=== PATIENT | female | born 1960 | race Caucasian/White ===

== ENCOUNTER 2019-12-28 09:39 | Outpatient (REF) | payer MEDICARE, SELFPAY ==
[2019-12-28 11:37] LABS: Free T4 (Free Thyroxine) 0.95 ng/dL (0.71-1.85); Thyroid Stimulating Hormone 23.02 mIU/mL (0.32-4.0)
[2019-12-29 09:05] LABS: Triiodothyronine T3 Total 86 ng/dL (76-181)
== END 2019-12-28 09:40 | disposition home or self-care (01) ==
LOC: HO.WFDLDS 09:39
PROVIDERS: PCP Family Medicine; Visit Provider Family Medicine
DX: E03.9 Hypothyroidism, unspecified (principal)
CPT/HCPCS: 84439; 84443; 84480

== ENCOUNTER → 2020-01-01 11:16 | Outpatient (BNVA) | payer MEDICARE, SELFPAY | PROVIDERS: PCP Family Medicine; Visit Provider Family Medicine Adult Medicine | DX: M54.16 Radiculopathy, lumbar region (principal); Z98.1 Arthrodesis status; Z87.891 Personal history of nicotine dependence; Z79.899 Other long term (current) drug therapy | CPT/HCPCS: 99214 ==

== ENCOUNTER → 2020-01-31 09:03 | Outpatient (BNVA) | payer MEDICARE, SELFPAY | PROVIDERS: PCP Family Medicine; Referring Provider Family Medicine; Visit Provider Internal Medicine | DX: E03.9 Hypothyroidism, unspecified (principal); R51.9 Headache, unspecified; Z79.899 Other long term (current) drug therapy | CPT/HCPCS: 99202; Q3014 ==

== ENCOUNTER 2020-02-18 07:58 | Outpatient (REF) | payer MEDICARE, SELFPAY ==
[2020-02-18 09:40] LABS: Anion Gap 14 (12-20); Blood Urea Nitrogen 11 mg/dL (9-16); Calcium 9.2 mg/dL (8.4-10.2); Carbon Dioxide 30 mmol/L (22-29); Chloride 98 mmol/L (96-108); Estimated Glomerular Filt Rate > 60; Glucose Random 90 mg/dL (60-115); Sodium 138 mmol/L (135-145)
[2020-02-18 09:44] LABS: Anion Gap 14 (12-20); Blood Urea Nitrogen 11 mg/dL (9-16); Calcium 9.1 mg/dL (8.4-10.2); Carbon Dioxide 31 mmol/L (22-29); Chloride 98 mmol/L (96-108); Estimated Glomerular Filt Rate > 60; Glucose Random 91 mg/dL (60-115); Potassium 4.1 mmol/l (3.3-5.1); Sodium 139 mmol/L (135-145)
[2020-02-18 09:52] LABS: B Type Natriuretic Peptide 19 pg/mL (<100)
[2020-02-18 10:04] LABS: Free T4 (Free Thyroxine) 1.15 ng/dL (0.71-1.85); Thyroid Stimulating Hormone 13.33 uIU/mL (0.32-4.0)
[2020-02-19 08:12] LABS: Triiodothyronine T3 Total 84 ng/dL (76-181)
[2020-02-19 18:43] LABS: Thyroglobulin Antibodies <1 IU/mL (< or = 1); Thyroid Peroxidase Antibodies 243 IU/mL (<9)
[2020-02-20 14:08] LABS: Follicle Stimulating Hormone 93.7 mIU/mL; Lutenizing Hormone 24.7 mIU/mL; Prolactin Undiluted 12.1 ng/mL
[2020-02-20 22:43] LABS: Adrenocorticotropic Hormone 19 pg/mL (6-50)
[2020-02-21 15:17] LABS: Thyroid Stimulating Immunoglob <89 % baseline (<140)
[2020-02-21 20:52] LABS: IGF-1 (Somatomedin C) 189 ng/mL (50-317); IGF-1 Z Score (Female) 0.8 SD (-2.0 - +2.0)
[2020-02-22 00:02] LABS: Estradiol Ultra Sensitive <2 pg/mL
[2020-02-22 15:13] LABS: Thyrotropin Receptor Antibody <1.00 IU/L (<=2.00)
== END 2020-02-18 07:59 | disposition home or self-care (01) ==
LOC: HO.WFDLDS 07:58
PROVIDERS: Nurse Practitioner Acute Care; Visit Provider Internal Medicine
DX: E03.9 Hypothyroidism, unspecified (principal); R51.9 Headache, unspecified; R60.9 Edema, unspecified
CPT/HCPCS: 36415; 76536; 80048; 82024; 82533; 82670; 83001; 83002; 83520; 83735; 83880; 84146; 84305; 84439; 84443; 84445; 84480; 86376; 86800

== ENCOUNTER 2020-02-18 14:25 | Outpatient (REF) | payer MEDICARE, SELFPAY ==
--- NOTE | 2020-02-18 14:29 | US_ITS ---
EXAMINATION: US THYROID CLINICAL INFORMATION: Hypothyroidism, unspecified. COMPARISON: None TECHNIQUE: Linear transducer ross-scale and color Doppler examination with attention to the region of the thyroid. FINDINGS: SIZE: Measurements of the thyroid lobes and nodules are given in sagittal, anteroposterior and transverse dimensions respectively. Right Thyroid Lobe: 5.52 x 1.38 x 1.54 cm, volume 6.15 mL. Parenchyma: The gland echotexture is heterogeneous. Thyroid vascularity is normal. Left Thyroid Lobe: 3.90 x 1.43 x 1.30 cm, volume 3.80 mL. Parenchyma: The gland echotexture is homogeneous. Thyroid vascularity is normal. Isthmus: 0.15 cm in maximum AP dimension. RIGHT THYROID LOBE: No nodules. ISTHMUS: No nodules. LEFT THYROID LOBE: No nodules. NODES: No lymphadenopathy is seen in the tissue surrounding the thyroid gland. US/US thyroid IMPRESSION: Slightly enlarged and heterogenous right thyroid lobe compared to left lobe. No nodules seen.
== END 2020-02-18 14:26 | disposition home or self-care (01) ==
LOC: HO.HMGCX 14:25
PROVIDERS: Visit Provider Internal Medicine
DX: Z13.89 Encounter for screening for other disorder (principal)
CPT/HCPCS: 76536

== ENCOUNTER → 2020-02-25 13:34 | Outpatient (BNVA) | payer MEDICARE, SELFPAY | PROVIDERS: PCP Family Medicine; Visit Provider Internal Medicine Pulmonary Disease | DX: J44.9 Chronic obstructive pulmonary disease, unspecified (principal); R09.02 Hypoxemia; Z99.81 Dependence on supplemental oxygen | CPT/HCPCS: 99212 ==

== ENCOUNTER → 2020-02-26 11:18 | Outpatient (BNVA) | payer MEDICARE, SELFPAY | PROVIDERS: Visit Provider Family Medicine Adult Medicine | DX: M54.16 Radiculopathy, lumbar region (principal); Z98.1 Arthrodesis status | CPT/HCPCS: 99212 ==

== ENCOUNTER → 2020-02-27 08:27 | Outpatient (BNVA) | payer MEDICARE, SELFPAY | PROVIDERS: PCP Family Medicine; Referring Provider Family Medicine; Visit Provider Internal Medicine | DX: E03.9 Hypothyroidism, unspecified (principal); E06.3 Autoimmune thyroiditis; E27.40 Unspecified adrenocortical insufficiency | CPT/HCPCS: 96374; Q3014 ==

== ENCOUNTER 2020-03-11 08:02 | Outpatient (REF) | payer MEDICARE, SELFPAY ==
[2020-03-12 18:37] LABS: Cortisol 30 Minute 31.5 mcg/dL; Cortisol 60 Minute 33.3 mcg/dL; Cortisol Baseline 18.6 mcg/dL
[2020-03-13 21:53] LABS: Adrenocorticotropic Hormone 25 pg/mL (6-50)
== END 2020-03-11 08:03 | disposition home or self-care (01) ==
LOC: HO.MDS 08:02
PROVIDERS: Visit Provider Internal Medicine
DX: E27.40 Unspecified adrenocortical insufficiency (principal)
CPT/HCPCS: 82024; 82533; 96374; J0834

== ENCOUNTER → 2020-04-21 07:41 | Outpatient (BNVA) | payer MEDICARE, SELFPAY | PROVIDERS: PCP Family Medicine; Visit Provider Internal Medicine | DX: Z13.89 Encounter for screening for other disorder (principal) | CPT/HCPCS: Q3014 ==

== ENCOUNTER → 2020-04-29 11:20 | Outpatient (BNVA) | payer MEDICARE, SELFPAY | PROVIDERS: PCP Family Medicine; Visit Provider Internal Medicine Pulmonary Disease | DX: Z13.89 Encounter for screening for other disorder (principal) | CPT/HCPCS: Q3014 ==

== ENCOUNTER 2020-05-05 10:49 | Outpatient (REF) | payer MEDICARE, SELFPAY ==
[2020-05-05 14:32] LABS: Free T4 (Free Thyroxine) 1.36 ng/dL (0.71-1.85); Thyroid Stimulating Hormone 1.49 uIU/mL (0.32-4.0)
== END 2020-05-05 10:50 | disposition home or self-care (01) ==
LOC: HO.WFDLDS 10:49
PROVIDERS: PCP Internal Medicine; Visit Provider Internal Medicine
DX: E03.9 Hypothyroidism, unspecified (principal)
CPT/HCPCS: 36415; 84439; 84443

== ENCOUNTER → 2020-05-20 10:51 | Outpatient (BNVA) | payer OTHER, MEDICARE, SELFPAY | PROVIDERS: Visit Provider Family Medicine Adult Medicine | DX: M54.16 Radiculopathy, lumbar region (principal); M54.12 Radiculopathy, cervical region; Z98.1 Arthrodesis status; Z79.899 Other long term (current) drug therapy | CPT/HCPCS: 99212 ==

== ENCOUNTER 2020-05-29 11:04 | Outpatient (REF) | payer MEDICARE, SELFPAY ==
[2020-05-29 15:10] LABS: Free T4 (Free Thyroxine) 1.06 ng/dL (0.71-1.85); Thyroid Stimulating Hormone 2.08 uIU/mL (0.32-4.0)
== END 2020-05-29 11:05 | disposition home or self-care (01) ==
LOC: HO.WFDLDS 11:04
PROVIDERS: Visit Provider Internal Medicine
DX: E03.9 Hypothyroidism, unspecified (principal)
CPT/HCPCS: 36415; 84439; 84443

== ENCOUNTER → 2020-06-02 07:49 | Outpatient (BNVA) | payer MEDICARE, SELFPAY | PROVIDERS: PCP Family Medicine; Visit Provider Internal Medicine | DX: Z13.89 Encounter for screening for other disorder (principal) | CPT/HCPCS: Q3014 ==

== ENCOUNTER 2020-06-17 10:01 | Outpatient (REF) | payer MEDICARE, SELFPAY | END 2020-06-17 10:02 | disposition home or self-care (01) | LOC: HO.WFDLDS 10:01 | PROVIDERS: Visit Provider Family Medicine | DX: R19.7 Diarrhea, unspecified (principal) | CPT/HCPCS: 87045; 87046 ==

== ENCOUNTER → 2020-06-19 14:05 | Outpatient (BNVA) | payer OTHER, MEDICARE, SELFPAY | PROVIDERS: PCP Family Medicine; Visit Provider Family Medicine Adult Medicine | DX: M54.16 Radiculopathy, lumbar region (principal); Z98.1 Arthrodesis status; M54.12 Radiculopathy, cervical region | CPT/HCPCS: 99212 ==

== ENCOUNTER 2020-06-20 11:14 | Outpatient (REF) | payer MEDICARE, SELFPAY ==
--- NOTE | ~2020-06-20 | CT_ITS ---
EXAMINATION: CT CHEST SCREENING CLINICAL INFORMATION: Personal history of nicotine dependence. COMPARISON: None. TECHNIQUE: Multidetector volumetric CT imaging of the chest is performed without contrast using low dose technique. Additional 2D coronal and sagittal reformatted images and axial 3D maximum intensity projection (MIP) images are generated on the CT workstation. This CT examination was performed using dose optimization techniques as appropriate, variously including the following: *Automated exposure control *Adjustment of mA and/or kV according to patient size (this includes techniques or standardized protocols for targeted exams where dose is matched to indication/reason for exam; i.e. extremities or head) *Use of iterative reconstruction technique DLP: 45 mGy-cm FINDINGS: LUNGS: There is centrilobular emphysema. No acute pneumonic process seen. There are calcified 2 mm pulmonary nodules left upper lobe axial image 105/6, 1 mm nodule right middle lobe axial image 40/4, 2 mm nodule right lower lobe axial image 351/6, and 2 mm nodule left lower lobe image 409/8. A subpleural nodule is seen left lower lobe lateral basal segment image 123/9. 4 mm noncalcified nodule right medial lower lobe pericardiac border axial image 315/6. MEDIASTINUM: The thyroid lobes are symmetric and normal. The central trachea and the bronchi are widely patent. PLEURA: There is no pleural effusion. No pleural mass or thickening. AXILLA: No lymphadenopathy. UPPER ABDOMEN: Visualized liver, gallbladder, pancreas, and adrenal glands are unremarkable. There are tiny calcified granulomas in spleen. OSSEOUS STRUCTURES: No lytic or sclerotic process seen. CT/CT lung screening IMPRESSION: Stable multiple calcified and noncalcified pulmonary nodules. No new findings. ASSESSMENT: Lung-RADS category 2: Benign. RECOMMENDATION: Routine annual low-dose CT screening in 12 months.
== END 2020-06-20 11:15 | disposition home or self-care (01) ==
LOC: HO.CT 11:14
PROVIDERS: PCP Family Medicine; Visit Provider Surgery
DX: Z12.2 Encounter for screening for malignant neoplasm of respiratory organs (principal); Z87.891 Personal history of nicotine dependence
CPT/HCPCS: 71271

== ENCOUNTER 2020-06-27 11:00 | Outpatient (RCR) | payer MEDICARE, SELFPAY ==
--- NOTE | 2020-06-17 15:35 | MHC.PT.EP ---
[facility] [place] [facility] [place] Office [place] Office [address] Efrain Jolly [address] [phone] F: [phone] F: [phone] F: [phone] F: [phone] Physical Therapy Plan of Care Date of Evaluation: 06/17/20 Date of Surgery: NA Diagnosis: STRAIN OF L TRAPEZIUS MM, STRAIN OF CERVICAL PORTION OF L UPPER TRAPEZIUS MM Assessment: Pt IS 60 YO F REFERRED TO PT FROM DR JO WITH UT STRAIN ON L. Pt REPORTS INITIAL PAIN R SHLDER/UT OVER A YEAR AGO WHEN HAVING SOME MEDICAL ISSUES IN FLA (?SEIZURES/?LOW O2 LEVEL) BUT HAD 3 FALLS WHICH SHE ATTRIBUTES LED TO NECK SHLDER PAIN. REPORTS PAIN STARTED/MOVED TO L SIDE AFTER N COND ROBERT TEST. PRESENTS WITH POOR POSTURE. CO B UT AND UE PAIN (DOES NOTE REPORT PARESTHESIA) WITH LIMITED END RANGE SHLDER ABDUCTION AND LIMITED CERV ROM WITH SIGNIFICANTLY TIGHT UTS. Pt SHOULD BENEFIT FROM PT TO ADDRESS THESE ISSUES. Frequency and Duration: The patient will be seen 2X/WK X 6 WKS Short Term Goals: 1. INCREASED POSTURE AWARENESS AND AWARENESS NECK CARE 2. I HEP WITH EX PLAN 3. CENTRALIZE SXS Longterm Goals: 1. IMPROVED SPADI 2. IMPROVED NPDI 3. INCREASED SHLDER ABD 5-10 DEGREES B 4. DECREASED NECK/SHLDER PAIN AT LEAST 50% WITH ADLS Treatment Plan: Modalities to reduce pain, spasms and effusion. Manual therapy to restore motion and function. Therapeutic exercise to improve strength and flexibility. Neuromuscular re-education for posture and balance. Therapeutic activities to return to functional activities of daily living. Electronically signed by: YASMIN ESTRADA PT Please sign and return to therapist. Thank you for your referral.
== END 2020-07-14 12:09 | disposition other institution (70) ==
LOC: HO.PTWFD 11:00
PROVIDERS: Visit Provider Family Medicine
DX: S46.812A Strain of other muscles, fascia and tendons at shoulder and upper arm level, left arm, initial encounter (principal)
CPT/HCPCS: 97014; 97110; 97140; 97162; 97530

== ENCOUNTER → 2020-07-21 09:49 | Outpatient (BNVA) | payer MEDICARE, SELFPAY | PROVIDERS: PCP Family Medicine; Visit Provider Internal Medicine Pulmonary Disease | DX: J44.9 Chronic obstructive pulmonary disease, unspecified (principal); Z99.81 Dependence on supplemental oxygen | CPT/HCPCS: 99212 ==

== ENCOUNTER → 2020-07-24 14:51 | Outpatient (BNVA) | payer OTHER, MEDICARE, SELFPAY | PROVIDERS: PCP Family Medicine; Visit Provider Anesthesiology | DX: M50.30 Other cervical disc degeneration, unspecified cervical region (principal); M47.812 Spondylosis without myelopathy or radiculopathy, cervical region; G89.4 Chronic pain syndrome | CPT/HCPCS: 99212 ==

== ENCOUNTER 2020-07-30 10:57 | Outpatient (REF) | payer MEDICARE, OTHER, SELFPAY ==
--- NOTE | ~2020-07-30 | MR_ITS ---
EXAMINATION: MR CERVICAL SPINE WITHOUT CONTRAST CLINICAL INFORMATION: Chronic neck pain. COMPARISON: Cervical spine MRI from 11/26/2006. TECHNIQUE: MRI of the cervical spine was obtained using routine sequences without contrast. FINDINGS: Left convex curvature of the upper thoracic spine. Otherwise, normal anatomic alignment. Moderate degenerative disc disease at C4-C5 and C6-C7. Mild degenerative disc disease at all additional cervical levels. Associated mixed Modic type discogenic endplate changes including mild Modic type I discogenic edema at C4-C5. No additional suspicious marrow edema. The vertebral body heights are largely maintained. There appears to be faintly increased T2 signal within the spinal cord at the level of C4-C5. No additional no demonstrated spinal cord signal abnormalities. Limited evaluation of the soft tissues of the neck without demonstrated abnormalities. The flow voids of the major cervical vessels are maintained. Normal appearance of the cervicomedullary junction and visualized posterior fossa. SPINAL LEVELS: C2-C3: Mild disc-osteophyte complex. There is mild left and no right uncovertebral joint arthropathy. There is mild bilateral facet joint arthropathy. There is no neural foraminal stenosis. There is no spinal canal stenosis. C3-C4: Mild disc-osteophyte complex. There is mild bilateral uncovertebral joint arthropathy. There is moderate left and mild right facet joint arthropathy. There is mild left and no right neural foraminal stenosis. There is no spinal canal stenosis. C4-C5: Prominent disc-osteophyte complex eccentric to the right. There is severe right and moderate left uncovertebral joint arthropathy. There is moderate left and mild right facet joint arthropathy. There is moderate bilateral neural foraminal stenosis. There is mild to moderate spinal canal stenosis. C5-C6: Mild disc-osteophyte complex with superimposed right central disc protrusion. There is mild bilateral uncovertebral joint arthropathy. There is mild bilateral facet joint arthropathy. There is mild right and no left neural foraminal stenosis. There is mild spinal canal stenosis. C6-C7: Mild to moderate disc-osteophyte complex. There is mild bilateral uncovertebral joint arthropathy. There is mild bilateral facet joint arthropathy. There is mild left and no right neural foraminal stenosis. There is no spinal canal stenosis. C7-T1: Normal annular contour. There is no uncovertebral joint arthropathy. There is no facet joint arthropathy. There is no neural foraminal stenosis. There is no spinal canal stenosis. MR/MR cervical spine wo con IMPRESSION: Moderate multilevel degenerative spondyloarthropathy of the cervical spine as described in detail above. Most notably, there are mild to moderate spinal canal stenoses at C4-C5 and C5-C6. Right central disc protrusion at C5-C6. There appears to be mild myelomalacia of the cervical cord at C4-C5. Moderate neural foraminal stenoses at C4-C5.
== END 2020-07-30 10:58 | disposition home or self-care (01) ==
LOC: HO.MRI 10:57
PROVIDERS: Visit Provider Anesthesiology
DX: M54.12 Radiculopathy, cervical region (principal); M50.30 Other cervical disc degeneration, unspecified cervical region; M47.812 Spondylosis without myelopathy or radiculopathy, cervical region; G89.4 Chronic pain syndrome
CPT/HCPCS: 72141

== ENCOUNTER → 2020-07-31 10:57 | Outpatient (BNVA) | payer OTHER, MEDICARE, SELFPAY | PROVIDERS: PCP Family Medicine; Visit Provider Family Medicine Adult Medicine | DX: M54.16 Radiculopathy, lumbar region (principal); Z98.1 Arthrodesis status; M54.12 Radiculopathy, cervical region ==

== ENCOUNTER → 2020-08-13 08:13 | Outpatient (BNVA) | payer OTHER, MEDICARE, SELFPAY | PROVIDERS: PCP Family Medicine; Visit Provider Anesthesiology ==

== ENCOUNTER 2020-08-14 10:17 | Outpatient (REF) | payer MEDICARE, SELFPAY ==
[2020-08-14 12:09] LABS: Free T4 (Free Thyroxine) 1.17 ng/dL (0.71-1.85); Thyroid Stimulating Hormone 0.81 uIU/mL (0.32-4.0)
== END 2020-08-14 10:18 | disposition home or self-care (01) ==
LOC: HO.WFDLDS 10:17
PROVIDERS: Visit Provider Internal Medicine
DX: E03.9 Hypothyroidism, unspecified (principal)
CPT/HCPCS: 36415; 84439; 84443

== ENCOUNTER → 2020-08-29 10:49 | Outpatient (BNVA) | payer OTHER, MEDICARE, SELFPAY | PROVIDERS: PCP Family Medicine; Visit Provider Nurse Practitioner Family | DX: M50.30 Other cervical disc degeneration, unspecified cervical region (principal); M47.812 Spondylosis without myelopathy or radiculopathy, cervical region; G89.4 Chronic pain syndrome; Z79.899 Other long term (current) drug therapy | CPT/HCPCS: 99212 ==

== ENCOUNTER → 2020-09-08 13:43 | Outpatient (BNVA) | payer MEDICARE, SELFPAY | PROVIDERS: PCP Family Medicine; Visit Provider Obstetrics & Gynecology | DX: N95.1 Menopausal and female climacteric states (principal) | CPT/HCPCS: 99202 ==

== ENCOUNTER → 2020-09-23 10:27 | Outpatient (BNVA) | payer MEDICARE, SELFPAY | PROVIDERS: PCP Family Medicine; Visit Provider Obstetrics & Gynecology | CPT/HCPCS: Q3014 ==

== ENCOUNTER → 2020-09-25 10:44 | Outpatient (BNVA) | payer OTHER, MEDICARE, SELFPAY | PROVIDERS: PCP Family Medicine; Visit Provider Family Medicine Adult Medicine | DX: M54.16 Radiculopathy, lumbar region (principal); M54.12 Radiculopathy, cervical region; Z98.1 Arthrodesis status | CPT/HCPCS: 99212 ==

== ENCOUNTER 2020-09-30 05:46 | Outpatient (REF) | payer MEDICARE, SELFPAY ==
--- NOTE | ~2020-09-30 | FL_ITS ---
EXAMINATION: XR FLUOROSCOPY WITH IMAGES CLINICAL INFORMATION: Neck pain COMPARISON: None TECHNIQUE: Fluoroscopy performed by Kecia Ames Fluoroscopy time: 0.5 minutes DAP: 0.441 Gycm2 Images: 1) FINDINGS: None is a single lateral image of cervical spine. Needle position posterior to C6 vertebra with contrast opacifying the epidural space. Visualized vertebral heights and alignment is normal. FL/FL guidance in treatment room IMPRESSION: Posterior epidural contrast seen on the lateral view. Fluoroscopy was provided to Kecia Ames during the procedure.
== END 2020-09-30 05:47 | disposition home or self-care (01) ==
LOC: HO.RADIR 05:46
PROVIDERS: Visit Provider Anesthesiology
DX: M50.30 Other cervical disc degeneration, unspecified cervical region (principal); M47.812 Spondylosis without myelopathy or radiculopathy, cervical region; G89.4 Chronic pain syndrome
CPT/HCPCS: 62321; J1100; J3300; Q9967

== ENCOUNTER → 2020-10-23 10:16 | Outpatient (BNVA) | payer OTHER, MEDICARE, SELFPAY | PROVIDERS: PCP Family Medicine; Visit Provider Family Medicine Adult Medicine | DX: M54.12 Radiculopathy, cervical region (principal); M54.16 Radiculopathy, lumbar region; Z98.1 Arthrodesis status | CPT/HCPCS: 99212 ==

== ENCOUNTER → 2020-10-28 10:19 | Outpatient (BNVA) | payer MEDICARE, SELFPAY | PROVIDERS: PCP Family Medicine; Visit Provider Internal Medicine Pulmonary Disease | DX: J44.9 Chronic obstructive pulmonary disease, unspecified (principal); Z99.81 Dependence on supplemental oxygen | CPT/HCPCS: 99212 ==

== ENCOUNTER → 2020-11-05 10:42 | Outpatient (BNVA) | payer MEDICARE, SELFPAY | PROVIDERS: PCP Family Medicine; Visit Provider Anesthesiology | DX: M50.30 Other cervical disc degeneration, unspecified cervical region (principal); M47.812 Spondylosis without myelopathy or radiculopathy, cervical region; G89.4 Chronic pain syndrome | CPT/HCPCS: 99212 ==

== ENCOUNTER 2020-11-20 11:46 | Outpatient (REF) | payer MEDICARE, SELFPAY ==
--- NOTE | ~2020-11-20 | MM_ITS ---
EXAMINATION: MM SCREENING DIGITAL BREAST TOMOSYNTHESIS, BILATERAL CLINICAL INFORMATION: Screening. Asymptomatic. The lifetime risk of breast cancer based on the Tyrer-Cuzick Model is 4%. COMPARISON: Mammography: 11/15/2019, 11/09/2018, 10/04/2017 TECHNIQUE: Digital breast tomosynthesis is performed in both the craniocaudal and mediolateral oblique views along with computer-aided detection (CAD). Synthesized 2D images are generated from the tomosynthesis. FINDINGS: There are scattered areas of fibroglandular density (ACR BI-RADS breast composition Category b). There are no significant masses, abnormal calcifications, or other abnormalities. Parenchymal pattern is similar to prior studies. The axilla and skin contours are unremarkable. MM/MM tomosynthesis screening BI IMPRESSION: No mammographic evidence of malignancy. ASSESSMENT: BI-RADS 1: Negative RECOMMENDATION: Routine annual mammography screening. This patient's information was entered into a reminder system with a target due date for their next mammogram.
== END 2020-11-20 11:47 | disposition home or self-care (01) ==
LOC: HO.MAMMO 11:46
PROVIDERS: PCP Family Medicine; Visit Provider Family Medicine
DX: Z12.31 Encounter for screening mammogram for malignant neoplasm of breast (principal)
CPT/HCPCS: 77063; 77067

== ENCOUNTER → 2020-11-25 10:14 | Outpatient (BNVA) | payer MEDICARE, SELFPAY | PROVIDERS: PCP Family Medicine; Visit Provider Nurse Practitioner Family | DX: Z51.81 Encounter for therapeutic drug level monitoring (principal); M50.30 Other cervical disc degeneration, unspecified cervical region; M47.812 Spondylosis without myelopathy or radiculopathy, cervical region; M54.2 Cervicalgia; G89.4 Chronic pain syndrome | CPT/HCPCS: 99212 ==

== ENCOUNTER → 2020-12-23 10:20 | Outpatient (BNVA) | payer OTHER, MEDICARE, SELFPAY | PROVIDERS: PCP Family Medicine; Visit Provider Family Medicine Adult Medicine ==

== ENCOUNTER 2020-12-30 06:15 | Outpatient (REF) | payer OTHER, MEDICARE, SELFPAY | END 2020-12-30 06:16 | disposition home or self-care (01) | LOC: HO.RADIR 06:15 | PROVIDERS: Visit Provider Anesthesiology | DX: Z13.89 Encounter for screening for other disorder (principal) ==

== ENCOUNTER → 2021-02-19 10:48 | Outpatient (BNVA) | payer MEDICARE, SELFPAY | PROVIDERS: PCP Family Medicine; Visit Provider Family Medicine Adult Medicine | DX: Z51.81 Encounter for therapeutic drug level monitoring (principal); M47.812 Spondylosis without myelopathy or radiculopathy, cervical region; M50.30 Other cervical disc degeneration, unspecified cervical region; M54.2 Cervicalgia; G89.4 Chronic pain syndrome | CPT/HCPCS: 99212 ==

== ENCOUNTER → 2021-03-04 10:38 | Outpatient (BNVA) | payer MEDICARE, SELFPAY | PROVIDERS: PCP Family Medicine; Visit Provider Internal Medicine Pulmonary Disease | DX: J44.9 Chronic obstructive pulmonary disease, unspecified (principal); Z99.81 Dependence on supplemental oxygen | CPT/HCPCS: 99212 ==

== ENCOUNTER → 2021-03-26 09:50 | Outpatient (BNVA) | payer MEDICARE, SELFPAY | PROVIDERS: PCP Family Medicine; Visit Provider Anesthesiology | DX: M50.30 Other cervical disc degeneration, unspecified cervical region (principal); M47.812 Spondylosis without myelopathy or radiculopathy, cervical region; G89.4 Chronic pain syndrome | CPT/HCPCS: 99212 ==

== ENCOUNTER 2021-04-30 18:01 | Outpatient (REF) | payer MEDICARE, SELFPAY | END 2021-04-30 18:02 | disposition home or self-care (01) | LOC: HO.LNP 18:01 | PROVIDERS: Visit Provider Family Medicine | DX: R30.0 Dysuria (principal) | CPT/HCPCS: 87086 ==

== ENCOUNTER → 2021-05-05 10:51 | Outpatient (BNVA) | payer MEDICARE, SELFPAY | PROVIDERS: PCP Family Medicine; Visit Provider Internal Medicine Pulmonary Disease | DX: J44.9 Chronic obstructive pulmonary disease, unspecified (principal); Z99.81 Dependence on supplemental oxygen; Z87.891 Personal history of nicotine dependence | CPT/HCPCS: 94618; 99212 ==

== ENCOUNTER 2021-05-28 12:07 | Day surgery (SDC) | payer MEDICARE, SELFPAY ==
[2021-05-22 13:54] VITALS: BMI 26.0
--- NOTE | ~2021-05-28 | FL_ITS ---
EXAMINATION: XR FLUOROSCOPY WITH IMAGES CLINICAL INFORMATION: Cervical spinal cord stimulator COMPARISON: MR C-spine 07/30/2020, fluoroscopic views 09/30/2020. TECHNIQUE: Fluoroscopy performed by Dr. Ronnie De Guzman. Fluoroscopy time: 9.3 minutes DAP: 19.1 Gycm2 Images: 6 FINDINGS: There are 2 spinal stimulator electrodes seen ascending the posterior cervical spinal canal. The electrode tips are at level of C2. There is no visible kinking or defect of the leads. FL/FL guidance in OR IMPRESSION: Fluoroscopy for pain management procedure.
--- NOTE | 2021-05-28 11:20 | MHC.SHP ---
Pre-Procedural Eval Section A Date of Service: 05/28/21 The patient is an INPATIENT: No Changes since office visit: Yes Patient answered all questions The History & Physical has been completed within 30 days and I have reviewed it.: No Section B Chief Complaint: Post Laminectomy Syndrome, Cervical Details of Present Illness: As above Relevant Social History: None Present Medications: see Short Stay Collaborative assessment Medical History: No relevant PMH History of Previous Operations: Relevant previous surgery/procedure and date(s) Allergies: Allergies Allergy/AdvReac Type Severity Reaction Status Date / Time No Known Allergies Allergy Verified 05/05/21 11:33 Review of Systems Sugical H&P ROS: Negative: Constitution, Cardiovascular, Respiratory, Neurological, Psychiatric, Hem-Onc, Allergic/Immunologic, Gastrointestinal, Genitourinary, Musculoskeletal, Integumentary, Endocrine and Eyes/Ears/Nose/Throat Exam Surgical H&P Exam: Normal: HEENT, Normal: Heart, Normal: Lungs, Normal: Extremities, Normal: Abdomen, Normal: Skin and Normal: Neurological Plan Diagnosis/Plan: Unchanged I have reviewed the history and physical and performed a pertinent physical examination on my patient. No changes have occurred unless specified.
--- NOTE | 2021-05-28 11:21 | W.PM.OPN ---
Operative Note Operative Note Date of Service: 05/28/21 Narrative: Trial OF SCS. ? Ms. Stanley is very pleasant?61 years old lady who came today into the operating room for trial of spinal cord stimulator for the treatment of cervical post laminectomy syndrome. Preoperatively patient received 1 g cephasolin approximately 20 minutes before procedure. After obtaining informed consent patient was brought to the operating room, SHE was positioned prone on operating table, [employer] monitors were applied and patient was deeply sedated.? The patient was taken inside of the operating room where she was positioned prone operating table.? Time-out was performed delineating correct site, side, the nature of the procedure, patient's allergy, preoperative antibiotic if needed.? All operating room staff was participating in OR time-out procedure. Patient's entire back was prepped with ChloraPrep twice and draped with full body fenestrated drape.? Sterilely draped C-arm was brought over operating field and sqare picture of T6 T7 and T8 vertebrae as were demonstrated on the screen.? Attention FIRST? was concentrated on the T6-T7 epidural interspace.? The location of the projection of the right pedicle center of the __T8_ vertebra was found on the skin using C-arm.? This location was injected with mixture of lidocaine 2% and Marcaine 0.5% 5 cc.? After that 11 blade was used to make a singh on the skin.? 10 cm 14 gauge curved introducer epidural needle was inserted through the singh and advanced to T6-T7 epidural interspace.? The advancement of the needle was performed on anterior posterior and lateral views.? Guitar wire and loss of resistance technique were used to locate epidural space.? When guitar wire was spread in the epidural fashion, epidural lead was inserted through the skin and it was advanced to the posterion epidural space. At the point of T4 -T5 posterior epidural space significant resistance for advancement of the lead was met. The introducer needle was removed under the fluoroscopy guidance and replaced with blue sheath introducer device. This allowed me to overcome the resistance and advance the epidural lead slight ly right to the midline approximately to the bottom of C2 vertebra in the posterior epidural space. , SLIGHTLY RIGHT OF THE MIDLINE.? After that location of the projection of the LEFT pedicle center of the T8 vertebra was found on the skin using C-arm.? This location was injected with mixture of lidocaine 2% and Marcaine 0.5% 5 cc.? After that 11 blade was used to make a singh on the skin.?10 cm 14 gauge curved introducer epidural needle was inserted through the singh and advanced toT6-B4geexftss interspace.? The advancement of the needle was performed on anterior posterior and lateral views.? Guitar wire and loss of resistance technique were used to locate epidural space.? When guitar wire was spread in the epidural fashion, epidural lead was inserted through the needle and advanced to the posterior epidural space. Again difficulty with advancement was met at the T5 posterior epidural space.The introducer needle was removed under the fluoroscopy guidance and replaced with blue sheath introducer device. This allowed me to overcome the resistance and advance the epidural lead slightly left to the midline approximately to the midbody of C2 vertebra in the posterior epidural space SLIGHTLY left OF THE MIDLINE.? At this moment patient was awaken and the epidural leads were connected to the testing device.? The patient reported stimulation corresponding to her pain.? After satisfactory position of the leads were established the needles were withdrawn, the stylette wires were removed from the epidural leads.? The anchoring devices were dislodged on the leads and advanced to the level of the skin.? The anchoring devices were sutured with two 0-0 silk sutures to the skin of the patient.? The anchoring screws were tightened until three click were heard. The leads were connected to testing device. Bacitracin ointment was applied to the entrance point of bilateral needles.? Sterile dressing was applied to the patient's back.? The testing device was also glued to the patient's back.? The patient tolerated procedure well ,she was taken to PACU for recovery.
[2021-05-28 13:03] VITALS: BP 111/63; PULSE 73; RESP 18; TEMP 36.6; O2SAT 65
[2021-05-28 13:16] LABS: Free T4 (Free Thyroxine) 1.03 ng/dL (0.71-1.85); Thyroid Stimulating Hormone 6.32 uIU/mL (0.32-4.0)
--- NOTE | 2021-05-28 13:22 | PC.NURSE ---
pt in without o2. 65% when placed on monitor and up to 73% at rest. placed on 3l and up to 97-98%. states hasn't received portable tank yet since being ordered in jacobo's office on 05/06 at her visit. anesthesia aware and came to bedside to inform patient of danger possibilities with surgery. awaiting to speak with dr kelly.
--- NOTE | 2021-05-28 13:32 | PC.NURSE ---
patient states she is supposed to be on home o2. 3lnc when ambulating around and 1l nc when at rest. patient arrived to hospital without her portable oxygen and states shes on a waiting list for a portable oxygen but has home o2. no sob or resp distress noted. upon arrival she was 73 percent on room air hob 90 degrees when sitting up. patient called her daughter to let her know that she will most likely be admitted to the hospital per anesthesia. md campoevrde.
[2021-05-28] MEDS: Lactated Ringers 1,000 ML 50 ML IVCONT (13:43)
--- NOTE | 2021-05-28 13:46 | P.CONAN_ITS ---
HPI - Anesthesia Eval Consult details Narrative: Chronic Pain PMFSH Active Problems Active Problems: All Active Problems (Updated 05/22/21 @ 13:54 by Gloria Dempsey RN) Encounter for screening mammogram for breast cancer (Acute) Screening for colon cancer (Acute) Screening for cervical cancer (Acute) Screening for osteoporosis (Acute) Asthma, mild intermittent, well-controlled (Acute) Headache (Acute) Moderate COPD (chronic obstructive pulmonary disease) (Acute) Supplemental oxygen dependent (Acute) Bilateral lower extremity edema (Acute) Anxiety (Acute) Strain of cervical portion of left trapezius muscle (Acute) Strain of left trapezius muscle (Acute) Diarrhea (Acute) Encounter for annual wellness visit (AWV) in Medicare patient (Acute) History of COVID-19 (Acute) Dysuria (Acute) Median neuropathy (Acute) Chronic pain syndrome (Acute) Cervicalgia (Acute) Spondylosis, cervical (Acute) Degeneration, intervertebral disc, cervical (Acute) Left cervical radiculopathy (Acute) Huma's disease (Acute) Hypothyroidism (Acute) Right lumbar radiculopathy (Acute) History of lumbar fusion (Acute) Past Medical History Medical History Cervicalgia Chronic pain syndrome COVID-19 vaccine series completed Degeneration, intervertebral disc, cervical Huma's disease History of COVID-19 Hypothyroidism Left cervical radiculopathy Median neuropathy Right lumbar radiculopathy Spondylosis, cervical Supplemental oxygen dependent Family History Family History Father No problems noted. Mother Type 2 diabetes mellitus Daughter Hypothyroidism Family history of problems with anesthesia: No Surgical History Surgical History History of back surgery History of biopsy History of bunionectomy History of lumbar fusion History of pubovaginal sling Hx of colonoscopy Hx of cystoscopy Hx of tubal ligation History of Problems with Anesthesia: No Social History Social History Household Members Other:: mother Housing: Other Housing Other:: trailer Are you a primary geriatric personal care aide to a significant other at home: Yes (takes care of mother) Do you presently have visiting nurse or other home services: No Alcohol intake: never Patient Tobacco Use Status: Former Tobacco user Quit Date: 2018 Tobacco use type: Cigarette e-Cigarette/Vaping Use: Never Used Second Hand Smoke Exposure: No Use of substances other than those prescribed or required for medical reasons: No Have you been hit, kicked, punched, or otherwise hurt by someone within the past year? If so, by whom?: No Are you DNR?: No Advance Directives: No Advance Directives Information Provided: Yes Advance Directives on File: No Recently lost weight without trying: No Eating poorly because of decreased appetite: No Nutrition Risks: No Nutritional Risk Poor oral hygiene: No service: No Current occupational status: retired Current occupational exposures/hazards: No Cognitive needs: No Hearing needs: No Vision needs: No Meds Allergies Allergy/AdvReac Type Severity Reaction Status Date / Time No Known Allergies Allergy Verified 05/28/21 13:02 Active Medications: Current Medications Lactated Ringer's (Lr) 1,000 mls @ 50 mls/hr IVCONT .Q20H JACI Last Admin: 05/28/21 13:43 Dose: 50 mls/hr Documented by: Home Medications Medication Instructions Recorded Confirmed Last Taken Type methocarbamol 750 mg tablet 750 mg PO BID PRN 01/01/20 05/22/21 Unknown History duloxetine 30 mg capsule,delayed 30 mg PO BEDTIME 05/22/21 05/22/21 Unknown History release furosemide 40 mg tablet 40 mg PO DAILY PRN 05/22/21 05/22/21 Unknown History umeclidinium 62.5 mcg-vilanterol 1 inh INHALATION DAILY 05/22/21 05/22/21 05/28/21 11:00 History 25 mcg/actuation powdr for inhalation (Anoro Ellipta) Exam Exam Date and Time: May 28, 2021 1346 Height,Weight and Vital Signs: Height 5 ft 3 in Weight 66.678 kg Last Vital Signs Temp 97.8 F 05/28/21 13:03 Pulse 73 05/28/21 13:03 Resp 18 05/28/21 13:03 BP 111/63 05/28/21 13:03 Pulse Ox 65 L 05/28/21 13:03 Pertinent Lab Results Pertinent Lab Results: Laboratory Tests 05/28/21 12:05 TSH 6.32 H Free T4 1.03 Airway Mallampati Class: II TM Dist: >3cm Neck ROM: Full Loose/Missing/Broken Teeth: Yes Heart: rrr+[id number] Lungs: cta b/l Assessment and Plan Assessment Anesthesia Assessment: Anesthesia Plan Discussed Final Anesthetic Review Family History of Problems with Anesthesia: No History of Problems with Anesthesia: No NPO: Yes ASA Class: III Final Preanesthetic Review: No Changes in Pt Med Stat, Meds/Allgs Chart Reviewed, Consent Obtained/Reviewed and Anes Risks/Benef Reviewed Patient Risk: High Procedure Risk: Intermediate Assessment/Block/Sedation in SS: Assess/Block/Sedation-SS Anesthetic Plan Anesthetic Plan: MAC: and Agree w/ Assess. and Plan Disposition: Standard PACU
[2021-05-28 13:48] VITALS: BP 115/55; PULSE 67; RESP 16; O2SAT 95
--- NOTE | 2021-05-28 13:50 | PC.NURSE ---
no s/sx of resp distress. patient states she feels alot better with the oxygen she is on 3l nc hob 90 degrees. aware of her plan of care. patient spoke to her daughter and states that she is going to bring in her oxygen tank from home. she may be admitted after procedure.
[2021-05-28 15:48] VITALS: BP 136/80; PULSE 70; RESP 12; TEMP 36.3; O2SAT 95
--- NOTE | 2021-05-28 15:51 | PM.OP ---
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
[2021-05-28] MEDS: oxyCODONE HCl Immed Release 5 MG TABLET 10 MG PO (15:57)
[2021-05-28 16:03] VITALS: BP 131/82; PULSE 74; RESP 18; O2SAT 94
[2021-05-28 16:18] VITALS: BP 137/79; PULSE 81; RESP 18; TEMP 36.3; O2SAT 95
== END 2021-05-28 17:00 | disposition home or self-care (01) ==
PROVIDERS: Internal Medicine; PCP Family Medicine; Visit Provider Anesthesiology
PROC: (CPT 63650; principal; 2021-05-28 14:10)
DX: M50.30 Other cervical disc degeneration, unspecified cervical region (principal); G89.4 Chronic pain syndrome; M96.1 Postlaminectomy syndrome, not elsewhere classified; M47.812 Spondylosis without myelopathy or radiculopathy, cervical region; M54.12 Radiculopathy, cervical region; G56.13 Other lesions of median nerve, bilateral upper limbs; Z98.1 Arthrodesis status; J44.9 Chronic obstructive pulmonary disease, unspecified; Z99.81 Dependence on supplemental oxygen; E03.9 Hypothyroidism, unspecified; E06.3 Autoimmune thyroiditis; G43.909 Migraine, unspecified, not intractable, without status migrainosus; Z87.891 Personal history of nicotine dependence
CPT/HCPCS: 63650 ×2; 36415; 84439; 84443; C1713; C1778; J0690; J2250

== ENCOUNTER → 2021-06-01 07:50 | Outpatient (BNVA) | payer MEDICARE, SELFPAY | PROVIDERS: PCP Family Medicine; Visit Provider Internal Medicine | DX: E03.9 Hypothyroidism, unspecified (principal); E27.40 Unspecified adrenocortical insufficiency | CPT/HCPCS: Q3014 ==

== ENCOUNTER → 2021-06-03 14:47 | Outpatient (BNVA) | payer MEDICARE, SELFPAY | PROVIDERS: PCP Family Medicine; Visit Provider Anesthesiology | DX: M50.30 Other cervical disc degeneration, unspecified cervical region (principal); M47.812 Spondylosis without myelopathy or radiculopathy, cervical region; M54.2 Cervicalgia; G89.4 Chronic pain syndrome | CPT/HCPCS: 99212 ==

== ENCOUNTER → 2021-06-17 11:18 | Outpatient (BNVA) | payer MEDICARE, SELFPAY | PROVIDERS: PCP Family Medicine; Visit Provider Internal Medicine Pulmonary Disease | DX: J44.9 Chronic obstructive pulmonary disease, unspecified (principal); Z99.81 Dependence on supplemental oxygen; Z87.891 Personal history of nicotine dependence | CPT/HCPCS: 99212 ==

== ENCOUNTER 2021-07-09 09:22 | Day surgery (SDC) | payer MEDICARE, SELFPAY ==
[2021-07-09] VITALS (16 sets, daily range): BP systolic 75–114; BP diastolic 45–73; PULSE 60–96; RESP 9–18; TEMP 36.4–37; O2SAT 92–99; BMI 25.3
--- NOTE | ~2021-07-09 | FL_ITS ---
EXAMINATION: XR FL WITH IMAGES CLINICAL INFORMATION: Spinal stimulator insertion. COMPARISON: None TECHNIQUE: Fluoroscopy performed by Dr. Ronnie De Guzman. Fluoroscopy Time: 9.5 minutes. DAP: 12.1 mGycm2. Images: 2. FINDINGS: There are 2 cervical spine images obtained revealing spinal stimulator implants positioned in posterior epidural space from C2 to C4 vertebra. There is loss of C4-C5 disc height. FL/FL guidance in OR IMPRESSION: Fluoroscopy guidance was provided to referring physician for pain management.
--- NOTE | 2021-07-09 11:11 | HO.ANESPROP2 ---
HPI - Anesthesia Eval Consult details Narrative: 61 F for cervical spinal cord stimulator sue , COPD on supplemental O2. 1-3 litrers at home . Cervical radiculopathy lower back pain with radiation to b/l LE . tingling and numbness neck pain with radiation to both UE with tingling and numbness . PMFSH Active Problems Active Problems: All Active Problems (Updated 06/17/21 @ 11:34 by Macho Bynum MD) COPD (chronic obstructive pulmonary disease) (Acute) Encounter for screening mammogram for breast cancer (Acute) Screening for colon cancer (Acute) Screening for cervical cancer (Acute) Screening for osteoporosis (Acute) Asthma, mild intermittent, well-controlled (Acute) Headache (Acute) Supplemental oxygen dependent (Acute) Bilateral lower extremity edema (Acute) Anxiety (Acute) Strain of cervical portion of left trapezius muscle (Acute) Strain of left trapezius muscle (Acute) Diarrhea (Acute) Encounter for annual wellness visit (AWV) in Medicare patient (Acute) History of COVID-19 (Acute) Dysuria (Acute) Median neuropathy (Acute) Chronic pain syndrome (Acute) Cervicalgia (Acute) Spondylosis, cervical (Acute) Degeneration, intervertebral disc, cervical (Acute) Left cervical radiculopathy (Acute) Huma's disease (Acute) Hypothyroidism (Acute) Right lumbar radiculopathy (Acute) History of lumbar fusion (Acute) Past Medical History Medical History (Updated 06/17/21 @ 11:34 by Macho Bynum MD) Cervicalgia Chronic pain syndrome COVID-19 vaccine series completed Degeneration, intervertebral disc, cervical Huma's disease History of COVID-19 Hypothyroidism Left cervical radiculopathy Median neuropathy Right lumbar radiculopathy Spondylosis, cervical Supplemental oxygen dependent Family History Family History Father No problems noted. Mother Type 2 diabetes mellitus Daughter Hypothyroidism Family history of problems with anesthesia: No Surgical History Surgical History History of back surgery History of biopsy History of bunionectomy History of lumbar fusion History of pubovaginal sling Hx of colonoscopy Hx of cystoscopy Hx of tubal ligation History of Problems with Anesthesia: No Social History Social History Household Members Other:: mother Housing: Other Housing Other:: trailer Are you a primary after school caregiver to a significant other at home: Yes (takes care of mother) Do you presently have visiting nurse or other home services: No Alcohol intake: never Patient Tobacco Use Status: Former Tobacco user Quit Date: 2018 Tobacco use type: Cigarette e-Cigarette/Vaping Use: Never Used Second Hand Smoke Exposure: No Use of substances other than those prescribed or required for medical reasons: No Are you DNR?: No Advance Directives: No Advance Directives Information Provided: Yes Recently lost weight without trying: No Patient : No service: No Current occupational status: retired Current occupational exposures/hazards: No Cognitive needs: No Hearing needs: No Vision needs: No Meds Allergies Allergy/AdvReac Type Severity Reaction Status Date / Time No Known Allergies Allergy Verified 07/01/21 15:42 Home Medications Medication Instructions Recorded Confirmed Last Taken Type methocarbamol 750 mg tablet 750 mg PO BID PRN 01/01/20 07/01/21 Unknown History duloxetine 30 mg capsule,delayed 30 mg PO BEDTIME 05/22/21 07/01/21 Unknown History release furosemide 40 mg tablet 40 mg PO DAILY PRN 05/22/21 07/01/21 Unknown History umeclidinium 62.5 mcg-vilanterol 1 inh INHALATION DAILY 05/22/21 07/09/21 07/09/21 History 25 mcg/actuation powdr for inhalation (Anoro Ellipta) levothyroxine 100 mcg tablet 112 mcg PO DAILY 07/09/21 07/09/21 07/09/21 History Exam Exam Date and Time: July 09, 2021 1111 Height,Weight and Vital Signs: Height 5 ft 3 in Weight 64.864 kg Last Vital Signs Temp 98.6 F 07/09/21 10:19 Pulse 74 07/09/21 10:19 Resp 18 07/09/21 10:19 BP 112/62 07/09/21 10:19 Pulse Ox 97 07/09/21 10:19 Airway Mallampati Class: II TM Dist: >3cm Neck ROM: Full Loose/Missing/Broken Teeth: Yes (Chipped teeth ) Heart: S1, S2 Lungs: b/l breath sounds Assessment and Plan Assessment Anesthesia Assessment: Anesthesia Plan Discussed and Chart Reviewed Final Anesthetic Review Family History of Problems with Anesthesia: No History of Problems with Anesthesia: No NPO: Yes ASA Class: III Final Preanesthetic Review: Meds/Allgs Chart Reviewed, Consent Obtained/Reviewed and Anes Risks/Benef Reviewed Patient Risk: High Procedure Risk: Intermediate Anesthetic Plan Anesthetic Plan: MAC: Disposition: Standard PACU
--- NOTE | 2021-07-09 11:25 | PC.NURSE ---
pt chose left buttock as site for cervical spinal cord stimulation implant.
--- NOTE | 2021-07-09 11:27 | PC.NURSE ---
vendor at bedside
[2021-07-09] MEDS: Lactated Ringers 1,000 ML 80 ML IVCONT (11:38)
--- NOTE | 2021-07-09 11:38 | MHC.SHP ---
Pre-Procedural Eval Section A Date of Service: 07/09/21 Section B Chief Complaint: postlaminectomy syndrome Details of Present Illness: as above Relevant Family History (Specify if Yes): No Relevant Social History: None Present Medications: see Short Stay Collaborative assessment Medical History: No relevant PMH History of Previous Operations: Relevant previous surgery/procedure and date(s) Allergies: Allergies Allergy/AdvReac Type Severity Reaction Status Date / Time No Known Allergies Allergy Verified 07/01/21 15:42 Review of Systems Sugical H&P ROS: Negative: Constitution, Cardiovascular, Respiratory, Neurological, Psychiatric, Hem-Onc, Allergic/Immunologic, Gastrointestinal, Genitourinary, Musculoskeletal, Integumentary, Endocrine and Eyes/Ears/Nose/Throat Exam Surgical H&P Exam: Normal: HEENT, Normal: Heart, Normal: Lungs, Normal: Extremities, Normal: Abdomen, Normal: Skin and Normal: Neurological Plan Diagnosis/Plan: Unchanged I have reviewed the history and physical and performed a pertinent physical examination on my patient. No changes have occurred unless specified.
--- NOTE | 2021-07-09 11:39 | W.PM.OPN ---
Operative Note Operative Note Date of Service: 05/28/21 Narrative: Implantation of SCS cervical position [employer] ? Ms. Stanley is very pleasant?61 years old lady who came today into the operating room for trial of spinal cord stimulator for the treatment of cervical post laminectomy syndrome. Preoperatively patient received 1 g cephasolin approximately 20 minutes before procedure. After obtaining informed consent patient was brought to the operating room, SHE was positioned prone on operating table, [place] [employer] monitors were applied and patient was deeply sedated.? Time-out was performed delineating correct site, side, the nature of the procedure, patient's allergy, preoperative antibiotic if needed.? All operating room staff was participating in OR time-out procedure. Patient's entire back was prepped with ChloraPrep twice and draped with full body fenestrated drape and ioban film.? Sterilely draped C-arm was brought over operating field and sqare picture of T6 T7 and T8 vertebrae as were demonstrated on the screen.?The skin was infiltrated with the mixture of lidocain 2% and bupivacain 0.5% in the projection of mT8. T9 and T10 spinouse procesess. 10 Blade scalpel was used to perform strict midline 6.5 cm long incision. Thorough hemostasis was obtained, After that attention was concentrated on the T6-T7 epidural interspace.? The location of the projection of the right pedicle center of the T8_ vertebra was found on the skin using C-arm.? This location was injected with mixture of lidocaine 2% and Marcaine 0.5% 5 cc.? ? 10 cm 14 gauge introducer epidural needle was inserted through the prevertebral fascia and advanced to T6-T7 epidural interspace.? The advancement of the needle was performed on anterior posterior and lateral views.? Guitar wire and loss of resistance technique were used to locate epidural space.? When guitar wire was spread in the epidural fashion, epidural lead was inserted through the skin and it was advanced to the posterior epidural space.The lead was advanced strict at the midline approximately to the bottom of C2 vertebra in the posterior epidural space. After that location of the projection of the LEFT pedicle center of the T8 vertebra was found using C-arm.? This location was injected with mixture of lidocaine 2% and Marcaine 0.5% 5 cc.?10 cm 14 gauge introducer epidural needle was inserted through the fascia and advanced [id number] interspace.? The advancement of the needle was performed on anterior posterior and lateral views.? Guitar wire and loss of resistance technique were used to locate epidural space.? When guitar wire was spread in the epidural fashion, epidural lead was inserted through the needle and advanced to the posterior epidural space. After that the epidural lead was advanced slightly left to the midline approximately to the midbody of C2 vertebra in the posterior epidural space.? At this moment patient was awaken and the epidural leads were connected to the testing device.? The patient reported stimulation corresponding to her pain.? After satisfactory position of the leads were established the needles were withdrawn, the stylette wires were removed from the epidural leads.? The anchoring devices were dislodged on the leads and advanced to the level of the prevertebral fascia.?After that the anchoring devices were sutured to the prevertebral fascia using Tycron 1-0 sutures - 2 surures per each anchoroing device and after that the fixating screws were turned until three clicks were heard. The wound was irrigated with vancomycin containing saline and packed with the 4x4 soaked with the same saline solution. After that attention was concentrated on the left upper buttock of the patient were the decision was made to implant the battery.? 2 cm below the top most point of the iliac crest horizontal incision was made 6.5 cm long using 10 blade scalpel, hemostasis was performed using -bovie.? Using sharp and dull dissection pocket for the battery was formed in caudad direction from the incision.? After that the? wound pocket was? irrigated with vancomycin containing normal saline and tunneling device was used to connect midline incision and flank incision.? The epidural leads were dislodged from midline incision to the flank incision through the tunneling device.? After that they were connected to the alpha battery and impedance was checked anf found to be satisfactory with all leads connected. Anchoring? screws were fix on the back of the battery.? Tycron of 1- 0 sutures were applied to the superior lateral and superior medial corners of the upper portion of the pocket? wound and after that the anchoring sutures were connected to the orifices on the battery.? Electrodes were gathered behind the body of the battery and battery was dislodged into under subcutaneous pocket.? The sutures were tied and? irrigation was repeated.? After that 0-0 Polysorb sutures were used to close the? both wounds and the 0-2 polisorb sutures were used to apptoximate the level of the skin , Akanksha were applied to the skin and bacitracin ointment was applied to the staple lines. The sterile dressing comprised of several 4x4 for each wound was affixed to the skin usin medipore tape. The patient was transfered supine on the stretcher,? awaken, and transferred stable to the PACU.
--- NOTE | 2021-07-09 14:45 | PM.OP ---
Brief Operative Note Date of Service: 07/09/21 Pre-op diagnosis: postlaminectomy syndrome Post-op diagnosis: same Procedure: implantation of the [employer] SCS cervical Implants: low battery and 2 epidural leads Surgeon: Ronnie De Guzman MD Anesthesia: MAC Was an Manager Medicaid used for this Procedure?: No Estimated blood loss (mL): 12 Pathology: none sent Condition: stable Disposition: PACU
== END 2021-07-09 16:51 | disposition home or self-care (01) ==
PROVIDERS: PCP Family Medicine; Visit Provider Anesthesiology
PROC: (CPT 63685; principal; 2021-07-09 11:30)
DX: M50.30 Other cervical disc degeneration, unspecified cervical region (principal); M96.1 Postlaminectomy syndrome, not elsewhere classified; G89.4 Chronic pain syndrome; M47.812 Spondylosis without myelopathy or radiculopathy, cervical region; G56.10 Other lesions of median nerve, unspecified upper limb; E06.3 Autoimmune thyroiditis; E03.9 Hypothyroidism, unspecified; Z99.81 Dependence on supplemental oxygen; Z98.890 Other specified postprocedural states; Z86.16 Personal history of COVID-19
CPT/HCPCS: 63685; 63650 ×2; C1713; C1778; C1787; C1820; J0690; J2250; J2370; J2795; J3010; J3370

== ENCOUNTER → 2021-07-15 13:53 | Outpatient (BNVA) | payer MEDICARE, SELFPAY | PROVIDERS: PCP Family Medicine; Visit Provider Nurse Practitioner Family | DX: M50.30 Other cervical disc degeneration, unspecified cervical region (principal); M47.812 Spondylosis without myelopathy or radiculopathy, cervical region; G89.4 Chronic pain syndrome; Z96.89 Presence of other specified functional implants; Z96.82 Presence of neurostimulator | CPT/HCPCS: 99212 ==

== ENCOUNTER → 2021-07-22 11:21 | Outpatient (BNVA) | payer MEDICARE, SELFPAY | PROVIDERS: PCP Family Medicine; Visit Provider Nurse Practitioner Family | DX: G89.4 Chronic pain syndrome (principal); M50.30 Other cervical disc degeneration, unspecified cervical region; M47.812 Spondylosis without myelopathy or radiculopathy, cervical region; Z96.89 Presence of other specified functional implants; Z98.890 Other specified postprocedural states | CPT/HCPCS: 99212 ==

== ENCOUNTER → 2021-07-27 10:46 | Outpatient (BNVA) | payer MEDICARE, SELFPAY | PROVIDERS: PCP Family Medicine; Visit Provider Anesthesiology | DX: Z13.89 Encounter for screening for other disorder (principal) ==

== ENCOUNTER → 2021-08-14 13:10 | Outpatient (BNVA) | payer MEDICARE, SELFPAY | PROVIDERS: PCP Family Medicine; Visit Provider Nurse Practitioner Family | DX: M50.30 Other cervical disc degeneration, unspecified cervical region (principal); M47.812 Spondylosis without myelopathy or radiculopathy, cervical region; G89.4 Chronic pain syndrome; Z96.89 Presence of other specified functional implants | CPT/HCPCS: 99212 ==

== ENCOUNTER 2021-09-03 10:11 | Outpatient (REF) | payer MEDICARE, SELFPAY ==
[2021-09-03 14:37] LABS: Free T4 (Free Thyroxine) 1.13 ng/dL (0.71-1.85)
== END 2021-09-03 10:12 | disposition home or self-care (01) ==
LOC: HO.WFDLDS 10:11
PROVIDERS: Visit Provider Internal Medicine
DX: E03.9 Hypothyroidism, unspecified (principal)
CPT/HCPCS: 36415; 84439; 84443

== ENCOUNTER → 2021-09-17 08:25 | Outpatient (BNVA) | payer MEDICARE, SELFPAY | PROVIDERS: PCP Family Medicine; Visit Provider Internal Medicine | DX: E03.9 Hypothyroidism, unspecified (principal) | CPT/HCPCS: 99212; Q3014 ==

== ENCOUNTER 2021-11-25 10:51 | Outpatient (REF) | payer MEDICARE, SELFPAY ==
--- NOTE | ~2021-11-25 | MM_ITS ---
EXAMINATION: MM SCREENING DIGITAL BREAST TOMOSYNTHESIS, BILATERAL CLINICAL INFORMATION: Screening. Asymptomatic. The lifetime risk of breast cancer based on the Tyrer-Cuzick Model is 3%. COMPARISON: Mammography: 11/20/2020, 11/15/2019, 11/09/2018 TECHNIQUE: Digital breast tomosynthesis is performed in both the craniocaudal and mediolateral oblique views along with computer-aided detection (CAD). Synthesized 2D images are generated from the tomosynthesis. FINDINGS: There are scattered areas of fibroglandular density (ACR BI-RADS breast composition Category b). There are no significant masses, abnormal calcifications, or other abnormalities. No developing density or architectural abnormality. The axilla are unremarkable. MM/MM tomosynthesis screening BI IMPRESSION: No mammographic evidence of malignancy. ASSESSMENT: BI-RADS 1: Negative RECOMMENDATION: Routine annual mammography screening. This patient's information was entered into a reminder system with a target due date for their next mammogram.
== END 2021-11-25 10:52 | disposition home or self-care (01) ==
LOC: HO.MAMMO 10:51
PROVIDERS: PCP Family Medicine; Visit Provider Family Medicine
DX: Z12.31 Encounter for screening mammogram for malignant neoplasm of breast (principal)
CPT/HCPCS: 77063; 77067

== ENCOUNTER → 2021-12-02 12:48 | Outpatient (BNVA) | payer MEDICARE, SELFPAY | PROVIDERS: PCP Family Medicine; Visit Provider Anesthesiology | DX: M50.30 Other cervical disc degeneration, unspecified cervical region (principal); M47.812 Spondylosis without myelopathy or radiculopathy, cervical region; G89.4 Chronic pain syndrome; M54.2 Cervicalgia; Z96.89 Presence of other specified functional implants | CPT/HCPCS: 99212 ==

== ENCOUNTER 2021-12-04 08:32 | Outpatient (REF) | payer MEDICARE, SELFPAY ==
[2021-12-04 11:09] LABS: MANUAL DIFF FLAG NO
[2021-12-04 11:27] LABS: Basophils Percent Auto 0.9 % (0-2); Eosinophils Absolute Auto 0.4 X10*3/uL (0.0-0.4); Eosinophils Percent Auto 8.3 % (0-4); Hematocrit 46.7 % (37.0-47.0); Hemoglobin 15.1 g/dl (12.0-16.0); Lymphocytes Absolute Auto 0.5 X10*3/uL (1.2-4.9); Lymphocytes Percent Auto 12.3 % (20-40); Mean Corpuscular HGB Conc 32.3 g/dl (31.0-35.0); Mean Corpuscular Hemoglobin 30.1 pg (27.0-33.0); Mean Platelet Volume 10.7 fL (9.4-12.3); Monocytes Absolute Auto 0.7 X10*3/uL (0.1-1.2); Monocytes Percent Auto 15.4 % (2-11); Neutrophils Absolute Auto 2.7 x10*3/uL (2.0-8.3); Neutrophils Percent Auto 63.1 % (45-73); Platelet Count 217 X10*3/uL (160-400); Red Blood Count 5.02 X10*6/uL (4.20-5.50); White Blood Count 4.2 X10*3/uL (4.8-10.8)
[2021-12-04 11:40] LABS: Appearance Urine Cloudy; Color Urine Yellow; Glucose Urine UA Negative (Negative); Leukocyte Esterase Urine Negative (Negative); Nitrite Urine Negative (Negative); PH 5.5 (5.0-9.0); Urine Blood Negative (Negative); Urine Ketones Negative (Negative); Urine Protein Negative (Neg-Trace)
[2021-12-04 11:51] LABS: Alanine Aminotransferase 17 U/L (0-31); Albumin Level 4.3 g/dL (3.5-5.0); Alkaline Phosphatase 75 U/L (39-117); Anion Gap 14 (12-20); Aspartate Amino Transferase 19 U/L (5-31); Bilirubin Total 0.4 mg/dL (0.0-1.0); Blood Urea Nitrogen 11 mg/dL (9-16); Calcium 9.6 mg/dL (8.4-10.2); Carbon Dioxide 33 mmol/L (22-29); Chloride 100 mmol/L (96-108); Cholesterol 232 mg/dL; Estimated Glomerular Filt Rate > 60; Glucose Fasting 116 mg/dL (60-99); HDL Cholesterol 85 mg/dL; LDL Cholesterol Calculated 138 mg/dl; Potassium 4.8 mmol/L (3.3-5.1); Sodium 142 mmol/L (135-145); Total Protein 7.4 g/dL (6.5-8.0); Triglycerides 48 mg/dL
[2021-12-04 12:11] LABS: TSH reflex Free T4 1.06 uIU/mL (0.32-4.0)
== END 2021-12-04 08:33 | disposition home or self-care (01) ==
LOC: HO.WFDLDS 08:32
PROVIDERS: Visit Provider Family Medicine
DX: Z00.00 Encounter for general adult medical examination without abnormal findings (principal)
CPT/HCPCS: 36415; 80053; 80061; 81003; 84443; 85025

== ENCOUNTER → 2021-12-22 10:55 | Outpatient (BNVA) | payer MEDICARE, SELFPAY | PROVIDERS: PCP Family Medicine; Visit Provider Internal Medicine Pulmonary Disease | DX: J44.9 Chronic obstructive pulmonary disease, unspecified (principal); Z99.81 Dependence on supplemental oxygen | CPT/HCPCS: 99212 ==

== ENCOUNTER 2021-12-22 11:26 | Outpatient (REF) | payer MEDICARE, SELFPAY ==
--- NOTE | ~2021-12-22 | XR_ITS ---
EXAMINATION: XR SHOULDER, LEFT CLINICAL INFORMATION: Primary osteoarthritis. COMPARISON: None TECHNIQUE: AP external rotation, Grashey, scapular Y, and axillary views of the left shoulder. FINDINGS: The bones and soft tissues are normal. No fracture. Glenohumeral and acromioclavicular alignment is anatomic with normal joint space. No abnormal soft tissue calcifications. Spinal stimulator leads are noted. XR/XR shoulder LT min 2V IMPRESSION: Normal left shoulder.
== END 2021-12-22 11:27 | disposition home or self-care (01) ==
LOC: HO.XRAY 11:26
PROVIDERS: PCP Family Medicine; Visit Provider Anesthesiology
DX: I27.20 Pulmonary hypertension, unspecified (principal); J44.9 Chronic obstructive pulmonary disease, unspecified; M47.812 Spondylosis without myelopathy or radiculopathy, cervical region; M54.2 Cervicalgia; M19.012 Primary osteoarthritis, left shoulder; F17.210 Nicotine dependence, cigarettes, uncomplicated; Z99.81 Dependence on supplemental oxygen; Z96.89 Presence of other specified functional implants
CPT/HCPCS: 72040; 73030; 99212

== ENCOUNTER → 2021-12-30 10:50 | Outpatient (BNVA) | payer MEDICARE, SELFPAY | PROVIDERS: PCP Family Medicine; Referring Provider Family Medicine; Visit Provider Physician Assistant | DX: Z12.11 Encounter for screening for malignant neoplasm of colon (principal) | CPT/HCPCS: 99202 ==

== ENCOUNTER → 2022-01-04 11:17 | Outpatient (BNVA) | payer MEDICARE, SELFPAY | PROVIDERS: PCP Family Medicine; Visit Provider Anesthesiology | DX: M50.30 Other cervical disc degeneration, unspecified cervical region (principal); M47.812 Spondylosis without myelopathy or radiculopathy, cervical region; G89.4 Chronic pain syndrome; Z96.89 Presence of other specified functional implants | CPT/HCPCS: 99212 ==

== ENCOUNTER 2022-03-02 10:30 | Outpatient (REF) | payer MEDICARE, SELFPAY ==
[2022-03-02 18:21] LABS: CT PCR NOT DETECTED (Not Detect.); NG PCR NOT DETECTED (Not Detect.)
[2022-03-03 11:50] LABS: BV Int Neg Control Negative (Negative); BV Int Pos Control Positive (Positive)
[2022-03-05 00:58] LABS: HPV mRNA E6/E7 rflx Not Detected (Not Detected)
== END 2022-03-02 10:31 | disposition home or self-care (01) ==
LOC: HO.LNP 10:30
PROVIDERS: Visit Provider Advanced Practice Midwife
DX: Z01.419 Encounter for gynecological examination (general) (routine) without abnormal findings (principal); Z11.51 Encounter for screening for human papillomavirus (HPV)
CPT/HCPCS: 87480; 87491; 87510; 87591; 87624; 87660; 88142

== ENCOUNTER → 2022-05-25 10:55 | Outpatient (BNVA) | payer MEDICARE, SELFPAY | PROVIDERS: PCP Family Medicine; Visit Provider Internal Medicine Pulmonary Disease | DX: J44.9 Chronic obstructive pulmonary disease, unspecified (principal); Z99.81 Dependence on supplemental oxygen | CPT/HCPCS: 99212 ==

== ENCOUNTER → 2022-07-22 11:20 | Outpatient (BNVA) | payer MEDICARE, SELFPAY | PROVIDERS: PCP Family Medicine; Visit Provider Surgery Vascular Surgery | DX: I83.11 Varicose veins of right lower extremity with inflammation (principal) | CPT/HCPCS: 99212 ==

== ENCOUNTER → 2022-07-28 13:40 | Outpatient (BNVA) | payer MEDICARE, SELFPAY | PROVIDERS: PCP Family Medicine; Visit Provider Internal Medicine Pulmonary Disease | DX: Z01.811 Encounter for preprocedural respiratory examination (principal); J44.9 Chronic obstructive pulmonary disease, unspecified; Z99.81 Dependence on supplemental oxygen | CPT/HCPCS: 99212 ==

== ENCOUNTER 2022-08-19 09:44 | Outpatient (REF) | payer MEDICARE, SELFPAY ==
[2022-08-19 10:58] LABS: MANUAL DIFF FLAG NO
[2022-08-19 11:28] LABS: Basophils Absolute Auto 0.1 X10*3/uL (0.0-0.2); Basophils Percent Auto 1.2 % (0-2); Eosinophils Absolute Auto 0.5 X10*3/uL (0.0-0.4); Eosinophils Percent Auto 8.7 % (0-4); Hematocrit 44.3 % (37.0-47.0); Hemoglobin 13.5 g/dl (12.0-16.0); Imm Gran Abs Auto 0.02 X10*3/uL (0.00-0.03); Imm Gran Pct Auto 0.3 % (0.0-0.4); Lymphocytes Absolute Auto 0.7 X10*3/uL (1.2-4.9); Lymphocytes Percent Auto 12.5 % (20-40); Mean Corpuscular HGB Conc 30.5 g/dl (31.0-35.0); Mean Corpuscular Hemoglobin 26.1 pg (27.0-33.0); Mean Corpuscular Volume 85.7 fL (80.0-98.0); Mean Platelet Volume 11.5 fL (9.4-12.3); Monocytes Absolute Auto 0.7 X10*3/uL (0.1-1.2); Monocytes Percent Auto 11.8 % (2-11); Neutrophils Absolute Auto 3.8 x10*3/uL (2.0-8.3); Neutrophils Percent Auto 65.5 % (45-73); Platelet Count 278 X10*3/uL (160-400); Red Blood Count 5.17 X10*6/uL (4.20-5.50); Red Cell Distribution Width 17.2 % (11.0-16.0); White Blood Count 5.8 X10*3/uL (4.8-10.8)
== END 2022-08-19 09:45 | disposition home or self-care (01) ==
LOC: HO.WFDLDS 09:44
PROVIDERS: Visit Provider Neurological Surgery
DX: Z01.818 Encounter for other preprocedural examination (principal)
CPT/HCPCS: 36415; 85025

== ENCOUNTER 2022-09-13 12:41 | Outpatient (REF) | payer MEDICARE, SELFPAY | END 2022-09-13 12:42 | disposition home or self-care (01) | LOC: HO.US 12:41 | PROVIDERS: PCP Family Medicine; Visit Provider Surgery Vascular Surgery | DX: I83.11 Varicose veins of right lower extremity with inflammation (principal) | CPT/HCPCS: 93970 ==

== ENCOUNTER → 2022-09-15 09:53 | Outpatient (BNVA) | payer MEDICARE, SELFPAY | PROVIDERS: PCP Family Medicine; Visit Provider Internal Medicine | DX: E03.9 Hypothyroidism, unspecified (principal); Z79.899 Other long term (current) drug therapy | CPT/HCPCS: Q3014 ==

== ENCOUNTER 2022-09-30 14:12 | Outpatient (AMB) | payer MEDICARE, SELFPAY ==
--- NOTE | 2022-09-30 14:14 | A.OFFVIS_ITS ---
Intake Vital Signs 09/30/22 14:16 Height 5 ft 3 in Weight 132 lb BMI 23.4 BP 122/62 Blood Pressure Location Rt brachial Position Sitting Pulse 98 Pulse Source Pulse Oximeter Pulse Oximetry (%) 90 L Oxygen Delivery Method Nasal Cannula Intake Visit Reasons: copd Intake Note: Patient reports chest cold, sore throat, and is coughing up green/yellow mucus. Allergies duloxetine Adverse Reaction (Intermediate, Verified 09/30/22 14:20) Headache HPI copd HPI Details 62-year-old lady, active 60+ pack-year smoker followed for underlying severe COPD and 2-3 L pulsed flow supplemental oxygen dependent.? She continues to use Anoro, theophylline 200 b.i.d., and albuterol MDI with good control of her underlying symptoms. Patient has had her C4-C5 fusion without any complications. Today she complains of bronchitic exacerbation symptomatic with cough productive of yellowish sputum, but no wheezing. [facility] Medical History Cervicalgia Chronic pain syndrome COVID-19 vaccine series completed Degeneration, intervertebral disc, cervical Huma's disease History of COVID-19 Hypothyroidism Left cervical radiculopathy Median neuropathy Right lumbar radiculopathy Spondylosis, cervical Supplemental oxygen dependent Surgical History History of back surgery History of biopsy History of bunionectomy History of lumbar fusion History of pubovaginal sling Hx of colonoscopy Hx of cystoscopy Hx of tubal ligation Family History Father No problems noted. Mother Type 2 diabetes mellitus Daughter Hypothyroidism Social History Household Members Other:: mother Housing: Other Housing Other:: trailer Are you a primary career technical supervisor to a significant other at home: Yes (takes care of mother) Do you presently have visiting nurse or other home services: No Alcohol intake: never Patient Tobacco Use Status: Former Tobacco user Quit Date: 2018 Tobacco use type: Cigarette Cigarette Packs Per Day: 1 Cigarettes Per Day: 20 Years Smoked: 20 e-Cigarette/Vaping Use: Never Used Second Hand Smoke Exposure: Yes service: No Current occupational status: retired Current occupational exposures/hazards: No Cognitive needs: No Hearing needs: No Vision needs: Yes (glasses) Female Reproductive History Menstrual Age of Menarche: 13 Review of Systems Const Denies daytime sleepiness, Denies excessive sweating, Denies fatigue, Denies fever(s), Denies lethargy, Denies malaise, Denies night sweats, Denies snoring and Denies weight loss Eyes Denies blurry vision and Denies itchy eyes ENT Denies nasal congestion, Denies post nasal drip, Denies sinus pain, Denies sinus pressure and Denies other ( Thrush) Card Denies chest pain, Denies pedal edema, Denies dyspnea, Denies orthopnea and Denies paroxysmal nocturnal dyspnea Resp Reports cough, Denies hemoptysis, Reports excessive phlegm production, Denies dyspnea, Denies snoring and Denies wheezing GI Denies abdominal pain and Denies heartburn Musc Denies myalgias, Denies arthralgias and Denies joint swelling Skin/Breast Denies rash Neuro Denies memory loss and Denies seizure-like activity Psych Denies abnormal sleep pattern, Denies anxiety and Denies memory loss Endo Denies excessive sweating, Denies fatigue and Denies heat intolerance Rl/Lymph Denies easy bruising Aller/Immun Denies itchy eyes, Denies seasonal rhinorrhea and Denies wheezing Physical Exam Vital Signs: Last Vital Signs Pulse 98 09/30/22 14:16 BP 122/62 09/30/22 14:16 Pulse Ox 90 L 09/30/22 14:16 Oxygen Delivery Method Nasal Cannula 09/30/22 14:16 BMI result Body Mass Index 23.4 Const General: no acute distress and alert Nutritional Appearance: not obese Orientation/consciousness: Other orientation findings ( oriented) HEENT Head: Yes atraumatic Eyes General: appearance normal, both eyes and all related structures Sclerae: sclerae normal EOM: EOMs intact bilaterally Neck Neck: Yes supple Lymphatic: no lymphadenopathy noted Resp Effort & Inspection: normal respiratory effort and no use of accessory muscles Auscultation: clear to auscultation bilaterally Cardio Rate: regular rate Rhythm: regular rhythm Heart sounds: no gallops, no murmurs and no rubs Skin General skin exam: other ( warm) Extrem General: No clubbing, No cyanosis and No edema Assessment & Plan Assessment & Plan (1) COPD (chronic obstructive pulmonary disease): Code(s): J44.9 - Chronic obstructive pulmonary disease, unspecified Plan: Baseline well controlled on current regimen of Anoro, so pending, and albuterol MDI/nebs. Continue current regimen. Now with mild bronchitic exacerbation, will treat with a course of levofloxacin. (2) Supplemental oxygen dependent: Code(s): Z99.81 - Dependence on supplemental oxygen Plan: Continue supplemental oxygen to maintain O2 saturation of 88-93%. Coding Level of Care Code Est Pt Level 4 (17732) Diagnoses COPD (chronic obstructive pulmonary disease) J44.9 Supplemental oxygen dependent Z99.81
[2022-09-30 14:16] VITALS: BP 122/62; PULSE 98; O2SAT 90; BMI 23.4
[2022-09-30 14:54] VITALS: PULSE 96; O2SAT 89
== END 2022-09-30 14:33 | disposition home or self-care (01) ==
PROVIDERS: PCP Family Medicine; Visit Provider Internal Medicine Pulmonary Disease
DX: J44.9 Chronic obstructive pulmonary disease, unspecified (principal); Z99.81 Dependence on supplemental oxygen
CPT/HCPCS: 94618; 99214

== ENCOUNTER → 2022-09-30 14:12 | Outpatient (BNVA) | payer MEDICARE, SELFPAY | PROVIDERS: PCP Family Medicine; Visit Provider Internal Medicine Pulmonary Disease | DX: J44.9 Chronic obstructive pulmonary disease, unspecified (principal); Z79.899 Other long term (current) drug therapy; Z99.81 Dependence on supplemental oxygen | CPT/HCPCS: 94618; 99212 ==

== ENCOUNTER 2022-11-17 11:13 | Outpatient (AMB) | payer MEDICARE, SELFPAY ==
[2022-11-17 11:24] VITALS: BP 122/64; PULSE 87; O2SAT 86; BMI 23.1
--- NOTE | 2022-11-17 11:24 | A.OFFPC_ITS ---
Vital Signs 11/17/22 11:24 Height 5 ft 3 in Weight 130 lb 8 oz BMI 23.1 BP 122/64 Blood Pressure Location Lt brachial Position Sitting Pulse 87 Pulse Source Pulse Oximeter Pulse Oximetry (%) 86 L Oxygen Delivery Method Room Air Oxygen Flow Rate 3 Intake Visit Reasons: f/u chronic conditions Intake Note: Patient is here for follow up on chronic conditions, c/o pain in legs today and swelling. Allergies duloxetine Adverse Reaction (Intermediate, Verified 11/17/22 11:25) Headache Medication List - Last Reconciled 11/17/22 by Fazal Brandon MD albuterol sulfate 2.5 mg (3 mL) inhalation Q4-6H PRN 30 days albuterol sulfate 90 mcg/actuation 2 puffs inhalation Q4-6H PRN 1 month buprenorphine HCl (Belbuca) 450 mcg buccal Q12H furosemide 40 mg PO DAILY PRN levofloxacin 750 mg PO DAILY levothyroxine 100 mcg PO DAILY 30 days ropinirole 2 mg (2 x 1 mg) PO BEDTIME 90 days theophylline ER 400 mg PO DAILY 30 days umeclidinium-vilanterol 62.5-25 mcg/actuation (Anoro Ellipta) 1 inh inhalation DAILY 90 days Tobacco use date assessed: 11/17/22 Dental Screening Dental Screen Date: 11/17/22 Did you have a dental visit in the last 12 months?: Yes Did you have a dental problem in the last 6 months where you did not have access to dental care?: No Was dental information given to patient?: Patient has dentist HPI f/u chronic conditions HPI Details 62 y/o female presents with complaints of chronic conditions. She reports pain and swelling in her legs today. She had been on belbuca before but states belbuca has dropped her oxygen. She notes she has tried tramadol in the past which did not help at all. She continues to take her furosemide for her LE swelling. [facility] History Cervicalgia Chronic pain syndrome COVID-19 vaccine series completed Degeneration, intervertebral disc, cervical Huma's disease History of COVID-19 Hypothyroidism Left cervical radiculopathy Median neuropathy Right lumbar radiculopathy Spondylosis, cervical Supplemental oxygen dependent Surgical History History of back surgery History of biopsy History of bunionectomy History of lumbar fusion History of pubovaginal sling Hx of colonoscopy Hx of cystoscopy Hx of tubal ligation Family History Father No problems noted. Mother Type 2 diabetes mellitus Daughter Hypothyroidism Social History Household Members Other:: mother Housing: Other Housing Other:: trailer Are you a primary interior plant caretaker to a significant other at home: Yes (takes care of mother) Do you presently have visiting nurse or other home services: No Alcohol intake: never Patient Tobacco Use Status: Former Tobacco user Quit Date: 2018 Tobacco use type: Cigarette Cigarette Packs Per Day: 1 Cigarettes Per Day: 20 Years Smoked: 20 e-Cigarette/Vaping Use: Never Used Second Hand Smoke Exposure: Yes service: No Current occupational status: retired Current occupational exposures/hazards: No Cognitive needs: No Hearing needs: No Vision needs: Yes (glasses) Female Reproductive History Menstrual Age of Menarche: 13 Questionnaire PHQ-9 Over the last 2 weeks, how often have you been bothered by any of the following problems? 1. Little interest or pleasure in doing things: nearly every day 2. Feeling down, depressed, or hopeless: not at all 3. Trouble falling or staying asleep, or sleeping too much: nearly every day 4. Feeling tired or having little energy: several days 5. Poor appetite or overeating: not at all 6. Feeling bad about yourself - or that you are a failure or have let yourself or your family down: not at all 7. Trouble concentrating on things, such as reading the newspaper or watching television: nearly every day (when she is in pain.) 8. Moving or speaking so slowly that other people could have noticed. Or the opposite - being so fidgety or restless that you have been moving around a lot more than usual: not at all 9. Thoughts that you would be better off or of hurting yourself in some way: not at all Total score: 10 Source: Developed by Drs. Franck Stanley, Nena Sellers, Richi Atkins and colleagues, with an educational dallin from [employer]. Thrive Questionnaire Date Thrive assessed: 07/30/22 GISEL-7 AMB Questionnaire GISEL-7 Date GISEL - 7 assessed: 07/30/22 Source: Developed by Drs. Franck Stanley, Nena Sellers, Richi Atkins and colleagues, with an educational dallin from [employer]. Physical exam (Primary Care) Vital Signs: Last Vital Signs Pulse 87 11/17/22 11:24 BP 122/64 11/17/22 11:24 Pulse Ox 86 L 11/17/22 11:24 Oxygen Delivery Method Room Air 11/17/22 11:24 Oxygen Flow Rate 3 11/17/22 11:24 BMI result Body Mass Index 23.1 Tobacco/Smoking Status: Tobacco use Status Tobacco use date assessed 11/17/22 11/17/22 11:27 Patient Tobacco Use Status Former Tobacco user 11/17/22 11:27 Tobacco use type Cigarette 11/17/22 11:27 e-Cigarette/Vaping Use Never Used 11/17/22 11:27 PHQ-9: PHQ-9 Score PHQ-9: Total score 10 11/17/22 11:33 Thrive Assessment: Date of Thrive Assessment Date Thrive assessed 07/30/22 11/17/22 11:27 Assessment and Plan Assessment & Plan (1) Lower extremity pain: Code(s): M79.606 - Pain in leg, unspecified Plan: Ongoing leg pain with sciatica like symptoms. Her MRI does not show any lesions that would explain this. Likely symptoms are being generated by more distal sites. Noted is not seem to be any further indication for neurosurgery intervention. Referred to pain management again. Will also trial amitriptyline (2) Swelling of lower extremity: Code(s): M79.89 - Other specified soft tissue disorders Plan: Venous insufficiency and lower extremity edema Continue furosemide Elevate legs Follow-up with Dr. Deras (3) Right lumbar radiculopathy: Code(s): M54.16 - Radiculopathy, lumbar region Plan: As above Orders: Orders Lipid Panel Today Z00.00 - Encounter for general adult medical examination without abnormal findings TSH reflex Free T4 Today Z00.00 - Encounter for general adult medical examination without abnormal findings Microalbumin, Random (w Creat) Today I10 - Essential (primary) hypertension Complete Blood Count Auto Diff Today Z00.00 - Encounter for general adult medical examination without abnormal findings UA and rflx microscopic Today Z00.00 - Encounter for general adult medical examination without abnormal findings Comprehensive Met. Panel Today M79.606 - Pain in leg, unspecified Referrals Pain Management Referral M79.606 - Pain in leg, unspecified Medications: New amitriptyline 10 mg PO BEDTIME 30 tabs 2RF 30 days Coding Level of Care Code Est Pt Level 4 (70076) Diagnoses Lower extremity pain M79.606 Swelling of lower extremity M79.89 Right lumbar radiculopathy M54.16
== END 2022-11-17 12:50 | disposition home or self-care (01) ==
PROVIDERS: PCP Family Medicine; Visit Provider Family Medicine
DX: M79.606 Pain in leg, unspecified (principal); M79.89 Other specified soft tissue disorders; M54.16 Radiculopathy, lumbar region
CPT/HCPCS: 99214

== ENCOUNTER 2022-11-18 10:17 | Outpatient (REF) | payer MEDICARE, SELFPAY ==
[2022-11-18 12:30] LABS: Free T4 (Free Thyroxine) 1.17 ng/dL (0.71-1.85); Thyroid Stimulating Hormone 4.44 uIU/mL (0.32-4.0)
== END 2022-11-18 10:18 | disposition home or self-care (01) ==
LOC: HO.WFDLDS 10:17
PROVIDERS: Visit Provider Internal Medicine
DX: M79.606 Pain in leg, unspecified (principal); E03.9 Hypothyroidism, unspecified
CPT/HCPCS: 36415; 84439; 84443; 99212

== ENCOUNTER 2022-11-18 10:47 | Outpatient (AMB) | payer MEDICARE, SELFPAY ==
[2022-11-18 10:50] VITALS: BP 120/82; PULSE 81; O2SAT 85; BMI 23.1
--- NOTE | 2022-11-18 10:50 | A.OFFVIS_ITS ---
Intake Vital Signs 11/18/22 10:50 Height 5 ft 3 in Weight 130 lb 8 oz BMI 23.1 BP 120/82 Blood Pressure Location Rt brachial Position Sitting Pulse 81 Pulse Source Pulse Oximeter Pulse Oximetry (%) 85 L Oxygen Delivery Method Room Air Intake Visit Reasons: follow up [facility] 09/14/2022 Intake Note: Pt presents to the office today for a follow up [facility] 09/14/22. Pt states she has pain in both legs. Pt states she has swelling in both legs and ankles. Pt states she has tried using compression stockings but they dont work. She states when she ambulates her legs, the swelling goes down a bit. Pt states she gets katie horses in both legs and she states she gets numbness and tingling as well in both legs. Allergies duloxetine Adverse Reaction (Intermediate, Verified 11/18/22 10:52) Headache HPI follow up [facility] 09/14/2022 HPI Details Complex 62-year-old female presents for follow-up regarding lower extremity pain and discomfort. She actually had at last visit palpable arterial pulses. She presents for follow-up with venous insufficiency testing. She does have significant spinal issues including C for 5 ACDF. In addition she has seen pain management in the past for lower extremity issues as well. She now presents for follow-up with venous insufficiency testing. [facility] Medical History Cervicalgia Chronic pain syndrome COVID-19 vaccine series completed Degeneration, intervertebral disc, cervical Huma's disease History of COVID-19 Hypothyroidism Left cervical radiculopathy Median neuropathy Right lumbar radiculopathy Spondylosis, cervical Supplemental oxygen dependent Surgical History History of back surgery History of biopsy History of bunionectomy History of lumbar fusion History of pubovaginal sling Hx of colonoscopy Hx of cystoscopy Hx of tubal ligation Family History Father No problems noted. Mother Type 2 diabetes mellitus Daughter Hypothyroidism Social History Household Members Other:: mother Housing: Other Housing Other:: trailer Are you a primary critical care clinical nurse specialist to a significant other at home: Yes (takes care of mother) Do you presently have visiting nurse or other home services: No Alcohol intake: never Patient Tobacco Use Status: Former Tobacco user Quit Date: 2018 Tobacco use type: Cigarette Cigarette Packs Per Day: 1 Cigarettes Per Day: 20 Years Smoked: 20 e-Cigarette/Vaping Use: Never Used Second Hand Smoke Exposure: Yes service: No Current occupational status: retired Current occupational exposures/hazards: No Cognitive needs: No Hearing needs: No Vision needs: Yes (glasses) Female Reproductive History Menstrual Age of Menarche: 13 Review of Systems Const All systems reviewed & are unremarkable except as noted in HPI and below Reports no additional complaints ENT Reports Normal hearing present Card Denies chest pain, Denies chest pain at rest, Denies chest pain with activity and Denies pedal edema Resp Denies cough GI Denies abdominal pain Musc Denies abnormal gait, Denies muscle cramps and Denies radiating pain into limb Skin/Breast Denies skin ulcer and Denies wounds Neuro Reports Normal hearing present and Denies abnormal gait Psych Reports no additional complaints Physical Exam Vital Signs: Last Vital Signs Pulse 81 11/18/22 10:50 BP 120/82 11/18/22 10:50 Pulse Ox 85 L 11/18/22 10:50 Oxygen Delivery Method Room Air 11/18/22 10:50 BMI result Body Mass Index 23.1 Const General: cooperative, healthy appearing and comfortable Orientation/consciousness: oriented to person, oriented to place and oriented to time HEENT Head: Yes normal to inspection Neck Neck: Yes normal visual inspection Carotids: no bruits Chest Chest palpation & inspection: normal inspection of the chest Resp Effort & Inspection: normal respiratory effort and able to speak in complete sentences Auscultation: clear to auscultation bilaterally, no crackles, no rales, no rhonchi and no wheezes Cardio Rate: regular rate Rhythm: regular rhythm Heart sounds: S1 normal heart sound present and S2 normal heart sound present Bruits: no carotid bruits Peripheral pulses: Peripheral pulses 2+ throughout GI Inspection: Yes normal to inspection Skin Wounds: no wounds Hair: normal Neuro General: oriented to person, oriented to place and oriented to time Cranial nerves: Yes CN's II-XII intact bilaterally and Yes Normal hearing present Cognition (Neuro): normal cognition Motor exam (neuro): 5/5 motor strength present throughout Extrem Other: venous exam: Plus one edema bilateral lower extremity General: No clubbing, No cyanosis and Yes edema Psych Appearance: grossly normal Mental Status: mental status grossly normal Speech and movement: Normal speech and movement present Results Reviewed Results Reviewed: Brief summary of venous insufficiency testing is as follows: right great saphenous vein: focally positive at calf small caliber right small saphenous vein: negative right accessory vein: none present left great saphenous vein: focally positive at calf small caliber left small saphenous vein: negative left accessory vein: none present Please note there is no evidence of any venous aneurysms or significant tortuosity Assessment & Plan Assessment & Plan (1) Lower extremity pain: Code(s): M79.606 - Pain in leg, unspecified Plan: in short patient has lower extremity pain. Unclear etiology of this and appears to be more neurologic in spinal in nature. In terms of vascular disease she has palpable arterial pulses in venous insufficiency testing is essentially negative. For her mild swelling we did discuss use of compression stockings. I do think that the majority of her issues appear to be neurologic in nature. She will follow up with us on as-needed basis. Thank you for allowing us to assist in her care. If there are any questions or concerns please do not hesitate to contact us. Coding Level of Care Code Est Pt Level 4 (70745) Diagnoses Lower extremity pain M79.606
== END 2022-11-18 11:09 | disposition home or self-care (01) ==
PROVIDERS: PCP Family Medicine; Visit Provider Surgery Vascular Surgery
DX: M79.604 Pain in right leg (principal); M79.605 Pain in left leg
CPT/HCPCS: 99213

== ENCOUNTER 2022-11-29 14:21 | Outpatient (AMB) | payer MEDICARE, SELFPAY ==
--- NOTE | 2022-11-29 14:50 | MHC.OFFVIS ---
Intake Vital Signs 11/29/22 14:59 Height 5 ft 3 in Weight 131 lb BMI 23.2 BP 123/65 Blood Pressure Location Rt brachial Position Sitting Pulse 87 Pulse Source Pulse Oximeter Pulse Oximetry (%) 90 L Oxygen Delivery Method Nasal Cannula Oxygen Flow Rate 2 Intake Visit Reasons: Pain in leg, unspecified Intake Note: Pt c/o bilat back and LE pain. She has a hx of COPD-O2 sat was 82 when I first took vitals-she applied portable 02 at 2L and O2 sat increased to 90. Pt states 88 is her baseline with O2. She denies feeling light headed, no SOB noted, and was encouraged to wear her O2 Allergies duloxetine Adverse Reaction (Intermediate, Verified 11/29/22 14:59) Headache Medication List - Last Reconciled 11/29/22 by Evelina Kim RN albuterol sulfate 2.5 mg (3 mL) inhalation Q4-6H PRN 30 days albuterol sulfate 90 mcg/actuation 2 puffs inhalation Q4-6H PRN 1 month amitriptyline 10 mg PO BEDTIME 30 days buprenorphine HCl (Belbuca) 450 mcg buccal Q12H furosemide 40 mg PO DAILY PRN levofloxacin 750 mg PO DAILY levothyroxine 100 mcg PO DAILY 30 days ropinirole 2 mg (2 x 1 mg) PO BEDTIME 90 days theophylline ER 400 mg PO DAILY 30 days umeclidinium-vilanterol 62.5-25 mcg/actuation (Anoro Ellipta) 1 inh inhalation DAILY 90 days HPI HPI Comments History of Present Illness Details Rossana is very pleasant 61 years old female who presents in my office complaining on pain in the lower lumbar spine with radiation into bilateral lower extremities all the way down to her toes. She reports that in the past she had L4-5 anterior lumbar fusion with instrumentation. She went for evaluation with Dr. Joseph in [facility]. Dr. Joseph did not find any reason to operate on the patient. She had an MRI done in [facility] and she does not get any results which would be indicative of the surgery. I offered her today to perform addition to her cervical spinal cord stimulator [employer] as the thoracic leads stimulating lumbar spine and lower legs. I need her to go to psychological evaluation because her psychological evaluation last time was in April of 2021. We will send for summary of care from Dr. Joseph at [facility]. Meanwhile I will schedule her for psychological evaluation. Prior: Complains on pain in the neck with radiation into the left shoulder left arm and the left forearm. She was inserted with [employer] spinal cord stimulator in the past cervical position she was sent for x-ray to verify position of the leads. The position of the leads are appropriate perfectly midline on AP view and perform the posterior on lateral view. The tips of the electrodes are in the bottom of the C2 vertebra. The patient reports appropriate stimulation in the areas which are painful when she turns the stimulator on the low frequency stimulation. However when the patient turned the machine on low frequency stimulation and also when the patient turns machines on high-frequency stimulation she still does not feel any pain relief despite the good coverage. She is requesting me to perform trigger point injection into her left shoulder. There is significant spasticity observed in the left trapezius muscle. [facility] Medical History Cervicalgia Chronic pain syndrome COVID-19 vaccine series completed Degeneration, intervertebral disc, cervical Huma's disease History of COVID-19 Hypothyroidism Left cervical radiculopathy Median neuropathy Right lumbar radiculopathy Spondylosis, cervical Supplemental oxygen dependent Surgical History History of back surgery History of biopsy History of bunionectomy History of lumbar fusion History of pubovaginal sling Hx of colonoscopy Hx of cystoscopy Hx of tubal ligation Family History Father No problems noted. Mother Type 2 diabetes mellitus Daughter Hypothyroidism Social History Household Members Other:: mother Housing: Other Housing Other:: trailer Are you a primary foster care therapist to a significant other at home: Yes (takes care of mother) Do you presently have visiting nurse or other home services: No Alcohol intake: never Patient Tobacco Use Status: Former Tobacco user Quit Date: 2018 Tobacco use type: Cigarette Cigarette Packs Per Day: 1 Cigarettes Per Day: 20 Years Smoked: 20 e-Cigarette/Vaping Use: Never Used Second Hand Smoke Exposure: Yes service: No Current occupational status: retired Current occupational exposures/hazards: No Cognitive needs: No Hearing needs: No Vision needs: Yes (glasses) Female Reproductive History Menstrual Age of Menarche: 13 Review of Systems Const All systems reviewed & are unremarkable except as noted in HPI and below Physical Exam Vital Signs: Last Vital Signs Pulse 87 11/29/22 14:59 BP 123/65 11/29/22 14:59 Pulse Ox 90 L 11/29/22 14:59 Oxygen Delivery Method Nasal Cannula 11/29/22 14:59 Oxygen Flow Rate 2 11/29/22 14:59 BMI result Body Mass Index 23.2 Const General: cooperative, comfortable and no acute distress Eyes Sclerae: sclerae normal Resp Other: On oxygen 2 L per minute Effort & Inspection: abnormal respiratory effort, not able to speak in complete sentences, abnormal respiratory pattern, Actively coughing, decreased respiratory effort, grunting and labored Cardio Rate: regular rate Rhythm: regular rhythm Heart sounds: S1 normal heart sound present and S2 normal heart sound present GI Palpation (GI): Soft to palpation and nontender Auscultation: normal bowel sounds Back/Spine/Pelvis Other: Malik test is negative bilaterally. SLR is equivocal bilaterally. Dorsiflexion of the foot with maximal SLR is negative for pain increase. Extrem General: Yes full ROM Psych Mental Status: mental status grossly normal Speech and movement: Clear speech present Affect: normal affect Attitude: cooperative Thought process: Normal thought process present Results Reviewed Results Reviewed: MRI lumbar spine 10/22/2022 clinical statement increased lower back pain and leg pain radiculopathy findings: There is preservation of vertebral body height. Vertebral body marrow is normal. Cord signal is normal. The conus medullaris is normal in signal characteristic and morphology and terminates at L1-L2 level. L1-L2 no spinal canal or neural foraminal narrowing. L2-L3 no spinal canal or neural foraminal narrowing. L3-L4 disc bulge and ligamentum flavum hypertrophy with borderline spinal canal narrowing. No neural foraminal narrowing. L4-5: L4-5 interbody fusion device. No spinal canal or neural foraminal narrowing. L5-S1. L5-S1 interbody fusion device. No spinal canal or neural foraminal narrowing. Impression multilevel degenerative changes with borderline spinal canal narrowing at L3-L4. No neural foraminal narrowing. Assessment & Plan Assessment & Plan (1) Degeneration, intervertebral disc, cervical: Code(s): M50.30 - Other cervical disc degeneration, unspecified cervical region (2) Spondylosis, cervical: Code(s): M47.812 - Spondylosis without myelopathy or radiculopathy, cervical region (3) Cervicalgia: Code(s): M54.2 - Cervicalgia (4) Chronic pain syndrome: Code(s): G89.4 - Chronic pain syndrome (5) S/P insertion of spinal cord stimulator: Code(s): Z96.89 - Presence of other specified functional implants Plan Rossana received implantation of the cervical spinal cord stimulator [employer] in June of 2021. She reports t continues to charge the device in use it intermittently. She was examined today and examination most likely postlaminectomy syndrome lumbar spine plays a role in her pain in the lower lumbar spine. See physical exam as above. I offered her to consider SCS expansion for the thoracic position to treat her lower lumbar spine pain. She agreed and we need to do psychological evaluation. Meanwhile we will request Dr. Joseph to submit us the evaluation and conclusion on the MRI this patient had with [facility]. Coding Level of Care Code Est Pt Level 4 (64589) Diagnoses Degeneration, intervertebral disc, cervical M50.30 Spondylosis, cervical M47.812 Cervicalgia M54.2 Chronic pain syndrome G89.4 S/P insertion of spinal cord stimulator Z96.89
[2022-11-29 14:59] VITALS: BP 123/65; PULSE 87; O2SAT 90; BMI 23.2
== END 2022-11-29 15:18 | disposition home or self-care (01) ==
PROVIDERS: PCP Family Medicine; Visit Provider Anesthesiology
DX: G89.4 Chronic pain syndrome (principal); M50.30 Other cervical disc degeneration, unspecified cervical region; M47.812 Spondylosis without myelopathy or radiculopathy, cervical region; Z96.89 Presence of other specified functional implants
CPT/HCPCS: 99214

== ENCOUNTER → 2022-11-29 14:21 | Outpatient (BNVA) | payer MEDICARE, SELFPAY | PROVIDERS: PCP Family Medicine; Visit Provider Anesthesiology | DX: G89.4 Chronic pain syndrome (principal); M50.30 Other cervical disc degeneration, unspecified cervical region; M47.812 Spondylosis without myelopathy or radiculopathy, cervical region; M54.2 Cervicalgia; Z96.89 Presence of other specified functional implants | CPT/HCPCS: 99212 ==

== ENCOUNTER 2022-12-30 08:43 | Outpatient (REF) | payer MEDICARE, SELFPAY ==
[2022-12-30 11:39] LABS: MANUAL DIFF FLAG NO
[2022-12-30 11:48] LABS: Appearance Urine Clear; Color Urine Yellow; Glucose Urine UA Negative (Negative); Leukocyte Esterase Urine Trace (Negative); Nitrite Urine Negative (Negative); PH 6.5 (5.0-9.0); Specific Gravity - Urine 1.015 (1.005-1.025); UMIC TRIGGER UA YES; Urine Blood Negative (Negative); Urine Ketones Negative (Negative); Urine Protein Negative (Neg-Trace)
[2022-12-30 11:50] LABS: Basophils Absolute Auto 0.1 X10*3/uL (0.0-0.2); Basophils Percent Auto 1.8 % (0-2); Eosinophils Absolute Auto 0.5 X10*3/uL (0.0-0.4); Eosinophils Percent Auto 9.4 % (0-4); Hematocrit 49.3 % (37.0-47.0); Hemoglobin 15.5 g/dl (12.0-16.0); Lymphocytes Absolute Auto 0.8 X10*3/uL (1.2-4.9); Lymphocytes Percent Auto 15.1 % (20-40); Mean Corpuscular HGB Conc 31.4 g/dl (31.0-35.0); Mean Corpuscular Volume 89.2 fL (80.0-98.0); Mean Platelet Volume 10.4 fL (9.4-12.3); Monocytes Absolute Auto 0.7 X10*3/uL (0.1-1.2); Monocytes Percent Auto 14.1 % (2-11); Neutrophils Absolute Auto 3.1 x10*3/uL (2.0-8.3); Neutrophils Percent Auto 59.6 % (45-73); Platelet Count 229 X10*3/uL (160-400); Red Blood Count 5.53 X10*6/uL (4.20-5.50); Red Cell Distribution Width 19.1 % (11.0-16.0); White Blood Count 5.1 X10*3/uL (4.8-10.8)
[2022-12-30 11:52] LABS: Bacteria Urine None Seen (None Seen); Hyaline Casts Urine 0-2 /LPF (0-2); RBC Urine 0-2 /HPF (0-2); Squamous Epithelial Cell Urine 0-2 /HPF (0-2); WBC Urine 0-5 /HPF (0-5)
[2022-12-30 12:26] LABS: Alanine Aminotransferase 13 U/L (0-31); Albumin Level 4.4 g/dL (3.5-5.0); Alkaline Phosphatase 82 U/L (39-117); Anion Gap 15 (12-20); Aspartate Amino Transferase 18 U/L (5-31); Bilirubin Total 0.4 mg/dL (0.0-1.0); Blood Urea Nitrogen 13 mg/dL (9-16); Calcium 10.6 mg/dL (8.4-10.2); Carbon Dioxide 30 mmol/L (22-29); Chloride 99 mmol/L (96-108); Cholesterol 253 mg/dL (<200); Estimated Glomerular Filt Rate > 60; Glucose Random 99 mg/dL (60-115); HDL Cholesterol 100 mg/dL (>40); LDL Cholesterol Calculated 143 mg/dL (<100); Potassium 4.7 mmol/L (3.3-5.1); Sodium 139 mmol/L (135-145); Total Protein 7.3 g/dL (6.5-8.0); Triglycerides 51 mg/dL (<150)
[2022-12-30 12:28] LABS: TSH reflex Free T4 3.92 uIU/mL (0.32-4.0)
[2022-12-30 12:31] LABS: Free T4 (Free Thyroxine) 1.06 ng/dL (0.71-1.85); Thyroid Stimulating Hormone 4.12 uIU/mL (0.32-4.0)
[2022-12-30 13:22] LABS: Creatinine Urine 72.85 mg/dL; Microalbum/Creatinine Ratio Ur 6.8 ug/mg cr (<30)
== END 2022-12-30 08:44 | disposition home or self-care (01) ==
LOC: HO.WFDLDS 08:43
PROVIDERS: Internal Medicine; Visit Provider Family Medicine
DX: Z00.00 Encounter for general adult medical examination without abnormal findings (principal); M79.606 Pain in leg, unspecified; I10 Essential (primary) hypertension
CPT/HCPCS: 36415; 80053; 80061; 81001; 82043; 82570; 84439; 84443; 85025

== ENCOUNTER 2023-01-03 11:54 | Outpatient (AMB) | payer MEDICARE, SELFPAY ==
--- NOTE | 2023-01-03 12:00 | A.OFFPC_ITS ---
Vital Signs 01/03/23 12:01 Height 5 ft 3 in Weight 133 lb 8 oz BMI 23.6 BP 120/70 Blood Pressure Location Lt brachial Position Sitting Pulse 102 H Pulse Source Pulse Oximeter Pulse Oximetry (%) 91 L Oxygen Delivery Method Nasal Cannula Oxygen Flow Rate 2 Intake Visit Reasons: Extended exam with f/u labs and health maint. Intake Note: Patient is here for extended exam and follow up on labs. Allergies duloxetine Adverse Reaction (Intermediate, Verified 01/03/23 12:04) Headache Medication List - Last Reconciled 01/03/23 by Fazal Brandon MD albuterol sulfate 2.5 mg (3 mL) inhalation Q4-6H PRN 30 days albuterol sulfate 90 mcg/actuation 2 puffs inhalation Q4-6H PRN 1 month amitriptyline 10 mg PO BEDTIME 30 days buprenorphine HCl (Belbuca) 450 mcg buccal Q12H furosemide 40 mg PO DAILY PRN levothyroxine 112 mcg PO DAILY ropinirole 2 mg (2 x 1 mg) PO BEDTIME 90 days theophylline ER 400 mg PO DAILY 30 days umeclidinium-vilanterol 62.5-25 mcg/actuation (Anoro Ellipta) 1 inh inhalation DAILY 90 days Tobacco use date assessed: 01/03/23 HPI Extended exam with f/u labs and health maint. HPI Details 62 y/o female presents for an extended e xam with f/u labs and health maintenance. Labs were drawn 12/30/22. Reviewed labs with pt. Mildly elevated RBC at 5.53. Triglycerides 51. TC 253. LDL 143. HDL 100. TSH level 3.92. Pt reports she has been following up with pain management for lower extremity pain. She notes ongoing pain on LLE and sometimes the right. She reports celecoxib has not worked well for her in the past. [facility] Medical History Supplemental oxygen dependent COVID-19 vaccine series completed History of COVID-19 Median neuropathy Chronic pain syndrome Cervicalgia Spondylosis, cervical Degeneration, intervertebral disc, cervical Left cervical radiculopathy Huma's disease Hypothyroidism Right lumbar radiculopathy Surgical History History of back surgery History of bunionectomy History of pubovaginal sling Hx of cystoscopy Hx of colonoscopy Hx of tubal ligation History of lumbar fusion History of biopsy Family History Father No problems noted. Mother Type 2 diabetes mellitus Daughter Hypothyroidism Social History Household Members Other:: mother Housing: Other Housing Other:: trailer Are you a primary animal caretaker to a significant other at home: Yes (takes care of mother) Do you presently have visiting nurse or other home services: No Alcohol intake: never Patient Tobacco Use Status: Former Tobacco user Quit Date: 2018 Tobacco use type: Cigarette Cigarette Packs Per Day: 1 Cigarettes Per Day: 20 Years Smoked: 20 e-Cigarette/Vaping Use: Never Used Second Hand Smoke Exposure: Yes service: No Current occupational status: retired Current occupational exposures/hazards: No Cognitive needs: No Hearing needs: No Vision needs: Yes (glasses) Female Reproductive History Menstrual Age of Menarche: 13 Questionnaire Thrive Questionnaire Date Thrive assessed: 07/30/22 GISEL-7 AMB Questionnaire GISEL-7 Date GISEL - 7 assessed: 07/30/22 Source: Developed by Drs. Franck Stanley, Nena Sellers, Richi Atkins and colleagues, with an educational dallin from [employer]. Review of Systems Const Denies chills, Denies fatigue, Denies fever(s), Denies headache(s) and Denies weakness Eyes Denies change in vision ENT Denies dizziness, Denies headache(s), Denies hearing loss, Denies nasal congestion, Denies sinus pain, Denies sinus pressure and Denies sore throat Card Denies chest pain, Denies lightheadedness, Denies dyspnea and Denies other (palpitations) Resp Denies cough, Denies dyspnea and Denies wheezing GI Denies abdominal pain, Denies melena, Denies hematochezia, Denies change in bowel habits, Denies dyspepsia and Denies nausea Denies hematuria and Denies dysuria Musc Denies abnormal gait, Denies myalgias, Denies arthralgias, Denies numbness and Denies tingling Skin/Breast Denies rash, Denies unusual bruising and Denies wounds Neuro Denies abnormal gait, Denies dizziness, Denies headache(s), Denies memory loss, Denies numbness, Denies Sensory deficit (Neuro), Denies tingling and Denies weakness Psych Denies anxiety, Denies depression and Denies memory loss Endo Denies cold intolerance, Denies fatigue, Denies heat intolerance, Denies polydipsia and Denies polyuria Rl/Lymph Denies easy bleeding and Denies easy bruising Aller/Immun Denies wheezing Physical exam (Primary Care) Vital Signs: Last Vital Signs Pulse 102 H 01/03/23 12:01 BP 120/70 01/03/23 12:01 Pulse Ox 91 L 01/03/23 12:01 Oxygen Delivery Method Nasal Cannula 01/03/23 12:01 Oxygen Flow Rate 2 01/03/23 12:01 BMI result Body Mass Index 23.6 Tobacco/Smoking Status: Tobacco use Status Tobacco use date assessed 01/03/23 01/03/23 12:05 Patient Tobacco Use Status Former Tobacco user 01/03/23 12:05 Tobacco use type Cigarette 01/03/23 12:05 e-Cigarette/Vaping Use Never Used 01/03/23 12:05 Thrive Assessment: Date of Thrive Assessment Date Thrive assessed 07/30/22 01/03/23 12:05 Const General: no acute distress, well developed, alert and awake Nutritional Appearance: well nourished Orientation/consciousness: patient oriented x3 HENMT Head: Yes normocephalic and Yes atraumatic Ears: hearing grossly normal bilaterally and TM's normal bilaterally General nose exam: Normal external nose present and Normal nares present Mouth: Normal oral and palatal mucosa present and moist mucous membranes Teeth and gingiva: dentition normal Throat: Yes posterior oropharynx normal Eyes General: appearance normal, both eyes and all related structures Pupils: Equal, round and reactive pupils present and Pupil accommodation reflex normal EOM: EOMs intact bilaterally Neck Neck: Yes normal visual inspection, Yes no lymphadenopathy and Yes trachea midline Thyroid: Thyroid normal Carotids: no bruits Lymphatic: no lymphadenopathy noted Chest Chest palpation & inspection: normal inspection of the chest Resp Effort & Inspection: normal respiratory effort Auscultation: clear to auscultation bilaterally Cardio Rate: regular rate Rhythm: regular rhythm Heart sounds: S1 normal heart sound present, S2 normal heart sound present, no gallops, no murmurs and no rubs Bruits: no abdominal aortic bruits and no carotid bruits GI Palpation (GI): No Abdominal aortic bruit present, Soft to palpation, nontender, No hepatosplenomegaly present and No Rebound tenderness present Auscultation: normal bowel sounds General: Yes no CVA tenderness Back/Spine/Pelvis Back: no CVA tenderness Cervical Spine: cervical ROM normal and No Cervical spine tenderness Thoracic/Lumbar Spine: thoraco-lumbar ROM normal, No pain with thoraco-lumbar ROM, No thoracic spinal tenderness and No lumbar spinal tenderness Skin Lesions: no lesions Rashes: no rashes Trauma: no lacerations or abrasions Wounds: no wounds Nails: normal Neuro General: patient oriented x3 Cranial nerves: Yes Equal, round and reactive pupils present Cognition (Neuro): normal cognition Gait exam (Neuro): Normal gait present Motor exam (neuro): 5/5 motor strength present throughout Sensory Exam: No Sensory deficit (Neuro) Deep tendon reflexes (DTR's): Right patellar reflex intensity grade: 2+ and Left patellar reflex intensity grade: 2+ Extrem General: Yes normal to inspection and No edema Psych Appearance: grossly normal Affect: normal affect Attitude: cooperative Thought process: Normal thought process present Assessment and Plan Assessment & Plan (1) Hypercholesterolemia: Code(s): E78.00 - Pure hypercholesterolemia, unspecified Plan: LDL?cholesterol?is?elevated?but?HDL?ratios?are?good. Encouraged?a?diet?lower?in?saturated?fats?and?cholesterol (2) Screening for cervical cancer: Code(s): Z12.4 - Encounter for screening for malignant neoplasm of cervix Plan: Followed?by?Chelsea?Devyn?at?[facility] [place] [facility]?mechanical intern Follow-up?as?recommended (3) Screening for colon cancer: Comment: Discussed alternatives- to include cologuard-13 % false positive- if positive will recommend collonoscopy Code(s): Z12.11 - Encounter for screening for malignant neoplasm of colon Plan: Patient?would?like?a?Cologuard?test Ordered (4) Encounter for screening mammogram for breast cancer: Code(s): Z12.31 - Encounter for screening mammogram for malignant neoplasm of breast Plan: Patient?would?like?mammograms?every?other?year. Up-to-date Due?next?year (5) Neuropathic pain: Code(s): M79.2 - Neuralgia and neuritis, unspecified Plan: Has?tried?gabapentin?in?the?past?without?much?relief?from?pain Trial?Lyrica Follow-up?with?pain?management (6) Lower extremity pain: Code(s): M79.606 - Pain in leg, unspecified Plan: As?above (7) Adult general medical exam: Code(s): Z00.00 - Encounter for general adult medical examination without abnormal findings Plan: 62-year-old?female?presents?for?an?extended?exam Stable Orders: Referrals Cologuard Test Z12.11 - Encounter for screening for malignant neoplasm of colon, Z12.12 - Encounter for screening for malignant neoplasm of rectum Medications: New pregabalin (Lyrica) 50 mg PO BEDTIME 30 caps 0RF 30 days M79.2 - Neuralgia and neuritis, unspecified Discontinued levofloxacin Discontinued Reason: Patient no longer taking 750 mg PO DAILY 7 tabs 0RF Coding Level of Care Code Est Pt Level 4 (51067) Diagnoses Hypercholesterolemia E78.00 Screening for cervical cancer Z12.4 Screening for colon cancer Z12.11 Encounter for screening mammogram for breast cancer Z12.31 Neuropathic pain M79.2 Lower extremity pain M79.606 Adult general medical exam Z00.00
[2023-01-03 12:01] VITALS: BP 120/70; PULSE 102; O2SAT 91; BMI 23.6
== END 2023-01-03 13:02 | disposition home or self-care (01) ==
PROVIDERS: PCP Family Medicine; Visit Provider Family Medicine
DX: E78.00 Pure hypercholesterolemia, unspecified (principal); Z12.4 Encounter for screening for malignant neoplasm of cervix; Z12.11 Encounter for screening for malignant neoplasm of colon; Z12.31 Encounter for screening mammogram for malignant neoplasm of breast; M79.2 Neuralgia and neuritis, unspecified; M79.606 Pain in leg, unspecified; Z00.00 Encounter for general adult medical examination without abnormal findings
CPT/HCPCS: 99214

== ENCOUNTER 2023-03-30 11:33 | Outpatient (AMB) | payer MEDICARE, SELFPAY ==
[2023-03-30 11:39] VITALS: BP 141/67; PULSE 63; O2SAT 90; BMI 24.8
--- NOTE | 2023-03-30 11:39 | A.OFFPC_ITS ---
Vital Signs 03/30/23 11:39 Height 5 ft 3 in Weight 140 lb BMI 24.8 BP 141/67 H Blood Pressure Location Lt brachial Position Sitting Pulse 63 Pulse Source Pulse Oximeter Pulse Oximetry (%) 90 L Oxygen Delivery Method Room Air Intake Visit Reasons: f/u lower extremity pain Intake Note: Patient is following up lower extremity pain, and left shoulder pain. Allergies duloxetine Adverse Reaction (Intermediate, Verified 03/30/23 11:41) Headache Tobacco use date assessed: 03/30/23 HPI f/u lower extremity pain HPI Details 63 y/o female presents to f/u LE pain. She reports gabapentin has not helped at all. Pt reports she has no further plan with Dr. De Guzman pain management. She feels her symptoms of lower extremity pain worsen. COUNTS INCLUDE 234 BEDS AT THE [facility] Medical History Supplemental oxygen dependent COVID-19 vaccine series completed History of COVID-19 Median neuropathy Chronic pain syndrome Cervicalgia Spondylosis, cervical Degeneration, intervertebral disc, cervical Left cervical radiculopathy Huma's disease Hypothyroidism Right lumbar radiculopathy Surgical History History of back surgery History of bunionectomy History of pubovaginal sling Hx of cystoscopy Hx of colonoscopy Hx of tubal ligation History of lumbar fusion History of biopsy Family History Father No problems noted. Mother Type 2 diabetes mellitus Daughter Hypothyroidism Social History Household Members Other:: mother Housing: Other Housing Other:: trailer Are you a primary certified social workers in health care to a significant other at home: Yes (takes care of mother) Do you presently have visiting nurse or other home services: No Alcohol intake: never Patient Tobacco Use Status: Former Tobacco user Quit Date: 2018 Tobacco use type: Cigarette Cigarette Packs Per Day: 1 Cigarettes Per Day: 20 Years Smoked: 20 e-Cigarette/Vaping Use: Never Used Second Hand Smoke Exposure: Yes service: No Current occupational status: retired Current occupational exposures/hazards: No Cognitive needs: No Hearing needs: No Vision needs: Yes (glasses) Female Reproductive History Menstrual Age of Menarche: 13 Questionnaire Thrive Questionnaire Date Thrive assessed: 07/30/22 GISEL-7 AMB Questionnaire GISEL-7 Date GISEL - 7 assessed: 07/30/22 Source: Developed by Drs. Franck Stanley, Nena Sellers, Richi Atkins and colleagues, with an educational dallin from [employer]. Physical exam (Primary Care) Vital Signs: Last Vital Signs Pulse 63 03/30/23 11:39 BP 141/67 H 03/30/23 11:39 Pulse Ox 90 L 03/30/23 11:39 Oxygen Delivery Method Room Air 03/30/23 11:39 BMI result Body Mass Index 24.8 Tobacco/Smoking Status: Tobacco use Status Tobacco use date assessed 03/30/23 03/30/23 11:47 Patient Tobacco Use Status Former Tobacco user 03/30/23 11:47 Tobacco use type Cigarette 03/30/23 11:47 e-Cigarette/Vaping Use Never Used 03/30/23 11:47 Thrive Assessment: Date of Thrive Assessment Date Thrive assessed 07/30/22 03/30/23 11:47 Assessment and Plan Assessment & Plan (1) Lower extremity pain: Code(s): M79.606 - Pain in leg, unspecified (2) Chronic pain syndrome: Code(s): G89.4 - Chronic pain syndrome Plan: Ongoing?chronic?pain?in?neck,?shoulders?and?arms?as?well?as?low?back?and?legs. Has?seen?pain?management?and?is?awaiting?further?intervention. Has?seen?her?neurosurgeon Recently?tried?switching?her?from?gabapentin?which?was?not?helping?to?Lyrica.??S he?feels?this?did?not?help?at?all. She?had?used?Vicodin?with?some?control?of?her?chronic?pain?with?her?prior?pain?m anagement?specialist, ?Lesser. Other?types?of?opioids?had?caused?respiratory?depression. Will?try ?some?Vicodin?during?the?daytime?while?awake?to?help?control?pain?and?I?strongly ?advised?she?avoid?using?this?towards?evening.??She?will?use?ibuprofen?in?the?ev ening. Will?refer?her?back?to?her?neurosurgeon?and?I?advised?she?continue?to?follow- up?with?pain?management,?DrGino?Catrachoibkin Pain?contract?is?signed (3) Right lumbar radiculopathy: Code(s): M54.16 - Radiculopathy, lumbar region Plan: Patient?has?seen?DrGino?Aramis?for?cervical?radiculopathy?and?I?will?refer?her?back? for?both?lumbar?radiculopathy?and?cervical?radiculopathy. (4) Cervical radiculopathy: Code(s): M54.12 - Radiculopathy, cervical region Plan: As?above Orders: Orders Complete Blood Count Auto Diff Today Z00.00 - Encounter for general adult medical examination without abnormal findings Comprehensive [place]. Panel Fast Today E78.5 - Hyperlipidemia, unspecified, Z00.00 - Encounter for general adult medical examination without abnormal findings Lipid Panel Today E78.5 - Hyperlipidemia, unspecified, Z00.00 - Encounter for general adult medical examination without abnormal findings Referrals Neurosurgery Referral M54.12 - Radiculopathy, cervical region, M54.16 - Radiculopathy, lumbar region Medications: New ibuprofen 800 mg PO .qhs PRN 30 tabs 2RF pain 30 days hydrocodone-acetaminophen 5-325 mg Take for pain during daytime. Avoid evening/bedtime. [employer] verified. Partial Fill upon patient request. 1 tab PO DAILY PRN 30 tabs 0RF pain 30 days G89.4 - Chronic pain syndrome, M54.12 - Radiculopathy, cervical region, M54.16 - Radiculopathy, lumbar region Coding Level of Care Code Est Pt Level 4 (51508) Diagnoses Lower extremity pain M79.606 Chronic pain syndrome G89.4 Right lumbar radiculopathy M54.16 Cervical radiculopathy M54.12
== END 2023-03-30 12:56 | disposition home or self-care (01) ==
PROVIDERS: PCP Family Medicine; Visit Provider Family Medicine
DX: M79.606 Pain in leg, unspecified (principal); G89.4 Chronic pain syndrome; M54.16 Radiculopathy, lumbar region; M54.12 Radiculopathy, cervical region
CPT/HCPCS: 99214

== ENCOUNTER 2023-04-21 08:51 | Outpatient (REF) | payer MEDICARE, SELFPAY ==
[2023-04-21 11:04] LABS: MANUAL DIFF FLAG NO
[2023-04-21 11:10] LABS: Appearance Urine Clear; Color Urine Yellow; Glucose Urine UA Negative (Negative); Leukocyte Esterase Urine Negative (Negative); Nitrite Urine Negative (Negative); Specific Gravity - Urine <= 1.005 (1.005-1.025); Urine Blood Negative (Negative); Urine Ketones Negative (Negative); Urine Protein Negative (Neg-Trace)
[2023-04-21 11:28] LABS: Basophils Absolute Auto 0.1 X10*3/uL (0.0-0.2); Basophils Percent Auto 1.6 % (0-2); Eosinophils Absolute Auto 0.4 X10*3/uL (0.0-0.4); Eosinophils Percent Auto 7.8 % (0-4); Hematocrit 46.1 % (37.0-47.0); Hemoglobin 14.8 g/dl (12.0-16.0); Imm Gran Abs Auto 0.01 X10*3/uL (0.00-0.03); Imm Gran Pct Auto 0.2 % (0.0-0.4); Lymphocytes Percent Auto 19.2 % (20-40); Mean Corpuscular HGB Conc 32.1 g/dl (31.0-35.0); Mean Corpuscular Hemoglobin 29.9 pg (27.0-33.0); Mean Corpuscular Volume 93.1 fL (80.0-98.0); Mean Platelet Volume 11.6 fL (9.4-12.3); Monocytes Absolute Auto 0.7 X10*3/uL (0.1-1.2); Monocytes Percent Auto 14.6 % (2-11); Neutrophils Absolute Auto 2.8 x10*3/uL (2.0-8.3); Neutrophils Percent Auto 56.6 % (45-73); Platelet Count 214 X10*3/uL (160-400); Red Blood Count 4.95 X10*6/uL (4.20-5.50); Red Cell Distribution Width 14.3 % (11.0-16.0)
[2023-04-21 12:13] LABS: Free T4 (Free Thyroxine) 1.12 ng/dL (0.71-1.85)
[2023-04-21 12:15] LABS: Alanine Aminotransferase 14 U/L (0-31); Albumin Level 4.2 g/dL (3.5-5.0); Alkaline Phosphatase 80 U/L (39-117); Anion Gap 10 (12-20); Aspartate Amino Transferase 18 U/L (5-31); Bilirubin Total 0.4 mg/dL (0.0-1.0); Blood Urea Nitrogen 11 mg/dL (9-16); Calcium 9.7 mg/dL (8.4-10.2); Carbon Dioxide 32 mmol/L (22-29); Chloride 103 mmol/L (96-108); Cholesterol 235 mg/dL (<200); Estimated Glomerular Filt Rate > 60; Glucose Fasting 102 mg/dL (60-99); Glucose Random 102 mg/dL (60-115); HDL Cholesterol 87 mg/dL (>40); LDL Cholesterol Calculated 137 mg/dL (<100); Sodium 141 mmol/L (135-145); Total Protein 7.2 g/dL (6.5-8.0); Triglycerides 57 mg/dL (<150)
[2023-04-21 12:35] LABS: Thyroid Stimulating Hormone 3.79 uIU/mL (0.32-4.0)
== END 2023-04-21 08:52 | disposition home or self-care (01) ==
LOC: HO.WFDLDS 08:51
PROVIDERS: Internal Medicine Endocrinology, Diabetes & Metabolism; Visit Provider Family Medicine
DX: Z00.00 Encounter for general adult medical examination without abnormal findings (principal); M79.606 Pain in leg, unspecified; E03.9 Hypothyroidism, unspecified; E78.5 Hyperlipidemia, unspecified
CPT/HCPCS: 36415; 80053; 80061; 81003; 84439; 84443; 85025

== ENCOUNTER 2023-04-26 10:17 | Outpatient (AMB) | payer MEDICARE, SELFPAY ==
[2023-04-26 10:28] VITALS: BP 106/60; PULSE 98; BMI 24.0
--- NOTE | 2023-04-26 10:28 | A.OFFVIS_ITS ---
Intake Vital Signs 04/26/23 10:28 Height 5 ft 3 in Weight 135 lb 9.349 oz BMI 24.0 BP 106/60 Blood Pressure Location Lt brachial Position Sitting Pulse 98 Pulse Source Pulse Oximeter Intake Visit Reasons: Hypothyroidism-lvm Intake Note: Patient present today for Hypothyroidism follow up visit. Railroad Switchman Required: No Accompanied by: Self / Same As Patient Allergies duloxetine Adverse Reaction (Intermediate, Verified 04/26/23 10:34) Headache Medication List - Last Reconciled 04/26/23 by Franck Melissa MD albuterol sulfate 2.5 mg (3 mL) inhalation Q4-6H PRN 30 days albuterol sulfate 90 mcg/actuation 2 puffs inhalation Q4-6H PRN 1 month amitriptyline 10 mg PO BEDTIME 30 days furosemide 40 mg PO DAILY PRN 30 days hydrocodone-acetaminophen 5-325 mg 1 tab PO DAILY PRN 30 days ibuprofen 800 mg PO .qhs PRN 30 days levothyroxine 112 mcg PO DAILY pregabalin (Lyrica) 50 mg PO BEDTIME 30 days ropinirole 2 mg (2 x 1 mg) PO BEDTIME 90 days theophylline ER 400 mg PO DAILY 30 days umeclidinium-vilanterol 62.5-25 mcg/actuation (Anoro Ellipta) 1 inh inhalation DAILY 90 days HPI HPI Comments History of Present Illness Details 63 YO Female with PMHx Hypothyroidism, Polycythemia Vera who is seen in F/U for hypothyroidism. The patient last saw Dr. Garcia on 09/15/2022 First diagnosed with Hypothyroidism many years ago and has been on and off levothyroxine since that time. Currently using Levothyroxine 112 mcg PO daily. 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 She also had a low am cortisol, but cosyntropin stim test was WNL 03/11/2020. Complains of fatigue, but otherwise reports feeling well. Biotin: Denies Labs: Laboratory Tests 12/04/21 08:40 TSH 1.06 [facility] Medical History (Reviewed 03/30/23 @ 11:42 by Montse Cartwright [facility]) Supplemental oxygen dependent COVID-19 vaccine series completed History of COVID-19 Median neuropathy Chronic pain syndrome Cervicalgia Spondylosis, cervical Degeneration, intervertebral disc, cervical Left cervical radiculopathy Madhu's disease Hypothyroidism Right lumbar radiculopathy Surgical History History of back surgery History of bunionectomy History of pubovaginal sling Hx of cystoscopy Hx of colonoscopy Hx of tubal ligation History of lumbar fusion History of biopsy Family History Father No problems noted. Mother Type 2 diabetes mellitus Daughter Hypothyroidism Social History Household Members Other:: mother Housing: Other Housing Other:: trailer Are you a primary pharmacy care coordinator to a significant other at home: Yes (takes care of mother) Do you presently have visiting nurse or other home services: No Alcohol intake: never Patient Tobacco Use Status: Former Tobacco user Quit Date: 2018 Tobacco use type: Cigarette Cigarette Packs Per Day: 1 Cigarettes Per Day: 20 Years Smoked: 20 e-Cigarette/Vaping Use: Never Used Second Hand Smoke Exposure: Yes service: No Current occupational status: retired Current occupational exposures/hazards: No Cognitive needs: No Hearing needs: No Vision needs: Yes (glasses) Female Reproductive History Menstrual Age of Menarche: 13 Physical Exam Vital Signs: Last Vital Signs Pulse 98 04/26/23 10:28 BP 106/60 04/26/23 10:28 BMI result Body Mass Index 24.0 Const Other: Thyroid gland is normal size weighs about 15 g. 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 She appears to be clinically and biochemically euthyroid on 112 mcg levothyroxine. Plan is to continue the current therapy. At this point, patient can follow up with the primary care provider and returned back to endocrinology as needed Coding Level of Care Code Est Pt Level 3 (36858) Diagnoses Hypothyroidism, unspecified type E03.9 Hypothyroidism type: unspecified
== END 2023-04-26 11:56 | disposition home or self-care (01) ==
PROVIDERS: PCP Family Medicine; Visit Provider Internal Medicine Endocrinology, Diabetes & Metabolism
DX: E03.9 Hypothyroidism, unspecified (principal)
CPT/HCPCS: 99213

== ENCOUNTER → 2023-04-26 10:17 | Outpatient (BNVA) | payer MEDICARE, SELFPAY | PROVIDERS: PCP Family Medicine; Visit Provider Internal Medicine Endocrinology, Diabetes & Metabolism | DX: E03.9 Hypothyroidism, unspecified (principal) | CPT/HCPCS: 99212 ==

== ENCOUNTER 2023-04-27 10:20 | Outpatient (AMB) | payer MEDICARE, SELFPAY ==
[2023-04-27 10:53] VITALS: BP 118/68; PULSE 62; O2SAT 93; BMI 24.1
--- NOTE | 2023-04-27 10:53 | MHC.PC.OV ---
Vital Signs 04/27/23 10:53 Height 5 ft 3 in Weight 136 lb 2 oz BMI 24.1 BP 118/68 Blood Pressure Location Lt brachial Position Sitting Pulse 62 Pulse Source Pulse Oximeter Pulse Oximetry (%) 93 Oxygen Delivery Method Room Air Intake Visit Reasons: f/u lower extremity pain Intake Note: Patient is following up on lower extremity pain today. Allergies duloxetine Adverse Reaction (Intermediate, Verified 04/27/23 10:54) Headache Tobacco use date assessed: 04/27/23 Dental Screening Dental Screen Date: 04/27/23 Did you have a dental visit in the last 12 months?: Yes Did you have a dental problem in the last 6 months where you did not have access to dental care?: No Was dental information given to patient?: Patient has dentist HPI f/u lower extremity pain HPI Details Patient?presents?for?follow-up?chronic?pain. Taking?Vicodin?during?the?day?as?prescribed.??No?problems?with?this?medication She?is?also?prescribed?pregabalin?and?is?requiring?higher?doses. [facility] Medical History Supplemental oxygen dependent COVID-19 vaccine series completed History of COVID-19 Median neuropathy Chronic pain syndrome Cervicalgia Spondylosis, cervical Degeneration, intervertebral disc, cervical Left cervical radiculopathy Huma's disease Hypothyroidism Right lumbar radiculopathy Surgical History History of back surgery History of bunionectomy History of pubovaginal sling Hx of cystoscopy Hx of colonoscopy Hx of tubal ligation History of lumbar fusion History of biopsy Family History Father No problems noted. Mother Type 2 diabetes mellitus Daughter Hypothyroidism Social History Household Members Other:: mother Housing: Other Housing Other:: trailer Are you a primary care trainer to a significant other at home: Yes (takes care of mother) Do you presently have visiting nurse or other home services: No Alcohol intake: never Patient Tobacco Use Status: Former Tobacco user Quit Date: 2018 Tobacco use type: Cigarette Cigarette Packs Per Day: 1 Cigarettes Per Day: 20 Years Smoked: 20 e-Cigarette/Vaping Use: Never Used Second Hand Smoke Exposure: Yes service: No Current occupational status: retired Current occupational exposures/hazards: No Cognitive needs: No Hearing needs: No Vision needs: Yes (glasses) Female Reproductive History Menstrual Age of Menarche: 13 Questionnaire Thrive Questionnaire Date Thrive assessed: 07/30/22 GISEL-7 AMB Questionnaire GISEL-7 Date GISEL - 7 assessed: 07/30/22 Source: Developed by Drs. Franck Stanley, Nena Sellers, Richi Atkins and colleagues, with an educational dallin from [employer]. Review of Systems Const Denies chills, Denies fatigue, Denies fever(s), Denies headache(s) and Denies weakness ENT Denies dizziness and Denies headache(s) Card Denies chest pain, Denies lightheadedness, Denies dyspnea and Denies other (Palpitations) Resp Denies cough, Denies dyspnea, Denies wheezing and Denies other ( shortness of breath) Musc Details: Lower?extremity?pain?bilaterally Denies numbness and Denies tingling Neuro Denies dizziness, Denies headache(s), Denies numbness, Denies tingling, Denies paresthesias and Denies weakness Psych Denies anxiety and Denies depression Endo Denies fatigue Aller/Immun Denies wheezing Physical exam (Primary Care) Vital Signs: Last Vital Signs Pulse 62 04/27/23 10:53 BP 118/68 04/27/23 10:53 Pulse Ox 93 04/27/23 10:53 Oxygen Delivery Method Room Air 04/27/23 10:53 BMI result Body Mass Index 24.1 Tobacco/Smoking Status: Tobacco use Status Tobacco use date assessed 04/27/23 04/27/23 10:59 Patient Tobacco Use Status Former Tobacco user 04/27/23 10:59 Tobacco use type Cigarette 04/27/23 10:59 e-Cigarette/Vaping Use Never Used 04/27/23 10:59 Thrive Assessment: Date of Thrive Assessment Date Thrive assessed 07/30/22 04/27/23 10:59 Const General: no acute distress and well developed Nutritional Appearance: well nourished Orientation/consciousness: patient oriented x3 HENMT Head: Yes normocephalic and Yes atraumatic Eyes General: appearance normal, both eyes and all related structures Pupils: Equal, round and reactive pupils present EOM: EOMs intact bilaterally Resp Other: Clear?to?auscultation?bilaterally?with?distant?breath?sounds Effort & Inspection: normal respiratory effort Auscultation: clear to auscultation bilaterally Cardio Rate: regular rate Rhythm: regular rhythm Heart sounds: S1 normal heart sound present, S2 normal heart sound present, no gallops, no murmurs and no rubs Neuro General: patient oriented x3 and gait normal Cranial nerves: Yes Equal, round and reactive pupils present Psych Affect: normal affect Assessment and Plan Assessment & Plan (1) Lower extremity pain: Code(s): M79.606 - Pain in leg, unspecified Plan: Chronic?lower?extremity?pain Requiring?higher?doses?of?pregabalin?so?increased?today?to?150?mg?q.h.s. Patient?is?taking?Vicodin?as?prescribed?during?the?day.??Avoiding?taking?this?towards?nighttime?as?she?has?COPD?and?other?opioids?in?the?past?have?decreased?respiratory?drive. She?has?tolerated?Vicodin?with?her?prior?pain?management?specialist.??Tolerating?now?as?well. Continue?current?medication?regimen We?will?follow?every?3?months?or?more?frequently?if?any?concerns. Medications: Changed From pregabalin (Lyrica) 50 mg PO BEDTIME 30 days 30 caps 0RF M79.2 - Neuralgia and neuritis, unspecified To pregabalin 150 mg PO BEDTIME 150 caps 0RF 30 days M79.2 - Neuralgia and neuritis, unspecified Coding Level of Care Code Est Pt Level 3 (70479) Diagnoses Lower extremity pain M79.606
== END 2023-04-27 11:55 | disposition home or self-care (01) ==
PROVIDERS: PCP Family Medicine; Visit Provider Family Medicine
DX: M79.604 Pain in right leg (principal); M79.605 Pain in left leg
CPT/HCPCS: 99213

== ENCOUNTER 2023-06-01 10:51 | Outpatient (AMB) | payer MEDICARE, SELFPAY ==
[2023-06-01 10:53] VITALS: BP 134/72; PULSE 88; O2SAT 91; BMI 25.2
--- NOTE | 2023-06-01 10:53 | A.OFFVIS_ITS ---
Intake Vital Signs 06/01/23 10:53 Height 5 ft 3 in Weight 142 lb 3.17 oz BMI 25.2 BP 134/72 Blood Pressure Location Rt brachial Position Sitting Pulse 88 Pulse Source Doppler Pulse Oximetry (%) 91 L Oxygen Delivery Method Room Air Intake Visit Reasons: copd Allergies duloxetine Adverse Reaction (Intermediate, Verified 06/01/23 10:59) Headache HPI copd HPI Details 63-year-old lady, active 60+ pack-year s moker followed for underlying severe COPD and 2-3 L pulsed flow supplemental oxygen dependent.? She continues to use Anoro, theophylline 200 b.i.d., and albuterol MDI with good control of her underlying symptoms. She does complain of mild bronchitic cough over the last week. ON LICENSE OF [facility] Medical History Supplemental oxygen dependent COVID-19 vaccine series completed History of COVID-19 Median neuropathy Chronic pain syndrome Cervicalgia Spondylosis, cervical Degeneration, intervertebral disc, cervical Left cervical radiculopathy Huma's disease Hypothyroidism Right lumbar radiculopathy Surgical History History of back surgery History of bunionectomy History of pubovaginal sling Hx of cystoscopy Hx of colonoscopy Hx of tubal ligation History of lumbar fusion History of biopsy Family History Father No problems noted. Mother Type 2 diabetes mellitus Daughter Hypothyroidism Social History Household Members Other:: mother Housing: Other Housing Other:: trailer Are you a primary career consultant to a significant other at home: Yes (takes care of mother) Do you presently have visiting nurse or other home services: No Alcohol intake: never Patient Tobacco Use Status: Former Tobacco user Quit Date: 2018 Tobacco use type: Cigarette Cigarette Packs Per Day: 1 Cigarettes Per Day: 20 Years Smoked: 20 e-Cigarette/Vaping Use: Never Used Second Hand Smoke Exposure: Yes service: No Current occupational status: retired Current occupational exposures/hazards: No Cognitive needs: No Hearing needs: No Vision needs: Yes (glasses) Female Reproductive History Menstrual Age of Menarche: 13 Review of Systems Const Denies daytime sleepiness, Denies excessive sweating, Denies fatigue, Denies fever(s), Denies lethargy, Denies malaise, Denies night sweats, Denies snoring and Denies weight loss Eyes Denies blurry vision and Denies itchy eyes ENT Denies nasal congestion, Denies post nasal drip, Denies sinus pain, Denies sinus pressure and Denies other ( Thrush) Card Denies chest pain, Denies pedal edema, Denies dyspnea, Denies orthopnea and Denies paroxysmal nocturnal dyspnea Resp Reports cough, Denies hemoptysis, Denies excessive phlegm production, Denies dyspnea, Denies snoring and Denies wheezing GI Denies abdominal pain and Denies heartburn Musc Denies myalgias, Denies arthralgias and Denies joint swelling Skin/Breast Denies rash Neuro Denies memory loss and Denies seizure-like activity Psych Denies abnormal sleep pattern, Denies anxiety and Denies memory loss Endo Denies excessive sweating, Denies fatigue and Denies heat intolerance Rl/Lymph Denies easy bruising Aller/Immun Denies itchy eyes, Denies seasonal rhinorrhea and Denies wheezing Physical Exam Vital Signs: Last Vital Signs Pulse 88 06/01/23 10:53 BP 134/72 06/01/23 10:53 Pulse Ox 91 L 06/01/23 10:53 Oxygen Delivery Method Room Air 06/01/23 10:53 BMI result Body Mass Index 25.2 Const General: no acute distress and alert Nutritional Appearance: not obese Orientation/consciousness: Other orientation findings ( oriented) HEENT Head: Yes atraumatic Eyes General: appearance normal, both eyes and all related structures Sclerae: sclerae normal EOM: EOMs intact bilaterally Neck Neck: Yes supple Lymphatic: no lymphadenopathy noted Resp Effort & Inspection: normal respiratory effort and no use of accessory muscles Auscultation: clear to auscultation bilaterally Cardio Rate: regular rate Rhythm: regular rhythm Heart sounds: no gallops, no murmurs and no rubs Skin General skin exam: other ( warm) Extrem General: No clubbing, No cyanosis and No edema Assessment & Plan Assessment & Plan (1) COPD (chronic obstructive pulmonary disease): Code(s): J44.9 - Chronic obstructive pulmonary disease, unspecified Plan: Well controlled on current regimen Anoro, theophylline 200 b.i.d., and albuterol MDI/nebs. Continue current regimen. (2) Supplemental oxygen dependent: Code(s): Z99.81 - Dependence on supplemental oxygen Plan: Continue supplemental oxygen to maintain O2 saturation of 88-92%. Medications: New azithromycin For 250 mg dose pack: take 500 mg today (day 1), then 250 mg for 4 days (days 2-5) PO 6 tabs 0RF Coding Level of Care Code Est Pt Level 4 (84657) Diagnoses COPD (chronic obstructive pulmonary disease) J44.9 Supplemental oxygen dependent Z99.81
== END 2023-06-01 11:16 | disposition home or self-care (01) ==
PROVIDERS: PCP Family Medicine; Visit Provider Internal Medicine Pulmonary Disease
DX: J44.9 Chronic obstructive pulmonary disease, unspecified (principal); Z99.81 Dependence on supplemental oxygen
CPT/HCPCS: 99214

== ENCOUNTER → 2023-06-01 10:51 | Outpatient (BNVA) | payer MEDICARE, SELFPAY | PROVIDERS: PCP Family Medicine; Visit Provider Internal Medicine Pulmonary Disease | DX: J44.9 Chronic obstructive pulmonary disease, unspecified (principal); Z79.899 Other long term (current) drug therapy; Z99.81 Dependence on supplemental oxygen | CPT/HCPCS: 99212 ==

== ENCOUNTER 2023-07-27 10:53 | Outpatient (AMB) | payer MEDICARE, SELFPAY ==
[2023-07-27 11:01] VITALS: BP 118/64; PULSE 80; O2SAT 93; BMI 25.0
--- NOTE | 2023-07-27 11:01 | A.OFFPC_ITS ---
Vital Signs 07/27/23 11:01 Height 5 ft 3 in Weight 141 lb 6 oz BMI 25.0 BP 118/64 Blood Pressure Location Lt brachial Position Sitting Pulse 80 Pulse Source Pulse Oximeter Pulse Oximetry (%) 93 Oxygen Delivery Method Room Air Intake Visit Reasons: follow up chronic conditions Intake Note: Patient is here for follow up on chronic conditions. Patient needs referral with Dr. Cade, for [facility] Cardiology with Dr. Lopez, and [facility] podiatry. She's here for refill of Hydrocodone -actaminohen, 5 mg Allergies duloxetine Adverse Reaction (Intermediate, Verified 07/27/23 11:05) Headache Tobacco use date assessed: 04/27/23 Dental Screening Dental Screen Date: 04/27/23 HPI follow up chronic conditions HPI Details 63 y/o female presents to f/u chronic co nditions. Had received her last script for Vicodin 16 days ago. She has 14.5 tablets left which shows good stewardship of her medication. Pt has complaints of a R foot bone spur. Ongoing leg pain. Had increased her pregabalin last office visit which she states has been helping some. [facility] Medical History Supplemental oxygen dependent COVID-19 vaccine series completed History of COVID-19 Median neuropathy Chronic pain syndrome Cervicalgia Spondylosis, cervical Degeneration, intervertebral disc, cervical Left cervical radiculopathy Huma's disease Hypothyroidism Right lumbar radiculopathy Surgical History History of back surgery History of bunionectomy History of pubovaginal sling Hx of cystoscopy Hx of colonoscopy Hx of tubal ligation History of lumbar fusion History of biopsy Family History Father No problems noted. Mother Type 2 diabetes mellitus Daughter Hypothyroidism Social History Household Members Other:: mother Housing: Other Housing Other:: trailer Are you a primary hospice care transitions coordinator to a significant other at home: Yes (takes care of mother) Do you presently have visiting nurse or other home services: No Alcohol intake: never Patient Tobacco Use Status: Former Tobacco user Quit Date: 2019 Tobacco use type: Cigarette Cigarette Packs Per Day: 1 Cigarettes Per Day: 20 Years Smoked: 20 e-Cigarette/Vaping Use: Never Used Second Hand Smoke Exposure: Yes service: No Current occupational status: retired Current occupational exposures/hazards: No Cognitive needs: No Hearing needs: No Vision needs: Yes (glasses) Female Reproductive History Menstrual Age of Menarche: 13 Questionnaire Thrive Questionnaire Date Thrive assessed: 07/30/22 GISEL-7 AMB Questionnaire GISEL-7 Date GISEL - 7 assessed: 07/30/22 Source: Developed by Drs. Franck Stanley, Nena Sellers, Richi Atkins and colleagues, with an educational dallin from [employer]. Review of Systems Const Denies chills, Denies fatigue, Denies fever(s), Denies headache(s) and Denies weakness ENT Denies dizziness and Denies headache(s) Card Denies dyspnea Resp Denies cough, Denies dyspnea, Denies wheezing and Denies other (shortness of breath) Musc Denies numbness and Denies tingling Neuro Denies dizziness, Denies headache(s), Denies numbness, Denies tingling and Denies weakness Psych Denies anxiety and Denies depression Endo Denies fatigue Aller/Immun Denies wheezing Physical exam (Primary Care) Vital Signs: Last Vital Signs Pulse 80 07/27/23 11:01 BP 118/64 07/27/23 11:01 Pulse Ox 93 07/27/23 11:01 Oxygen Delivery Method Room Air 07/27/23 11:01 BMI result Body Mass Index 25.0 Tobacco/Smoking Status: Tobacco use Status Tobacco use date assessed 04/27/23 07/27/23 11:02 Patient Tobacco Use Status Former Tobacco user 07/27/23 11:02 Tobacco use type Cigarette 07/27/23 11:02 e-Cigarette/Vaping Use Never Used 07/27/23 11:02 Thrive Assessment: Date of Thrive Assessment Date Thrive assessed 07/30/22 07/27/23 11:02 Const General: well developed; No acute distress Nutritional Appearance: well nourished Orientation/consciousness: patient oriented x3 HENMT Head: Yes normocephalic and Yes atraumatic Eyes General: appearance normal, both eyes and all related structures Pupils: Equal, round and reactive pupils present EOM: EOMs intact bilaterally Resp Effort & Inspection: normal respiratory effort Neuro General: patient oriented x3 and gait normal Cranial nerves: Yes Equal, round and reactive pupils present Psych Affect: normal affect Assessment and Plan Assessment & Plan (1) Chronic pain syndrome: Code(s): G89.4 - Chronic pain syndrome Plan: Chronic?cervical?and?lumbar?pain.??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 Status?post?spinal?cord?stimulator?for?cervical?pain?but?she?gamboa s?not?use?this?very?much?and?says?it?does?not?help?very?well. She?is?using?Vicodin?and?pill?counts?are?appropriate. Due?for?urine?drug?screen.??She?will?give?urine?sample?today. Has?appointment?with??[facility],?neuro?surgery. Follow-up?with?Neurosurgery?and?can?also?follow-up?with?pain?management. I?will?continue?her?Vicodin?and?pregabalin She?appears?stable?with?fair?control?of?her?pain (2) Hypothyroidism: Code(s): E03.9 - Hypothyroidism, unspecified Qualifiers: Hypothyroidism type: unspecified Qualified Code(s): E03.9 - Hypothyroidism, unspecified Plan: Had?ordered? thyroid?hormone?levels?in?April.??Patient?has?not?gotten?these?drawn?yet?but? do?so?today. (3) Bone spur of right foot: Code(s): M77.51 - Other enthesopathy of right foot and ankle Plan: Complaint?of?bone?spur?on?right?foot?and?she?is?referred?to?podiatry. Orders: Orders Drug Screen Urine Today G89.4 - Chronic pain syndrome UA and rflx microscopic Today R30.0 - Dysuria, Z00.00 - Encounter for general adult medical examination without abnormal findings Referrals Cardiology Referral I27.20 - Pulmonary hypertension, unspecified Podiatry Referral M77.51 - Other enthesopathy of right foot and ankle Hematology & Oncology Referral D75.1 - Secondary polycythemia Medications: Refilled hydrocodone-acetaminophen 5-325 mg Take for pain during daytime. Avoid evening/bedtime. [facility] verified. Partial Fill upon patient request. 1 tab PO DAILY 30 days PRN 30 tabs 0RF pain G89.4 - Chronic pain syndrome, M54.12 - Radiculopathy, cervical region, M54.16 - Radiculopathy, lumbar region Coding Level of Care Code Est Pt Level 4 (12849) Diagnoses Chronic pain syndrome G89.4 Hypothyroidism, unspecified type E03.9 Hypothyroidism type: unspecified Bone spur of right foot M77.51
== END 2023-07-27 12:04 | disposition home or self-care (01) ==
PROVIDERS: PCP Family Medicine; Visit Provider Family Medicine
DX: G89.4 Chronic pain syndrome (principal); E03.9 Hypothyroidism, unspecified; M77.51 Other enthesopathy of right foot and ankle
CPT/HCPCS: 99214

== ENCOUNTER 2023-07-27 11:43 | Outpatient (REF) | payer MEDICARE, SELFPAY ==
[2023-07-27 14:14] LABS: MANUAL DIFF FLAG NO
[2023-07-27 14:29] LABS: Basophils Absolute Auto 0.1 X10*3/uL (0.0-0.2); Eosinophils Absolute Auto 0.4 X10*3/uL (0.0-0.4); Eosinophils Percent Auto 5.6 % (0-4); Hematocrit 44.7 % (37.0-47.0); Hemoglobin 14.8 g/dl (12.0-16.0); Imm Gran Abs Auto 0.02 X10*3/uL (0.00-0.03); Imm Gran Pct Auto 0.3 % (0.0-0.4); Lymphocytes Absolute Auto 0.9 X10*3/uL (1.2-4.9); Mean Corpuscular HGB Conc 33.1 g/dl (31.0-35.0); Mean Corpuscular Hemoglobin 30.8 pg (27.0-33.0); Mean Corpuscular Volume 92.9 fL (80.0-98.0); Monocytes Absolute Auto 0.8 X10*3/uL (0.1-1.2); Neutrophils Absolute Auto 4.1 x10*3/uL (2.0-8.3); Neutrophils Percent Auto 66.1 % (45-73); Platelet Count 222 X10*3/uL (160-400); Red Blood Count 4.81 X10*6/uL (4.20-5.50); White Blood Count 6.3 X10*3/uL (4.8-10.8)
[2023-07-27 14:36] LABS: Appearance Urine Clear; Color Urine Yellow; Glucose Urine UA Negative (Negative); Leukocyte Esterase Urine Negative (Negative); Nitrite Urine Negative (Negative); Specific Gravity - Urine <= 1.005 (1.005-1.025); Urine Blood Negative (Negative); Urine Ketones Negative (Negative); Urine Protein Negative (Neg-Trace)
[2023-07-27 15:07] LABS: Anion Gap 14 (12-20); Blood Urea Nitrogen 12 mg/dL (9-16); Calcium 10.1 mg/dL (8.4-10.2); Carbon Dioxide 29 mmol/L (22-29); Chloride 98 mmol/L (96-108); Estimated Glomerular Filt Rate > 60; Glucose Random 95 mg/dL (60-115); Potassium 4.2 mmol/L (3.3-5.1); Sodium 137 mmol/L (135-145)
[2023-07-27 15:13] LABS: Amphetamine Screen Urine Not Detected (Not Detect); Barbiturates, Urine Not Detected (Not Detect); Benzodiazepines Screen Urine Not Detected (Not Detect); Buprenorphine Scr Not Detected (Not Detect); Cannabinoid Screen Urine Not Detected (Not Detect); Cocaine Screen Urine Not Detected (Not Detect); Fentanyl, urine Not Detected (Not Detect); Methadone Screen, Urine Not Detected (Not Detect); Opiate Screen Urine Not Detected (Not Detect); Oxycodone Screen Urine Not Detected (Not Detect); Phencyclidine Screen Urine Not Detected (Not Detect)
[2023-07-27 15:27] LABS: Free T4 (Free Thyroxine) 1.17 ng/dL (0.71-1.85); Thyroid Stimulating Hormone 2.34 uIU/mL (0.32-4.0)
[2023-07-28 09:04] LABS: Triiodothyronine T3 Total 87 ng/dL (76-181)
== END 2023-07-27 11:44 | disposition home or self-care (01) ==
LOC: HO.WFDLDS 11:43
PROVIDERS: Visit Provider Family Medicine
DX: Z00.00 Encounter for general adult medical examination without abnormal findings (principal); E03.9 Hypothyroidism, unspecified; R30.0 Dysuria; G89.4 Chronic pain syndrome
CPT/HCPCS: 80048; 80307; 81003; 84439; 84443; 84480; 85025

== ENCOUNTER 2023-07-28 10:47 | Outpatient (REF) | payer MEDICARE, SELFPAY ==
--- NOTE | ~2023-07-28 | CT_ITS ---
EXAMINATION: CT LOW-DOSE SCREENING CHEST WITHOUT CONTRAST CLINICAL INFORMATION: Personal history of nicotine dependence. The patient has a 40 pack-year history of smoking, having quit 5 years ago. COMPARISON: CT chest 06/20/2020 and CR chest 07/25/2017. TECHNIQUE: Multidetector volumetric CT imaging of the chest is performed on a Siemens SOMATOM Definition scanner without contrast using low dose technique. Additional 2D coronal and sagittal reformatted images and axial 3D maximum intensity projection (MIP) images are generated on the CT workstation. This CT examination was performed using dose optimization techniques as appropriate, variously including the following: *Automated exposure control *Adjustment of mA and/or kV according to patient size (this includes techniques or standardized protocols for targeted exams where dose is matched to indication/reason for exam; i.e. extremities or head) *Use of iterative reconstruction technique TOTAL EXAM DLP: 38 mGy-cm. CTDIvol: 1.04 mGy. FINDINGS: PULMONARY NODULES: Some small pulmonary nodules none larger than 3 mm are unchanged and astorga images of all have been saved. For example, there is a 3 mm nodule adjacent to the right heart border in the right middle lobe (5:306 compare prior 6:315). No new, increasing sized or concerning nodule is seen. LUNGS: Lungs bilaterally symmetrically expanded. There are [id number] emphysematous changes along with diffuse bronchial thickening. No effusion or pneumothorax. Central airways patent. MEDIASTINUM: No mediastinal, hilar or axillary adenopathy or free fluid collection. Since the prior study, an epidural catheter has been placed with its tip extending beyond the [id number] towards the head. CORONARY ARTERY CALCIFICATION: Minimal. THYROID GLAND: Unremarkable to the extent seen. CARDIOVASCULAR STRUCTURES: Aortic and heart size normal. No pericardial effusion. CHEST WALL/AXILLA: Unremarkable. UPPER ABDOMEN: Included portions of the solid organs in the upper abdomen unremarkable on noncontrast imaging. Splenic granulomas are present. OSSEOUS STRUCTURES: No suspicious focal findings. There is mild degenerative change and minimal biconvex thoracolumbar scoliosis. CT/CT lung screening IMPRESSION: Benign nodules without evidence of malignancy. ASSESSMENT: 1. Lung-RADS Category 2: Benign appearance or behavior of nodules. N/A. 2. Lung-RADS Category S: Negative. There are no clinically significant or potentially clinically significant findings not related to the lungs requiring urgent additional evaluation. RECOMMENDATION: Continued routine annual low-dose CT lung screening in 1 year is recommended. An order for CT CHEST LOW DOSE CANCER SCREENING ([id number]) can be placed.
== END 2023-07-28 10:48 | disposition home or self-care (01) ==
LOC: HO.CT 10:47
PROVIDERS: PCP Family Medicine; Visit Provider Internal Medicine Pulmonary Disease
DX: Z12.2 Encounter for screening for malignant neoplasm of respiratory organs (principal); Z87.891 Personal history of nicotine dependence
CPT/HCPCS: 71271

== ENCOUNTER 2023-10-28 13:26 | Outpatient (AMB) | payer MEDICARE, SELFPAY ==
--- NOTE | 2023-10-28 13:33 | MHC.PC.OV ---
Vital Signs 10/28/23 13:43 Height 5 ft 3 in Weight 141 lb 6 oz BMI 25.0 BP 98/52 L Blood Pressure Location Lt brachial Position Sitting Respiration 16 Pulse 91 Pulse Source Pulse Oximeter Temp Source Temporal Artery Scan Pulse Oximetry (%) 91 L Oxygen Delivery Method Room Air Intake Visit Reasons: f/u chronic Pain & chronic conditions Intake Note: Follow up chronic pain Allergies duloxetine Adverse Reaction (Intermediate, Verified 10/28/23 13:35) Headache Tobacco use date assessed: 10/28/23 Dental Screening Dental Screen Date: 04/27/23 HPI f/u chronic Pain & chronic conditions HPI Details 63 y/o female presents to f/u chronic pain and chronic conditions. Has complaints of L calf pain x2 months after hopping a fence. She notes she did have a fracture. [facility] Medical History Supplemental oxygen dependent COVID-19 vaccine series completed History of COVID-19 Median neuropathy Chronic pain syndrome Cervicalgia Spondylosis, cervical Degeneration, intervertebral disc, cervical Left cervical radiculopathy Huma's disease Hypothyroidism Right lumbar radiculopathy Surgical History History of back surgery History of bunionectomy History of pubovaginal sling Hx of cystoscopy Hx of colonoscopy Hx of tubal ligation History of lumbar fusion History of biopsy Family History Father No problems noted. 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 care of mother) Do you presently have visiting nurse or other home services: No Alcohol intake: never Patient Tobacco Use Status: Former Tobacco user Tobacco use type: Cigarette Cigarette Packs Per Day: 1 Cigarettes Per Day: 20 Years Smoked: 20 e-Cigarette/Vaping Use: Never Used Second Hand Smoke Exposure: Yes service: No Current occupational status: retired Current occupational exposures/hazards: No Cognitive needs: No Hearing needs: No Vision needs: Yes (glasses) Female Reproductive History Menstrual Age of Menarche: 13 Questionnaire PHQ-9 Over the last 2 weeks, how often have you been bothered by any of the following problems? 1. Little interest or pleasure in doing things: not at all 2. Feeling down, depressed, or hopeless: not at all 3. Trouble falling or staying asleep, or sleeping too much: not at all 4. Feeling tired or having little energy: not at all 5. Poor appetite or overeating: not at all 6. Feeling bad about yourself - or that you are a failure or have let yourself or your family down: not at all 7. Trouble concentrating on things, such as reading the newspaper or watching television: not at all 8. Moving or speaking so slowly that other people could have noticed. Or the opposite - being so fidgety or restless that you have been moving around a lot more than usual: not at all 9. Thoughts that you would be better off or of hurting yourself in some way: not at all Total score: 0 Depression Screening Interpretation: Negative Depression Screening Done: Yes 52518 - PHQ-9 Billing: Yes Source: Developed by Drs. Franck Stanley, Nena Sellers, Richi Atkins and colleagues, with an educational dallin from [employer]. Thrive Questionnaire Date Thrive assessed: 10/28/23 I am a: Patient What is your living situation today?: I have a steady place to live Within the past 12 months, did the food you bought not last and you didn't have the money to get more?: Never true Within the past 12 months, did you worry whether your food would run out before you got money to buy more?: Never true Do you have trouble paying for medicines?: No Do you have trouble getting transportation to medical appointments?: No Do you have trouble paying your heating and electricity bill?: No Do you have trouble taking care of your child, family member or friend?: No Do you have trouble with day-to-day activities such as bathing, preparing meals, shopping, managing finances, etc.?: No Are you currently unemployed and looking for a job?: No Are you interested in more education?: No Please select the resources that you would like help with: None Currently or been in a relationship where the following occur: No concerns reported THRIVE Score: 0 AUDIT C Alcohol Use Questionnaire (AUDIT-C) 1. How often do you have a drink containing alcohol?: Never 3. How often do you have six or more drinks on one occasion?: Never Total Score: 0 GISEL-7 AMB Questionnaire GISEL-7 Date GISEL - 7 assessed: 07/30/22 Feeling nervous, anxious, or on edge: 0 = Not at all Not being able to stop or control worryin = Not at all Worrying too much about different things: 0 = Not at all Trouble relaxin = Not at all Being so restless that it is hard to sit still: 1 = Several days Becoming easily annoyed or irritable: 0 = Not at all Feeling afraid as if something awful might happen: 0 = Not at all Total GISEL-7 score (0-4 normal; 5-9 mild; 10-14 moderate; 15-21 severe): 1 Source: Developed by Drs. Franck Stanley, Nena Sellers, Richi Atkins and colleagues, with an educational dallin from [employer]. GISEL-7 Assessment Billing GISEL-7 Assessment Tool: GISEL-7 Assessment 00566 ACT Questionnaire In the past 4 weeks, how much of the time did your asthma keep you from getting as much done at work, school or at home?: Some of the time (Patient not sure what to put for an answer. Once a week while mowing.) During the past 4 weeks, how often have you had shortness of breath?: Once a day During the past 4 weeks, how often did your asthma symptoms wake you up at night or earlier than usual in the morning?: 4 or more nights a week During the past 4 weeks, how often have you had to use your rescue inhaler or nebulizer medication?: More than 3 times per day How would you rate your asthma control during the past 4 weeks?: Somewhat controlled ACT Interpretation: Positive Score: 10 Review of Systems Const Denies chills, Denies fatigue, Denies fever(s), Denies headache(s) and Denies weakness ENT Denies dizziness and Denies headache(s) Card Denies dyspnea Resp Denies cough, Denies dyspnea, Denies wheezing and Denies other (shortness of breath) Musc Denies numbness and Denies tingling Neuro Denies dizziness, Denies headache(s), Denies numbness, Denies tingling and Denies weakness Psych Denies anxiety and Denies depression Endo Denies fatigue Aller/Immun Denies wheezing Physical exam (Primary Care) Vital Signs: Last Vital Signs Pulse 91 10/28/23 13:43 Resp 16 10/28/23 13:43 BP 98/52 L 10/28/23 13:43 Pulse Ox 91 L 10/28/23 13:43 Oxygen Delivery Method Room Air 10/28/23 13:43 BMI result Body Mass Index 25.0 Tobacco/Smoking Status: Tobacco use Status Tobacco use date assessed 10/28/23 10/28/23 13:49 Patient Tobacco Use Status Former Tobacco user 10/28/23 13:34 Tobacco use type Cigarette 10/28/23 13:34 e-Cigarette/Vaping Use Never Used 10/28/23 13:34 PHQ-9: PHQ-9 Score PHQ-9: Total score 0 10/28/23 13:48 Depression Screening Interpretation: Negative Thrive Assessment: Date of Thrive Assessment Date Thrive assessed 10/28/23 10/28/23 13:47 Currently or been in a relationship where the following occur: No concerns reported Const General: well developed; No acute distress Nutritional Appearance: well nourished Orientation/consciousness: patient oriented x3 [facility] Head: Yes normocephalic and Yes atraumatic Eyes General: appearance normal, both eyes and all related structures Pupils: Equal, round and reactive pupils present EOM: EOMs intact bilaterally Resp Effort & Inspection: normal respiratory effort Auscultation: clear to auscultation bilaterally Cardio Rate: regular rate Rhythm: regular rhythm Heart sounds: S1 normal heart sound present, S2 normal heart sound present, no gallops, no murmurs and no rubs Neuro General: patient oriented x3 and gait normal Cranial nerves: Yes Equal, round and reactive pupils present Psych Affect: normal affect Assessment and Plan Assessment & Plan (1) Supplemental oxygen dependent: Code(s): Z99.81 - Dependence on supplemental oxygen Plan: Patient?has?supplemental?oxygen. She?notes?that?sometimes?oxygen?gets?down?into?low?80s?or?high?70s. Oxygen?saturation?91%?today?and?patient?left?her?oxygen?in?the?car. Strongly?encouraged?her?to?use?her?oxygen,?particularly?if?oxygen?is?dropping?into?the?80s (2) Chronic pain syndrome: Code(s): G89.4 - Chronic pain syndrome Plan: Pill?count?is?appropriate Will?check?urine?drug?screen?and?GC?MS We?discussed?that?if?screening?is?appropriate,?we?could?increase?her?hydrocodone?by?1/2?tab?per?day. Avoid?using?too?late?in?the?evening?as?she?has?significant?respiratory?issues Has?seen??Aston - I?do?not?have?her?note?so?I?will?request?this (3) Pain of left calf: Code(s): M79.662 - Pain in left lower leg Plan: Patient?jumped?from?a?height?and?fractured?left?fibula Follow-up?with?Dr. Bro Orders: Orders Opiates GCMS Expanded, Ur Today G89.4 - Chronic pain syndrome Comprehensive [place]. Panel Fast Today Z00.00 - Encounter for general adult medical examination without abnormal findings Complete Blood Count Auto Diff Today Z00.00 - Encounter for general adult medical examination without abnormal findings Drug Screen Urine Today G89.4 - Chronic pain syndrome Lipid Panel Today Z00.00 - Encounter for general adult medical examination without abnormal findings Microalbumin, Random (w Creat) Today I10 - Essential (primary) hypertension UA and rflx microscopic Today Z00.00 - Encounter for general adult medical examination without abnormal findings Free T4 (Free Thyroxine) Today E03.9 - Hypothyroidism, unspecified Triiodothyronine T3 Total Today E03.9 - Hypothyroidism, unspecified Thyroid Stimulating Hormone Today E03.9 - Hypothyroidism, unspecified Coding Level of Care Code Est Pt Level 3 (72126) Diagnoses Supplemental oxygen dependent Z99.81 Chronic pain syndrome G89.4 Pain of left calf M79.662 Additional Codes GISEL-7 Assessment Billing - GISEL-7 Assessment Tool: GISEL-7 Assessment [id number] ([id number])
[2023-10-28 13:43] VITALS: BP 98/52; PULSE 91; RESP 16; O2SAT 91; BMI 25.0
== END 2023-10-28 14:36 | disposition home or self-care (01) ==
PROVIDERS: PCP Family Medicine; Visit Provider Family Medicine
DX: G89.4 Chronic pain syndrome (principal); Z99.81 Dependence on supplemental oxygen; M79.662 Pain in left lower leg
CPT/HCPCS: 99213

== ENCOUNTER 2023-10-28 19:14 | Outpatient (REF) | payer MEDICARE, SELFPAY ==
[2023-10-28 19:33] LABS: Amphetamine Screen Urine Not Detected (Not Detect); Barbiturates, Urine Not Detected (Not Detect); Benzodiazepines Screen Urine Not Detected (Not Detect); Buprenorphine Scr Not Detected (Not Detect); Cannabinoid Screen Urine Not Detected (Not Detect); Cocaine Screen Urine Not Detected (Not Detect); Fentanyl, urine Not Detected (Not Detect); Methadone Screen, Urine Not Detected (Not Detect); Opiate Screen Urine Not Detected (Not Detect); Oxycodone Screen Urine Not Detected (Not Detect); Phencyclidine Screen Urine Not Detected (Not Detect)
[2023-10-28 19:50] LABS: Appearance Urine Clear; Color Urine Yellow; Glucose Urine UA Negative (Negative); Leukocyte Esterase Urine Negative (Negative); Nitrite Urine Negative (Negative); Specific Gravity - Urine <= 1.005 (1.005-1.025); Urine Blood Negative (Negative); Urine Ketones Negative (Negative); Urine Protein Negative (Neg-Trace)
== END 2023-10-28 19:15 | disposition home or self-care (01) ==
LOC: HO.LNP 19:14
PROVIDERS: Visit Provider Family Medicine
DX: Z00.00 Encounter for general adult medical examination without abnormal findings (principal); G89.4 Chronic pain syndrome
CPT/HCPCS: 80307; 81003

== ENCOUNTER 2023-12-13 10:56 | Outpatient (AMB) | payer OTHER, MEDICARE, SELFPAY ==
[2023-12-13 11:00] VITALS: BP 108/60; PULSE 82; O2SAT 90; BMI 25.7
--- NOTE | 2023-12-13 11:00 | MHC.OFFVIS ---
Vital Signs 12/13/23 11:00 Height 5 ft 3 in Weight 145 lb BMI 25.7 BP 108/60 Blood Pressure Location Rt brachial Position Sitting Pulse 82 Pulse Source Doppler Pulse Oximetry (%) 90 L Oxygen Delivery Method Nasal Cannula Oxygen Flow Rate 2 Intake Visit Reasons: COPD Allergies duloxetine Adverse Reaction (Intermediate, Verified 10/28/23 13:35) Headache HPI HPI COPD: Details: 63-year-old lady, active 60+ pack-year smoker followed for underlying severe COPD and 2-3 L pulsed flow supplemental oxygen dependent.? She continues to use Anoro, theophylline 200 b.i.d., and albuterol MDI with good control of her underlying symptoms. She denies recent exacerbations. [facility] Medical History Supplemental oxygen dependent COVID-19 vaccine series completed History of COVID-19 Median neuropathy Chronic pain syndrome Cervicalgia Spondylosis, cervical Degeneration, intervertebral disc, cervical Left cervical radiculopathy Huma's disease Hypothyroidism Right lumbar radiculopathy Surgical History History of back surgery History of bunionectomy History of pubovaginal sling Hx of cystoscopy Hx of colonoscopy Hx of tubal ligation History of lumbar fusion History of biopsy Family History Father No problems noted. 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: Yes (takes care of mother) Do you presently have visiting nurse or other home services: No Alcohol intake: never Patient Tobacco Use Status: Former Tobacco user Tobacco use type: Cigarette Cigarette Packs Per Day: 1 Cigarettes Per Day: 20 Years Smoked: 20 e-Cigarette/Vaping Use: Never Used Second Hand Smoke Exposure: Yes service: No Current occupational status: retired Current occupational exposures/hazards: No Cognitive needs: No Hearing needs: No Vision needs: Yes (glasses) Female Reproductive History Menstrual Age of Menarche: 13 Review of Systems Const Denies daytime sleepiness, Denies excessive sweating, Denies fatigue, Denies fever(s), Denies lethargy, Denies malaise, Denies night sweats, Denies snoring and Denies weight loss Eyes Denies blurry vision and Denies itchy eyes ENT Denies nasal congestion, Denies post nasal drip, Denies sinus pain, Denies sinus pressure and Denies other ( Thrush) Card Denies chest pain, Denies pedal edema, Denies dyspnea, Denies orthopnea and Denies paroxysmal nocturnal dyspnea Resp Denies cough, Denies hemoptysis, Denies excessive phlegm production, Denies dyspnea, Denies snoring and Denies wheezing GI Denies abdominal pain and Denies heartburn Musc Denies myalgias, Denies arthralgias and Denies joint swelling Skin/Breast Denies rash Neuro Denies memory loss and Denies seizure-like activity Psych Denies abnormal sleep pattern, Denies anxiety and Denies memory loss Endo Denies excessive sweating, Denies fatigue and Denies heat intolerance Rl/Lymph Denies easy bruising Aller/Immun Denies itchy eyes, Denies seasonal rhinorrhea and Denies wheezing Physical Exam Vital Signs: Last Vital Signs Pulse 82 12/13/23 11:00 BP 108/60 12/13/23 11:00 Pulse Ox 90 L 12/13/23 11:00 Oxygen Delivery Method Nasal Cannula 12/13/23 11:00 Oxygen Flow Rate 2 12/13/23 11:00 BMI result Body Mass Index 25.7 Const General: no acute distress and alert Nutritional Appearance: not obese Orientation/consciousness: Other orientation findings ( oriented) HEENT Head: Yes atraumatic Eyes General: appearance normal, both eyes and all related structures Sclerae: sclerae normal EOM: EOMs intact bilaterally Neck Neck: Yes supple Lymphatic: no lymphadenopathy noted Resp Effort & Inspection: normal respiratory effort and no use of accessory muscles Auscultation: clear to auscultation bilaterally Cardio Rate: regular rate Rhythm: regular rhythm Heart sounds: no gallops, no murmurs and no rubs Skin General skin exam: other ( warm) Extrem General: No clubbing, No cyanosis and No edema Assessment & Plan Assessment & Plan (1) COPD (chronic obstructive pulmonary disease): Code(s): J44.9 - Chronic obstructive pulmonary disease, unspecified Category: Medical Plan: Well controlled on current regimen of Anoro, theophylline, albuterol I/nebs. Continue current regimen. (2) Supplemental oxygen dependent: Code(s): Z99.81 - Dependence on supplemental oxygen Category: Medical Plan: Continue supplemental oxygen to maintain O2 saturation of 88-92%. (3) Personal history of nicotine dependence: Code(s): Z87.891 - Personal history of nicotine dependence Category: Medical Plan: Results of screening CT chest reviewed, no worrisome nodules at this time. Continue with yearly screening. Coding Level of Care Code Est Pt Level 4 (35981) Diagnoses COPD (chronic obstructive pulmonary disease) J44.9 Supplemental oxygen dependent Z99.81 Personal history of nicotine dependence Z87.891
== END 2023-12-13 11:35 | disposition home or self-care (01) ==
PROVIDERS: PCP Family Medicine; Visit Provider Internal Medicine Pulmonary Disease
DX: J44.9 Chronic obstructive pulmonary disease, unspecified (principal); Z99.81 Dependence on supplemental oxygen; Z87.891 Personal history of nicotine dependence
CPT/HCPCS: 99214

== ENCOUNTER → 2023-12-13 10:56 | Outpatient (BNVA) | payer MEDICARE, SELFPAY | PROVIDERS: PCP Family Medicine; Visit Provider Internal Medicine Pulmonary Disease | DX: J44.9 Chronic obstructive pulmonary disease, unspecified (principal); Z99.81 Dependence on supplemental oxygen; Z87.891 Personal history of nicotine dependence | CPT/HCPCS: 99212 ==

== ENCOUNTER 2024-01-20 08:32 | Outpatient (REF) | payer MEDICARE, SELFPAY ==
[2024-01-20 11:21] LABS: MANUAL DIFF FLAG NO
[2024-01-20 11:36] LABS: Basophils Percent Auto 0.8 % (0-2); Eosinophils Absolute Auto 0.5 X10*3/uL (0.0-0.4); Eosinophils Percent Auto 9.9 % (0-4); Hemoglobin 15.6 g/dl (12.0-16.0); Imm Gran Abs Auto 0.01 X10*3/uL (0.00-0.03); Imm Gran Pct Auto 0.2 % (0.0-0.4); Lymphocytes Absolute Auto 0.8 X10*3/uL (1.2-4.9); Lymphocytes Percent Auto 17.4 % (20-40); Mean Corpuscular HGB Conc 32.5 g/dl (31.0-35.0); Mean Corpuscular Hemoglobin 30.8 pg (27.0-33.0); Mean Corpuscular Volume 94.9 fL (80.0-98.0); Mean Platelet Volume 10.8 fL (9.4-12.3); Monocytes Absolute Auto 0.7 X10*3/uL (0.1-1.2); Monocytes Percent Auto 14.3 % (2-11); Neutrophils Absolute Auto 2.8 x10*3/uL (2.0-8.3); Neutrophils Percent Auto 57.4 % (45-73); Platelet Count 216 X10*3/uL (160-400); Red Blood Count 5.06 X10*6/uL (4.20-5.50); Red Cell Distribution Width 14.9 % (11.0-16.0); White Blood Count 4.8 X10*3/uL (4.8-10.8)
[2024-01-20 12:18] LABS: Creatinine Urine 116.57 mg/dL; Microalbum/Creatinine Ratio Ur 7.7 ug/mg cr (<30)
[2024-01-20 12:21] LABS: Free T4 (Free Thyroxine) 1.26 ng/dL (0.71-1.85); Thyroid Stimulating Hormone 3.77 uIU/mL (0.32-4.0)
[2024-01-20 12:31] LABS: Anion Gap 11 (12-20)
[2024-01-20 12:36] LABS: Alanine Aminotransferase 16 U/L (0-31); Albumin Level 4.3 g/dL (3.5-5.0); Alkaline Phosphatase 67 U/L (39-117); Aspartate Amino Transferase 23 U/L (5-31); Bilirubin Total 0.5 mg/dL (0.0-1.0); Blood Urea Nitrogen 11 mg/dL (9-16); Calcium 10.3 mg/dL (8.4-10.2); Carbon Dioxide 32 mmol/L (22-29); Chloride 102 mmol/L (96-108); Cholesterol 228 mg/dL (<200); Estimated Glomerular Filt Rate > 60; Glucose Fasting 100 mg/dL (60-99); HDL Cholesterol 95 mg/dL (>40); LDL Cholesterol Calculated 121 mg/dL (<100); Potassium 4.1 mmol/L (3.3-5.1); Sodium 141 mmol/L (135-145); Total Protein 7.1 g/dL (6.5-8.0); Triglycerides 60 mg/dL (<150)
[2024-01-21 06:33] LABS: Triiodothyronine T3 Total 92 ng/dL (76-181)
[2024-01-23 12:56] LABS: Codeine, Ur NEGATIVE; Oxycodone, Ur NEGATIVE
[2024-01-23 12:57] LABS: Morphine, Ur NEGATIVE; Oxymorphone, Ur NEGATIVE
[2024-01-23 12:58] LABS: Hydrocodone, Ur 411 (H); Hydromorphone, Ur 50 (H); Norhydrocodone, Ur 1366 (H); Noroxycodone, Ur NEGATIVE
== END 2024-01-20 08:33 | disposition home or self-care (01) ==
LOC: HO.WFDLDS 08:32
PROVIDERS: Visit Provider Family Medicine
DX: Z00.00 Encounter for general adult medical examination without abnormal findings (principal); I10 Essential (primary) hypertension; E03.9 Hypothyroidism, unspecified; G89.4 Chronic pain syndrome
CPT/HCPCS: 80053; 80061; 80365; 82043; 82570; 84439; 84443; 84480; 85025; G0480

== ENCOUNTER 2024-01-27 11:54 | Outpatient (AMB) | payer MEDICARE, SELFPAY ==
--- NOTE | 2024-01-27 12:07 | A.OFFVIS_ITS ---
Intake Vital Signs 01/27/24 12:14 Height 5 ft 3 in Weight 144 lb BMI 25.5 BP 107/60 Blood Pressure Location Rt brachial Position Sitting Respiration 13 Pulse 71 Pulse Source Pulse Oximeter Pulse Oximetry (%) 86 L Oxygen Delivery Method Room Air Intake Visit Reasons: Extended exam with f/u labs and health maint. Intake Note: annual exam Sock Liner Required: No Allergies duloxetine Adverse Reaction (Intermediate, Verified 01/27/24 13:01) Headache Medication List - Last Reconciled 01/27/24 by Abbie Khalil, [facility] albuterol sulfate 2.5 mg (3 mL) inhalation Q4-6H PRN 30 days albuterol sulfate 90 mcg/actuation 2 puffs inhalation Q4-6H PRN 1 month amitriptyline 10 mg PO BEDTIME 30 days furosemide 40 mg PO DAILY PRN 30 days hydrocodone-acetaminophen 5-325 mg 1 tab in AM and 1/2 tab PM orally daily PRN; Take for pain during daytime. Avoid evening/bedtime. [employer] verified. Partial Fill upon patient request. 30 days ibuprofen 800 mg PO .qhs PRN 30 days levothyroxine 112 mcg PO DAILY pregabalin 150 mg PO BEDTIME 30 days ropinirole 2 mg (2 x 1 mg) PO BEDTIME 90 days theophylline ER 400 mg PO DAILY 30 days umeclidinium-vilanterol 62.5-25 mcg/actuation (Anoro Ellipta) 1 inh inhalation DAILY 90 days Do you need a note to return to daycare/school/sports/work: No HPI HPI Comments History of Present Illness Details 63 y/o Female with Hypothyroidism, Polyc ythemia Vera, CAD (noted on CT lung 07/28/23 CORONARY ARTERY CALCIFICATION: Minimal) Here today for AWV. The Medicare Annual Wellness Visit (AWV) is a yearly appointment with a health professional to identify health risks and help reduce them and to create or update a personalized prevention plan. During a Medicare AWV, health professionals should also review any current opioid prescriptions, detect any cognitive impairment, and establish or update medical and family history. SurgHx: y FHx: Y SocHx: Y Health Maintenance: See scanned preventative medicine assessment with personalized health plan and screening schedule. Colon: cologaurd 04/21/23 Mammo 12/15/21, prefers to have done every other year. Offered a new order today, declined DEXA due, ordered today PAP 03/02/22 Vaccines Tdap, PCV, Zoster UTD, Flu 2023, COVID AAA screen: NA EKG: declined A1c: 6.5 % today in the setting of polycythemia [place] of Care: As noted in chart Visual Acuity: done, WNL Hearing Screening: occasional hard time hearing, no hearing aides. Passed whisper test. ACP: HCP , MOLST & living will done per reports, Full code. Dietary/Nutrition/Exercise Edu provided: Y During the course of the visit the patient was educated and counseled about appropriate screening and preventative services. Patient instructions were provided to the patient in written or electronic format. I have reviewed and verified the above information. Labs done by PCP reviewed w her today in detail. She reports she has pain in L shoulder that is not relieved w/ vicodin. The vicodin does help with her ble pain. FU with PCP in 3 months w repeat labs before. Sooner PRN PFSH Medical History Supplemental oxygen dependent COVID-19 vaccine series completed History of COVID-19 Median neuropathy Chronic pain syndrome Cervicalgia Spondylosis, cervical Degeneration, intervertebral disc, cervical Left cervical radiculopathy Huma's disease Hypothyroidism Right lumbar radiculopathy Surgical History History of back surgery History of bunionectomy History of pubovaginal sling Hx of cystoscopy Hx of colonoscopy Hx of tubal ligation History of lumbar fusion History of biopsy Family History Father No problems noted. Mother Type 2 diabetes mellitus Daughter Hypothyroidism Social History Household Members Other:: mother Housing: Other Housing Other:: trailer Are you a primary acute care assistant to a significant other at home: Yes (takes care of mother) Do you presently have visiting nurse or other home services: No Alcohol intake: never Patient Tobacco Use Status: Former Tobacco user Tobacco use type: Cigarette Cigarette Packs Per Day: 1 Cigarettes Per Day: 20 Years Smoked: 20 e-Cigarette/Vaping Use: Never Used Second Hand Smoke Exposure: Yes service: No Current occupational status: retired Current occupational exposures/hazards: No Cognitive needs: No Hearing needs: No Vision needs: Yes (glasses) Female Reproductive History Menstrual Age of Menarche: 13 Questionnaire Medicare Wellness Checkup What [age] your age?: 65-69 What gender do you identify with?: female During the past 4 weeks, how much have you been bothered by emotional problems such as feeling anxious, depressed, irritable, sad or downhearted, and blue?: not at all During the past 4 weeks, has your physical & emotional health limited your social activities with family, friends, neighbors, or groups?: not at all During the past 4 weeks, how much bodily pain have you generally had?: moderate pain During the past 4 weeks, was someone available to help you if you needed & wanted help?: yes, as much as I wanted During the past 4 weeks, what was the hardest physical activity you could do for at least 2 minutes?: light Can you get to places out of walking distance without help? (For eg., can you travel alone on buses, taxis or drive your car?): Yes Can you go shopping for groceries or clothes without someone's help?: Yes Can you prepare your own meals?: Yes Can you do your housework without help?: Yes Because of any health problems, do you need the help of another person with your personal care needs such as eating, bathing, dressing or getting around the house?: No Can you handle your own money without help?: Yes During the past 4 weeks, how would you rate your health in general?: good During the past 4 weeks how have things been going for you?: pretty well Are you having difficulties driving your car?: no Do you always fasten your seat belt when you are in a car?: yes, usually During past 4 weeks, have you been bothered by the following: never: Falling or dizzy when standing up, Sexual problems?, Trouble eating well?, Teeth or denture problems?, Problems using the telephone? and Tiredness or fatigue? Have you fallen 2 or more times in the past year?: No Are you afraid of falling?: No Are you a smoker?: no During the past 4 weeks, how many drinks of wine, beer, or other alcoholic beverages did you have?: no alcohol at all Do you exercise for about 20 minutes 3 or more times a week?: no, I usually do not exercise this much Have you been given information to help with the following?: no: Hazards in your house that might hurt you? and no: Keeping track of your medications? How often do you have trouble taking medicines the way you have been told to take them?: I always take medicine as prescribed How confident are you that you can control & manage most of your health problems?: very confident What is your race?: White Activity of Daily Living Bathing - sponge bath, tub bath or shower: receives no assistance (gets in/out by self, if usual bathing means Dressing - getting clothes from closets & drawers, including inner/outer garments & fasteners.: gets clothes & gets completely dressed without help Toileting - going to the 'toilet room' for urine/bowel elimination & cleaning self/arranging clothes: goes to toilet room, cleans self, arranges clothes without help Transfer: moves in & out of bed and chair without help (may use support object) Continence: controls urination/bowel movements completely by self Feeding: feeds self without help Total Score: 0 Information obtained from: patient Using telephone: independent Traveling: independent Shopping: independent Preparing meals: independent Housework: independent Taking medicine: independent Managing money: independent PHQ-9 Over the last 2 weeks, how often have you been bothered by any of the following problems? 1. Little interest or pleasure in doing things: not at all 2. Feeling down, depressed, or hopeless: not at all 3. Trouble falling or staying asleep, or sleeping too much: several days 5. Poor appetite or overeating: not at all 6. Feeling bad about yourself - or that you are a failure or have let yourself or your family down: not at all 7. Trouble concentrating on things, such as reading the newspaper or watching television: not at all 8. Moving or speaking so slowly that other people could have noticed. Or the opposite - being so fidgety or restless that you have been moving around a lot more than usual: not at all 9. Thoughts that you would be better off or of hurting yourself in some way: not at all Depression Screening Interpretation: Negative Depression Screening Done: Yes 99785 - PHQ-9 Billing: Yes Source: Developed by Drs. Franck Stanley, Nena Sellers, Richi Atkins and colleagues, with an educational dallin from [employer]. Physical Exam Vital Signs: Last Vital Signs Pulse 71 01/27/24 12:14 Resp 13 01/27/24 12:14 BP 107/60 01/27/24 12:14 Pulse Ox 86 L 01/27/24 12:14 Oxygen Delivery Method Room Air 01/27/24 12:14 BMI result Body Mass Index 25.5 Office Procedures EKG Details: pt declined do not bill [id number], Complete (do not bill pt declined) Hearing Screen Results Overall Hearing Screening Results: Pass 21666 - Pure Tone Audiometry, air only Vision Screening Right Eye: 20/20 Left Eye: 20/25 Bilateral: 20/25 Color: Pass 71121 - Vision Screening Results AMB Hemoglobin A1c AMB Hemoglobin A1c 6.5 % Last Edit by Shamar Holliday MA on 01/27/24 12:31 Results Reviewed Results Reviewed: Laboratory Last Values Hgb A1c (Clinic) 6.5 % (4.0-6.0) H 01/27/24 12:25 RUN: 01/28/24 1451 PAGE 1 [facility] [address] [place] [id number] Certified Industrial Hygienist: Fazal Polanco M.D. Specimen Inquiry Name: Rossana Stanley Nely Age/Sex: 63/F : 1960 Unit#: [id number] Attend Dr: Fazal Brandon MD Re01/20/24 Status: DEP REF Location: [facility] Disch: SPEC : [id number] NICKI: 01/20/24 STATUS: COMP REQ : [id number] RECD: 01/20/24-[address]: Fazal Brandon MD COMP: 01/20/24 ENTERED: 01/20/24 [facility] : ORDERED: CBC Auto Diff Test Result Flag Reference WBC 4.8 4.8-10.8 X10*3/uL RBC 5.06 4.20-5.50 X10*6/uL HGB 15.6 12.0-16.0 g/dl HCT 48.0 H 37.0-47.0 % MCV 94.9 80.0-98.0 fL MCH 30.8 27.0-33.0 pg MCHC 32.5 31.0-35.0 g/dl RDW 14.9 11.0-16.0 % PLT 216 160-400 X10*3/uL MPV 10.8 9.4-12.3 fL Neut Pct Auto 57.4 45-73 % ImGran Pct Auto 0.2 0.0-0.4 % Lymp Pct Auto 17.4 L 20-40 % Bond Pct Auto 14.3 H 2-11 % Eos Pct Auto 9.9 H 0-4 % Baso Pct Auto 0.8 0-2 % NRBC Pct Auto 0.0 0.0-0.2 /100WBC ANC Neut Abs # 2.8 2.0-8.3 x10*3/uL ImGran Abs Auto 0.01 0.00-0.03 X10*3/uL Lymph Abs Auto 0.8 L 1.2-4.9 X10*3/uL Bond Abs Auto 0.7 0.1-1.2 X10*3/uL Eos Abs Auto 0.5 H 0.0-0.4 X10*3/uL Baso Abs Auto 0.0 0.0-0.2 X10*3/uL NRBC Abs Auto 0.000 0.0-0.012 X10*3/uL RUN: 01/28/24 9498 PAGE 1 [facility] [address] [place] [phone] Certified Industrial Hygienist: Fazal Polanco M.D. Specimen Inquiry Name: Rossana Stanley Age/Sex: 63/F : 1960 [id number] Unit#: [id number] Attend Dr: Fazal Brandon MD Re01/20/24 Status: DEP REF Location: [facility] Disch: SPEC : [id number] NICKI: 01/20/24 STATUS: COMP REQ : [id number] RECD: 01/20/[address]: Fazal Brandon MD COMP: 01/20/24 ENTERED: 01/20/[address] [facility] [address]: ORDERED: CMP Fast, Lipid Panel, Free T4, TSH Test Result Flag Reference Sodium 141 135-145 mmol/L Potassium 4.1 3.3-5.1 mmol/L CL 102 96-108 mmol/L CO2 32 H 22-29 mmol/L Gap 11 L 12-20 BUN 11 9-16 mg/dL Creat 0.77 0.5-1.4 mg/dL EGFR > 60 NOTE: For -Polish individuals, multiply the result by 1.210. Chronic Kidney Disease: Estimated GFR < 60 mL/min/1.73m2 Severe Kidney Disease: Estimated GFR < 15 mL/min/1.73m2 FBS 100 H 60-99 mg/dL A fasting glucose from 100-125 mg/dl is considered impaired (pre-diabetes). CA 10.3 H 8.4-10.2 mg/dL Total Bili 0.5 0.0-1.0 mg/dL AST (GOT) 23 5-31 U/L ALT (GPT) 16 0-31 U/L Protein, Total 7.1 6.5-8.0 g/dL Alb 4.3 3.5-5.0 g/dL Triglyceride 60 <150 mg/dL Desirable Triglyceride: less than 150 mg/dL Borderline High Triglyceride 150-199 mg/dL High Triglyceride: 200-499 mg/dL Very High Triglyceride: greater than or equal to 5OO mg/dL Cholesterol 228 H <200 mg/dL Desirable Cholesterol: less than 200 mg/dL Borderline High Cholesterol: 200-239 mg/dL High Cholesterol: greater than 239 mg/dL LDL Calculated 121 H <100 mg/dL Desirable LDL: less than 100 mg/dL Near Optimal/Above Optimal LDL: 110-129 mg/dL Borderline High LDL: 130-159 mg/dL High LDL: 160-189 mg/dL Very High LDL: greater than or equal to 190 mg/dL HDL 95 >40 mg/dL Desirable HDL: greater than 40 mg/dL Note: This HDL assay may give artificially low results in patients with liver disease. Alk Phos 67 39-117 U/L Free T4 1.26 0.71-1.85 ng/dL TSH 3rd Gen. 3.77 0.32-4.0 uIU/mL Note: A sustained TSH level above 2.5 uIU/mL may warrant further investigation. TSH 3rd Generation ([facility]) END OF REPORT * RUN: 01/28/24 1452 PAGE 1 [facility] [address] [place] [phone] Certified Industrial Hygienist: Fazal Polanco M.D. Specimen Inquiry Name: Rossana Stanley Age/Sex: 63/F : 1960 Unit#: [id number] Attend Dr: Fazal Brandon MD Re01/20/24 Status: DEP REF Location: [id number] Disch: SPEC : [id number] NICKI: 01/20/24 STATUS: COMP REQ : [id number] RECD: 01/20/[address] [facility] DR: Fazal Brandon MD COMP: 01/20/24 ENTERED: 01/20/[address] [facility] [address]: ORDERED: MICARU Test Result Flag Reference Creat, Ur 116.57 mg/dL Microalbumin Ur 9.0 mg/L Alb/Creat Ratio 7.7 <30 ug/mg cr Albumin/Creatinine Ratio Reference Ranges: Normal: < 30 ug/mg creatinine Microalbuminuria: 30 - 300 ug/mg creatinine Clinical Albuminuria: > 300 ug/mg creatinine END OF REPORT * END OF REPORT Assessment & Plan Assessment & Plan (1) Encounter for subsequent annual wellness visit (AWV) in Medicare patient: Code(s): Z00.00 - Encounter for general adult medical examination without abnormal findings Plan: . (2) Polycythemia: Code(s): D75.1 - Secondary polycythemia Plan: . (3) Prediabetes: Comment: a1c 6.5% in the setting of polycythemia. Will trend. Code(s): R73.03 - Prediabetes Plan: . (4) CAD (coronary artery disease): Comment: CAD (noted on CT lung 07/28/23 CORONARY ARTERY CALCIFICATION: Minimal) Code(s): I25.10 - Atherosclerotic heart disease of [place] coronary artery without angina pectoris Qualifiers: Coronary Disease-Associated Artery/Lesion type: [place] artery [place] vs. transplanted heart: [place] heart Associated angina: without angina Qualified Code(s): I25.10 - Atherosclerotic heart disease of [place] coronary artery without angina pectoris Plan: . (5) ACP (advance care planning): Code(s): Z71.89 - Other specified counseling Plan: . Plan . Orders: Orders AMB Hemoglobin A1c 01/27/24 Z13.9 - Encounter for screening, unspecified XR DEXA axial skeleton 01/27/24 Z13.820 - Encounter for screening for osteoporosis Hemoglobin A1c 04/21/24 D75.1 - Secondary polycythemia, R73.03 - Prediabetes Comprehensive [place]. Panel Fast 04/21/24 D75.1 - Secondary polycythemia, R73.03 - Prediabetes AMB EKG-In Office 01/27/24 Z13.6 - Encounter for screening for cardiovascular disorders Complete Blood Count no Diff 04/21/24 D75.1 - Secondary polycythemia, R73.03 - Prediabetes Medications: Refilled levothyroxine 112 mcg PO DAILY 90 tabs 2RF albuterol sulfate 90 mcg/actuation 2 puffs inhalation Q4-6H 1 month PRN 8.5 grams 4RF shortness of breath or wheezing J45.20 - Mild intermittent asthma, uncomplicated albuterol sulfate 2.5 mg (3 mL) inhalation Q4-6H 30 days PRN 300 mL 4RF shortness of breath or wheezing J44.9 - Chronic obstructive pulmonary disease, unspecified furosemide 40 mg PO DAILY 30 days PRN 30 tabs 0RF Edema pregabalin 150 mg PO BEDTIME 30 days 30 caps 0RF M79.2 - Neuralgia and neuritis, unspecified Discontinued amitriptyline Discontinued Reason: Patient no longer taking 10 mg PO BEDTIME 30 days 30 tabs 2RF Patient Instructions: Health screenings for women You should visit your health care provider from time to time, even if you are healthy. The purpose of these visits is to: Screen for medical issues Assess your risk for future medical problems Encourage a healthy lifestyle Update vaccinations and other preventive care services Help you get to know your provider in case of an illness Information Even if you feel fine, you should still see your provider for regular checkups. These visits can help you avoid problems in the future. For example, the only way to find out if you have high blood pressure is to have it checked regularly. High blood sugar and high cholesterol levels also may not have any symptoms in the early stages. A simple blood test can check for these conditions. There are specific times when you should see your provider or receive specific health screenings. The [place] Preventive Services Task Force publishes a list of recommended screenings. Below are screening guidelines for women ages 18 to 39. BLOOD PRESSURE SCREENING Your blood pressure should be checked at least once every 3 to 5 years if: Your blood pressure is in the normal range (top number less than 120 mm Hg and bottom number less than 80 mm Hg) You don't have risk factors for high blood pressure Ask your provider if you need your blood pressure checked more often if: The top number is 120 to 129 mm Hg or the bottom number is 70 to 79 mm Hg You have diabetes, heart disease, kidney problems, are overweight, or have certain other health conditions You have a first-degree relative with high blood pressure You are Black You had high blood pressure during a If the top number is 130 mm Hg or greater or the bottom number is 80 mm Hg or greater, this is considered stage 1 hypertension. Schedule an appointment with your provider to learn how you can reduce your blood pressure. Watch for blood pressure screenings in your area. Ask your provider if you can stop in to have your blood pressure checked. BREAST CANCER SCREENING Experts do not agree about the benefits of breast self-exams in finding breast cancer or saving lives. Talk to your provider about what is best for you. A screening mammogram is not recommended for most women under age 40. Your provider may discuss and recommend mammograms, MRI scans, or ultrasounds if you have an increased risk for breast cancer, such as: A mother or sister who had breast cancer at a young age (most often starting screening earlier than the age the close relative was diagnosed) You carry a high-risk genetic marker CERVICAL CANCER SCREENING Cervical cancer screening should start at age 21 years unless your provider advises otherwise. After the first test: Women ages 21 through 29 should have a Pap test every 3 years. Exoprts do not agree on whether HPV testing is recommended for this age group. Women ages 30 through 65 should be screened with either a Pap test every 3 years or the HPV test every 5 years or both tests every 5 years (called cotesting ). Women who have been treated for precancer (cervical dysplasia) should continue to have Pap tests for 20 years after treatment or until age 65, whichever is longer. If you have had your uterus and cervix removed (total hysterectomy), and you have not been diagnosed with cervical cancer or precancer (high grade cervical neoplasia), you do not need cervical cancer screening. CHOLESTEROL SCREENING Cholesterol screening should begin at: Age 45 for women with no known risk factors for coronary heart disease Age 20 for women with known risk factors for coronary heart disease Repeat cholesterol screening should take place: Every 5 years for women with normal cholesterol levels More often if changes occur in lifestyle (including weight gain and diet) More often if you have diabetes, heart disease, kidney problems, or certain other conditions DIABETES SCREENING You should be screened for diabetes starting at age 35 and then repeated every 3 years if you have no risk factors for diabetes. Screening may need to start earlier and be repeated more often if you have other risk factors for diabetes, such as: You have a first degree relative with diabetes. You are overweight or have obesity. You have high blood pressure, prediabetes, or a history of heart disease. Screening for diabetes should be done if you are planning to become and you are overweight and have other risk factors such as high blood pressure. DENTAL EXAM Go to the dentist once or twice every year for an exam and cleaning. Your dentist will evaluate if you need more frequent visits. EYE EXAM Have an eye exam every 5 to 10 years before age 40. If you have vision problems, have an eye exam every 2 years or more often if recommended by your provider. You should have an eye exam that includes an examination of your retina (back of your eye) at least every year if you have diabetes. IMMUNIZATIONS Commonly needed vaccines include: Flu shot: get one every year. COVID-19 vaccine: ask your provider what is best for you. Tetanus-diphtheria and acellular pertussis (Tdap) vaccine: have one at or after age 19 as one of your tetanus-diphtheria vaccines if you did not receive it as an adolescent. Tetanus-diphtheria: have a booster (or Tdap) every 10 years. Varicella vaccine: receive 2 doses if you never had chickenpox or the varicella vaccine. Hepatitis B vaccine: receive 2, 3, or 4 doses, depending on your exact circumstances. Measles, mumps, and rubella (MMR) vaccine: receive 1 to 2 doses if you are not already immune to MMR. Your provider can tell you if you are immune. Ask your provider about the human papillomavirus (HPV) vaccine if: You have not received the HPV vaccine in the past You have not completed the full vaccine series (you should catch up on this shot) Ask your provider if you should receive other immunizations if you have certain health problems that increase your risk for some diseases such as pneumonia. INFECTIOUS DISEASE SCREENING Women who are sexually active should be screened for chlamydia and gonorrhea up until age 25. Women 25 years and older should be screened for chlamydia and gonorrhea if at high risk. Screening for hepatitis C: All adults ages 18 to 79 should get a one-time test for hepatitis C. people should be screened at every . Screening for human immunodeficiency virus (HIV): All people ages 15 to 65 should get a one-time test for HIV. Depending on your lifestyle and medical history, you may also need to be screened for infections such as syphilis and HIV, as well as other infections. PHYSICAL EXAM All adults should visit their provider from time to time, even if they are healthy. The purpose of these visits is to: Screen for disease Assess your risk of future medical problems Encourage a healthy lifestyle Update your vaccinations and other preventive care services Maintain a relationship with a provider in case of an illness Your height, weight, and BMI should be checked at every exam. During your exam, your provider may ask you about: Depression and anxiety Diet and exercise Alcohol and tobacco use Safety issues, such as using seat belts, smoke detectors, and intimate partner violence Your medicines and risk for interactions SKIN SELF-EXAM Your provider may check your skin for signs of skin cancer, especially if you're at high risk, such as if you: Have had skin cancer before Have close relatives with skin cancer Have a weakened immune system OTHER SCREENING Talk with your provider about colon cancer screening if you have a strong family history of colon cancer or polyps, or if you have had inflammatory bowel disease or polyps yourself. Routine bone density screening of women under 40 is not recommended. Quality Reporting (2019) Adult ([facility] 138//) Smoking risk assessment performed?: Yes Patient Tobacco Use Status: Former Tobacco user Depression screening performed: Yes Screen Results: Yes Negative screen Recommended changes not done: EKG Patient refused: Yes Systolic BP not done?: No Diastolic BP not done?: No BMI screening not done: No Sexual Activity Screening ([facility] 153) Sexually active?: Yes Immunizations ([facility] 147, 117) Annual Influenza Vaccine: Yes Measles Antibody Test: No Mumps Antibody Test: No Rubella Antibody Test: No Varicella Antibody Test: No Anti Hepatitis A IgG Antigen test: No Anti Hepatitis B Virus Surface Ab test: No Fall Risk Screening ([facility] 139) Last assessed Fall Risk: 01/27/24 Fall risk assessment: No Falls in past year Dementia Assessment ([facility] 149) Cognitive assessment recorded: Yes (6 cit normal 0/28) Assessment of cognition with standardized tool: Yes Ophthalmol:Cataracts Visual Acuity (133) Visual acuity exam performed: Yes (see results) Coding Level of Care Code Medicare Subsequent (G0439) Diagnoses Encounter for subsequent annual wellness visit (AWV) in Medicare patient Z00.00 Polycythemia D75.1 Prediabetes R73.03 Coronary artery disease involving [place] coronary artery of [place] heart without angina pectoris I25.10 Coronary Disease-Associated Artery/Lesion type: [place] artery [place] vs. transplanted heart: [place] heart Associated angina: without angina ACP (advance care planning) Z71.89 CPT Codes Advance Care Planning - Time spent: 1-15 minutes, not on file ([id number]) EKG - CPT: 64339-Gzclgcgxhwyjdhyns, Complete ([id number]) Coding - Hearing Test 2: 50850 - Pure Tone Audiometry, air only ([id number]) Vision Screening - Vision Screenin - Vision Screening ([id number]) Additional Codes PHQ-9 - 16995 - PHQ-9 Billing: Yes ([id number]) Advance Care Planning Advance Care Planning discussion: Exists, not on file Date of discussion: 01/27/24 Who was present: self Forms completed: Health Care Proxy, MOLST, Comfort care/DNR and Living will Time spent: 1-15 minutes, not on file Actual minutes spent: 55 Did not discuss due to Cultural/Spiritual beliefs: Yes
[2024-01-27 12:14] VITALS: BP 107/60; PULSE 71; RESP 13; O2SAT 86; BMI 25.5
== END 2024-01-27 13:20 | disposition home or self-care (01) ==
PROVIDERS: PCP Family Medicine; Visit Provider Nurse Practitioner Family
DX: Z00.00 Encounter for general adult medical examination without abnormal findings (principal); D75.1 Secondary polycythemia; R73.03 Prediabetes; I25.10 Atherosclerotic heart disease of native coronary artery without angina pectoris

== ENCOUNTER → 2024-01-27 11:54 | Outpatient (BNVA) | payer MEDICARE, SELFPAY | PROVIDERS: PCP Family Medicine; Visit Provider Nurse Practitioner Family | DX: Z00.00 Encounter for general adult medical examination without abnormal findings (principal); D75.1 Secondary polycythemia; R73.03 Prediabetes; I25.10 Atherosclerotic heart disease of native coronary artery without angina pectoris; Z71.89 Other specified counseling | CPT/HCPCS: 83036; 93005; 96127 ==

== ENCOUNTER 2024-04-17 11:13 | Outpatient (REF) | payer MEDICARE, SELFPAY ==
--- NOTE | ~2024-04-17 | MM_ITS ---
EXAMINATION: DXA BONE DENSITY AXIAL HISTORY: Estrogen deficiency TECHNIQUE: iovox Dual energy absorptiometry (DEXA) of the lumbar spine, total left hip, and femoral neck was performed. COMPARISON: Comparison is made with the prior examination dated 11/28/2014. FINDINGS: The bone mineral density of the lumbar spine is 1.032 with a T-score of -1.2, and a Z-score of 0.8. This represents a BMD change of 1.0% compared to the prior exam. This is not statistically significant. The bone mineral density of the left total hip is 0.756 with a T-score of -2.0, and a Z-score of -0.5. This represents BMD change of -7.5% compared to the prior exam. This is statistically significant. The bone mineral density of the left femoral neck is 0.815 with a T-score of -1.6, and a Z-score of 0.1. This represents BMD change of -11.3% compared to the prior exam. FRACTURE RISK: The FRAX index suggests a ten year probability of major osteoporotic fracture of 25.6%, and of hip fracture 1.7%. MM/XR DEXA axial skeleton IMPRESSION: Based on bone mineral density, and according to World Health Organization (WHO) criteria, the diagnosis is consistent with osteopenia. All bone density values are in grams per centimeter squared (g/cm2). Statistically, 68% of repeat scans fall within 1 SD (+/- 0.010 g/cm2 for AP spine L1-L4) and 1 SD (+/- 0.012 g/cm2 for femur total) FRAX is a trademark of the [employer] Disease, a World Health Organization (WHO) Collaborating Center. Electronically signed by: Franck Sutton MD 04/23/2024 11:30 AM [facility] [place]
--- OUTSIDE RECORDS SUMMARY | 2024-04-17 12:29 | XMS_ITS ---
Author Organization [facility] Address [address] [place] [address] Care Team Providers Care Overlay Operator Name Role Phone Fazal Brandon MD Primary Care Provider Verna Jimenez, Desirae Unavailable [phone] REASON FOR VISIT TRAINING GENERALIST PPWK Entered Encounters Encounter Location Date Provider Diagnosis [facility] [address] [place] [address] 08/04/2023 Desirae Jimenez Plan Of Treatment No Information Progress Notes * Kathy GARRETTB:1960 (63 yo F)Acc No.[id number]:08/04/2023 Patient:?Rossana Garrett :1960???Age:63 Y???Sex:Female [facility] [place] [address] * true * Date:? Generated for Printi ng/Pennyg/eTransmitting on:?04/17/2024 12:29 PM EST
--- OUTSIDE RECORDS SUMMARY | 2024-04-17 12:30 | XMS_ITS ---
Author [facility] Address [address] [facility] [place] [address] Care Team Providers Care Auctioneer Art Name Role Phone Fazal Brandon MD Primary Care Provider Verna Jimenez Desriae Unavailable [phone] Allergies No Known Allergies REASON FOR VISIT Pcp-09/11, Painful Toe(s) Medications Medication SIG (Take, Route, Frequency, Duration) Notes Start Date End Date Status Theophylline ER 400 MG Oral for 30 Days Active Levothyroxine Sodium 112 MCG Oral for 30 Days Active rOPINIRole HCl 1 MG TAKE 2 TABLETS (2mg) BY MOUTH DAILY AT BEDTIME Oral for 90 Days Active Pregabalin 150 MG TAKE 1 CAPSULE BY MO UT ONCE DAILY AT BEDTIME Oral for 30 Days Active Anoro Ellipta 62.5-25 MCG/ACT Inhalation for 90 Days Activ e HYDROcodone-Acetaminophen 5-325 MG Oral for 30 Days Active Social History Tobacco Use: Social History Observation Description Date Details (start date - stop date) Former Smoker NA - NA Tobacco Use/Smoking Question Answer Notes Are you a: former smoker Additional Findings: Tobacco Non-User Current no n-smoker Alcohol Screen Question Answer Notes Did you have a drink containing alcohol in the p ast year? No Points 0 Interpretation Negative Tobacco use other than smoking: Question Answer Notes Are you an other tobacco user? No Problems Problem Type SNOMED Code ICD Code Onset Dates Problem Status W/U Status Risk Notes Problem Acquired hammer toe of right foot (6980185694072868) Other hammer toe(s) (acquired), right foot (M20.41) Active confirmed Problem Localized, primary osteoarthritis of the ankle and/or foot (481130996) Arthritis of joint of lesser toe, right (M19.071) Active confirmed Problem Neuropathy (074847114) Neuropathy (G62.9) Active confirmed Vital Signs Height 5 ft 2in in 09/12/2023 Weight 135 lbs 09/12/2023 BMI 24.69 kg/m2 09/12/2023 Blood pressure systolic 116 mm Hg 09/12/19 Blood pressure diastolic 60 mm Hg 024 Encounters Encounter Location Date Provider Diagnosis [facility] [place] [address] [place] [address] 09/12/2023 Desirae Jimenez Pain in right toe(s) M79.674 ; Arthritis of joint of lesser toe, right M19.071 ; Other hammer toe(s) (acquired), right foot M20.41 and Neuropathy G62.9 Assessments Encounter Date Diagnosis (ICD Code) Assessment Notes Treatment Notes Treatment Clinical Notes Section Notes 09/12/2023 Pain in right toe(s) (ICD-10 - M79.674) 09/12/2023 Arthritis of joint of lesser toe, right (ICD-10 - M19.071) 09/12/2023 Other hammer toe(s) (acquired), right foot (ICD-10 - M20.41) 09/12/2023 Neuropathy (ICD-10 - G62.9) Plan Of Treatment Next Appt Details Follow Up: prn, Reason: Progress Notes * Kathy GARRETTB:1960 (63 yo F)Acc No.[id number]:09/12/2023 Progress Notes Patient:?Rossana Garrett Provider:?Desirae Jimenez DPM :1960???Age:63 Y???Sex:Female D ate:09/12/2023 Address:[address] [place] [address] Pcp:Fazal Brandon MD Subjective: * Chief Complaints: * ???Pcp-09/11Painful Toe(s) * HPI: ???Toe pain:?Nature:?tenderness.?Location:?Right foot , 2nd toe.?Duration:?, several months.?Course:?worse.?Aggrevated by:?any pressure, shoes.?Treatments:?rest/alter normal daily activity, change in shoes- previous sx.? previous sx right great toe and right second toe. * ROS:?General/Constitutional:?Nausea?denies.?Vomiting?denies.?Hunger Thirst?denies.?Loss appetite?denies.?Chills?denies.?Fatigue?denies.?Fever?denies.?Night Sweats?denies.?Unexplained weight loss?denies.?Unexplained weight gain?denies.?HEENTM:?Dentures?denies.?Dizziness?denies.?Glasses/contacts?admits.?Retinopathy?de nies.?Blurred/double vision?denies.?TMJ?denies.?Discharge/drainage?denies.?Implants?denies.?Sore throat?denies.?Dental implants?admits.?Hard of hearing ?denies.?Difficulty chewing/swallowing/speaking?denies.?Nose bleeds?denies.?Sore mouth?denies.?Respiratory:?On Oxygen?admits.?Pneumonia/pleurisy?admits.?Bronchitis?denies.?Emphysema?denies.?C oughing?denies.?Cough blood?denies.?Shortness of breath?admits.?Wheezing?denies.?Cardiovascular:?Pacemaker?denies.?MVP?denies.?WPW?denies.?CHF?denies.?Heart attack?denies.?Septal defect?denies.?Rapid beat?denies.?Chest pain ?denies.?Atrial Fib.?denies.?Murmur/Palpitations?denies.?Gastrointestinal:?Hemorrhoids?admits.?Stomach/Abdominal pain?denies.?Dark blood stool?denies.?Irritable bowel ?denies.?Constipation?denies.?Diarrhea?denies.?Hematology:?Swelling?admits.?Clots?denies.?Varicose Veins?admits.?Bruising?denies.?Bleeding problem?denies.?Genitourinary:?Blood urine?denies.?Frequent/Painfu/urination/bladder control?denies.?Kidney stones?denies.?Infection (UTI)?denies.?Nephropathy?denies.?sex trans dis (STD)?denies.?Prostate?denies.?Musculoskeletal:?Hammertoes?denies.?Bunions?denies.?Back Pain?admits.?Muscle Cramps/ Resting?admits.?Muscle cramps / walking?admits.?Generalized aches and pains?admits.?Weakness?denies.?Integ.:?Mckenzie?denies.?Scars?denies.?Corns/calluses?admits.?Ingrown nails?denies.?Painful nails?admits.?Open Sores?denies.?Rashes?denies.?Neurologic:?Difficulty sleeping?admits.?Brain disorder?denies.?Numbness?denies.?Balance trouble?denies.?Confusion?denies.?Fainting/blackouts?denies.?Tingling?admits.?Tr emors?denies.? * Medical History:? * Surgical History:?feet 2018L 4 + L5 Back 2004,2006Gall bladder removal 2000C4, C5, C6 Back 2021 * Hospitalization/Major Diagno stic Procedure:?[facility]- had a fall 09/05/23 * Family History:?Mother: augustina e, arthritis, diabetes, heart attack, high blood pressure, poor circulation.?Father: .? * Social History:?Tobacco Use:?Tobacco Use/Smoking?Are you a:?former smoker ?Additional Findings: Tobacco Non-User?Current non-smoker ?Tobacco use other than smoking?Are you an other tobacco user??No ???Drugs/Alcohol:?Drugs?Have you used drugs other than those for medical reasons in the past 12 months??No ?Alcohol Screen?Did you have a drink containing alcohol in the past year??No ?Points?0 ?Interpretation?Negative ???Miscellaneous:?Caffeine: yes, Tea, , more than 4 cups per day. ?Children: yes, 2. ?Exercise: yes, gardening/yard work, walking. ?Marital status: . 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 * Medications:?TakingTheophyll ine ER 400 MG Tablet Extended Release 24 Hour Oral Anoro Ellipta 62.5-25 MCG/ACT Aerosol Powder Breath Activated Inhalation Pregabalin 150 MG Capsule TAKE 1 CAPSULE BY MOUTH ONCE DAILY AT BEDTIME Oral rOPINIRole HCl 1 MG Tablet TAKE 2 TABLETS (2mg) BY MOUTH DAILY AT BEDTIME Oral HYDROcodone-Acetaminophen 5- 325 MG Tablet Oral Levothyroxine Sodium 112 MCG Tablet Oral Medication List reviewed and reconciled with the patientTaking Theophylline ER 400 MG Tablet Extended Release 24 Hour Oral Taking Anoro Ellipta 62.5-25 MCG/ACT Aerosol Powder Breath Activated Inhalation Taking Pregabalin 150 MG Capsule TAKE 1 CAPSULE BY MOUTH ONCE DAILY AT BEDTIME Oral Taking rOPINIRole HCl 1 MG Tablet TAKE 2 TABLETS (2mg) BY MOUTH DAILY AT BEDTIME Oral Taking HYDROcodone-Acetaminophen 5-325 MG Tablet Oral Taking Levothyroxine Sodium 112 MCG Tablet Oral Medication List reviewed and reconciled with the patient * Allergies:?N.K.D.A.yes[Aller gies Verified] Objective: * Vitals:?Ht: 5 ft 2in, Wt:135 , BMI:24.69, Shoe size: 8, BP:116/60 mm Hg, Ht-cm: 157.48 cm, Wt-k.23 kg. * Examination: ???General Examination: ?GENERAL APPEARANCE:?Reveals a pleasant, alert, well nourished, well- developed, well hydrated individual, who demonstrates proper attention to hygiene/body habitus, and is in no acute distress, Pt serves as own historian for office visit today.pt is on Oxygen.?Neurological: ?SENSORY:?Neurological exam demonstrates reduced sharp/dull pin prick discrimination reduced light touch sensation reduced vibration sensation reduced proprioception sensation in a stocking fashion 5.07 monofilament test performed at plantar aspects of 5 varied sites per foot shows sensation plantar aspects absent at Forefoot B/L , Pt relates , hyperesthesia , shooting/radiating sensation , B/L.?TINEL'S COMPRESSION:?Negative tarsal tunnel, heavenly pedis, and medial calcaneal nerves.?Vascular: ?DP PULSES:?2/4, B/L.?PT PULSES:?2/4, B/L.?CAPILLARY FILL TIME:?immediate, all digits, B/L.?SKIN TEMPERTURE GRADIENT OF THE LOWER EXTERMITIES:?normal, warm to cool, proximal to distal, B/L, B/L.?HAIR GROWTH/TEXTURE/ELASTICITY/TURGOR:?normal, B/L.?PIGMENTATION:?normal, B/L.?EDEMA:?3/4 , non-pitting , , B/L.?TELANGECTASIA:?absent.?Orthopedic: ?DIGITAL DEFORMITIES:?Digital contracture, PIPJ, 2-5 B/L, non-reducible with WB or to push-up test, no over, nor underlapping , Reveals pain/swelling/redness/enlargement of DIPJ , T6.?FOOTWEAR:? shoe gear properties exacerbate patients foot/toe deformity.?Dermatologic: ?SKIN FINDINGS:?Skin exam reveals normal color, texture, elasticity, and turgor. There are no masses, nor excrescences. The interspaces are clear, B/L , Skin exam reveals Keratotic lesion(s) located at , DIPJ , T6.?X-Rays - IMAGING REPORT: ?Clinical Indication(s):? Evaluate Biomechanical Deformity.?Views:? 3 views of Foot, AP, LAT, LO, , RIGHT.?Findings:? normal bone and soft tissue density consistent for patients age and sex.?Digits:?Show asymmetrical joint space narrowing at the DIPJ consistent with clinical finding of hammertoe deformity with medial hypertrophy of bone- internal fixation is evident in the proximal phalange and the middle phalange , 2nd digit.?HAV:?previous sx evident- 2 scews head of the 1st met head, staple medial proximal phalange , internal fixation appears intact and stable.?Fracture:? Negative fractures identified.? Assessment: * Assessment: 1.?Pain in right toe(s) - M7 9.674?2.?Arthritis of joint of lesser toe, right - M19.071 (Primary)?3.?Other hammer toe(s) (acquired), right foot - M20.41?4.?Neuropathy - G62.9? Plan: * Treatment: * Procedure Codes:?00066 X-RAY EXAM OF RIGHT FOOT 3V, Modifiers: 26 , RT * Preventive Medicine:? ??Counseling:?Discussion:?-04: Office or other outpatient visit for the evaluation and management of a new patient, which required a medically appropriate history and/or examination and MODERATE level of DECISION MAKING for: 1 OR MORE CHRONIC PROBLEM(S) THATS WORSENING, 2 STABLE CHRONIC PROBLEMS, A NEWLY DIAGNOSED PROBLEM WITH UNCERTAIN PROGNOSIS, AN ACUTE COMPLICATED INJURY WITH MULTIPLE TREATMENT OPTIONS, OR AN ACUTE PROBLEM WITH ACCOMPANYING SYSTEMIC SYMPTOMS, THAT POSE(S) A MODERATE RISK OF MORBIDITY. THIS CONDITION MAY ALSO INCLUDE RX DRUG MANAGEMENT, OR A DECISON FOR MINOR SURGERY. The visit on the day of the encounter encompassed interpreting the data and educating the patient as to the nature of their condition, treatment options available according to their individual PMH, meds, allergies, and overall health/living conditions, as well as any potential risks or complications that may occur from a failure to adhere to, and participate in, the recommended course of therapy. The discussion included a complete verbal, and/or written explanation of the examination results, any x-rays taken, the proposed diagnosis, and outline of the treatment plan. A schedule for future care needs was also explained. The patient verbalized an understanding of the instructions at this time and agreed to be an active participant in their treatment. If the patient should think of any questions or concerns after the visit, I have encouraged the patient to call the office.?Digital Surgery:?Digital surgery was discussed with the patient, including the risks of surgery(below), vs not having surgery (persistent pain, deformity, risk for skin ulceration/infection, loss of toe), the potential surg complications, the anesthesia, and the usual post-op course. No guarentees were given. We discussed the potential procedure complications including, but not limited to: pain, swelling, bleeding, scarring, numbness, infection, delayed/non healing, floppy/unstable/shorthened toe, recurrence, failure of the procedure, overcorrection leading to plantarflexed/downward positioned toe, recurrence, need for further surgery, as well as the possibility for loss of the toe itself. We discussed the use of local anesthesia, and the usual post-op course for healing. No guarentees were given. The patient verbally indicated a full understanding of the above conversation, and any other of their questions were answered to their satisfaction. Alternatives to the procedure were also discussed, including conservative care. I also discussed the usual post-operative course and gave no guarantees regarding outcome. I do not feel pt would be a good candiate for surgery do to her chronic pain issues and the present of internal fixation in the toe already, Discussed and reviewed the X-rays with the patient. We discussed how the findings relate to the patients symptoms/complaints. Answered any and all questions.?Digital Treatment:?HT- I explained to the patient the possible etiologies of Hammertoes, including genetics/foot type/shoegear/activity level/exercise routine and the risks/benefits of all the different treatment options for their pain including: No treatment at all, Rest, Ice, New/supportive/wider/deeper Shoegear, Digital Padding/Strapping/Taping/Bracing/Gel protective sleeves, Foot/Ankle AFO Bracing, Stretching exercises, Deep Tissue Massage, Arch support/shoe inserts with splay metatarsal padding, and Custom orthoses. I insisted that any digital devices be removed daily and not worn overnight for safety. The patient is to carefully examine the toes daily for any skin irritation while using any splinting or padding device. The advantages and disadvantages of each option were discussed and the patients questions re: shoegear, padding, custom vs prefabricated inserts, activity level, and consistency in home treatment regimens for optimal success were answered to their verbally confirmed satisfaction.? * Follow Up:?prn * Images: * Sign off status: Completed true * Provider:?Desirae Jimenez DPM Date:?2023 Generated for Ricardo montana/Eloisa/Magnusitting on:?04/17/2024 12:29 PM EST History and Physical Notes * HPI (History of Present Illness) Category Sub-Category Detail Notes Category Not es Toe pain Nature: tenderness previous sx rig ht great toe and right second toe Location: Right foot , 2nd toe Duration: , several months Course: worse Aggravated by: any pressure, shoes Treatments: rest/alter normal da duc activity, change in shoes- previous sx Examination Category Sub-Category Detail Notes Category Not es Neurological SENSORY: Neurological exa m demonstrates reduced sharp/dull pin prick discrimination reduced light touch sensation reduced vibration sensation reduced proprioception sensation in a stocking fashion 5.07 monofilament test performed at plantar aspects of 5 varied sites per foot shows sensation plantar aspects absent at Forefoot B/L , Pt relates , hyperesthesia , shooting/radiating sensation , B/L TINEL'S COMPRESSION: Negative tarsal kan paul, heavenly pedis, and medial calcaneal nerves Dermatologic SKIN FINDINGS: Skin exam reveal s normal color, texture, elasticity, and turgor. There are no masses, nor excrescences. The interspaces are clear, B/L , Skin exam reveals Keratotic lesion(s) located at , DIPJ , T6 Orthopedic FOOTWEAR: shoe gear proper ties exacerbate patients foot/toe deformity DIGITAL DEFORMITIES: Digital contracture , PIPJ, 2-5 B/L, non-reducible with WB or to push-up test, no over, nor underlapping , Reveals pain/swelling/redness/enlargement of DIPJ , T6 General Examination GENERAL APPEARANCE: Reveals a pleasant, alert, well nourished, well-developed, well hydrated individual, who demonstrates proper attention to hygiene/body habitus, and is in no acute distress, Pt serves as own historian for office visit today.pt is on Oxygen Vascular DP PULSES (B): 2/4, B/L PT PULSES (B): 2/4, B/L CAPILLARY FILL TIME: immediate, all digi ts, B/L TEMPERTURE GRADIENT (C): normal, warm to cool, proximal to distal, B/L, B/L TROPHIC CONDITION-TEXTURE/ELASTICITY/TURGOR/HAIR GROWTH (B): normal, B/L EDEMA (C): 3/4 , non-pitting , , B/L TELANGECTASIA: absent PIGMENTATION: normal, B/L X-Rays - IMAGING REPORT Findings: normal b one and soft tissue density consistent for patients age and sex Fracture: Negative fractures i dentified Digits: Show asymmetrical jacek int space narrowing at the DIPJ consistent with clinical finding of hammertoe deformity with medial hypertrophy of bone- internal fixation is evident in the proximal phalange and the middle phalange , 2nd digit HAV: previous sx evident- 2 scews head of the 1st met head, staple medial proximal phalange , internal fixation appears intact and stable Views: 3 views of Foot, AP, LAT, LO, , RIGHT Clinical Indication(s): Evaluate Biomech anical Deformity
--- OUTSIDE RECORDS SUMMARY | 2024-04-17 12:30 | XMS_ITS | Clinical Summary ---
Author Organization [facility] Address [address] [place] [address] Phone Care Team Providers Care Timber Sizer Operator Name Role Phone Fazal Brandon MD Primary Care Provider [phone] Allergies No known active allergies Medications Medication Sig Dispensed Refills Start Date End Date Status hydrocodone/acetaminop hen (VICODIN ORAL) Take 325 mg by mouth if needed. Active HELIUM-OXYGEN INHL Inhale by mouth 1 (one) time each day. Walking 3litter , sitting 1litter Active albuterol HFA (PROAIR HFA ; PROVENTIL HFA ; VENTOLIN HFA) 90 mcg/actuation inhaler as needed. 10/18/2018 Act cristiane furosemide (LASIX) 40 mg tablet Take 1 tablet (40 mg total) by mouth 1 (one) time each day. Active levothyroxine (SYNTHROID, LEVOTHROID) 100 mcg tablet Take 1 tablet (100 mcg total) by mouth 1 (one) time each day. Active pregabalin (LYRICA) 150 mg capsule Take 1 capsule (150 mg total) by mouth at bedtime. Active rOPINIRole (REQUIP) 5 mg tablet 08/14/2019 Active theophylline (THEODUR) 300 mg 12 hr tablet Take 1 tablet (300 mg total) by mouth 2 (two) times a day. Active umeclidinium-vilantero L (Anoro Ellipta) 62.5-25 mcg/actuation inhaler Inhale by mouth. Active umeclidinium-vilantero L (ANORO ELLIPTA) 62.5-25 mcg/actuation inhaler Inhale by mouth 1 (one) time each day. Active cholecalciferol (VITAMIN D-3) 25 mcg (1,000 unit) capsule Take 1 capsule (1,000 Units total) by mouth. Active ibuprofen (ADVIL,MOTRIN) 800 mg tablet TAKE 1 TABLET BY MOUTH EVERY NIGHT AT BEDTIME NEEDED FOR PAIN WITH food 03/30/2023 Active dexAMETHasone (DECADRON) 4 mg tablet Take 1 tablet (4 mg total) by mouth every 8 (eight) hours for 4 days. 12 each 02/17/2024 Active Active Problems Problem Noted Date Diagnosed Date Lumbar spondylosis 07/16/2022 Overview (02/14/2024): Last Assessment & Plan: The patient continues to describe the leg pain and showed a picture on her phone of severe swelling of her feet yesterday. Dr. Brett brothers has discussed placement of stimulator leads to treat her lower back which can be plugged into the same battery of her existing stimulator but the patient is discouraged since the cervical stimulator has not helped. On exam, seated SLR is negative for back pain but causes pain in her legs. Strength is 5/5 though she grimaces with strength testing. We will plan on getting the lumbar spine MRI. Assessment & Plan (02/18/2024 1:03 AM EST): Patient is s/p L4-5 decompression 2003, L4-[address] Morales 2005 (and L5-S1 fusion at that surgery 2005? L4-5 and L5-S1 are fused with anterior cages on imaging), S/p C4-5 ACDF with plating on 08/24/2022, Dr. Joseph. She was lifting boxes a week ago and since then has had severe LBP and shooting posterior leg pain to calves, numbness tingling in R>L medial feet. She cannot bend over, twist > walk distances. Her pain is not improving with time, NSAIDS, muscle relaxers. She states she has Vicodin rx'd by PCP the last few months. She denies B/B incontinence. She had prior MRI lumbar spine from 10/22/2022, mild disc bulging at L3-4 above her L4-5, L5-S1 fusion levels. Ms. Stanley has severe back and leg pain limiting her bending, twisting and walking. We can try oral steroids x 4 days with pepcid, she denies h/o stomach ulcers or diabetes. She is aware no NSAIDS while on steroids. I put in an order for an MRI, which is scheduled for . She has a spinal cord stimulator that is MRI compatible. She has to have the device fully charged and in MRI mode, with her prior C-spine MRI I spoke with rep from [facility]. She is aware of this. I tried to check with MRI for sooner appt, they likely can fit her in early next week, I will have to call back Tuesday morning. All questions answered, I will review MRI results with her after completed. I asked her to call with any concerns or questions. Cervical stenosis of spine 06/24/2022 Overview (02/14/2024): Last Assessment & Plan: Ms. Stanley is here for a 1 year follow-up since her C4-5 ACDF with plating on 08/24/2022. She has definitely felt better since the surgery and is happy that she went through it. Unfortunately, she continues to have left shoulder pain down the arm and leg and this does not improve when she turns her cervical spinal cord stimulator on therefore, she make sure that the battery is charged but otherwise, leaves it turned off. She has chronic lower back pain since a Worker's Comp. injury that led to a lumbar fusion by Dr. Morales in 2003.. This is worse with sitting and she is having a hard time getting pain control. There was some talk with Dr. De Guzman of a lumbar spinal cord stimulator but she has not had recent follow-up with him. On exam, her incision is well-healed, cervical rotation is 75 degrees bilaterally. She is nontender in the midline cervical spine, strength is 5/5, sensation light touch intact, gait is steady. Review of the AP/lateral and flexion/extension x- rays from today shows that there is a solid arthrodesis across the graft and endplates with an intact plate and screws at C4-5. Her stimulator leads terminate at the base of C2. Ms. Stanley is pleased with the results of her surgery and she has gone on to a solid fusion. There are no restrictions on her activity from that standpoint. I recommended that she follow-up with pain management to discuss whether to remove the cervical SCS and/or consider placement of a lumbar SCS. She is disappointed that she did not get the same result from the current stimulator as she did from the trial. Chest pain 02/24/2021 Overview (02/14/2024): Chest pain Chronic obstructive lung disease 02/24/2021 Overview (02/14/2024): Chronic obstructive lung disease Peripheral arterial occlusive disease 02/24/2021 Overview (02/14/2024): Peripheral arterial occlusive disease Tricuspid valve regurgitation 02/24/2021 Overview (02/14/2024): Tricuspid valve regurgitation COPD (chronic obstructive pulmonary disease) Pulmonary hypertension 09/16/2020 Dyspnea 06/06/2020 Overview (02/14/2024): Last Assessment & Plan: The patient has exertional dyspnea due to her underlying COPD. She also has borderline pulmonary hypertension as described on her right heart catheterization done in November 2018. No significant left diastolic dysfunction noted on that right heart catheterization. Recent dobutamine stress echocardiogram was normal. Therefore, it is unlikely that she has any underlying significant coronary artery disease as a cause of her shortness of breath. The patient's dyspnea is likely secondary to her COPD. Her mildly elevated pulmonary artery pressures are also likely secondary to her COPD. She has mild bilateral lower extremity edema but no evidence of venous insufficiency on her recent lower extremity venous ultrasound. Lower extremity edema likely secondary to right-sided pressure overload. We will restart the patient on her usual dose of diuretics (furosemide 40 mg orally daily). She was instructed to obtain a new basic metabolic panel and magnesium level in 1 week. The patient will continue to follow-up with her instructional support assistant regarding the management of her COPD. Otherwise, I will reevaluate the patient in 6 months. Venous insufficiency 06/06/2020 Overview (02/14/2024): Last Assessment & Plan: The patient has a history of bilateral lower extremity venous insufficiency. She states that she was previously evaluated by a vascular surgeon more than 4 years ago. She states that she has worsening lower extremity edema. Therefore, will order a lower extremity venous insufficiency study to evaluate for any significant underlying venous insufficiency. If the patient has significant venous insufficiency noted on the ultrasound exam, then we will have to refer her for a reevaluation with vascular surgery service. Encounters Date Type Department Care Team Description 03/06/2024 Telephone [facility] [address] [place] [address] Matthew Phelps MD 02/23/2024 11:29 AM EST - 02/23/2024 11:59 PM EST Hospital Encounter [facility] MRI [address] [place] [id number] Low back pain radiating to both legs Discharge Disposition: Home or Self Care 02/17/2024 2:15 PM EST Office Visit Neurosurgery [facility] [address] [facility] [address] [place] [address] Myah Dempsey PA Lumbar spondylosis (Primary Dx) 02/14/2024 Telephone Neurosurgery [facility] [address] [facility] [address] [place] [address] Luz Greco MA Appointment (L/Spine MRI scheduled for 02/23/24 @ 12pm at [facility]. Pt aware) 02/13/2024 Telephone [facility] [address] [facility] [address] [place] [phone] Ayala Davidson MA from Last 3 Months Immunizations Name Administration Dates Next Due Influenza Quadrivalent, 0.5m l, preservative free (Fluarix; FluLaval; Fluzone) ages 6mo and older (Afluria) 3yo and older 12/02/2021 Influenza trivalent, 0.5mL, preservative free (Fluarix; FluLaval; Fluzone) ages 6mo and older (Afluria) 3 years and older 01/11/2019,12/15/2017,11/30/2016,01/01,12/04/2009 Influenza, live, intranasal, quadrivalent (FluMist) 2yo to less than 50yo 12/07/2020 Pneumococcal polysaccharide 23 valent (Pneumovax 23) 2yo and older 11/16/2016,11/05/2016 Tdap Tetanus diptheria acell ular pertussis (Boostrix; Adacel) 7yo and older 08/01/2020 Surgical History Surgery Date Site/Laterality Comments FOOT SURGERY Bilateral multiple sx x7 BACK SURGERY L4-5 SPINE FUSION, Dr. Morales CARPAL TUNNEL RELEASE 03/21/2009 - 03/20/[address] Morales OTHER SURGICAL HISTORY 06/19/2021 - 07/18/2021 spinal cord stimulator and subsequent removal BLADDER SUSPENSION 03/21/2006 - 03/20/2007 [facility] BACK SURGERY 03/21/2003 - 03/20/2004 Lumbar decompression NECK SURGERY 08/24/2022 C4-5 ACDF, Dr. Joseph TUBAL LIGATION Medical History Medical History Date Comments Depressive disorder DX:Depressiv e disorder Asthma DX:Asthma COPD (chronic obstructive pu lmonary disease) ([facility]) DX:COPD (chronic obstructive pulmonary disease) ([facility]); COMMENT: severe, on O2 Hypothyroidism DX:Hypothyroidis m Polycythemia vera ([facility]) DX:P olycythemia vera ([facility]) Family History Medical History Relation Name Comments Diabetes Daughter CABG Mother Diabetes Mother Diabetes Sister Relation Name Status Comments Daughter Mother Sister Social History Tobacco Use Types Packs/Day Years Used Date Smoking Tobacco: Former Smokeless Tobacco: Former Tobacco Cessation:Counseling Given: Not Answered Alcohol Use Standard Drinks/Week Comments No 0 (1 standard drink = 0.6 oz pur e alcohol) Sex and Gender Information Value Date Recorded Sex Assigned at Not on file Gender Identity Not on file Sexual Orientation Not on file Job Start Date Occupation Industry Not on file Not on file Not on file Obstetrics History Last Filed Vital Signs Vital Sign Reading Time Taken Comments Blood Pressure - - Pulse - - Temperature - - Respiratory Rate - - Oxygen Saturation - - Inhaled Oxygen Concentration - - Weight 59 kg (130 lb) 02/23/2024 12:20 PM EST Height 160 cm (5' 3 ) 02/17/2024 2:09 PM EST Body Mass Index 23.03 02/17/2024 2:09 PM EST Plan of Treatment Upcoming Encounters Date Type Department Care Team (Late st Contact Info) Description 05/16/2024 9:20 AM EST Office Visit [facility] [address] [facility] [address] [place] [address] Matthew Phelps MD [address] [place] [address] [address] [place] [address] Health Maintenance Due Date Last Done Comments Breast Cancer Screening 1960 Cervical Cancer Screening: Pap Smear 02/21/1981 Cholesterol Screening (Lipid Panel) 02/21/2022 Colorectal Cancer Screening: Colonoscopy 02/21/2022 Depression Screening 02/21/2022 HIV Screening 02/21/2022 Hepatitis C Screening 02/21/2022 Medicare Annual Wellness Visit 02/21/2022 Social Influencers of Health Screening 02/21/2022 DTaP,Tdap,and Td Vaccines (3 - Td or Tdap) 09/03/2033 09/04/2023, 08/01/2020 Zoster Vaccines Completed 09/29/2022, 04/30/2022 RSV Immunization Patients 60+ Years Old Completed 01/03/2023 Pneumococcal Vaccine: Pediatrics (0 to 5 Years) and At-Risk Patients (6 to 64 Years) Completed 10/07/2023, 11/16/2016, 11/05/2016 COVID-19 Vaccine Completed 12/02/2023, 04/2022, 12/02/2021, Additional history exists Influenza Vaccine Completed 12/02/2023, , 12/02/2021, Additional history exists HIB Vaccines Aged Out No longer eligi ble based on patient's age to complete this topic HPV Vaccines Aged Out No longer eligi ble based on patient's age to complete this topic Hepatitis A Vaccines Aged Out No long er eligible based on patient's age to complete this topic Hepatitis B Vaccines Aged Out No long er eligible based on patient's age to complete this topic IPV Vaccines Aged Out No longer eligi ble based on patient's age to complete this topic MMR Vaccines Aged Out No longer eligi ble based on patient's age to complete this topic Meningococcal ACWY Vaccine Aged Out N o longer eligible based on patient's age to complete this topic RSV Immunization Patients Under 20 months Aged Out No longer eligible based on patient's age to complete this topic Varicella Vaccines Aged Out No longer eligible based on patient's age to complete this topic Procedures Procedure Name Priority Date/Time Associated Diagnosis Comments MR LUMBAR SPINE WO CONTRAST Routine 02/23/2024 12:45 PM EST Low back pain radiating to both legs from Last 3 Months Results * MR Lumbar Spine wo Contrast (02/23/2024 12:45 PM EST) Anatomical Region Laterality Modality L-spine, Spine Magnetic Resonan ce 02/23/2024 1:31 PM EST Impressions 02/23/2024 1:52 PM EST 1. ??L4-5 and L5-S1 fusion. 2. ??Mild degenerative spinal stenosis at L3-4. -------- FINAL REPORT -------- Dictated By: David Ruff Dictated Date: 02/23/2024 13:31 ET Assigned Physician: David Ruff Reviewed and Electronically Signed By: David Ruff Signed Date: 02/23/2024 13:52 ET Workstation ID: [id number] Transcribed By: Self Edit Transcribed Date: 02/23/2024 13:44 ET Narrative 02/23/2024 1:52 PM EST MRI of the lumbar spine, 02/23/2024. TECHNIQUE: Multiplanar multisequence MRI of the lumbar spine without intravenous contrast administration. HISTORY: Severe low back and bilateral leg pain. ??S/p L4-5, L5-S1 fusion 2005. ??Patient has spinal cord stimulator that is MRI compatible. ?? COMPARISON: None. FINDINGS: There is a linear structure in the subcutaneous fat in the left posterior lumbar subcutaneous fat which is presumably the lead for a reported spinal stimulator. ??Mild sacral paraspinous muscular atrophy. ??Mildly prominent bilateral extrarenal pelves. ??Paraspinous soft tissues are otherwise unremarkable. Susceptibility artifact suggesting interbody fusion hardware at L4-5 and L5-S1. ??Mild Baastrup's changes. Conus is in a normal position at T12-L1. Lumbar disc levels: L1-2: Only imaged in the sagittal plane. ??Mild endplate irregularity. ??No spinal or foraminal stenosis. L2-3: Only imaged in the sagittal plane. ??Mild endplate irregularity. ??Minimal degenerative irregularity of the facet joints. ??There is a small synovial cyst arising from the anteromedial right facet joint. ??This does not appear to result in significant spinal stenosis on sagittal only imaging. L3-4: Minimal endplate irregularity. ??Small right central focal protrusion. ??Mild bilateral facet arthropathy. ??Mild bilateral ligamentum flavum hypertrophy. ??Mild spinal stenosis. ??Mild right lateral recess stenosis. ??No significant foraminal stenosis. L4-5: Fusion level. ??The facet joints are also partially fused. ??Mild bilateral hypertrophic changes of the facet joints but no spinal or foraminal stenosis. L5-S1: Fusion level. ??No spinal or foraminal stenosis. Procedure Note David Ruff MD - 02/23/2024 MRI of the lumbar spine, 02/23/2024. TECHNIQUE: Multiplanar multisequence MRI of the lumbar spine withoutintravenous contrast administration. HISTORY: Severe low back and bilateral leg pain. S/p L4-5, L5-S1 [id number]. Patient has spinal cord stimulator that is MRI compatible. COMPARISON: None. FINDINGS: There is a linear structure in the subcutaneous fat in the left posteriorlumbar subcutaneous fat which is presumably the lead for a reported spinalstimulator. Mild sacral paraspinous muscular atrophy. Mildly prominentbilateral extrarenal pelves. Paraspinous soft tissues are otherwiseunremarkable. Susceptibility artifact suggesting interbody fusion hardware at L4-5 andL5-S1. Mild Baastrup's changes. Conus is in a normal position at T12-L1. Lumbar disc levels: L1-2: Only imaged in the sagittal plane. Mild endplate irregularity. Nospinal or foraminal stenosis. L2-3: Only imaged in the sagittal plane. Mild endplate irregularity.Minimal degenerative irregularity of the facet joints. There is a smallsynovial cyst arising from the anteromedial right facet joint. This doesnot appear to result in significant spinal stenosis on sagittal onlyimaging. L3-4: Minimal endplate irregularity. Small right central focalprotrusion. Mild bilateral facet arthropathy. Mild bilateral ligamentumflavum hypertrophy. Mild spinal stenosis. Mild right lateral recessstenosis. No significant foraminal stenosis. L4-5: Fusion level. The facet joints are also partially fused. Mildbilateral hypertrophic changes of the facet joints but no spinal orforaminal stenosis. L5-S1: Fusion level. No spinal or foraminal stenosis. IMPRESSION: 1. L4-5 and L5-S1 fusion. 2. Mild degenerative spinal stenosis at L3-4. -------- FINAL REPORT -------- Dictated By: David Ruff Dictated Date: 02/23/2024 13:31 ET Assigned Physician: David Ruff Reviewed and Electronically Signed By: David Ruff Signed Date: 02/23/2024 13:52 ET Workstation ID: [id number] Transcribed By: Self Edit Transcribed Date: 02/23/2024 13:44 ET [facility] MRI PROCEDURES from Last 3 Months Care Teams Timber Sizer Operator Relationship Specialty Start Date End Date Fazal Brandon MD [address] [place] [address] Dr Ghada [place] PCP - General 02/08/20
--- OUTSIDE RECORDS SUMMARY | 2024-04-17 12:30 | XMS_ITS | Patient Health Record ---
Author Organization [facility] Address [address] [facility] [place] [address] Care Team Providers Care Business Control Manager Name Role Phone Aleksandr SMITH, Fazal Primary Care Provider Desirae Jose Unavailable [phone] Allergies No Known Allergies Reason For Referral No Information Medications Medication SIG (Take, Route, Frequency, Duration) Notes Start Date End Date Status Theophylline ER 400 MG Oral for 30 Days Active Levothyroxine Sodium 112 MCG Oral for 30 Days Active HYDROcodone-Acetaminophen 5-325 MG Oral for 30 Days Active rOPINIRole HCl 1 MG TAKE 2 TABLETS (2mg) BY MOUTH DAILY AT BEDTIME Oral for 90 Days Active Pregabalin 150 MG TAKE 1 CAPSULE BY MO UT ONCE DAILY AT BEDTIME Oral for 30 Days Active Anoro Ellipta 62.5-25 MCG/ACT Inhalation for 90 Days Activ e Social History Tobacco Use: Social History Observation [...] Problem Acquired hammer toe of right foot (0867207502846198) Other hammer toe(s) (acquired), right foot (M20.41) Active confirmed Problem Neuropathy (260444148) Neuropathy (G62.9) Active confirmed Problem Localized, primary osteoarthritis of the ankle and/or foot (932094298) Arthritis of joint of lesser toe, right (M19.071) Active confirmed Vital Signs Blood pressure diastolic 60 mm Hg 09/12/2023 Height 5 ft 2in in 09/12/2023 Blood pressure systolic 116 mm Hg 09/12/2023 Weight 135 lbs 09/12/2023 BMI 24.69 kg/m2 09/12/2023 Encounters Encounter Location Date Provider Diagnosis [facility] [address] 09/12/2023 Desirae Black Pain in right toe(s) M79.674 ; Arthritis of joint of lesser toe, right M19.071 ; Other hammer toe(s) (acquired), right foot M20.41 and Neuropathy G62.[address] [facility] [address] 08/04/2023 Desirae Black Assessments Encounter Date Diagnosis (ICD Code) Assessment Notes Treatment Notes Treatment Clinical Notes Section Notes 09/12/2023 Pain in right toe(s) (ICD-10 - M79.674) 09/12/2023 Arthritis of joint of lesser toe, right (ICD-10 - M19.071) 09/12/2023 Other hammer toe(s) (acquired), right foot (ICD-10 - M20.41) 09/12/2023 Neuropathy (ICD-10 - G62.9) Plan Of Treatment No Information Insurance Providers Payer Name Payer Address Payer Phone Subscriber Number Group Number Insured Name Patient Relationship to Insured Coverage Start Date Coverage End Date Medicare [employer] [address] [facility] [place] [address] [id number] Rossana Stanley Self - [facility] the [facility] [address] [place] [address] [phone] [id number] Rossana Stanley Self - patient is the insured Medical (General) History Medical History History ICD Code Arthritis asthma Back,Hip,and Knee pain Broken bones covid-19 Fibromyalgia Headaches/Migraines Lung disease Poor circulation Sciatica thyroid Chicken pox COPD Joint implants/screws neuropathy Surgical History Surgery Date(Month/Year) feet 2018 L4 + L5 Back 2005,2005 Gall bladder removal 1999 C4, C5, C6 Back 2021 Hospitalization History Reason Date(Month/Year) [facility]- had a fall 09/05/23
== END 2024-04-17 11:14 | disposition home or self-care (01) ==
LOC: HO.MAMMO 11:13
PROVIDERS: PCP Family Medicine; Visit Provider Nurse Practitioner Family
DX: Z13.820 Encounter for screening for osteoporosis (principal); Z78.0 Asymptomatic menopausal state
CPT/HCPCS: 77080

== ENCOUNTER → 2024-04-17 11:30 | Outpatient (BNV) | payer MEDICARE, SELFPAY | PROVIDERS: PCP Family Medicine; Visit Provider Radiology Diagnostic Radiology | DX: E28.39 Other primary ovarian failure (principal) | CPT/HCPCS: 77085 ==

== ENCOUNTER 2024-04-30 10:40 | Outpatient (AMB) | payer MEDICARE, SELFPAY ==
--- NOTE | 2024-04-30 11:00 | MHC.PC.OV ---
Vital Signs 04/30/24 11:02 Height 5 ft 3 in Weight 148 lb 4 oz BMI 26.3 BP 120/60 Blood Pressure Location Lt brachial Position Sitting Respiration 14 Pulse 77 Pulse Source Pulse Oximeter Temp 97.9 F Temp Source Oral Pulse Oximetry (%) 97 Oxygen Delivery Method Room Air Intake Visit Reasons: Feb with Dr Brittany pereira chronic conditions, Intake Note: follow up on chronic pain Allergies duloxetine Adverse Reaction (Intermediate, Verified 04/30/24 11:00) Headache Medication List - Last Reconciled 04/30/24 by Fazal Brandon MD albuterol sulfate 90 mcg/actuation 2 puffs inhalation Q4-6H PRN 1 month albuterol sulfate 2.5 mg (3 mL) inhalation Q4-6H PRN 30 days furosemide 40 mg PO DAILY PRN 30 days hydrocodone-acetaminophen 5-325 mg 1 tab in AM and 1/2 tab PM orally daily PRN; Take for pain during daytime. Avoid evening/bedtime. MassPat verified. Partial Fill upon patient request. 30 days ibuprofen 800 mg PO .qhs PRN 30 days levothyroxine 112 mcg PO DAILY pregabalin 150 mg PO BEDTIME 30 days ropinirole 2 mg (2 x 1 mg) PO BEDTIME 90 days theophylline ER 400 mg PO DAILY 30 days umeclidinium-vilanterol 62.5-25 mcg/actuation (Anoro Ellipta) 1 inh inhalation DAILY 90 days Tobacco use date assessed: 10/28/23 Dental Screening Dental Screen Date: 04/27/[address] Brittany pereira chronic conditions, HPI Details 64 y/o female presents to f/u chronic conditions. Last A1c 6.5% - in the diabetes range. Hx of HLD and CAD. She notes she has an appt. with Cardiology. A1c today 04/30/24 is 6.1%. She reports ongoing chronic pain. She notes she had a bone density test about 2 weeks ago. Findings consistent with osteopenia. HPI Comments History of Present Illness Details Documentation assistance for Fazal Brandon MD, was provided by Robert Terry,? Wine Cellar Worker on 04/30/2024 at 11:24 AM KAMLA. I, Dr. Brandon, have read, observed, and verified documentation. [facility] Medical History Supplemental oxygen dependent COVID-19 vaccine series completed History of COVID-19 Median neuropathy Chronic pain syndrome Cervicalgia Spondylosis, cervical Degeneration, intervertebral disc, cervical Left cervical radiculopathy Huma's disease Hypothyroidism Right lumbar radiculopathy Surgical History History of back surgery History of bunionectomy History of pubovaginal sling Hx of cystoscopy Hx of colonoscopy Hx of tubal ligation History of lumbar fusion History of biopsy Family History Father No problems noted. Mother Type 2 diabetes mellitus Daughter Hypothyroidism Social History Household Members Other:: mother Housing: Other Housing Other:: trailer Are you a primary campground caretaker to a significant other at home: Yes (takes care of mother) Do you presently have visiting nurse or other home services: No Alcohol intake: never Patient Tobacco Use Status: Former Tobacco user Tobacco use type: Cigarette Cigarette Packs Per Day: 1 Cigarettes Per Day: 20 Years Smoked: 20 e-Cigarette/Vaping Use: Never Used Second Hand Smoke Exposure: Yes service: No Current occupational status: retired Current occupational exposures/hazards: No Cognitive needs: No Hearing needs: No Vision needs: Yes (glasses) Female Reproductive History Menstrual Age of Menarche: 13 Questionnaire PHQ-9 Over the last 2 weeks, how often have you been bothered by any of the following problems? 1. Little interest or pleasure in doing things: not at all 2. Feeling down, depressed, or hopeless: not at all 3. Trouble falling or staying asleep, or sleeping too much: not at all 4. Feeling tired or having little energy: several days 5. Poor appetite or overeating: not at all 6. Feeling bad about yourself - or that you are a failure or have let yourself or your family down: not at all 7. Trouble concentrating on things, such as reading the newspaper or watching television: not at all 8. Moving or speaking so slowly that other people could have noticed. Or the opposite - being so fidgety or restless that you have been moving around a lot more than usual: not at all 9. Thoughts that you would be better off or of hurting yourself in some way: not at all Total score: 1 Source: Developed by Drs. Franck Stanley, Richi Cornejo and colleagues, with an educational dallin from [employer]. Thrive Questionnaire Date Thrive assessed: 10/28/23 I am a: Patient What is your living situation today?: I have a steady place to live Within the past 12 months, did the food you bought not last and you didn't have the money to get more?: Never true Within the past 12 months, did you worry whether your food would run out before you got money to buy more?: Never true Do you have trouble paying for medicines?: No Do you have trouble getting transportation to medical appointments?: No Do you have trouble paying your heating and electricity bill?: No Do you have trouble taking care of your child, family member or friend?: No Do you have trouble with day-to-day activities such as bathing, preparing meals, shopping, managing finances, etc.?: No Are you currently unemployed and looking for a job?: No Are you interested in more education?: No Please select the resources that you would like help with: None Currently or been in a relationship where the following occur: No concerns reported THRIVE Score: 0 AUDIT C Alcohol Use Questionnaire (AUDIT-C) 1. How often do you have a drink containing alcohol?: Never Total Score: 0 GISEL-7 AMB Questionnaire GISEL-7 Date GISEL - 7 assessed: 07/30/22 Feeling nervous, anxious, or on edge: 0 = Not at all Not being able to stop or control worryin = Not at all Worrying too much about different things: 0 = Not at all Trouble relaxin = Not at all Being so restless that it is hard to sit still: 0 = Not at all Becoming easily annoyed or irritable: 0 = Not at all Feeling afraid as if something awful might happen: 0 = Not at all Total GISEL-7 score (0-4 normal; 5-9 mild; 10-14 moderate; 15-21 severe): 0 Source: Developed by Nena Toney Kurt Kroenke and colleagues, with an educational dallin from [employer]. Physical exam (Primary Care) Vital Signs: Last Vital Signs Temp 97.9 F 04/30/24 11:02 Pulse 77 04/30/24 11:02 Resp 14 04/30/24 11:02 BP 120/60 04/30/24 11:02 Pulse Ox 97 04/30/24 11:02 Oxygen Delivery Method Room Air 04/30/24 11:02 BMI result Body Mass Index 26.3 Tobacco/Smoking Status: Tobacco use Status Tobacco use date assessed 10/28/23 04/30/24 11:00 Patient Tobacco Use Status Former Tobacco user 04/30/24 11:00 Tobacco use type Cigarette 04/30/24 11:00 e-Cigarette/Vaping Use Never Used 04/30/24 11:00 PHQ-9: PHQ-9 Score PHQ-9: Total score 1 04/30/24 11:00 Thrive Assessment: Date of Thrive Assessment Date Thrive assessed 10/28/23 04/30/24 11:00 Currently or been in a relationship where the following occur: No concerns reported Coding Level of Care Code Est Pt Level 4 (55427) Diagnoses Prediabetes R73.03 Hyperlipidemia E78.5 Coronary artery disease involving [place] coronary artery of [place] heart without angina pectoris I25.10 Associated angina: without angina Coronary Disease-Associated Artery/Lesion type: [place] artery [place] vs. transplanted heart: [place] heart Chronic pain syndrome G89.4 Osteopenia M85.80 Assessment & Plan Assessment & Plan (1) Prediabetes: Code(s): R73.03 - Prediabetes Category: Medical Plan: A1c?today?6.1%. Pre?diabetes?range. Encouraged?diet?low?in?sugars?and?starches Will?continue?to?monitor (2) Hyperlipidemia: Code(s): E78.5 - Hyperlipidemia, unspecified Category: Medical Plan: LDL?cholesterol?is?121?and?goal?is?less?than?70?for?patient?coronary?artery?disease She?does?have?rather?high?HDL?however?given?CAD?and?recommended?she?work?at?a?diet?lower?in?saturated?fats?and?cholesterol Will?repeat?lipids (3) CAD (coronary artery disease): Comment: CAD (noted on CT lung 07/28/23 CORONARY ARTERY CALCIFICATION: Minimal) Code(s): I25.10 - Atherosclerotic heart disease of [place] coronary artery without angina pectoris Category: Medical Qualifiers: Associated angina: without angina Coronary Disease-Associated Artery/Lesion type: [place] artery [place] vs. transplanted heart: [place] heart Qualified Code(s): I25.10 - Atherosclerotic heart disease of [place] coronary artery without angina pectoris Plan: Coronary?artery?calcification/CAD?noted?on?CT?of?the?lung?07/28/2023 She?has?been?referred?to?Cardiology?at?[facility]?and?has?an?upcoming?appointment. She?will?have?the?report?forwarded?to?me?so?I?can?follow?along (4) Chronic pain syndrome: Code(s): G89.4 - Chronic pain syndrome Category: Medical Plan: Fair?control?on hydrocodone?acetaminophen?1.5?times?daily And?pregabalin?bedtime Continue?current?medications (5) Osteopenia: Comment: DEXA 2024 Code(s): M85.80 - Other specified disorders of bone density and structure, unspecified site Category: Medical Plan: Bone?density?testing?showed?osteopenia Checking?vitamin-D?level Encouraged?good?sources?calcium?and?vitamin-D Encouraged?weight-bearing?exercise?as?tolerated Orders: Orders Lipid Panel Today Z00.00 - Encounter for general adult medical examination without abnormal findings Comprehensive [place]. Panel Fast Today Z00.00 - Encounter for general adult medical examination without abnormal findings AMB Hemoglobin A1c Today E11.9 - Type 2 diabetes mellitus without complications Vitamin D 25-OH Total Today E55.9 - Vitamin D deficiency, unspecified
[2024-04-30 11:02] VITALS: BP 120/60; PULSE 77; RESP 14; TEMP 36.6; O2SAT 97; BMI 26.3
== END 2024-04-30 11:42 | disposition home or self-care (01) ==
PROVIDERS: PCP Family Medicine; Visit Provider Family Medicine
DX: R73.03 Prediabetes (principal); E78.5 Hyperlipidemia, unspecified; I25.10 Atherosclerotic heart disease of native coronary artery without angina pectoris; G89.4 Chronic pain syndrome; M85.80 Other specified disorders of bone density and structure, unspecified site

== ENCOUNTER → 2024-04-30 10:40 | Outpatient (BNVA) | payer MEDICARE, SELFPAY | PROVIDERS: PCP Family Medicine; Visit Provider Family Medicine | DX: R73.03 Prediabetes (principal); E78.5 Hyperlipidemia, unspecified; I25.10 Atherosclerotic heart disease of native coronary artery without angina pectoris; G89.4 Chronic pain syndrome; M85.80 Other specified disorders of bone density and structure, unspecified site | CPT/HCPCS: 83036; 99212 ==

== ENCOUNTER 2024-05-25 15:31 | Outpatient (AMB) | payer MEDICARE, SELFPAY ==
[2024-05-25 15:35] VITALS: BP 120/62; PULSE 80; O2SAT 87; BMI 26.4
--- NOTE | 2024-05-25 15:35 | MHC.OFFVIS ---
Vital Signs 05/25/24 15:35 Height 5 ft 3 in Weight 149 lb BMI 26.4 BP 120/62 Blood Pressure Location Rt brachial Position Sitting Pulse 80 Pulse Source Doppler Pulse Oximetry (%) 87 L Oxygen Delivery Method Room Air Intake Visit Reasons: COPD Allergies duloxetine Adverse Reaction (Intermediate, Verified 05/25/24 15:40) Headache HPI HPI COPD: Details: 64-year-old lady, active 60+ pack-year smoker followed for underlying severe COPD and 2-3 L pulsed flow supplemental oxygen dependent.? She continues to use Anoro, theophylline 200 b.i.d., and albuterol MDI with good control of her underlying symptoms. Today she does complain of beginning of exacerbation likely provoked by recent construction at her home, now symptomatic with productive cough and mild dyspnea. [facility] Medical History Supplemental oxygen dependent COVID-19 vaccine series completed History of COVID-19 Median neuropathy Chronic pain syndrome Cervicalgia Spondylosis, cervical Degeneration, intervertebral disc, cervical Left cervical radiculopathy Huma's disease Hypothyroidism Right lumbar radiculopathy Surgical History History of back surgery History of bunionectomy History of pubovaginal sling Hx of cystoscopy Hx of colonoscopy Hx of tubal ligation History of lumbar fusion History of biopsy Family History Father No problems noted. Mother Type 2 diabetes mellitus Daughter Hypothyroidism Social History Household Members Other:: mother Housing: Other Housing Other:: trailer Are you a primary ocular care aide to a significant other at home: Yes (takes care of mother) Do you presently have visiting nurse or other home services: No Alcohol intake: never Patient Tobacco Use Status: Former Tobacco user Tobacco use type: Cigarette Cigarette Packs Per Day: 1 Cigarettes Per Day: 20 Years Smoked: 20 e-Cigarette/Vaping Use: Never Used Second Hand Smoke Exposure: Yes service: No Current occupational status: retired Current occupational exposures/hazards: No Cognitive needs: No Hearing needs: No Vision needs: Yes (glasses) Female Reproductive History Menstrual Age of Menarche: 13 Review of Systems Const Denies daytime sleepiness, Denies excessive sweating, Denies fatigue, Denies fever(s), Denies lethargy, Denies malaise, Denies night sweats, Denies snoring and Denies weight loss Eyes Denies blurry vision and Denies itchy eyes ENT Denies nasal congestion, Denies post nasal drip, Denies sinus pain, Denies sinus pressure and Denies other ( Thrush) Card Denies chest pain, Denies pedal edema, Denies dyspnea, Reports dyspnea on exertion, Denies orthopnea and Denies paroxysmal nocturnal dyspnea Resp Reports cough, Denies hemoptysis, Reports excessive phlegm production, Denies dyspnea, Reports dyspnea on exertion, Denies snoring and Reports wheezing GI Denies abdominal pain and Denies heartburn Musc Denies myalgias, Denies arthralgias and Denies joint swelling Skin/Breast Denies rash Neuro Denies memory loss and Denies seizure-like activity Psych Denies abnormal sleep pattern, Denies anxiety and Denies memory loss Endo Denies excessive sweating, Denies fatigue and Denies heat intolerance Rl/Lymph Denies easy bruising Aller/Immun Denies itchy eyes, Denies seasonal rhinorrhea and Reports wheezing Physical Exam Vital Signs: Last Vital Signs Pulse 80 05/25/24 15:35 BP 120/62 05/25/24 15:35 Pulse Ox 87 L 05/25/24 15:35 Oxygen Delivery Method Room Air 05/25/24 15:35 BMI result Body Mass Index 26.4 Const General: no acute distress and alert Nutritional Appearance: not obese Orientation/consciousness: Other orientation findings ( oriented) HEENT Head: Yes atraumatic Eyes General: appearance normal, both eyes and all related structures Sclerae: sclerae normal EOM: EOMs intact bilaterally Neck Neck: Yes supple Lymphatic: no lymphadenopathy noted Resp Effort & Inspection: normal respiratory effort and no use of accessory muscles Auscultation: clear to auscultation bilaterally Cardio Rate: regular rate Rhythm: regular rhythm Heart sounds: no gallops, no murmurs and no rubs Skin General skin exam: other ( warm) Extrem General: No clubbing, No cyanosis and No edema Quality Reporting (2019) Adult ([facility] 138/05/12/[birth year]) Smoking risk assessment performed?: Yes Patient Tobacco Use Status: Former Tobacco user Assessment & Plan Assessment & Plan (1) COPD (chronic obstructive pulmonary disease): Code(s): J44.9 - Chronic obstructive pulmonary disease, unspecified Category: Medical Plan: Baseline controlled on current regimen of Anoro, theophylline, and albuterol MDI/nebs. Continue current regimen. Now with an acute exacerbation, will treat with a course of prednisone and azithromycin. (2) Supplemental oxygen dependent: Code(s): Z99.81 - Dependence on supplemental oxygen Category: Medical Plan: Continue supplemental oxygen to maintain O2 saturation of 88-92%. (3) Personal history of nicotine dependence: Code(s): Z87.891 - Personal history of nicotine dependence Category: Medical Plan: Follow-up CT chest is pending for July of 2024. Orders: Orders CT lung screening 07/25/24 Z87.891 - Personal history of nicotine dependence Medications: New azithromycin For 250 mg dose pack: take 500 mg today (day 1), then 250 mg for 4 days (days 2-5) PO 6 tabs 0RF prednisone 40 mg (2 x 20 mg) PO DAILY 10 tabs 0RF Coding Level of Care Code Est Pt Level 4 (76197) Diagnoses COPD (chronic obstructive pulmonary disease) J44.9 Supplemental oxygen dependent Z99.81 Personal history of nicotine dependence Z87.891
--- OUTSIDE RECORDS SUMMARY | 2024-05-25 17:01 | XMS_ITS | Patient Health Record ---
[facility] Organization [facility] Address [address] [place] [address] Care Team Providers Care Basket Turner Name Role Phone Aleksandr SMITH, Fazal Primary Care Provider Desirae Jose Unavailable [phone] Allergies No Known Allergies Reason For Referral [...] Problem Acquired hammer toe of right foot ([id number]) Other hammer toe(s) (acquired), right foot (M20.41) Active confirmed Problem Neuropathy ([id number]) Neuropathy (G62.9) Active confirmed Problem Localized, primary osteoarthritis of the ankle and/or foot ([id number]) Arthritis of joint of lesser toe, right (M19.071) Active confirmed Vital Signs Blood pressure diastolic 60 mm Hg 09/12/2023 Height 5 ft 2in in 09/12/2023 Blood pressure systolic 116 mm Hg 09/12/2023 Weight 135 lbs 09/12/2023 BMI 24.69 kg/m2 09/12/2023 Encounters Encounter Location Date Provider Diagnosis [facility] [address] 09/12/2023 Desirae Black Pain in right toe(s) M79.674 ; Arthritis of joint of lesser toe, right M19.071 ; Other hammer toe(s) (acquired), right foot M20.41 and Neuropathy G62.[address] [facility] [address] 08/04/2023 Desirae Black Assessments Encounter Date Diagnosis [...] Medicare [employer] [address] [place] [address] [id number] Rossana Stanley Self - patient is the insured [facility] [address] [place] [address] [id number] Rossana Stanley Self - patient is the insured Medical (General) History Medical History History ICD Code Arthritis asthma Back,Hip,and Knee pain Broken bones covid-19 Fibromyalgia Headaches/Migraines Lung disease Poor circulation Sciatica thyroid Chicken pox COPD Joint implants/screws neuropathy Surgical History Surgery Date(Month/Year) feet 2018 L4 + L5 Back 2005,2005 Gall bladder removal 1999 C4, C5, C6 Back 2021 Hospitalization History Reason Date(Month/Year) [facility]- had a fall 09/05/23
--- OUTSIDE RECORDS SUMMARY | 2024-05-25 17:02 | XMS_ITS ---
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 Generated for Kadeni rubén/Eloisa/eTransmitting on:?05/25/2024 05:01 PM EST
--- OUTSIDE RECORDS SUMMARY | 2024-05-25 17:02 | XMS_ITS | Encounter Summary ---
Author Organization [facility] Address [address] [place] [address] Care Team Providers Care Quill Cleaner Name Role Phone Fazal Brandon MD Primary Care Provider [phone] Reason for Referral * Imaging (Routine) - Authorized Specialty Diagnoses / Procedures Referred By Contac t Referred To Contact Cardiology Diagnoses Other chest pain Pulmonary hypertension (CMS/HCC) Procedures Transthoracic echocardiogram (TTE) complete with PRN contrast, bubble, strain, and 3D order panel NM TTE W 2D IMAGE COMPLETE W DOPPLER ECHO & COLOR FLOW DOPPLER ECHO NM ERAN 2D COMPLETE W/CONTRAST OR W & WO CONTRAST WITH DOPPLER Sari Agustin MD [address] [place] [address] Dr Villegas [address] [place] [address] Phone: tel: fax: [facility] Referral ID Status Reason Start Date Expiration Date V isits Requested Visits Authorized [id number] Authorized 05/16/2024 05/16/2025 1 1 * Imaging (Routine) - Authorized Specialty Diagnoses / Procedures Referred By Contac t Referred To Contact Diagnoses Other chest pain Procedures CT Angio Heart w 3D Imaging/Function Sari Agustin MD [address] [place] [address] Dr Villegas [address] [place] [address] Phone: tel: fax: External Performed Referral ID Status Reason Start Date Expiration Date V isits Requested Visits Authorized [id number] Authorized 05/16/2024 05/16/2025 1 1 Reason for Visit * Reason Comments New Patient Encounter Details Date Type Department Care Team (Late st Contact Info) Description 05/16/2024 9:20 AM EST Office Visit [facility] [place] [address] [facility] [address] [place] [id number] Sari Agustin MD [address] [place] [address] Dr [address] [place] [address] Other chest pain (Primary Dx); Pulmonary hypertension (CMS/HCC); Peripheral arterial occlusive disease (CMS/HCC) Social History Tobacco Use Types Packs/Day Years Used Date Smoking Tobacco: Former Cigarettes Smokeless Tobacco: Former Tobacco Cessation:Counseling Given: Not Answered Alcohol Use Standard Drinks/Week Comments No 0 (1 standard drink = 0.6 oz pur e alcohol) Comments Unknown Sex and Gender Information Value Date Recorded Sex Assigned at Not on file Legal Sex Female 4:13 AM EST Gender Identity Not on file Sexual Orientation Not on file documented as of this encounter Last Filed Vital Signs Vital Sign Reading Time Taken Comments Blood Pressure 110/69 05/16/2024 9:08 AM EST Pulse 76 05/16/2024 9:08 AM EST Temperature - - Respiratory Rate - - Oxygen Saturation 90% 05/16/2024 9:08 AM EST Inhaled Oxygen Concentration - - Weight 67.5 kg (148 lb 12.8 oz) 05/16/2024 9:08 AM EST Height 160 cm (5' 3 ) 05/16/2024 9:08 AM EST Body Mass Index 26.36 05/16/2024 9:08 AM EST documented in this encounter Progress Notes * Sari Agustin MD - 05/16/2024 9:20 AM ESTAssociated Problem(s): Chest pain The patient has been noticing episodes of chest discomfort. The description of her symptoms is consistent with atypical chest discomfort. Previous dobutamine stress echocardiogram from August 2020 did not show any evidence of ischemia or infarct. Given her symptoms, we will proceed with an ischemic reevaluation. Will order a cardiac CT scan to rule out any underlying coronary artery disease. The use of a cardiac CT scan as recommended by the ACC chest pain guidelines. Orders: CT Angio Heart w 3D Imaging/Function; Future Transthoracic echocardiogram (TTE) complete with PRN contrast, bubble, strain, and 3D order panel; Future perflutren lipid microsphere (DEFINITY) 1.3 mL in sodium chloride 0.9% 8.7 mL injection * Sari Agustin MD - 05/16/2024 9:20 AM ESTAssociated Problem(s): Pulmonary hypertension (CMS/HCC) The patient has a history of pulmonary hypertension that has been deemed to be secondary to her COPD. Right heart catheterization in November 2018 showed a mean PA pressure of 33 mmHg along with a normal wedge pressure. The patient has been followed by her facialist at [facility] (Dr. Bynum). Nevertheless, the patient denies any prior evaluations with a pulmonary hypertension specialist. As such, at this point, we will order an echocardiogram to reevaluate her pulmonary arterysystolic pressures and to reevaluate her RV function. Will also refer the patient for an evaluationwith the [facility] pulmonary hypertension clinic. Orders: Transthoracic echocardiogram (TTE) complete with PRN contrast, bubble, strain, and 3D order panel; Future perflutren lipid microsphere (DEFINITY) 1.3 mL in sodium chloride 0.9% 8.7 mL injection * Sari Agustin MD - 05/16/2024 9:20 AM EST [facility] Outpatient Consultation Note PCP: Fazal Brandon MD HPI: Mrs. Stanley is a 64 years old female patient with history of hypothyroidism, seizure disorder, COPDwith pulmonary hypertension (followed by Dr. Bynum), and polycythemia vera who was referred for a cardiac evaluation. The patient's last evaluation in our office was in August 2020. The patient states that she has been noticing occasional episodes of chest discomfort. Her episodesof chest discomfort occur at rest and are not induced or worsened by exertion. The episodes of chest discomfort usually last for a few minutes per episode. The patient also states that she continues to be in her mild but chronic shortness of breath with exertion in the setting of her COPD. The patient denies any palpitations, dizziness, or syncope. Cardiac testin. Echocardiogram (02/13/2020): Normal left ventricular systolic function with a left ventricular ejection fraction of 55 to 60%, normal RV size and function, no significant valvular disease, pulmonary artery systolic pressure could not be obtained. 2. Transthoracic echocardiogram in October 2018 that showed: Normal left ventricular systolic function with a left ventricular ejection fraction of 55 to 60%, indeterminate left ventricular diastolic function (dilated left atrium, TR peak velocity 3.4 m/s, average E/e' 8.55), dilated IVC with poor inspiratory collapse, right ventricular size of the upper limits of normal with normal global systolic function, flattened interventricular septum in systole consistent with RV pressure overload, estimated PSAP of 61 mmHg which is consistent with moderate pulmonary hypertension. 3. Right heart catheterization on 12/14/2018 that showed: Wedge pressure of 13 mmHg, mean pulmonary artery pressure of 33, mean RA pressure 8 mmHg, PVR 3.2 Sheikh, cardiac output 6 L/min, no evidence of intracardiac shunts. 4. Dobutamine stress echocardiogram (09/04/2020): Patient achieved target heart rate with maximum dobutamine infusion rate, no ischemic ECG changes during the dobutamine infusion, no echocardiographicevidence of cardiac ischemia after dobutamine infusion protocol. ACTIVE MEDICATIONS: Outpatient Medications Marked as Taking for the 05/16/24 encounter (Office Visit) with Sari Agustin MD Medication Sig Dispense Refill albuterol HFA (PROAIR HFA ; PROVENTIL HFA ; VENTOLIN HFA) 90 mcg/actuation inhaler as needed. furosemide (LASIX) 40 mg tablet Take 1 tablet (40 mg total) by mouth 1 (one) time each day. HELIUM-OXYGEN INHL Inhale by mouth 1 (one) time each day. Walking 3litter , sitting 1litter hydrocodone/acetaminophen (VICODIN ORAL) Take 325 mg by mouth if needed. ibuprofen (ADVIL,MOTRIN) 800 mg tablet TAKE 1 TABLET BY MOUTH EVERY NIGHT AT BEDTIME NEEDED FOR PAIN WITH food levothyroxine (SYNTHROID, LEVOTHROID) 100 mcg tablet Take 1 tablet (100 mcg total) by mouth 1 (one)time each day. rOPINIRole (REQUIP) 5 mg tablet theophylline (THEODUR) 300 mg 12 hr tablet Take 1 tablet (300 mg total) by mouth 2 (two) times a day. umeclidinium-vilanteroL (ANORO ELLIPTA) 62.5-25 mcg/actuation inhaler Inhale by mouth 1 (one) time each day. ALLERGIES: No Known Allergies FAMILY HISTORY: Family History Problem Relation Name Age of Onset Diabetes Mother CABG Mother Diabetes Daughter Diabetes Sister SOCIAL HISTORY: Social History Tobacco Use Smoking status: Former Types: Cigarettes Smokeless tobacco: Former Substance Use Topics Alcohol use: No REVIEW OF SYSTEMS: Review of Systems Constitutional: Negative for malaise/fatigue. Cardiovascular: Positive for chest pain and dyspnea on exertion. Negative for claudication, leg swelling, near-syncope, orthopnea, palpitations, paroxysmal nocturnal dyspnea and syncope. Respiratory: Positive for shortness of breath. Neurological: Negative for dizziness and light-headedness. PHYSICAL EXAM: Vitals: 05/16/24 0908 BP: 110/69 Pulse: 76 SpO2: 90% Body mass index is 26.36 kg/m??. Physical Exam Constitutional: Appearance: Normal appearance. HENT: Head: Normocephalic. Nose: Nose normal. Cardiovascular: Rate and Rhythm: Normal rate and regular rhythm. Heart sounds: Normal heart sounds. No murmur heard. No friction rub. No gallop. Pulmonary: Effort: Pulmonary effort is normal. Breath sounds: Normal breath sounds. Musculoskeletal: General: No swelling. Skin: General: Skin is warm. Neurological: Mental Status: She is oriented to person, place, and time. Mental status is at baseline. Psychiatric: Mood and Affect: Mood normal. Behavior: Behavior normal. EKG: Encounter Date: 05/16/24 ECG 12 lead Result Value Ventricular Rate ECG 80 Atrial Rate 80 P-R Interval 126 QRS Duration 82 Q-T Interval 386 QTc 445 P Wave Medina 81 R Medina 75 T Medina 71 ECG Interpretation Normal sinus rhythm Normal ECG When compared with ECG of 24-AUG-2022 06:05, No significant change was found Confirmed by SARI AGUSTIN ([id number]) on 05/16/2024 9:24:51 AM *Note: Due to a large number of results and/or encounters for the requested time period, some results have not been displayed. A complete set of results can be found in Results Review. ASSESSMENT/PLAN: Assessment & Plan Other chest pain The patient has been noticing episodes of chest discomfort. The description of her symptoms is consistent with atypical chest discomfort. Previous dobutamine stress echocardiogram from August 2020 did not show any evidence of ischemia or infarct. Given her symptoms, we will proceed with an ischemic reevaluation. Will order a cardiac CT scan to rule out any underlying coronary artery disease. The use of a cardiac CT scan as recommended by the ACC chest pain guidelines. Orders: CT Angio Heart w 3D Imaging/Function; Future Transthoracic echocardiogram (TTE) complete with PRN contrast, bubble, strain, and 3D order panel; Future perflutren lipid microsphere (DEFINITY) 1.3 mL in sodium chloride 0.9% 8.7 mL injection Pulmonary hypertension (CMS/HCC) The patient has a history of pulmonary hypertension that has been deemed to be secondary to her COPD. Right heart catheterization in November 2018 showed a mean PA pressure of 33 mmHg along with a normal wedge pressure. The patient has been followed by her facialist at [facility] (Dr. Bynum). Nevertheless, the patient denies any prior evaluations with a pulmonary hypertension specialist. As such, at this point, we will order an echocardiogram to reevaluate her pulmonary arterysystolic pressures and to reevaluate her RV function. Will also refer the patient for an evaluationwith the [facility] pulmonary hypertension clinic. Orders: Transthoracic echocardiogram (TTE) complete with PRN contrast, bubble, strain, and 3D order panel; Future perflutren lipid microsphere (DEFINITY) 1.3 mL in sodium chloride 0.9% 8.7 mL injection The [facility] team will continue to co-manage this patient following the plan of care as established by my initial visit and as per AHA guidelines for ongoing management and surveillance of the medical conditions described previously in this medical note. This will include medication titration, initiation of appropriate medications and further titration, and diagnostic studies to manage this disease process. documented in this encounter Plan of Treatment Upcoming Encounters Date Type Department Care Team (Late st Contact Info) Description 07/20/2024 11:00 AM EDT Ancillary Procedure [facility] [address] [place] [address] 08/22/2024 10:40 AM EDT Office Visit [facility] [address] [place] [address] Daniela Carrillo NP [address] [place] [address] Dr [address] [place] [address] Scheduled Orders Name Type Priority Associated Diagnoses Order Schedule CT Angio Heart w 3D Imaging/Function Cardiac CT/MRI Routine Other chest pain Expected: 05/16/2024, Expires: 05/16/2025 Transthoracic echocardiogram (TTE) complete with PRN contrast, bubble, strain, and 3D order panel Echocardiography Routine Other chest pain Pulmonary hypertension (CMS/HCC) 1 Occurrences starting 05/16/2024 until 05/16/2025 documented as of this encounter Procedures Procedure Name Priority Date/Time Associated Diagnosis Comments ECG 12-LEAD Routine 05/16/2024 9:23 AM EST Peripheral arterial occlusive disease (CMS/HCC) documented in this encounter Results * ECG 12 lead (05/16/2024 9:23 AM EST) Ventricular Rate ECG 80 BPM GEMUSE Atrial Rate 80 BPM GEMUSE P-R Interval 126 ms GEMUSE QRS Duration 82 ms GEMUSE Q-T Interval 386 ms GEMUSE QTc 445 ms GEMUSE P Wave Medina 81 degrees GEMUSE R Medina 75 degrees GEMUSE T Medina 71 degrees GEMUSE ECG Interpretation Normal sinus rhythm Normal ECG When compared with ECG of 24-AUG-2022 06:05, No significant change was found Confirmed by SARI AGUSTIN ([id number]) on 05/16/2024 9:24:51 AM GEMUSE 05/16/2024 9:23 AM EST 05/16/2024 9:24 AM EST Sari Agustin MD ECG ORDERABLES Final Result GEMUSE documented in this encounter Visit Diagnoses Diagnosis Other chest pain- Primary Pulmonary hypertension (CMS/HCC) Other chronic pulmonary heart diseases Peripheral arterial occlusive disease (CMS/HCC) Unspecified peripheral vascular disease documented in this encounter Discontinued Medications Medication Sig Discontinue Reason Start Date End Da te cholecalciferol (VITAMIN D-3) 25 mcg (1,000 unit) capsule Take 1 capsule (1,000 Units total) by mouth. Patient Discharge 05/16/2024 documented as of this encounter Care Teams Quill Cleaner Relationship Specialty Start Date End Date Fazal Brandon MD [address] [place] [address] Dr Ghada [place] PCP - General 02/08/20 documented as of this encounter
--- OUTSIDE RECORDS SUMMARY | 2024-05-25 17:02 | XMS_ITS ---
Author Organization [facility] Address [address] [facility] [place] [address] Care Team Providers Care Curriculum Developer Name Role Phone Fazal Barndon MD Primary Care Provider Verna Jimenez Desirae Unavailable [phone] Allergies No Known Allergies REASON FOR VISIT [...] Problem Acquired hammer toe of right foot (6590372378316527) Other hammer toe(s) (acquired), right foot (M20.41) Active confirmed Problem Localized, primary osteoarthritis of the ankle and/or foot (902917816) Arthritis of joint of lesser toe, right (M19.071) Active confirmed Problem Neuropathy (397486967) Neuropathy (G62.9) Active confirmed Vital Signs Height 5 ft 2in in 09/12/2023 Weight 135 lbs 09/12/2023 BMI 24.69 kg/m2 09/12/2023 Blood pressure systolic 116 mm Hg 09/12/19 Blood pressure diastolic 60 mm Hg 024 Encounters Encounter Location Date Provider Diagnosis [facility] [place] [address] [place] [address] 09/12/2023 Desirae Jimenez Pain in right toe(s) [...] Notes * Kathy GARRETTB:1960 (63 yo F)Acc No.[id number]:09/12/2023 Progress Notes Patient:?Rossana Garrett Provider:?Desirae Jimenez DPM :1960???Age:63 Y???Sex:Female D ate:09/12/2023 Address:[address] [place] [address] Pcp:Fzaal Brandon MD Subjective: * Chief Complaints: * [...] work, walking. ?Marital status: . 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 * Medications:?TakingTheophyll ine ER 400 MG Tablet [...] - G62.9? Plan: * Treatment: * Procedure Codes:?95190 X-RAY EXAM OF RIGHT FOOT 3V, Modifiers: [...] Jimenez DPM Date:?2023 Generated for Ricardo montana/Eloisa/Magnusitting on:?05/25/2024 05:01 PM EST History and Physical Notes * [...]
--- OUTSIDE RECORDS SUMMARY | 2024-05-25 17:02 | XMS_ITS | Clinical Summary ---
Author Organization [facility] Address [address] [place] [address] Phone Care Team Providers Care Assistant Bookkeeper Name Role Phone Fazal Brandon MD Primary Care Provider Allergies No known active allergies Medications hydrocodone/bisi taminophen (VICODIN ORAL) Take 325 mg by mouth if needed. Active HELIUM-OXYGEN INHL Inhale by mouth 1 (one) time each day. Walking 3litter , sitting 1litter Active albuterol HFA (PROAIR HFA ; PROVENTIL HFA ; VENTOLIN HFA) 90 mcg/actuation inhaler as needed. 9 Active furosemide (LASIX) 40 mg tablet Take 1 tablet (40 mg total) by mouth 1 (one) time each day. Active levothyroxine (SYNTHROID, LEVOTHROID) 100 mcg tablet Take 1 tablet (100 mcg total) by mouth 1 (one) time each day. Active pregabalin (LYRICA) 150 mg capsule Take 1 capsule (150 mg total) by mouth at bedtime. Active rOPINIRole (REQUIP) 5 mg tablet 0 Active theophylline (THEODUR) 300 mg 12 hr tablet Take 1 tablet (300 mg total) by mouth 2 (two) times a day. Active umeclidinium-vi lanteroL (Anoro Ellipta) 62.5-25 mcg/actuation inhaler Inhale by mouth. Active umeclidinium-vi lanteroL (ANORO ELLIPTA) 62.5-25 mcg/actuation inhaler Inhale by mouth 1 (one) time each day. Active ibuprofen (ADVIL,MOTRIN) 800 mg tablet TAKE 1 TABLET BY MOUTH EVERY NIGHT AT BEDTIME NEEDED FOR PAIN WITH food 4 Active dexAMETHasone (DECADRON) 4 mg tablet Take 1 tablet (4 mg total) by mouth every 8 (eight) hours for 4 days. 12 each 4 Active cholecalciferol (VITAMIN D-3) 25 mcg (1,000 unit) capsule Take 1 capsule (1,000 Units total) by mouth. 05/16/19 25 Discontinu ed(Patient Discharge) Active Problems Problem Noted Date Diagnosed Date [...] C-spine MRI I spoke with rep from [employer]. She is aware of this. I tried [...] Chest pain 02/24/2021 Overview (02/14/2024): Chest pain Assessment & Plan (05/16/2024 9:53 AM EST): The patient has been noticing episodes of [...] in sodium chloride 0.9% 8.7 mL injection Chronic obstructive lung disease 02/24/2021 Overview (02/14/2024): Chronic obstructive lung disease Peripheral arterial occlusive disease 02/24/2021 Overview (02/14/2024): Peripheral arterial occlusive disease COPD (chronic obstructive pulmonary disease) Pulmonary hypertension 09/16/2020 Assessment & Plan (05/16/2024 9:53 AM EST): The patient has a history of pulmonary hypertension that has been deemed to be secondary to her COPD. Right heart catheterization in November 2018 showed a mean PA pressure of 33 mmHg along with a normal wedge pressure. The patient has been followed by her assembly riveter at [facility] (Dr. Bynum). Nevertheless, the patient denies any prior evaluations with a pulmonary hypertension specialist. As such, at this point, we will order an echocardiogram to reevaluate her pulmonary artery systolic pressures and to reevaluate her RV function. Will also refer the patient for an evaluation with the [facility] pulmonary hypertension clinic. Orders: Transthoracic echocardiogram (TTE) complete with PRN contrast, bubble, strain, and 3D order panel; Future perflutren lipid microsphere (DEFINITY) 1.3 mL in sodium chloride 0.9% 8.7 mL injection Venous insufficiency 06/06/2020 Overview (02/14/2024): Last Assessment [...] for a reevaluation with vascular surgery service. Resolved Problems Problem Noted Date Diagnosed Date Resolved Date Tricuspid valve regurgitation 02/24/2021 05/16/2024 Overview (02/14/2024): Tricuspid valve regurgitation Dyspnea 06/06/2020 05/16/2024 Overview (02/14/2024): Last Assessment & Plan: The [...] patient will continue to follow-up with her assembly riveter regarding the management of her COPD. Otherwise, I will reevaluate the patient in 6 months. Encounters Date Type Department Care Team Description 05/24/2024 Telephone [facility] [address] [facility] [address] [place] [address] Sari Agustin MD Appointment (Coronary CTA) 05/16/2024 9:20 AM EST Office Visit [facility] Dr [address] [facility] [address] [place] [address] Sari Agustin MD Other chest pain (Primary Dx); Pulmonary hypertension (CMS/HCC); Peripheral arterial occlusive disease (CMS/HCC) 05/16/2024 [address]phone [facility] [address] [facility] [address] [place] [address] Sari Agustin MD 05/16/2024 [address] [facility] [address] [facility] [place] [address] Sari Agustin MD 03/06/[address]24 [address] [facility] [address] [facility] [address] [place] [phone] Sari Agustin MD from Last 3 Months Immunizations Name Administration [...] DX:Asthma COPD (chronic obstructive pu lmonary disease) ([facility]) DX:COPD (chronic obstructive pulmonary disease) ([facility]); COMMENT: severe, on O2 Hypothyroidism DX:Hypothyroidis m Polycythemia vera ([facility]) DX:P olycythemia vera ([facility]) Family History Medical History Relation Name Comments [...] on file Sexual Orientation Not on file Obstetrics History Last Filed [...] Mass Index 26.36 05/16/2024 9:08 AM EST Plan of Treatment Upcoming Encounters Date Type Department Care Team (Late st Contact Info) Description 07/20/2024 11:00 AM EDT Ancillary Procedure [facility] - [address] [place] [address] 08/22/2024 10:40 AM EDT Office Visit [facility] [address] [place] [address] Daniela Carrillo NP [address] [place] [address] Dr [address] [place] [address] Health Maintenance Due Date Last Done Comments [...] 60+ Years Old Completed 01/03/2023 Pneumococcal Vaccine: 50+ Years Completed 10/07/2023, 11/16/2016, 11/05/2016 Pneumococcal Vaccine: Pediatrics (0 to 5 Years) [...] patient's age to complete this topic Meningococcal B Vacine Aged Out No lo nger eligible based on patient's age to complete this topic RSV Immunization Patients Under 20 months Aged Out No longer eligible based on patient's age to complete this topic Varicella Vaccines Aged Out No longer eligible based on patient's age to complete this topic Procedures Procedure Name Priority Date/Time Associated Diagnosis Comments ECG 12-LEAD Routine 05/16/2024 9:23 AM EST Peripheral arterial occlusive disease (CMS/HCC) from Last 3 Months Results * ECG 12 lead (05/16/2024 9:23 AM EST) Ventricular Rate ECG 80 BPM GEMUSE Atrial Rate 80 BPM GEMUSE P-R Interval 126 ms GEMUSE QRS Duration 82 ms GEMUSE Q-T Interval 386 ms GEMUSE QTc 445 ms GEMUSE P Wave Irving 81 degrees GEMUSE R Irving 75 degrees GEMUSE T Irving 71 degrees GEMUSE ECG Interpretation Normal sinus rhythm Normal ECG When compared with ECG of 24-AUG-2022 06:05, No significant change was found Confirmed by SARI AGUSTIN ([id number]) on 05/16/2024 9:24:51 AM GEMUSE 05/16/2024 9:23 AM EST 05/16/2024 9:24 AM EST Sari Agustin MD ECG ORDERABLES Final Result GEMUSE from Last 3 Months Insurance MEDICARE [facility] Care Teams Assistant Bookkeeper Relationship Specialty Start Date End Date Fazal Brandon MD [address] [place] [address] Dr Barnard [place] PCP - General 02/08/20
--- OUTSIDE RECORDS SUMMARY | 2024-05-25 17:02 | XMS_ITS | Encounter Summary ---
Author Organization [facility] Address [address] [place] [address] Care Team Providers Care Pneumatic Tube Operator Name Role Phone Fazal Brandon MD Primary Care Provider +1- [phone] Encounter Details Date Type Department Care Team (Late st Contact Info) Description 05/16/2024 Telephone [facility] [address] [place] [address] [place] [address] Matthew Phelps MD [address] [place] [address] Dr [address] [place] [address] Social History Tobacco Use Types Packs/Day Years Used Date Smoking Tobacco: Former Cigarettes Smokeless Tobacco: Former Alcohol Use Standard Drinks/Week Comments No 0 (1 standard drink = 0.6 oz pur e alcohol) Comments Unknown Sex and Gender Information Value Date Recorded Sex Assigned at Not on file Legal Sex Female 4:13 AM EST Gender Identity Not on file Sexual Orientation Not on file documented as of this encounter Progress Notes * Matthew Phelps MD - 05/16/2024 9:54 AM EST Please schedule the patient for a cardiac CT scan to be done at [facility]. Diagnosis: Chest pain. documented in this encounter Plan of Treatment Upcoming Encounters Date Type Department Care Team (Late st Contact Info) Description 07/20/2024 11:00 AM EDT Ancillary Procedure [facility] [address] [place] [address] 08/22/2024 10:40 AM EDT Office Visit [facility] Cardiology [facility] [address] [place] [address] Daniela Carrillo, MARITZA [address] [place] [address] Dr [address] [place] [address] documented as of this encounter Visit Diagnoses Not on filedocumented in this encounter Care Teams Pneumatic Tube Operator Relationship Specialty Start Date End Date Fazal Brandon MD [address] [place] [address] Dr [address] [place], [place] PCP - General 02/08/20 documented as of this encounter
--- OUTSIDE RECORDS SUMMARY | 2024-05-25 17:02 | XMS_ITS | Encounter Summary ---
Author Organization [facility] Address [address] [place] [address] Care Team Providers Care Associate Principal Name Role Phone Fazal Brandon MD Primary Care Provider +1- [phone] Encounter Details Date Type Department Care Team (Late st Contact Info) Description 05/16/2024 Telephone [facility] [address] [place] [address] [place] [phone] Mtathew Phelps MD [address] [place] [address] Dr [address] [place] [address] Social History Tobacco Use Types Packs/Day Years [...] as of this encounter Progress Notes * Swetha Cherry MA - 05/16/2024 4:19 PM EST Faxed over referral, GAYLE, and demo to [phone]. * Matthew Phelps MD - 05/16/2024 9:54 AM EST Please refer the patient for an evaluation with Dr. Lesli Smith or Dr. Aniyah Jones at the [facility] pulmonary hypertension clinic Diagnosis: Pulmonary hypertension Phone number: [phone] documented in this encounter Plan of Treatment Upcoming Encounters Date Type Department Care Team (Late st Contact Info) Description 07/20/2024 11:00 AM EDT Ancillary Procedure [facility] [address] [place] [address] 08/22/2024 10:40 AM EDT Office Visit [facility] [address] [place] [address] [address] [place] [address] Daniela Carrillo, MARITZA [address] [place] [address] Dr [address] [place] [address] documented as of this encounter Visit Diagnoses Not on filedocumented in this encounter Care Teams Associate Principal Relationship Specialty Start Date End Date Fazal Brandon MD [address] [place] [address] Dr [address] [place], [place] PCP - General 02/08/20 documented as of this encounter
--- OUTSIDE RECORDS SUMMARY | 2024-05-25 17:02 | XMS_ITS | Encounter Summary ---
Author Organization [facility] [address] Address [address] [place] [address] Care Team Providers Care Live Truck Operator Name Role Phone Fazal Brandon MD Primary Care Provider +1- [phone] Reason for Visit * Reason Onset Date Comments Appointment 05/24/2024 Coronary CTA Encounter Details Date Type Department Care Team (Late st Contact Info) Description 05/24/2024 Telephone [facility] [address] [place] [address] Matthew Phelps MD [address] [place] [address] Dr [address] [place] [address] Appointment (Coronary CTA) Social History Tobacco Use Types Packs/Day Years [...] as of this encounter Progress Notes * Rossana Christy - 05/24/2024 2:50 PM EST Order, demos and ov note have been fax[facility] [place] [facility] [place] to schedule pt for a Coronary CTA scan. Waiting for appointment info. documented in this encounter Plan of Treatment Upcoming Encounters Date Type Department Care Team (Late st Contact Info) Description 07/20/2024 11:00 AM EDT Ancillary Procedure [facility] Cardiology [facility] [address] [place] [address] 08/22/2024 10:40 AM EDT Office Visit [facility] Cardiology [facility] [address] [place] [address] Daniela Carrillo, MARITZA [address] [place] [address] Dr [address] [place] [address] documented as of this encounter Visit Diagnoses Not on filedocumented in this encounter Care Teams Live Truck Operator Relationship Specialty Start Date End Date Fazal Brandon MD [address] [place] [address] Dr [address] [place], [place] PCP - General 02/08/20 documented as of this encounter
== END 2024-05-25 15:48 | disposition home or self-care (01) ==
PROVIDERS: PCP Family Medicine; Visit Provider Internal Medicine Pulmonary Disease
DX: J44.9 Chronic obstructive pulmonary disease, unspecified (principal); Z99.81 Dependence on supplemental oxygen; Z87.891 Personal history of nicotine dependence
CPT/HCPCS: 99214

== ENCOUNTER → 2024-05-25 15:31 | Outpatient (BNVA) | payer MEDICARE, SELFPAY | PROVIDERS: PCP Family Medicine; Visit Provider Internal Medicine Pulmonary Disease | DX: J44.9 Chronic obstructive pulmonary disease, unspecified (principal); Z99.81 Dependence on supplemental oxygen; Z87.891 Personal history of nicotine dependence | CPT/HCPCS: 99212 ==

== ENCOUNTER 2024-06-05 08:29 | Outpatient (REF) | payer MEDICARE, SELFPAY ==
[2024-06-05 11:34] LABS: Hematocrit 47.1 % (37.0-47.0); Hemoglobin 15.3 g/dl (12.0-16.0); Mean Corpuscular HGB Conc 32.5 g/dl (31.0-35.0); Mean Corpuscular Hemoglobin 31.7 pg (27.0-33.0); Mean Corpuscular Volume 97.5 fL (80.0-98.0); Mean Platelet Volume 11.1 fL (9.4-12.3); Platelet Count 254 X10*3/uL (160-400); Red Blood Count 4.83 X10*6/uL (4.20-5.50); Red Cell Distribution Width 14.5 % (11.0-16.0); White Blood Count 7.3 X10*3/uL (4.8-10.8)
[2024-06-05 11:36] LABS: Estimated Average Glucose 123 mg/dL; Hemoglobin A1c % 5.9 % (<6.0)
[2024-06-05 11:48] LABS: Alanine Aminotransferase 25 U/L (0-31); Albumin Level 4.4 g/dL (3.5-5.0); Alkaline Phosphatase 62 U/L (39-117); Anion Gap 11 (12-20); Aspartate Amino Transferase 26 U/L (5-31); Bilirubin Total 0.5 mg/dL (0.0-1.0); Blood Urea Nitrogen 15 mg/dL (9-16); Calcium 9.9 mg/dL (8.4-10.2); Carbon Dioxide 31 mmol/L (22-29); Chloride 101 mmol/L (96-108); Cholesterol 242 mg/dL (<200); Estimated Glomerular Filt Rate > 60; Glucose Fasting 99 mg/dL (60-99); HDL Cholesterol 97 mg/dL (>40); LDL Cholesterol Calculated 127 mg/dL (<100); Potassium 4.4 mmol/L (3.3-5.1); Sodium 139 mmol/L (135-145); Total Protein 7.6 g/dL (6.5-8.0); Triglycerides 94 mg/dL (<150)
[2024-06-05 15:19] LABS: Appearance Urine Clear; Color Urine Yellow; Glucose Urine UA Negative (Negative); Leukocyte Esterase Urine Negative (Negative); Nitrite Urine Negative (Negative); PH 5.5 (5.0-9.0); Specific Gravity - Urine 1.015 (1.005-1.025); Urine Blood Negative (Negative); Urine Ketones Negative (Negative); Urine Protein Negative (Neg-Trace)
[2024-06-05 19:01] LABS: Vitamin D 25-OH Total 27.4 ng/mL (>30)
== END 2024-06-05 08:30 | disposition home or self-care (01) ==
LOC: HO.WFDLDS 08:29
PROVIDERS: Referring Provider Nurse Practitioner Family; Visit Provider Family Medicine
DX: Z00.00 Encounter for general adult medical examination without abnormal findings (principal); D75.1 Secondary polycythemia; R73.03 Prediabetes; E55.9 Vitamin D deficiency, unspecified
CPT/HCPCS: 36415; 80053; 80061; 81003; 82306; 83036; 85027

== ENCOUNTER 2024-06-14 10:40 | Outpatient (REF) | payer MEDICARE, SELFPAY ==
[2024-06-15 18:34] LABS: Lyme Abs Screen <0.90 index
== END 2024-06-14 10:41 | disposition home or self-care (01) ==
LOC: HO.WFDLDS 10:40
PROVIDERS: Visit Provider Family Medicine
DX: T14.8XXA Other injury of unspecified body region, initial encounter (principal); W57.XXXA Bitten or stung by nonvenomous insect and other nonvenomous arthropods, initial encounter
CPT/HCPCS: 36415; 86617; 86618

== ENCOUNTER 2024-06-20 09:19 | Outpatient (AMB) | payer MEDICARE, SELFPAY ==
--- NOTE | 2024-06-20 09:35 | MHC.PC.OV ---
Vital Signs 06/20/24 09:38 Height 5 ft 3 in Weight 147 lb 4 oz BMI 26.1 BP 110/60 Blood Pressure Location Rt brachial Position Sitting Respiration 14 Pulse 62 Pulse Source Pulse Oximeter Temp 98.8 F Temp Source Oral Pulse Oximetry (%) 98 Oxygen Delivery Method Room Air Intake Visit Reasons: f/u prediabetes, chronic conditions Intake Note: patient is scheduled for pre-dm and lower back /side pain and medication refill Utilities Service Investigator Required: No Allergies duloxetine Adverse Reaction (Intermediate, Verified 06/20/24 09:36) Headache Medication List - Last Reconciled 06/20/24 by Fazal Brandon MD albuterol sulfate 90 mcg/actuation 2 puffs inhalation Q4-6H PRN 1 month albuterol sulfate 2.5 mg (3 mL) inhalation Q4-6H PRN 30 days furosemide 40 mg PO DAILY PRN 30 days hydrocodone-acetaminophen 5-325 mg 1 tab in AM and 1/2 tab PM orally daily PRN; Take for pain during daytime. Avoid evening/bedtime. MassPat verified. Partial Fill upon patient request. 30 days ibuprofen 800 mg PO .qhs PRN 30 days levothyroxine 112 mcg PO DAILY ropinirole 2 mg (2 x 1 mg) PO BEDTIME 90 days theophylline ER 400 mg PO DAILY 30 days umeclidinium-vilanterol 62.5-25 mcg/actuation (Anoro Ellipta) 1 inh inhalation DAILY 90 days Tobacco use date assessed: 10/28/23 Dental Screening Dental Screen Date: 04/27/23 HPI f/u prediabetes, chronic conditions HPI Details 64 y/o female presents to f/u pre-diabetes, chronic conditions. A1c today 6.1%, improved from prior. Hx of chronic pain syndrome and reports worsening pain, back/pelvic pain. She is on ibuprofen 800mg, hydrocodone-acetaminophen 5-325mg. HPI Comments History of Present Illness Details Documentation assistance for Fazal Brandon MD, was provided by Robert Terry,? Commercial Banker on 06/20/2024 at 9:56 AM KAMLA. Shira, Dr. Brandon, have read, observed, and verified documentation. ?? [facility] Medical History Supplemental oxygen dependent COVID-19 vaccine series completed History of COVID-19 Median neuropathy Chronic pain syndrome Cervicalgia Spondylosis, cervical Degeneration, intervertebral disc, cervical Left cervical radiculopathy Huma's disease Hypothyroidism Right lumbar radiculopathy Surgical History History of back surgery History of bunionectomy History of pubovaginal sling Hx of cystoscopy Hx of colonoscopy Hx of tubal ligation History of lumbar fusion History of biopsy Family History Father No problems noted. Mother Type 2 diabetes mellitus Daughter Hypothyroidism Social History Household Members Other:: mother Housing: Other Housing Other:: trailer Are you a primary client care consultant to a significant other at home: Yes (takes care of mother) Do you presently have visiting nurse or other home services: No Alcohol intake: never Patient Tobacco Use Status: Former Tobacco user Tobacco use type: Cigarette Cigarette Packs Per Day: 1 Cigarettes Per Day: 20 Years Smoked: 20 e-Cigarette/Vaping Use: Never Used Second Hand Smoke Exposure: Yes service: No Current occupational status: retired Current occupational exposures/hazards: No Cognitive needs: No Hearing needs: No Vision needs: Yes (glasses) Female Reproductive History Menstrual Age of Menarche: 13 Questionnaire Thrive Questionnaire Date Thrive assessed: 04/30/24 I am a: Patient What is your living situation today?: I have a steady place to live Within the past 12 months, did the food you bought not last and you didn't have the money to get more?: Never true Within the past 12 months, did you worry whether your food would run out before you got money to buy more?: Never true Do you have trouble paying for medicines?: No Do you have trouble getting transportation to medical appointments?: No Do you have trouble paying your heating and electricity bill?: No Do you have trouble taking care of your child, family member or friend?: No Do you have trouble with day-to-day activities such as bathing, preparing meals, shopping, managing finances, etc.?: No Are you currently unemployed and looking for a job?: No Are you interested in more education?: No Please select the resources that you would like help with: None Currently or been in a relationship where the following occur: No concerns reported THRIVE Score: 0 GISEL-7 AMB Questionnaire GISEL-7 Date GISEL - 7 assessed: 07/30/22 Source: Developed by Drs. Franck Stanley, Nena Sellers, Richi Atkins and colleagues, with an educational dallin from [employer]. Review of Systems Const Denies chills, Denies fatigue, Denies fever(s), Denies headache(s) and Denies weakness ENT Denies dizziness and Denies headache(s) Card Denies dyspnea Resp Denies cough, Denies dyspnea, Denies wheezing and Denies other (shortness of breath) Musc Denies numbness and Denies tingling Neuro Denies dizziness, Denies headache(s), Denies numbness, Denies tingling and Denies weakness Psych Denies anxiety and Denies depression Endo Denies fatigue Aller/Immun Denies wheezing Physical exam (Primary Care) Vital Signs: Last Vital Signs Temp 98.8 F 06/20/24 09:38 Pulse 62 06/20/24 09:38 Resp 14 06/20/24 09:38 BP 110/60 06/20/24 09:38 Pulse Ox 98 06/20/24 09:38 Oxygen Delivery Method Room Air 06/20/24 09:38 BMI result Body Mass Index 26.1 Tobacco/Smoking Status: Tobacco use Status Tobacco use date assessed 10/28/23 06/20/24 09:42 Patient Tobacco Use Status Former Tobacco user 06/20/24 09:42 Tobacco use type Cigarette 06/20/24 09:42 e-Cigarette/Vaping Use Never Used 06/20/24 09:42 Thrive Assessment: Date of Thrive Assessment Date Thrive assessed 04/30/24 06/20/24 09:42 Currently or been in a relationship where the following occur: No concerns reported Const General: well developed; No acute distress Nutritional Appearance: well nourished Orientation/consciousness: patient oriented x3 HENMT Head: Yes normocephalic and Yes atraumatic Eyes General: appearance normal, both eyes and all related structures Pupils: Equal, round and reactive pupils present EOM: EOMs intact bilaterally Resp Effort & Inspection: normal respiratory effort Neuro General: patient oriented x3 and gait normal Cranial nerves: Yes Equal, round and reactive pupils present Psych Affect: normal affect Coding Level of Care Code Est Pt Level 3 (58147) Diagnoses Prediabetes R73.03 Chronic pain syndrome G89.4 Assessment & Plan Assessment & Plan (1) Prediabetes: Code(s): R73.03 - Prediabetes Category: Medical Plan: A1c?improved?and?now?at?6.1%. Encouraged?diet?lower?in?sugars?and?starches Encouraged?exercise?as?tolerated Will?continue?monitor (2) Chronic pain syndrome: Code(s): G89.4 - Chronic pain syndrome Category: Medical Plan: Ongoing?chronic?pain?in?her?lower?back?as?well?as?new?right?posterior?pelvic?crest?pain/upper?buttocks?pain Likely?muscular?strain Will?give?her?a?muscle?relaxant?and?temporarily?increase?her?Vicodin. Will?also?check?an?x-ray?of?pelvis If?not?improving,?we?discussed?should?start?physical?therapy.??Or?could?refer?to?pain?management. Orders: Orders Comprehensive [place]. Panel Fast Today I25.10 - Atherosclerotic heart disease of [place] coronary artery without angina pectoris, Z00.00 - Encounter for general adult medical examination without abnormal findings Free T4 (Free Thyroxine) Today E03.9 - Hypothyroidism, unspecified, I25.10 - Atherosclerotic heart disease of [place] coronary artery without angina pectoris XR pelvis 1-2V Today R10.2 - Pelvic and perineal pain Lipid Panel Today I25.10 - Atherosclerotic heart disease of [place] coronary artery without angina pectoris, Z00.00 - Encounter for general adult medical examination without abnormal findings Thyroid Stimulating Hormone Today E03.9 - Hypothyroidism, unspecified, I25.10 - Atherosclerotic heart disease of [place] coronary artery without angina pectoris Triiodothyronine T3 Total Today E03.9 - Hypothyroidism, unspecified, I25.10 - Atherosclerotic heart disease of [place] coronary artery without angina pectoris Medications: New cyclobenzaprine 10 mg PO BID 7 days PRN 14 tabs 0RF muscle spasm hydrocodone-acetaminophen 5-325 mg MassPat Verified. Partial Fill upon patient request. 1 tab PO Q8H 15 days PRN 45 tabs 0RF pain Refilled hydrocodone-acetaminophen 5-325 mg 1 tab in AM and 1/2 tab PM orally daily PRN; Take for pain during daytime. Avoid evening/bedtime. MassPat verified. Partial Fill upon patient request. 30 days 45 tabs 0RF pain G89.4 - Chronic pain syndrome, M54.12 - Radiculopathy, cervical region, M54.16 - Radiculopathy, lumbar region
[2024-06-20 09:38] VITALS: BP 110/60; PULSE 62; RESP 14; TEMP 37.1; O2SAT 98; BMI 26.1
--- OUTSIDE RECORDS SUMMARY | 2024-06-20 10:20 | XMS_ITS | Patient Health Record ---
Author Organization [facility] Address [address] [place] [address] Care Team Providers Care Distribution Transformer Assembler Name Role Phone Aleksandr SMITH, Fazal Primary Care Provider Desirae Jose Unavailable [phone] Allergies No Known Allergies Reason For Referral [...] Problem Acquired hammer toe of right foot (6688804219874508) Other hammer toe(s) (acquired), right foot (M20.41) Active confirmed Problem Neuropathy (171902653) Neuropathy (G62.9) Active confirmed Problem Localized, primary osteoarthritis of the ankle and/or foot (585839193) Arthritis of joint of lesser toe, right (M19.071) Active confirmed Vital Signs Blood pressure diastolic 60 mm Hg 09/12/2023 Height 5 ft 2in in 09/12/2023 Blood pressure systolic 116 mm Hg 09/12/2023 Weight 135 lbs 09/12/2023 BMI 24.69 kg/m2 09/12/2023 Encounters Encounter Location Date Provider Diagnosis [facility] [address] 09/12/2023 Desirae Black Pain in right toe(s) M79.674 ; Arthritis of joint of lesser toe, right M19.071 ; Other hammer toe(s) (acquired), right foot M20.41 and Neuropathy G62.[address] [facility] [address] 08/04/2023 Desirae Black Assessments Encounter Date Diagnosis [...] Medicare National Govt [employer] [address] [facility] [place] [address] [id number] Rossana Stanley Self - patient is the insured [facility] [address] [place] [address] [id number] Rossana Stanley Self - patient is the insured Medical (General) History Medical History History ICD Code Arthritis asthma Back,Hip,and Knee pain Broken bones covid-19 Fibromyalgia Headaches/Migraines Lung disease Poor circulation Sciatica thyroid Chicken pox COPD Joint implants/screws neuropathy Surgical History Surgery Date(Month/Year) feet 2018 L4 + L5 Back 2005,2005 Gall bladder removal 1999 C4, C5, C6 Back 2021 Hospitalization History Reason Date(Month/Year) [facility]- had a fall 09/05/23
--- OUTSIDE RECORDS SUMMARY | 2024-06-20 10:21 | XMS_ITS ---
Author Organization [facility] Address [address] [facility] [place] [address] Care Team Providers Care Equity Analyst Name Role Phone Fazal Brandon MD Primary Care Provider Verna Jimenez Desirae Unavailable [phone] Allergies No Known Allergies REASON FOR VISIT [...] Problem Acquired hammer toe of right foot ([id number]) Other hammer toe(s) (acquired), right foot (M20.41) Active confirmed Problem Localized, primary osteoarthritis of the ankle and/or foot (869652417) Arthritis of joint of lesser toe, right (M19.071) Active confirmed Problem Neuropathy (250264859) Neuropathy (G62.9) Active confirmed Vital Signs Height 5 ft 2in in 09/12/2023 Weight 135 lbs 09/12/2023 BMI 24.69 kg/m2 09/12/2023 Blood pressure systolic 116 mm Hg 09/12/19 Blood pressure diastolic 60 mm Hg 024 Encounters Encounter Location Date Provider Diagnosis [facility] [place] [address] [place] [address] 09/12/2023 Desirae Jimenez Pain in right toe(s) [...] Notes * Kathy GARRETTB:1960 (63 yo F)Acc No.[id number]:09/12/2023 Progress Notes Patient:?Rossana Garrett Provider:?Desirae Jimenez DPM :1960???Age:63 Y???Sex:Female D ate:09/12/2023 Address:[address] [place] [address] Pcp:Fazal Brandon MD Subjective: * Chief Complaints: [...] work, walking. ?Marital status: . 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 * Medications:?TakingTheophyll ine ER 400 MG Tablet [...] - G62.9? Plan: * Treatment: * Procedure Codes:?59906 X-RAY EXAM OF RIGHT FOOT 3V, Modifiers: [...] Jimenez DPM Date:?2023 Generated for Ricardo montana/Eloisa/Magnusitting on:?06/20/2024 10:20 AM EDT History and Physical Notes * HPI (History [...] located at , DIP[facility] , [facility] FOOTWEAR EVALUATION: shoe gear p roperties exacerbate patients foot/toe deformity DIGITAL DEFORMITIES: Digital [...]
--- OUTSIDE RECORDS SUMMARY | 2024-06-20 10:22 | XMS_ITS ---
Author Organization [facility] Address [address] [place] [address] Care Team Providers Care Director Of Outside Sales Name Role Phone Fazal Brandon MD Primary Care Provider Verna Jimenez, Desirae Unavailable [phone] REASON FOR VISIT LEARNING CENTER INSTRUCTOR PPWK Entered Encounters Encounter Location Date Provider Diagnosis [facility] [address] [place] [address] 08/04/2023 Desirae Jimenez Plan Of Treatment No Information Progress Notes * Kathy GARRETTB:1960 (63 yo F)Acc No.[id number]:08/04/2023 Patient:?Rossana Garrett :1960???Age:63 Y???Sex:Female [address] [place] [address] * true * Date:? Generated for Printi ng/Fabarryg/eTransmitting on:?06/20/2024 10:22 AM EDT
--- OUTSIDE RECORDS SUMMARY | 2024-06-20 10:22 | XMS_ITS | Encounter Summary ---
Author Organization [facility] Address [address] [place] [address] Care Team Providers Care Well Service Floor Worker Name Role Phone Fazal Brandon MD Primary Care Provider +1- [phone] Encounter Details Date Type Department Care Team (Late st Contact Info) Description 06/19/2024 Telephone [facility] [address] [place] [address] [place] [address] Matthew Phelps MD [address] [place] [address] Dr [address] [place] [address] Social History Tobacco Use Types Packs/Day Years [...] as of this encounter Progress Notes * Reid Ayers - 06/19/2024 10:12 AM EDT Medical Records Request Caller: Kassy Calling from: [facility] Requesting provider's first & last name: Dr Macho Bynum Direct Phone Number or Ext: [phone] What records are being requested: Office notes How far back: 05/16/24 What is it for: For pulmonary test Needed by: As soon as possible documented in this encounter Plan of Treatment Upcoming Encounters Date Type Department Care Team (Late st Contact Info) Description 07/20/2024 11:00 AM EDT Ancillary Procedure [facility] Cardiology [facility] [address] [place] [address] 08/22/2024 10:40 AM EDT Office Visit [facility] [address] [place] [address] Dr [address] [place] [address] Daniela Carrillo NP [address] [place] [address] [address] [place] [address] documented as of this encounter Visit Diagnoses Not on filedocumented in this encounter Care Teams Well Service Floor Worker Relationship Specialty Start Date End Date Fazal Brandon MD [address] [place] [address] Dr [address]as [address] [place], [place] PCP - General 02/08/20 documented as of this encounter
--- OUTSIDE RECORDS SUMMARY | 2024-06-20 10:22 | XMS_ITS | Clinical Summary ---
Author Organization 175 [facility] Address [address] [place] [address] Phone Care Team Providers Care Cider Maker Name Role Phone Fazal Brandon MD Primary Care Provider +1- [phone] Allergies No known active allergies Medications hydrocodone/bisi taminophen (VICODIN ORAL) Take 325 mg by mouth if needed. Active HELIUM-OXYGEN INHL Inhale by mouth 1 (one) time each day. Walking 3litter , sitting 1litter Active albuterol HFA (PROAIR HFA ; PROVENTIL HFA ; VENTOLIN HFA) 90 mcg/actuation inhaler as needed. 10/18/2018 Active furosemide (LASIX) 40 mg tablet Take [...] C-spine MRI I spoke with rep from [employer] She is aware of this. I tried [...] The patient has been followed by her real estate closer at [facility] (Dr. Bynum). Nevertheless, the patient denies any prior evaluations with a pulmonary hypertension specialist. As such, at this point, we will order an echocardiogram to reevaluate her pulmonary artery systolic pressures and to reevaluate her RV function. Will also refer the patient for an evaluation with the [facility] pulmonary hypertension clinic. Orders: Transthoracic echocardiogram [...] patient will continue to follow-up with her real estate closer regarding the management of her COPD. Otherwise, I will reevaluate the patient in 6 months. Encounters Date Type Department Care Team Description 06/19/2024 Telephone [facility] Cardiology [facility] [address] [place] [address] Sari Agustin MD 05/24/[address] [facility] [address] [place] [address] Sari Agustin MD Appointment (Coronary CTA) 05/16/2024 9:20 AM EST Office Visit [facility] [address] [place] [address] Sari Agustin MD Other chest pain (Primary Dx); Pulmonary hypertension (CMS/HCC); Peripheral arterial occlusive disease (CMS/HCC) 05/16/[address] [facility] [address] [facility] [address] [place] [address] Sari Agustin MD 05/16/[address] [facility] [address] [place] [address] Sari Agustin MD from Last 3 Months [...] subsequent removal BLADDER SUSPENSION 03/21/2006 - 03/20/2007 [facility] BACK SURGERY 03/21/2003 - 03/20/2004 Lumbar decompression NECK SURGERY 08/24/2022 C4-5 ACDF, Dr. Joseph TUBAL LIGATION Medical History Medical History Date Comments Depressive disorder DX:Depressiv e disorder Asthma DX:Asthma COPD (chronic obstructive pu lmonary disease) ([facility]) DX:COPD (chronic obstructive pulmonary disease) ([facility]); COMMENT: severe, on O2 Hypothyroidism DX:Hypothyroidis m Polycythemia vera DX:Polycythemi a vera ([facility]) Family History Medical History Relation Name Comments [...] Description 07/20/2024 11:00 AM EDT Ancillary Procedure [facility] [address] [place] [address] 08/22/2024 10:40 AM EDT Office Visit [facility] [address] [place] [address] Daniela Carrillo, MARITZA [address] [place] [address] Dr Villegas [address] [place] [address] Health Maintenance Due Date Last Done Comments [...] Zoster Vaccines Completed 09/29/2022, 04/30/2022 RSV Immunization Adult Patients Completed 01/03/2023 Pneumococcal Vaccine: 50+ Years Completed [...] GEMUSE QTc 445 ms GEMUSE P Wave [place] 81 degrees GEMUSE R [place] 75 degrees GEMUSE T [place] 71 degrees GEMUSE ECG Interpretation Normal sinus rhythm Normal ECG When compared with ECG of 24-AUG-2022 06:05, No significant change was found Confirmed by SARI AGUSTIN ([id number]) on 05/16/2024 9:24:51 AM GEMUSE 05/16/2024 9:23 AM EST 05/16/2024 9:24 AM EST Sari Agustin MD ECG ORDERABLES Final Result GEMUSE from Last 3 Months Insurance MEDICARE [facility] Care Teams Cider Maker Relationship Specialty Start Date End Date Fazal Brandon MD [address] [place] [address] Dr Ghada [place] PCP - General 02/08/20
== END 2024-06-20 10:04 | disposition home or self-care (01) ==
LOC: HO.HMCFM 09:20
PROVIDERS: PCP Family Medicine; Visit Provider Family Medicine
DX: R73.03 Prediabetes (principal); G89.4 Chronic pain syndrome

== ENCOUNTER → 2024-06-20 09:19 | Outpatient (BNVA) | payer MEDICARE, SELFPAY | PROVIDERS: PCP Family Medicine; Visit Provider Family Medicine | DX: R73.03 Prediabetes (principal); G89.4 Chronic pain syndrome | CPT/HCPCS: 99212 ==

== ENCOUNTER 2024-07-16 08:42 | Outpatient (REF) | payer MEDICARE, SELFPAY ==
--- OUTSIDE RECORDS SUMMARY | 2024-07-16 09:13 | XMS_ITS | Patient Health Record ---
Author Organization [facility] Address [address] [facility] [place] [address] Care Team Providers Care Radio News Anchor Name Role Phone Aleksandr SMITH, Fazal Primary Care Provider Desirae Jose Unavailable [phone] Allergies No Known Allergies Reason For Referral [...] Problem Acquired hammer toe of right foot ([id number]) Other hammer toe(s) (acquired), right foot (M20.41) Active confirmed Problem Neuropathy (612834731) Neuropathy (G62.9) Active confirmed Problem Localized, primary osteoarthritis of the ankle and/or foot (932691503) Arthritis of joint of lesser toe, right (M19.071) Active confirmed Vital Signs Blood pressure diastolic 60 mm Hg 09/12/2023 Height 5 ft 2in in 09/12/2023 Blood pressure systolic 116 mm Hg 09/12/2023 Weight 135 lbs 09/12/2023 BMI 24.69 kg/m2 09/12/2023 Encounters Encounter Location Date Provider Diagnosis [facility] [address] 09/12/2023 Desirae Black Pain in right toe(s) M79.674 ; Arthritis of joint of lesser toe, right M19.071 ; Other hammer toe(s) (acquired), right foot M20.41 and Neuropathy G62.[address] [facility] [address] 08/04/2023 Desirae Black Assessments Encounter Date Diagnosis [...] Medicare National [employer]t [employer] [address] [facility] [place] [address] [id number] Rossana Stanley Self - patient is the insured [facility] [address] [place] [address] [id number] Rossana Stanley Self - patient is the insured Medical (General) History Medical History History ICD Code Arthritis asthma Back,Hip,and Knee pain Broken bones covid-19 Fibromyalgia Headaches/Migraines Lung disease Poor circulation Sciatica thyroid Chicken pox COPD Joint implants/screws neuropathy Surgical History Surgery Date(Month/Year) feet 2018 L4 + L5 Back 2005,2005 Gall bladder removal 1999 C4, C5, C6 Back 2021 Hospitalization History Reason Date(Month/Year) [facility]- had a fall 09/05/23
--- OUTSIDE RECORDS SUMMARY | 2024-07-16 09:13 | XMS_ITS ---
Author Organization [facility] Address [address] [facility] [place] [address] Care Team Providers Care Brasswind Instrument Repairer Name Role Phone Fazal Brandon MD Primary Care Provider Verna Jimenez Desirae Unavailable [phone] Allergies No Known Allergies REASON FOR VISIT [...] Problem Acquired hammer toe of right foot ([id number]) Other hammer toe(s) (acquired), right foot (M20.41) Active confirmed Problem Localized, primary osteoarthritis of the ankle and/or foot (794855498) Arthritis of joint of lesser toe, right (M19.071) Active confirmed Problem Neuropathy (366022070) Neuropathy (G62.9) Active confirmed Vital Signs Height 5 ft 2in in 09/12/2023 Weight 135 lbs 09/12/2023 BMI 24.69 kg/m2 09/12/2023 Blood pressure systolic 116 mm Hg 09/12/19 Blood pressure diastolic 60 mm Hg 024 Encounters Encounter Location Date Provider Diagnosis [facility] [place] [address] [place] [address] 09/12/2023 Desirae Jimenez Pain in right toe(s) [...] Notes * Kathy GARRETTB:1960 (63 yo F)Acc No.[id number]:09/12/2023 Progress Notes Patient:?Rossana Garrett Provider:?Desirae Jimenez DPM :1960???Age:63 Y???Sex:Female D ate:09/12/2023 Address:[address] [place] [address] Pcp:Fazal Brandon MD Subjective: * Chief Complaints: [...] work, walking. ?Marital status: . 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 * Medications:?TakingTheophyll ine ER 400 MG Tablet [...] - G62.9? Plan: * Treatment: * Procedure Codes:?47454 X-RAY EXAM OF RIGHT FOOT 3V, Modifiers: [...] Jimenez DPM Date:?2023 Generated for Ricardo montana/Eloisa/Magnusitting on:?07/16/2024 09:13 AM EDT History and Physical Notes * [...]
--- OUTSIDE RECORDS SUMMARY | 2024-07-16 09:13 | XMS_ITS | Clinical Summary ---
Author Organization 175 [facility] Address [address] [place] [address] Phone Care Team Providers Care Coring Machine Operator Name Role Phone Fazal Brandon MD Primary Care Provider +1- [phone] Allergies No known active allergies Medications hydrocodone/bisi [...] C4-5 ACDF with plating on 08/24/2022, Dr. Joesph. She was lifting boxes a week ago [...] C-spine MRI I spoke with rep from [employer]. She is aware of this. I tried [...] 8.7 mL injection Chronic obstructive lung disease ([facility] V24, [place]/[facility] V28) 02/24/2021 Overview (02/14/2024): Chronic obstructive lung disease Peripheral arterial occlusive disease ([facility] V 24) 02/24/2021 Overview (02/14/2024): Peripheral arterial occlusive disease COPD (chronic obstructive pu lmonary disease) ([facility] V24, CMS/HCC V28) 09/16/2020 Pulmonary hypertension ([facility] V24, [facility] V28 ) 09/16/2020 Assessment & Plan (05/16/2024 9:53 AM EST): The patient has a history of pulmonary hypertension that has been deemed to be secondary to her COPD. Right heart catheterization in November 2018 showed a mean PA pressure of 33 mmHg along with a normal wedge pressure. The patient has been followed by her supervisor prepress at [facility] (Dr. Bynum). Nevertheless, the patient denies any prior evaluations with a pulmonary hypertension specialist. As such, at this point, we will order an echocardiogram to reevaluate her pulmonary artery systolic pressures and to reevaluate her RV function. Will also refer the patient for an evaluation with the [facility] pulmonary hypertension clinic. Orders: Transthoracic echocardiogram (TTE) [...] patient will continue to follow-up with her supervisor prepress regarding the management of her COPD. Otherwise, I will reevaluate the patient in 6 months. Encounters Date Type Department Care Team Description 06/19/2024 Telephone [facility] Associates [facility] Dr [facility] [address] [place] [address] Fazal Brandon MD Medical Records 06/19/2024 [address] [facility] [address] [facility] [address] [place] [address] Sari Agustin MD 05/24/20[address] [facility] [address] [facility] [address] [place] [address] Sari Agustin MD Appointment (Coronary CTA) 05/16/2024 9:20 AM EST Office Visit [facility] [address] [place] [address] Sari Agustin MD Other chest pain (Primary Dx); Pulmonary hypertension (CMS/HCC V24, CMS/HCC V28); Peripheral arterial occlusive disease (CMS/HCC V24) 05/16/[address] [facility] [address] [facility] [place] [address] Sari Agustin MD 05/16/[address] [facility] [address] [facility] [address] [place] [address] Sari Agustin MD from Last [...] subsequent removal BLADDER SUSPENSION 03/21/2006 - 03/20/2007 [facility] BACK SURGERY 03/21/2003 - 03/20/2004 Lumbar decompression NECK SURGERY 08/24/2022 C4-5 ACDF, Dr. Joseph TUBAL LIGATION Medical History Medical History Date Comments Depressive disorder DX:Depressiv e disorder Asthma DX:Asthma COPD (chronic obstructive pu lmonary disease) ([facility] V24, [facility] V28) DX:COPD (chronic o bstructive pulmonary disease) ([facility]); COMMENT: severe, on O2 Hypothyroidism DX:Hypothyroidis m Polycythemia vera ([facility] V 24, [facility] V28) DX:Polycythemia vera ([facility]) Family History Medical History Relation Name Comments [...] Description 07/20/2024 11:00 AM EDT Ancillary Procedure [facility] Cardiology [facility] [address] [place] [address] 08/22/2024 10:40 AM EDT Office Visit [facility] [address] [place] [address] Daniela Carrillo, MARITZA [address] [place] [address] Dr Villegas [address] [place] [address] Health Maintenance Due Date Last Done Comments Breast Cancer Screening 1960 Cervical Cancer Screening: Pap Smear 02/21/1981 Cholesterol Screening (Lipid Panel) 02/21/2022 Colorectal Cancer Screening: Colonoscopy 02/21/2022 Depression Screening 02/21/2022 HIV Screening 02/21/2022 Hepatitis C Screening 02/21/2022 Medicare Annual Wellness Visit 02/21/2022 Social Influencers of Health Screening 02/21/2022 COVID-19 Vaccine (7 - Pfizer risk 2023- season) 2024 12/02/2023, 12/20/2022, 12/02/2021, Additional history exists DTaP,Tdap,and Td Vaccines (3 - Td or Tdap) 09/03/2033 09/04/2023, 08/01/2020 Zoster Vaccines Completed 09/29/2022, 04/30/2022 RSV Immunization Adult Patients Completed 01/03/2023 Pneumococcal Vaccine: 50+ Years Completed 10/07/2023, 11/16/2016, 11/05/2016 Pneumococcal Vaccine: Pediatrics (0 to 5 Years) and At-Risk Patients (6 to 64 Years) Completed 10/07/2023, 11/16/2016, 11/05/2016 Influenza Vaccine Completed 12/02/2023, , 12/02/2021, Additional [...] age to complete this topic Meningococcal B Vaccine Aged Out No l onger eligible based on patient's age to complete this topic RSV Immunization Patients Under 20 months Aged Out No longer eligible based on patient's age to complete this topic Varicella Vaccines Aged Out No longer eligible based on patient's age to complete this topic Procedures Procedure Name Priority Date/Time Associated Diagnosis Comments ECG 12-LEAD Routine 05/16/2024 9:23 AM EST Peripheral arterial occlusive disease (CMS/[facility] V24) from Last 3 Months Results * ECG 12 lead (05/16/2024 9:23 AM EST) Ventricular Rate ECG 80 BPM GEMUSE Atrial Rate 80 BPM GEMUSE P-R Interval 126 ms GEMUSE QRS Duration 82 ms GEMUSE Q-T Interval 386 ms GEMUSE QTc 445 ms GEMUSE P Wave [place] 81 degrees GEMUSE R [place] 75 degrees GEMUSE T [place] 71 degrees GEMUSE ECG Interpretation Normal sinus rhythm Normal ECG When compared with ECG of 24-AUG-2022 06:05, No significant change was found Confirmed by SARI AGUSTIN ([id number]) on 05/16/2024 9:24:51 AM GEMUSE 05/16/2024 9:23 AM EST 05/16/2024 9:24 AM EST us Sari Agustin MD ECG ORDERABLES Final Result GEMUSE from Last 3 Months Insurance MEDICARE [facility] Care Teams Coring Machine Operator Relationship Specialty Start Date End Date Fazal Brandon MD [address] [place] [address] Dr Ghada [place] PCP - General 02/08/20
--- OUTSIDE RECORDS SUMMARY | 2024-07-16 09:14 | XMS_ITS | Encounter Summary ---
Author Organization [facility] Address [address] [place] [address] Care Team Providers Care Building Service Worker Name Role Phone Fazal Brandon MD Primary Care Provider +1- [phone] Encounter Details Date Type Department Care Team (Late st Contact Info) Description 06/19/2024 Telephone [facility] [address] [place] [address] [place] [address] Matthew Phelps MD [address] [place] [address] Dr [address] [place] [address] Social History Tobacco Use Types Packs/Day Years [...] Medical Records Request Caller: Kassy Calling from: [facility] Requesting provider's first & last name: Dr Macho Bynum Direct Phone Number or Ext: [phone] What records are being requested: Office notes How far back: 05/16/24 What is it for: For pulmonary test Needed by: As soon as possible documented in this encounter Plan of Treatment Upcoming Encounters Date Type Department Care Team (Late st Contact Info) Description 07/20/2024 11:00 AM EDT Ancillary Procedure [facility] Cardiology [facility] [address] [place] [address] 08/22/2024 10:40 AM EDT Office Visit [facility] [address] [place] [address] Dr [address] [place] [address] Daniela Carrillo NP [address] [place] [address] [address] [place] [address] documented as of this encounter Visit Diagnoses Not on filedocumented in this encounter Care Teams Building Service Worker Relationship Specialty Start Date End Date Fazal Brandon MD [address] [place] [address] Dr [address] [place], [place] PCP - General 02/08/20 documented as of this encounter
--- OUTSIDE RECORDS SUMMARY | 2024-07-16 09:14 | XMS_ITS ---
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 Generated for Printi ng/Fabarryg/eTransmitting on:?07/16/2024 09:13 AM EDT
[2024-07-16 11:33] LABS: Alanine Aminotransferase 25 U/L (0-31); Albumin Level 4.5 g/dL (3.5-5.0); Alkaline Phosphatase 90 U/L (39-117); Anion Gap 11 (12-20); Aspartate Amino Transferase 28 U/L (5-31); Bilirubin Total 0.5 mg/dL (0.0-1.0); Blood Urea Nitrogen 10 mg/dL (9-16); Calcium 9.8 mg/dL (8.4-10.2); Carbon Dioxide 34 mmol/L (22-29); Chloride 102 mmol/L (96-108); Cholesterol 221 mg/dL (<200); Estimated Glomerular Filt Rate > 60; Glucose Fasting 101 mg/dL (60-99); HDL Cholesterol 91 mg/dL (>40); LDL Cholesterol Calculated 119 mg/dL (<100); Potassium 5.2 mmol/L (3.3-5.1); Sodium 142 mmol/L (135-145); Total Protein 7.1 g/dL (6.5-8.0); Triglycerides 56 mg/dL (<150)
[2024-07-16 11:52] LABS: Free T4 (Free Thyroxine) 1.18 ng/dL (0.71-1.85); Thyroid Stimulating Hormone 2.62 uIU/mL (0.32-4.0)
[2024-07-17 03:09] LABS: Triiodothyronine T3 Total 94 ng/dL (76-181)
== END 2024-07-16 08:43 | disposition home or self-care (01) ==
LOC: HO.WFDLDS 08:42
PROVIDERS: Visit Provider Family Medicine
DX: Z00.00 Encounter for general adult medical examination without abnormal findings (principal); I25.10 Atherosclerotic heart disease of native coronary artery without angina pectoris; E03.9 Hypothyroidism, unspecified
CPT/HCPCS: 36415; 80053; 80061; 84439; 84443; 84480

== ENCOUNTER 2024-08-02 10:55 | Outpatient (REF) | payer MEDICARE, SELFPAY ==
--- NOTE | ~2024-08-02 | CT_ITS ---
CLINICAL HISTORY: Z87.891 - Personal history of nicotine dependence CT lung cancer screening (LDCT) Comparison: CT/MO/SR - CT LUNG SCREENING - 07/28/23 10:59 EDT Technique: Axial CT images of the chest using low-dose technique. Referring provider counseled the patient on shared decision-making for LDCT screening. Additional counseling was provided on smoking cessation. Effective radiation dose total: DLP 59.4 mGycm, CTDIvol 1.6 mGy. Findings: Lung: No evidence of pneumonia or edema. There is moderate apical predominant emphysema. Previously seen pulmonary nodules are not seen. No new pulmonary nodules. Coronary artery calcifications: Mild Limited upper abdomen: Splenic calcifications. Other: Epidural catheter. Impression: 1. Coronary artery disease. 2. LungRADS 1: Negative exam. Continue annual screening with low dose Chest CT in 12 months. ##L1## Category 1: Normal; continue annual screening Category 2: Benign appearance or behavior, continue annual screening Category 3: Probably benign, [address] recommended Category 4A: Suspicious, [address] recommended; may consider PET/CT Category 4B: Suspicious, Additional diagnostics and/or tissue sampling recommended Category 4X: Suspicious, Additional diagnostics and/or tissue sampling recommended Category 0: Recalls (incomplete screen due to Incomplete coverage, Noise, Respiratory motion, Expiration, Obscured by acute abnormality) This document has been electronically signed by: Delmi Apple MD on 08/02/2024 15:53:39
--- OUTSIDE RECORDS SUMMARY | 2024-08-02 12:04 | XMS_ITS ---
Author Organization [facility] Address [address] [facility] [place] [address] Care Team Providers Care Contracts Director Name Role Phone Fazal Brandon MD Primary Care Provider Verna Jimenez Desirae Unavailable [phone] Allergies No Known Allergies REASON FOR VISIT [...] 150 MG TAKE 1 CAPSULE BY MO UTH ONCE DAILY AT BEDTIME Oral for 30 [...] Problem Acquired hammer toe of right foot (99807785009687 05) Other hammer toe(s) (acquired), right foot (M20.41) Active confirmed Problem Arthritis of joint of lesser toe, right (M19.071) Active confirmed Problem Neuropathy (578650238) Neuropathy (G62.9) Active confirmed Vital Signs Height 5 ft 2in in 09/12/2023 Weight 135 lbs 09/12/2023 BMI 24.69 kg/m2 09/12/2023 Blood pressure systolic 116 mm Hg 09/12/19 Blood pressure diastolic 60 mm Hg 024 Encounters Encounter Location Date Provider Diagnosis [facility] [address] [place] [address] 09/12/2023 Desirae Tony Pain in right toe(s) M79.674 ; Arthritis [...] Notes * Kathy GARRETTB:1960 (63 yo F)Acc No.[id number]:09/12/2023 Progress Notes Patient:?Rossana Garrett Provider:?Desirae Jimenez DPM :1960???Age:63 Y???Sex:Female D ate:09/12/2023 Address:[address] [place] [address] Pcp:Fazal Brandon MD Subjective: * Chief Complaints: [...] Back 2021 * Hospitalization/Major Diagno stic Procedure:?[facility]- had a fall 09/05/23 * Family History:?Mother: alibrandee e, arthritis, diabetes, heart attack, high blood [...] work, walking. ?Marital status: . 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 * Medications:?TakingTheophyll ine ER 400 MG Tablet [...] - G62.9? Plan: * Treatment: * Procedure Codes:?47984 X-RAY EXAM OF RIGHT FOOT 3V, Modifiers: [...] Provider:?Desirae Jimenez DPM Date:?2023 Generated for Ricardo montana/Eloisa/Magda on:?08/02/2024 12:04 PM EDT History and Physical Notes * HPI [...] Negative fractures i dentified Digits: Show asymmetrical ajcek int space narrowing at the DIPJ consistent [...]
--- OUTSIDE RECORDS SUMMARY | 2024-08-02 12:04 | XMS_ITS | Clinical Summary ---
Author Organization [address] [facility] Address [address] [place] [address] Phone Care Team Providers Care Chief Of Staff Doctor Name Role Phone Fazal Brandon MD Primary Care Provider [phone] Allergies No known active allergies Medications hydrocodone/bisi [...] C-spine MRI I spoke with rep from [employer]. She is aware of this. I tried [...] 8.7 mL injection Chronic obstructive lung disease ([facility] V24, C [place]/[facility] V28) 02/24/2021 Overview (02/14/2024): Chronic obstructive lung disease Peripheral arterial occlusive disease ([facility] V 24) 02/24/2021 Overview (02/14/2024): Peripheral arterial occlusive disease COPD (chronic obstructive pu lmonary disease) ([facility] V24, CMS/HCC V28) 09/16/2020 Pulmonary hypertension ([facility] V24, CMS/HCC V28 ) 09/16/2020 Assessment & Plan (05/16/2024 9:53 AM EST): The patient has a history of pulmonary hypertension that has been deemed to be secondary to her COPD. Right heart catheterization in November 2018 showed a mean PA pressure of 33 mmHg along with a normal wedge pressure. The patient has been followed by her manager spanish at [facility] (Dr. Bynum). Nevertheless, the patient denies any prior evaluations with a pulmonary hypertension specialist. As such, at this point, we will order an echocardiogram to reevaluate her pulmonary artery systolic pressures and to reevaluate her RV function. Will also refer the patient for an evaluation with the [facility] pulmonary hypertension clinic. Orders: Transthoracic echocardiogram [...] patient will continue to follow-up with her manager spanish regarding the management of her COPD. Otherwise, I will reevaluate the patient in 6 months. Encounters Date Type Department Care Team Description 07/20/2024 11:00 AM EDT Ancillary Procedure [facility] [address] [place] [address] Other chest pain; Pulmonary hypertension (CMS/HCC V24, CMS/HCC V28) 06/19/2024 [address]phone [facility] [address] [facility] [address] [place] [address] Fazal Brandon MD Medical Records 06/19/2024 Telephone [facility] [address] [place] [address] Sari Agustin MD 05/24/2024 Telephone [facility] [address] [place] [address] Sari Agustin MD Appointment (Coronary CTA) 05/16/2024 9:20 AM EST Office Visit [facility] [address] [place] [address] Sari Agustin MD Other chest pain (Primary Dx); Pulmonary hypertension (CMS/HCC V24, CMS/HCC V28); Peripheral arterial occlusive disease (CMS/HCC V24) 05/16/2024 Telephone [facility] [address] [facility] [address] [place] [address] Sari Agustni MD 05/16/2024 Telephone [facility] [address] [place] [address] Sari Agustin MD from Last [...] subsequent removal BLADDER SUSPENSION 03/21/2006 - 03/20/2007 [facility] BACK SURGERY 03/21/2003 - 03/20/2004 Lumbar decompression NECK SURGERY 08/24/2022 C4-5 ACDF, Dr. Joseph TUBAL LIGATION Medical History Medical History Date Comments Depressive disorder DX:Depressiv e disorder Asthma DX:Asthma COPD (chronic obstructive pu lmonary disease) ([facility] V24, [facility] V28) DX:COPD (chronic o bstructive pulmonary disease) ([facility]); COMMENT: severe, on O2 Hypothyroidism DX:Hypothyroidis m Polycythemia vera ([facility] V 24, [facility] V28) DX:Polycythemia vera ([facility]) Family History Medical History Relation [...] Sign Reading Time Taken Comments Blood Pressure 108/60 07/20/2024 11:19 AM EDT Pulse 76 05/16/2024 9:08 AM EST Temperature - - Respiratory Rate - - Oxygen Saturation 90% 05/16/2024 9:08 AM EST Inhaled Oxygen Concentration - - Weight 66.2 kg (146 lb) 07/20/2024 11:19 AM EDT Height 160 cm (5' 3 ) 07/20/2024 11:19 AM EDT Body Mass Index 25.86 07/20/2024 11:19 AM EDT Plan of Treatment Upcoming Encounters Date Type Department Care Team (Late st Contact Info) Description 08/22/2024 10:40 AM EDT Office Visit [facility] [address] [place] [address] Daniela Carrillo NP [address] [place] [address] Dr [address] [place] [address] Health Maintenance Due Date Last Done Comments [...] 9:23 AM EST Peripheral arterial occlusive disease ([facility] V24) from Last 3 Months Results * ECG 12 lead (05/16/2024 9:23 AM EST) Ventricular Rate ECG 80 BPM GEMUSE Atrial Rate 80 BPM GEMUSE P-R Interval 126 ms GEMUSE QRS Duration 82 ms GEMUSE Q-T Interval 386 ms GEMUSE QTc 445 ms GEMUSE P Wave [place] 81 degrees GEMUSE R [place] 75 degrees GEMUSE T [place] 71 degrees GEMUSE ECG Interpretation Normal sinus rhythm Normal ECG When compared with ECG of 24-AUG-2022 06:05, No significant change was found Confirmed by SARI AGUSTIN ([id number]) on 05/16/2024 9:24:51 AM GEMUSE 05/16/2024 9:23 AM EST 05/16/2024 9:24 AM EST us Sari Agustin MD ECG ORDERABLES Final Result GEMUSE from Last 3 Months Insurance MEDICARE [facility] Care Teams Chief Of Staff Doctor Relationship Specialty Start Date End Date Fazal Brandon MD [address] [place] [address] Dr Barnard [place], [place] PCP - General 02/08/20
--- OUTSIDE RECORDS SUMMARY | 2024-08-02 12:04 | XMS_ITS ---
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 Generated for Printi ng/Faxing/eTransmitting on:?08/02/2024 12:04 PM EDT
--- OUTSIDE RECORDS SUMMARY | 2024-08-02 12:04 | XMS_ITS | Patient Health Record ---
Author Organization [facility] Address [address] [facility] [place] [address] Care Team Providers Care Drop Clipper Name Role Phone Aleksandr SMITH, Fazal Primary Care Provider Desirae Jose Unavailable [phone] Allergies No Known Allergies Reason For Referral [...] Problem Acquired hammer toe of right foot (86920616867064 05) Other hammer toe(s) (acquired), right foot (M20.41) Active confirmed Problem Neuropathy (818838462) Neuropathy (G62.9) Active confirmed Problem Arthritis of joint of lesser toe, right (M19.071) Active confirmed Vital Signs Blood pressure diastolic 60 mm Hg 09/12/2023 Height 5 ft 2in in 09/12/2023 Blood pressure systolic 116 mm Hg 09/12/2023 Weight 135 lbs 09/12/2023 BMI 24.69 kg/m2 09/12/2023 Encounters Encounter Location Date Provider Diagnosis [facility] [address] 09/12/2023 Desirae Black Pain in right toe(s) M79.674 ; Arthritis of joint of lesser toe, right M19.071 ; Other hammer toe(s) (acquired), right foot M20.41 and Neuropathy G62.9 [facility] [address] [address] 08/04/2023 Desirae Black Assessments Encounter Date Diagnosis [...] Medicare National Govt [employer] [address] [place] [address] [id number] Rossana Stanley Self - patient is the insured [facility] [address] [place] [address] [id number] Rossana Stanley Self - patient is the insured Medical (General) History Medical History History ICD Code Arthritis asthma Back,Hip,and Knee pain Broken bones covid-19 Fibromyalgia Headaches/Migraines Lung disease Poor circulation Sciatica thyroid Chicken pox COPD Joint implants/screws neuropathy Surgical History Surgery Date(Month/Year) feet 2018 L4 + L5 Back 2004,2005 Gall bladder removal 1999 C4, C5, C6 Back 2021 Hospitalization History Reason Date(Month/Year) [facility]- had a fall 09/05/23
== END 2024-08-02 10:56 | disposition home or self-care (01) ==
LOC: HO.CT 10:55
PROVIDERS: PCP Family Medicine; Visit Provider Internal Medicine Pulmonary Disease
DX: Z12.2 Encounter for screening for malignant neoplasm of respiratory organs (principal); Z87.891 Personal history of nicotine dependence
CPT/HCPCS: 71271

== ENCOUNTER → 2024-08-02 10:57 | Outpatient (BNV) | payer MEDICARE, SELFPAY | PROVIDERS: PCP Family Medicine; Visit Provider Radiology Diagnostic Radiology | DX: Z87.891 Personal history of nicotine dependence (principal) | CPT/HCPCS: 71271 ==

== ENCOUNTER 2024-08-03 13:35 | Outpatient (AMB) | payer MEDICARE, SELFPAY ==
--- OUTSIDE RECORDS SUMMARY | 2024-08-03 13:38 | XMS_ITS ---
Author Organization [facility] Address [address] [facility] [place] [address] Care Team Providers Care Rotor Balancer Name Role Phone Fazal Brandon MD Primary Care Provider Verna Jimenez Desirae Unavailable [phone] Allergies No Known Allergies REASON FOR VISIT [...] Problem Acquired hammer toe of right foot (5669918415490599) Other hammer toe(s) (acquired), right foot (M20.41) Active confirmed Problem Localized, primary osteoarthritis of the ankle and/or foot (494240017) Arthritis of joint of lesser toe, right (M19.071) Active confirmed Problem Neuropathy (282627839) Neuropathy (G62.9) Active confirmed Vital Signs Height 5 ft 2in in 09/12/2023 Weight 135 lbs 09/12/2023 BMI 24.69 kg/m2 09/12/2023 Blood pressure systolic 116 mm Hg 09/12/19 Blood pressure diastolic 60 mm Hg 024 Encounters Encounter Location Date Provider Diagnosis [facility] [address] [place] [address] 09/12/2023 Desirae Jimenez Pain in right toe(s) [...] Notes * Kathy GARRETTB:1960 (63 yo F)Acc No.[id number]:09/12/2023 Progress Notes Patient:?Rossana Garrett Provider:?Desirae Jimenez DPM :1960???Age:63 Y???Sex:Female D ate:09/12/2023 Address:[address] [place] [address] Pcp:Fazal Brandon MD Subjective: * Chief Complaints: [...] work, walking. ?Marital status: . ?Occupation: Retired, [employer]. * Medications:?TakingTheophyll ine ER 400 MG Tablet [...] - G62.9? Plan: * Treatment: * Procedure Codes:?58525 X-RAY EXAM OF RIGHT FOOT 3V, Modifiers: [...] Jimenez DPM Date:?2023 Generated for Ricardo montana/Eloisa/Magda on:?08/03/2024 01:38 PM EDT History and Physical Notes * [...]
--- OUTSIDE RECORDS SUMMARY | 2024-08-03 13:38 | XMS_ITS | Patient Health Record ---
Author Organization [facility] Address [address] [facility] [place] [address] Care Team Providers Care Pool Finisher Name Role Phone Aleksandr SMITH, Fazal Primary Care Provider Desirae Jose Unavailable [phone] Allergies No Known Allergies Reason For Referral [...] Problem Acquired hammer toe of right foot ([id number]) Other hammer toe(s) (acquired), right foot (M20.41) Active confirmed Problem Neuropathy (834155397) Neuropathy (G62.9) Active confirmed Problem Localized, primary osteoarthritis of the ankle and/or foot (352663305) Arthritis of joint of lesser toe, right (M19.071) Active confirmed Vital Signs Blood pressure diastolic 60 mm Hg 09/12/2023 Height 5 ft 2in in 09/12/2023 Blood pressure systolic 116 mm Hg 09/12/2023 Weight 135 lbs 09/12/2023 BMI 24.69 kg/m2 09/12/2023 Encounters Encounter Location Date Provider Diagnosis [facility] [address] 09/12/2023 Desirae Black Pain in right toe(s) M79.674 ; Arthritis of joint of lesser toe, right M19.071 ; Other hammer toe(s) (acquired), right foot M20.41 and Neuropathy G62.[address] [facility] [address] 08/04/2023 Desirae Black Assessments Encounter Date Diagnosis [...] Medicare National Govt Sv[employer] [address] [facility] [place] [place] [address] [id number] Rossana Stanley Self - patient is the insured [facility] [address] [place] [address] [id number] Rossana Stanley Self - patient is the insured Medical (General) History Medical History History ICD Code Arthritis asthma Back,Hip,and Knee pain Broken bones covid-19 Fibromyalgia Headaches/Migraines Lung disease Poor circulation Sciatica thyroid Chicken pox COPD Joint implants/screws neuropathy Surgical History Surgery Date(Month/Year) feet 2018 L4 + L5 Back 2005,2005 Gall bladder removal 1999 C4, C5, C6 Back 2021 Hospitalization History Reason Date(Month/Year) [facility]- had a fall 09/05/23
--- OUTSIDE RECORDS SUMMARY | 2024-08-03 13:38 | XMS_ITS | Clinical Summary ---
Author Organization [facility] Address [address] [place] [address] Phone Care Team Providers Care Spike Machine Operator Name Role Phone Fazal Brandon [...] C-spine MRI I spoke with rep from [employer]. She is aware of this. I tried [...] 8.7 mL injection Chronic obstructive lung disease ([facility] V24, C [place]/[facility] V28) 02/24/2021 Overview (02/14/2024): Chronic obstructive lung disease Peripheral arterial occlusive disease ([facility] V 24) 02/24/2021 Overview (02/14/2024): Peripheral arterial occlusive disease COPD (chronic obstructive pu lmonary disease) ([facility] V24, CMS/HCC V28) 09/16/2020 Pulmonary hypertension ([facility] V24, CMS/HCC V28 ) 09/16/2020 Assessment & Plan (05/16/2024 9:53 AM EST): The patient has a history of pulmonary hypertension that has been deemed to be secondary to her COPD. Right heart catheterization in November 2018 showed a mean PA pressure of 33 mmHg along with a normal wedge pressure. The patient has been followed by her paperhanger and painter at [facility] (Dr. Bynum). Nevertheless, the patient denies any prior evaluations with a pulmonary hypertension specialist. As such, at this point, we will order an echocardiogram to reevaluate her pulmonary artery systolic pressures and to reevaluate her RV function. Will also refer the patient for an evaluation with the [facility] pulmonary hypertension clinic. Orders: Transthoracic echocardiogram (TTE) [...] patient will continue to follow-up with her paperhanger and painter regarding the management of her COPD. Otherwise, I will reevaluate the patient in 6 months. Encounters Date Type Department Care Team Description 07/20/2024 11:00 AM EDT Ancillary Procedure [facility] [address] [place] [address] Other chest pain; Pulmonary hypertension (CMS/HCC V24, CMS/HCC V28) 06/19/[address] [facility] [address] [facility] [address] [place] [address] Fazal Brandon MD Medical Records 06/19/[address] [facility] [address] [facility] [address] [place] [address] Sari Agustin MD 05/24/[address] [facility] [address] [facility] [address] [place] [address] Sari Agustin MD Appointment (Coronary CTA) 05/16/2024 9:20 AM EST Office Visit [facility] [address] [place] [address] Sari Agustin MD Other chest pain (Primary Dx); Pulmonary hypertension (CMS/HCC V24, CMS/HCC V28); Peripheral arterial occlusive disease (CMS/HCC V24) 05/16/[address] [facility] [address] [facility] [address] [place] [address] Sari Agustin MD 05/16/[address] [facility] [address] [facility] [address] [place] [address] Sari Agustin MD from Last [...] subsequent removal BLADDER SUSPENSION 03/21/2006 - 03/20/2007 [facility] BACK SURGERY 03/21/2003 - 03/20/2004 Lumbar decompression NECK SURGERY 08/24/2022 C4-5 ACDF, Dr. Joseph TUBAL LIGATION Medical History Medical History Date Comments Depressive disorder DX:Depressiv e disorder Asthma DX:Asthma COPD (chronic obstructive pu lmonary disease) ([facility] V24, [facility] V28) DX:COPD (chronic o bstructive pulmonary disease) ([facility]); COMMENT: severe, on O2 Hypothyroidism DX:Hypothyroidis m Polycythemia vera ([facility] V 24, [facility] V28) DX:Polycythemia vera ([facility]) Family History Medical History Relation Name [...] Description 08/22/2024 10:40 AM EDT Office Visit [facility] [address] [place] [address] Daniela Carrillo NP [address] [place] [address] Dr [address] [place] [address] Health Maintenance Due Date Last Done Comments [...] 9:23 AM EST Peripheral arterial occlusive disease ([facility] V24) from Last 3 Months Results * ECG 12 lead (05/16/2024 9:23 AM EST) Ventricular Rate ECG 80 BPM GEMUSE Atrial Rate 80 BPM GEMUSE P-R Interval 126 ms GEMUSE QRS Duration 82 ms GEMUSE Q-T Interval 386 ms GEMUSE QTc 445 ms GEMUSE P Wave [place] 81 degrees GEMUSE R [place] 75 degrees GEMUSE T [place] 71 degrees GEMUSE ECG Interpretation Normal sinus rhythm Normal ECG When compared with ECG of 24-AUG-2022 06:05, No significant change was found Confirmed by SARI AGUSTIN ([id number]) on 05/16/2024 9:24:51 AM GEMUSE 05/16/2024 9:23 AM EST 05/16/2024 9:24 AM EST us Sari Agustin MD ECG ORDERABLES Final Result GEMUSE from Last 3 Months Insurance MEDICARE [facility] Care Teams Spike Machine Operator Relationship Specialty Start Date End Date Fazal Brandon MD [address] [place] [address] Dr Barnard [place], [place] PCP - General 02/08/20
--- OUTSIDE RECORDS SUMMARY | 2024-08-03 13:39 | XMS_ITS ---
Author Organization [facility] Address [address] [place] [address] Care Team Providers Care Food Safety Auditor Name Role Phone Fazal Brandon MD Primary Care Provider Verna Jimenez, Desirae Unavailable [phone] REASON FOR VISIT MEMBERSHIP MANAGER PPWK Entered Encounters Encounter Location Date Provider Diagnosis [facility] [address] [place] [address] 08/04/2023 Desirae Jimenez Plan Of Treatment No Information Progress Notes * Kathy GARRETTB:1960 (63 yo F)Acc No.[id number]:08/04/2023 Patient:?Rossana Garrett :1960???Age:63 Y???Sex:Female Address[facility] [facility] [place] [address] * true * Date:? Generated for Printi ng/Fabarryg/eTransmitting on:?08/03/2024 01:38 PM EDT
--- NOTE | 2024-08-03 13:40 | MHC.PC.OV ---
Vital Signs 08/03/24 13:45 08/03/24 14:01 Height 5 ft 3 in Weight 150 lb BMI 26.6 BP 102/52 L Blood Pressure Location Rt brachial Position Sitting Respiration 14 Pulse 81 Pulse Source Pulse Oximeter Pulse Oximetry (%) 86 L 92 Oxygen Delivery Method Room Air Simple Mask Oxygen Flow Rate 2 Intake Visit Reasons: f/u chronic pain, labs Intake Note: Follow up chronic pain. Lab results. Xray results. Raw Cheese Worker Required: No Allergies duloxetine Adverse Reaction (Intermediate, Verified 08/03/24 13:41) Headache Tobacco use date assessed: 08/03/24 Fall risk assessment: No Falls in past year Last assessed Fall Risk: 08/03/24 Dental Screening Dental Screen Date: 08/03/24 Did you have a dental visit in the last 12 months?: Yes Did you have a dental problem in the last 6 months where you did not have access to dental care?: No Was dental information given to patient?: Patient has dentist HPI f/u chronic pain, labs HPI Details 64 y/o female presents to f/u chronic pain, pre-diabetes, lipids. Labs drawn 07/16/24. Reviewed labs with pt. Potassium mildly elevated at 5.2 mmol/L. Elevated fasting glucose 101. TC 221. LDL improved from 127 to 119. HDL 91. Pt reports shortness of breath. She has been using her meds as prescribed. O2 sat 92. Pt notes she had a CT lung 08/02/24. Coronary artery disease. Negative exam. HPI Comments History of Present Illness Details Documentation assistance for Fazal Brandon MD, was provided by Robert Terry,? Retail Salesperson on 08/03/2024 at 2:12 PM EST. I, Dr. Brandon, have read, observed, and verified documentation. ?? [facility] Medical History (Updated 08/03/24 @ 14:35 by Robert Terry) Supplemental oxygen dependent COVID-19 vaccine series completed History of COVID-19 Median neuropathy Chronic pain syndrome Cervicalgia Spondylosis, cervical Degeneration, intervertebral disc, cervical Left cervical radiculopathy Huma's disease Hypothyroidism Right lumbar radiculopathy Surgical History History of back surgery History of bunionectomy History of pubovaginal sling Hx of cystoscopy Hx of colonoscopy Hx of tubal ligation History of lumbar fusion History of biopsy Family History Father No problems noted. Mother Type 2 diabetes mellitus Daughter Hypothyroidism Social History Household Members Other:: mother Housing: Other Housing Other:: trailer Are you a primary physician primary care sports medicine to a significant other at home: Yes (takes care of mother) Do you presently have visiting nurse or other home services: No Alcohol intake: never Patient Tobacco Use Status: Former Tobacco user Tobacco use type: Cigarette Cigarette Packs Per Day: 1 Cigarettes Per Day: 20 Years Smoked: 20 e-Cigarette/Vaping Use: Never Used Second Hand Smoke Exposure: Yes service: No Current occupational status: retired Current occupational exposures/hazards: No Cognitive needs: No Hearing needs: No Vision needs: Yes (glasses) Female Reproductive History Menstrual Age of Menarche: 13 Questionnaire PHQ-9 Over the last 2 weeks, how often have you been bothered by any of the following problems? 1. Little interest or pleasure in doing things: not at all 2. Feeling down, depressed, or hopeless: not at all 3. Trouble falling or staying asleep, or sleeping too much: not at all 4. Feeling tired or having little energy: nearly every day 5. Poor appetite or overeating: not at all 6. Feeling bad about yourself - or that you are a failure or have let yourself or your family down: not at all 7. Trouble concentrating on things, such as reading the newspaper or watching television: not at all 8. Moving or speaking so slowly that other people could have noticed. Or the opposite - being so fidgety or restless that you have been moving around a lot more than usual: nearly every day 9. Thoughts that you would be better off or of hurting yourself in some way: not at all Total score: 6 Depression Screening Interpretation: Positive Depression Screening Done: Yes 59160 - PHQ-9 Billing: Yes Source: Developed by Drs. Franck Stanley, Nena Sellers, Richi Atkins and colleagues, with an educational dallin from [employer]. Thrive Questionnaire Date Thrive assessed: 08/03/24 I am a: Patient What is your living situation today?: I have a steady place to live Within the past 12 months, did the food you bought not last and you didn't have the money to get more?: Never true Within the past 12 months, did you worry whether your food would run out before you got money to buy more?: Never true Do you have trouble paying for medicines?: No Do you have trouble getting transportation to medical appointments?: No Do you have trouble paying your heating and electricity bill?: No Do you have trouble taking care of your child, family member or friend?: No Do you have trouble with day-to-day activities such as bathing, preparing meals, shopping, managing finances, etc.?: No Are you currently unemployed and looking for a job?: No Are you interested in more education?: No Please select the resources that you would like help with: None Currently or been in a relationship where the following occur: No concerns reported THRIVE Score: 0 GISEL-7 AMB Questionnaire GISEL-7 Date GISEL - 7 assessed: 08/03/24 Feeling nervous, anxious, or on edge: 1 = Several days Not being able to stop or control worryin = More than half the days Worrying too much about different things: 2 = More than half the days Trouble relaxin = Not at all Being so restless that it is hard to sit still: 1 = Several days Becoming easily annoyed or irritable: 0 = Not at all Feeling afraid as if something awful might happen: 0 = Not at all Total GISEL-7 score (0-4 normal; 5-9 mild; 10-14 moderate; 15-21 severe): 6 Source: Developed by Drs. Franck Stanley, Nena Sellers, Richi Atkins and colleagues, with an educational dallin from [employer]. GISEL-7 Assessment Billing GISEL-7 Assessment Tool: GISEL-7 Assessment 96270 ACT Questionnaire In the past 4 weeks, how much of the time did your asthma keep you from getting as much done at work, school or at home?: All of the time During the past 4 weeks, how often have you had shortness of breath?: More than once a day During the past 4 weeks, how often did your asthma symptoms wake you up at night or earlier than usual in the morning?: 4 or more nights a week (5 times a night) During the past 4 weeks, how often have you had to use your rescue inhaler or nebulizer medication?: 2-3 times a week (twice a week) How would you rate your asthma control during the past 4 weeks?: Somewhat controlled ACT Interpretation: Positive Score: 9 Review of Systems Const Denies chills, Denies fatigue, Denies fever(s), Denies headache(s) and Denies weakness ENT Denies dizziness and Denies headache(s) Card Reports dyspnea Resp Denies cough, Reports dyspnea, Denies wheezing and Denies other (shortness of breath) Musc Denies numbness and Denies tingling Neuro Denies dizziness, Denies headache(s), Denies numbness, Denies tingling and Denies weakness Psych Denies anxiety and Denies depression Endo Denies fatigue Aller/Immun Denies wheezing Physical exam (Primary Care) Vital Signs: Last Vital Signs Pulse 81 08/03/24 13:45 Resp 14 08/03/24 13:45 BP 102/52 L 08/03/24 13:45 Pulse Ox 94 08/03/24 14:01 Oxygen Delivery Method Simple Mask 08/03/24 14:01 Oxygen Flow Rate 2 08/03/24 14:01 BMI result Body Mass Index 26.6 Tobacco/Smoking Status: Tobacco use Status Tobacco use date assessed 08/03/24 08/03/24 13:51 Patient Tobacco Use Status Former Tobacco user 08/03/24 13:51 Tobacco use type Cigarette 08/03/24 13:51 e-Cigarette/Vaping Use Never Used 08/03/24 13:51 PHQ-9: PHQ-9 Score PHQ-9: Total score 6 08/03/24 14:20 Depression Screening Interpretation: Positive Thrive Assessment: Date of Thrive Assessment Date Thrive assessed 08/03/24 08/03/24 13:51 Currently or been in a relationship where the following occur: No concerns reported Const General: well developed; No acute distress Nutritional Appearance: well nourished Orientation/consciousness: patient oriented x3 HENMT Head: Yes normocephalic and Yes atraumatic Eyes General: appearance normal, both eyes and all related structures Pupils: Equal, round and reactive pupils present EOM: EOMs intact bilaterally Resp Effort & Inspection: normal respiratory effort Auscultation: clear to auscultation bilaterally Cardio Rate: regular rate Rhythm: regular rhythm Heart sounds: S1 normal heart sound present, S2 normal heart sound present, no gallops, no murmurs and no rubs Neuro General: patient oriented x3 and gait normal Cranial nerves: Yes Equal, round and reactive pupils present Psych Affect: normal affect Coding Level of Care Code Est Pt Level 4 (79998) Diagnoses Hypoxia R09.02 Supplemental oxygen dependent Z99.81 Chronic pain syndrome G89.4 Hyperlipidemia E78.5 Prediabetes R73.03 COPD exacerbation J44.1 Additional Codes Asthma Control Questionnaire - ACT Interpretation: Positive ([id number]) GISEL-7 Assessment Billing - GISEL-7 Assessment Tool: GISEL-7 Assessment 93078 ([id number]) PHQ-9 - 03005 - PHQ-9 Billing: Yes ([id number]) Assessment & Plan Assessment & Plan (1) Hypoxia: Code(s): R09.02 - Hypoxemia Category: Medical (2) Supplemental oxygen dependent: Comment: 3L w/exertion and 1L at rest Code(s): Z99.81 - Dependence on supplemental oxygen Category: Medical (3) Chronic pain syndrome: Code(s): G89.4 - Chronic pain syndrome Category: Medical (4) Hyperlipidemia: Code(s): E78.5 - Hyperlipidemia, unspecified Category: Medical (5) Prediabetes: Code(s): R73.03 - Prediabetes Category: Medical (6) COPD exacerbation: Code(s): J44.1 - Chronic obstructive pulmonary disease with (acute) exacerbation Category: Medical Plan COPD Exacerbation: Giving?patient?another?round?of?prednisone?and?Z-Vinay Use?oxygen If?worsens?go?to?the?ED Call??Pap?loves?office?to?see?if?they?can?get?you?a?sooner?appointment?if?not?improving -- Ongoing?right?buttock?pain X-ray?of?pelvis?did?not?show?anything to?explain?this Referring?her?to?physiatry Continue?pain?medication?as?prescribed ------- A1c?improved?in?May Continue?diet?low?in?sugars?and?starches Blood?sugar?likely?to?increase?with?prednisone?temporarily. ------ Medications: New montelukast 10 mg PO DAILY 30 days 30 tabs 3RF Changed From prednisone 40 mg (2 x 20 mg) PO DAILY 10 tabs 0RF To prednisone 40 mg (2 x 20 mg) PO DAILY 5 days 10 tabs 0RF Refilled azithromycin For 250 mg dose pack: take 500 mg today (day 1), then 250 mg for 4 days (days 2-5) PO 6 tabs 0RF hydrocodone-acetaminophen 5-325 mg 1 tab in AM and 1/2 tab PM orally daily PRN; Take for pain during daytime. Avoid evening/bedtime. MassPat verified. Partial Fill upon patient request. 30 days 45 tabs 0RF pain G89.4 - Chronic pain syndrome, M54.12 - Radiculopathy, cervical region, M54.16 - Radiculopathy, lumbar region Discontinued hydrocodone-acetaminophen 5-325 mg MassPat Verified. Partial Fill upon patient request. Discontinued Reason: Doctor's Order 1 tab PO Q8H 15 days PRN 45 tabs 0RF pain
[2024-08-03 13:45] VITALS: BP 102/52; PULSE 81; RESP 14; O2SAT 86; BMI 26.6
[2024-08-03 14:01] VITALS: O2SAT 92
== END 2024-08-03 14:34 | disposition home or self-care (01) ==
LOC: HO.HMCFM 13:36
PROVIDERS: PCP Family Medicine; Visit Provider Family Medicine
DX: R09.02 Hypoxemia (principal); J44.1 Chronic obstructive pulmonary disease with (acute) exacerbation; Z99.81 Dependence on supplemental oxygen; G89.4 Chronic pain syndrome; E78.5 Hyperlipidemia, unspecified; R73.03 Prediabetes

== ENCOUNTER → 2024-08-03 13:35 | Outpatient (BNVA) | payer MEDICARE, SELFPAY | PROVIDERS: PCP Family Medicine; Visit Provider Family Medicine | DX: R09.02 Hypoxemia (principal); G89.4 Chronic pain syndrome; E78.5 Hyperlipidemia, unspecified; R73.03 Prediabetes; J44.1 Chronic obstructive pulmonary disease with (acute) exacerbation; Z99.81 Dependence on supplemental oxygen | CPT/HCPCS: 96127; 96160; 99212 ==

== ENCOUNTER 2024-10-26 14:22 | Outpatient (AMB) | payer MEDICARE, SELFPAY ==
[2024-10-26 14:24] VITALS: BP 122/64; PULSE 72; O2SAT 90; BMI 26.4
--- NOTE | 2024-10-26 14:24 | A.OFFVIS_ITS ---
Vital Signs 10/26/24 14:24 Height 5 ft 3 in Weight 149 lb BMI 26.4 BP 122/64 Blood Pressure Location Lt brachial Position Sitting Pulse 72 Pulse Source Pulse Oximeter Pulse Oximetry (%) 90 L Oxygen Delivery Method Room Air Intake Visit Reasons: COPD Allergies duloxetine Adverse Reaction (Intermediate, Verified 08/03/24 13:41) Headache HPI HPI COPD: Details: 64-year-old lady, active 60+ pack-year smoker followed for underlying severe COPD and 2-3 L pulsed flow supplemental oxygen dependent.? She continues to use Anoro, theophylline 200 b.i.d., and albuterol MDI with good control of her underlying symptoms. She does complain of worsening lower extremity edema and orthopnea. Patient does follow-up with geospatial technician and had recent echo that showed similarly elevated right atrial pressures. Patient did have right heart catheterization in 2019 which showed mild pulmonary hypertension on the background of severe COPD. [facility] Medical History (Updated 10/26/24 @ 15:13 by Macho Bynum MD) Supplemental oxygen dependent COVID-19 vaccine series completed History of COVID-19 Median neuropathy Chronic pain syndrome Cervicalgia Spondylosis, cervical Degeneration, intervertebral disc, cervical Left cervical radiculopathy Huma's disease Hypothyroidism Right lumbar radiculopathy Surgical History History of back surgery History of bunionectomy History of pubovaginal sling Hx of cystoscopy Hx of colonoscopy Hx of tubal ligation History of lumbar fusion History of biopsy Family History Father No problems noted. Mother Type 2 diabetes mellitus Daughter Hypothyroidism Social History Household Members Other:: mother Housing: Other Housing Other:: trailer Are you a primary manager home healthcare to a significant other at home: Yes (takes care of mother) Do you presently have visiting nurse or other home services: No Alcohol intake: never Patient Tobacco Use Status: Former Tobacco user Tobacco use type: Cigarette Cigarette Packs Per Day: 1 Cigarettes Per Day: 20 Years Smoked: 20 e-Cigarette/Vaping Use: Never Used Second Hand Smoke Exposure: Yes service: No Current occupational status: retired Current occupational exposures/hazards: No Cognitive needs: No Hearing needs: No Vision needs: Yes (glasses) Female Reproductive History Menstrual Age of Menarche: 13 Review of Systems Const Denies daytime sleepiness, Denies excessive sweating, Denies fatigue, Denies fever(s), Denies lethargy, Denies malaise, Denies night sweats, Denies snoring and Denies weight loss Eyes Denies blurry vision and Denies itchy eyes ENT Denies nasal congestion, Denies post nasal drip, Denies sinus pain, Denies sinus pressure and Denies other ( Thrush) Card Denies chest pain, Reports pedal edema, Denies dyspnea, Reports dyspnea on exertion, Reports orthopnea and Denies paroxysmal nocturnal dyspnea Resp Denies cough, Denies hemoptysis, Denies excessive phlegm production, Denies dyspnea, Reports dyspnea on exertion, Denies snoring and Denies wheezing GI Denies abdominal pain and Denies heartburn Musc Denies myalgias, Denies arthralgias and Denies joint swelling Skin/Breast Denies rash Neuro Denies memory loss and Denies seizure-like activity Psych Denies abnormal sleep pattern, Denies anxiety and Denies memory loss Endo Denies excessive sweating, Denies fatigue and Denies heat intolerance Rl/Lymph Denies easy bruising Aller/Immun Denies itchy eyes, Denies seasonal rhinorrhea and Denies wheezing Physical Exam Vital Signs: Last Vital Signs Pulse 72 10/26/24 14:24 BP 122/64 10/26/24 14:24 Pulse Ox 90 L 10/26/24 14:24 Oxygen Delivery Method Room Air 10/26/24 14:24 BMI result Body Mass Index 26.4 Const General: no acute distress and alert Nutritional Appearance: not obese Orientation/consciousness: Other orientation findings ( oriented) HEENT Head: Yes atraumatic Eyes General: appearance normal, both eyes and all related structures Sclerae: sclerae normal EOM: EOMs intact bilaterally Neck Neck: Yes supple Lymphatic: no lymphadenopathy noted Resp Effort & Inspection: normal respiratory effort and no use of accessory muscles Auscultation: clear to auscultation bilaterally Cardio Rate: regular rate Rhythm: regular rhythm Heart sounds: no gallops, no murmurs and no rubs Skin General skin exam: other ( warm) Extrem General: No clubbing, No cyanosis and Yes edema (2+ bilateral) Assessment & Plan Assessment & Plan (1) COPD (chronic obstructive pulmonary disease): Code(s): J44.9 - Chronic obstructive pulmonary disease, unspecified Category: Medical Plan: Well controlled on current regimen of Anoro, theophylline, and albuterol MDI/nebs. Continue current regimen. (2) Supplemental oxygen dependent: Comment: 3L w/exertion and 1L at rest Code(s): Z99.81 - Dependence on supplemental oxygen Category: Medical Plan: Continue supplemental oxygen to maintain saturation of 89-92%. (3) Orthopnea: Code(s): R06.01 - Orthopnea Category: Medical Plan: With worsening lower extremity edema on a background of pulmonary hypertension likely secondary to underlying severe COPD with suboptimal compliance with diuretic therapy. Patient has been advised to be more compliant with diuretic therapy. Coding Level of Care Code Est Pt Level 4 (15587) Complex EM visit Add On G2211 Diagnoses COPD (chronic obstructive pulmonary disease) J44.9 Supplemental oxygen dependent Z99.81 Orthopnea R06.01
--- OUTSIDE RECORDS SUMMARY | 2024-10-26 14:25 | XMS_ITS | Clinical Summary ---
Author Organization [facility] Address [address] [place] [address] Phone Care Team Providers Care Passenger Coach Driver Name Role Phone Fazal Brandon MD Primary Care Provider [phone] Allergies No known active allergies Medications hydrocodone/bisi taminophen (VICODIN ORAL) Take 325 mg by mouth if needed. Active HELIUM-OXYGEN INHL Inhale by mouth 1 (one) time each day. 3 liter with ambulation , 2 liter at rest Active albuterol HFA (PROAIR HFA ; PROVENTIL HFA ; VENTOLIN HFA) 90 mcg/actuation inhaler as needed. 9 Active furosemide (LASIX) 40 mg tablet Take 1 tablet (40 mg total) by mouth 1 (one) time each day. Active levothyroxine (SYNTHROID, LEVOTHROID) 100 mcg tablet Take 1 tablet (100 mcg total) by mouth 1 (one) time each day. Active rOPINIRole (REQUIP) 5 mg tablet Take 1 tablet (5 mg total) by mouth at bedtime. 0 Active theophylline (THEODUR) 300 mg 12 hr tablet Take 1 tablet (300 mg total) by mouth 2 (two) times a day. Active umeclidinium-vi lanteroL (Anoro Ellipta) 62.5-25 mcg/actuation inhaler Inhale 1 puff by mouth 1 (one) time each day. Active ibuprofen (ADVIL,MOTRIN) 800 mg tablet TAKE 1 TABLET BY MOUTH EVERY NIGHT AT BEDTIME NEEDED FOR PAIN WITH food 4 Active Active Problems Problem Noted Date Diagnosed [...] above her L4-5, L5-S1 fusion levels. Ms. Garrett has severe back and leg pain limiting [...] C-spine MRI I spoke with rep from [employer] She is aware of this. I tried [...] Overview (02/14/2024): Last Assessment & Plan: Ms. Garrett is here for a 1 year follow-up [...] terminate at the base of C2. Ms. Garrett is pleased with the results of her [...] Overview (02/14/2024): Chest pain Assessment & Plan (08/22/2024 11:08 AM EDT): Patient reports exertional shortness of breath accompanied by occasional chest discomfort. Symptoms are consistent with atypical chest discomfort and previous cardiac testing did not reveal any ischemia or infarction. A coronary CTA was recently completed showing no significant coronary artery disease. She also had an echocardiogram which did not reveal any concerning findings. At this point I have recommended that the patient continue to follow with her rack loader and primary care provider to discuss other possible noncardiac etiologies for her symptoms. Assessment & Plan (05/16/2024 9:53 AM EST): [...] 8.7 mL injection Chronic obstructive lung disease ([facility] V24, [facility] V28) 02/24/2021 Overview (02/14/2024): Chronic obstructive lung disease Peripheral arterial occlusive disease ([facility] V 24) 02/24/2021 Overview (02/14/2024): Peripheral arterial occlusive disease COPD (chronic obstructive pu lmonary disease) ([facility] V24, CMS/HCC V28) 09/16/2020 Pulmonary hypertension ([facility] V24, CMS/HCC V28 ) 09/16/2020 Assessment & Plan (08/22/2024 11:08 AM EDT): The patient has a history of pulmonary hypertension that has been deemed to be secondary to her COPD. Right heart catheterization in November 2018 showed a mean PA pressure of 33 mmHg along with a normal wedge pressure. The patient has been followed by her rack loader at [facility] (Dr. Bynum). Nevertheless, the patient denies any prior evaluations with a pulmonary hypertension specialist. Dr. Lopez did recommend she be seen by pulmonary hypertension specialist. We will refer her to Dr. Tai at [facility] pulmonary hypertension clinic. Assessment & Plan (05/16/2024 9:53 AM EST): The patient has a history of pulmonary hypertension that has been deemed to be secondary to her COPD. Right heart catheterization in November 2018 showed a mean PA pressure of 33 mmHg along with a normal wedge pressure. The patient has been followed by her rack loader at [facility] (Dr. Bnyum). Nevertheless, the patient denies any prior evaluations with a pulmonary hypertension specialist. As such, at this point, we will order an echocardiogram to reevaluate her pulmonary artery systolic pressures and to reevaluate her RV function. Will also refer the patient for an evaluation with the [facility] pulmonary hypertension clinic. Orders: Transthoracic echocardiogram (TTE) complete with PRN contrast, bubble, strain, and 3D order panel; Future perflutren lipid microsphere (DEFINITY) 1.3 mL in sodium chloride 0.9% 8.7 mL injection Venous insufficiency 06/06/2020 Assessment & Plan (08/22/2024 11:08 AM EDT): The patient has a history of bilateral lower extremity venous insufficiency. She states that she was previously evaluated by a vascular surgeon. She reports that leg edema increases as the day progresses. Patient advised to wear compression stockings. Resolved Problems Problem Noted Date Diagnosed Date [...] patient will continue to follow-up with her rack loader regarding the management of her COPD. Otherwise, I will reevaluate the patient in 6 months. Encounters Date Type Department Care Team Description 08/24/2024 Telephone [facility] Cardiology [facility] [address] [facility] [address] [place] [address] Matthew Phelps MD Referral (Cardiology/Pulm) 08/24/2024 Telephone [facility] [address] [facility] [address] [place] [address] Matthew Phelps MD 08/22/2024 10:40 AM EDT Office Visit [facility] [address] [place] [address] Daniela Carrillo, MARITZA Pulmonary hypertension (CMS/HCC V24, CMS/HCC V28) (Primary Dx); Venous insufficiency; Other chest pain from Last 3 Months Immunizations Name Administration [...] subsequent removal BLADDER SUSPENSION 03/21/2006 - 03/20/2007 [facility] BACK SURGERY 03/21/2003 - 03/20/2004 Lumbar decompression NECK SURGERY 08/24/2022 C4-5 ACDF, Dr. Joseph TUBAL LIGATION Medical History Medical History Date Comments Depressive disorder DX:Depressiv e disorder Asthma DX:Asthma COPD (chronic obstructive pu lmonary disease) ([facility] V24, [facility] V28) DX:COPD (chronic o bstructive pulmonary disease) ([facility]); COMMENT: severe, on O2 Hypothyroidism DX:Hypothyroidis m Polycythemia vera ([facility] V 24, [facility]28) DX:Polycythemia vera ([facility]) Family History [...] Sign Reading Time Taken Comments Blood Pressure 120/80 08/22/2024 10:29 AM EDT Pulse 84 08/22/2024 10:29 AM EDT Temperature - - Respiratory Rate - - Oxygen Saturation 90% 08/22/2024 10: 29 AM EDT using 2 L of O2 Inhaled Oxygen Concentration - - Weight 65.7 kg (144 lb 14.4 oz) 08/22/2024 10:29 AM EDT Height 160 cm (5' 3 ) 08/22/2024 10:29 AM EDT Body Mass Index 25.67 08/22/2024 10:29 AM EDT Plan of Treatment Health Maintenance Due Date Last Done Comments Breast Cancer Screening 1960 Cervical Cancer Screening: Pap Smear 02/21/1981 Cholesterol Screening (Lipid Panel) 02/21/2022 Colorectal Cancer Screening: Colonoscopy 02/21/2022 HIV Screening 02/21/2022 Hepatitis C Screening 02/21/2022 Medicare Annual Wellness Visit 02/21/2022 Social Influencers of Health Screening 02/21/2022 Depression Screening 03/21/2024 COVID-19 Vaccine (7 - Pfizer risk 2023- season) 2024 12/02/2023, 12/20/2022, 12/02/2021, Additional history exists Influenza Vaccine (#1) 2024 , 12/16/2022, 12/02/2021, Additional history exists DTaP,Tdap,and Td Vaccines (3 - Td or Tdap) 09/03/2033 09/04/2023, 08/01/2020 Zoster Vaccines Completed 09/29/2022, 04/30/2022 RSV Immunization Adult Patients Completed 01/03/2023 Pneumococcal Vaccine: 50+ Years Completed 10/07/2023, 11/16/2016, 11/05/2016 HIB Vaccines Aged Out No longer eligi [...] on patient's age to complete this topic Insurance MEDICARE [facility] Care Teams Passenger Coach Driver Relationship Specialty Start Date End Date Fazal Brandon MD [address] [place] [address] Dr Ghada [place] PCP - General 02/08/20
--- OUTSIDE RECORDS SUMMARY | 2024-10-26 14:25 | XMS_ITS | Patient Health Record ---
[facility] Address [address] [place] [address] Care Team Providers Care Watch Mechanic Name Role Phone Fazal Brandon MD Primary Care Provider Desirae Jose Unavailable [phone] Allergies No Known Allergies Reason For Referral No Information Medications Medication SIG (Take, Route, Frequency, Duration) Notes Start Date End Date Status Theophylline ER 400 MG Oral; Duration: 30 Days Active Levothyroxine Sodium 112 MCG Oral; Duration: 30 Days Active HYDROcodone-Acetaminophen 5-325 MG Oral; Duration: 30 Days Acti ve rOPINIRole HCl 1 MG TAKE 2 TABLETS (2mg) BY MOUTH DAILY AT BEDTIME Oral; Duration: 90 Days Active Pregabalin 150 MG TAKE 1 CAPSULE BY MO UTH ONCE DAILY AT BEDTIME Oral; Duration: 30 Days Active Anoro Ellipta 62.5-25 MCG/ACT Inhalation; Duration: 90 Days Active Social History Tobacco Use: Social [...] Problem Acquired hammer toe of right foot (6924053888375941) Other hammer toe(s) (acquired), right foot (M20.41) Active confirmed Problem Neuropathy (785933306) Neuropathy (G62.9) Active confirmed Problem Localized, primary osteoarthritis of the ankle and/or foot (527743137) Arthritis of joint of lesser toe, right (M19.071) Active confirmed Plan Of Treatment No Information Insurance Providers Payer Name Payer Address Payer Phone Subscriber Number Group Number Insured Name Patient Relationship to Insured Coverage Start Date Coverage End Date Medicare National Govt Paydiant [address] [place] [address] [id number] Rossana Stanley Self - patient is the insured [employer] [address] [place] [address] [id number] Rossana Stanley Self - patient is the insured Medical (General) History Medical History History ICD Code Arthritis asthma Back,Hip,and Knee pain Broken bones covid-19 Fibromyalgia Headaches/Migraines Lung disease Poor circulation Sciatica thyroid Chicken pox COPD Joint implants/screws neuropathy Surgical History Surgery Date(Month/Year) feet 2018 L4 + L5 Back 2004,2005 Gall bladder removal 1999 C4, C5, C6 Back 2021 Hospitalization History Reason Date(Month/Year) [facility]- had a fall 09/05/23
== END 2024-10-26 14:44 | disposition home or self-care (01) ==
LOC: HO.HPS 14:23
PROVIDERS: PCP Family Medicine; Visit Provider Internal Medicine Pulmonary Disease
DX: J44.9 Chronic obstructive pulmonary disease, unspecified (principal); Z99.81 Dependence on supplemental oxygen; R06.01 Orthopnea
CPT/HCPCS: 99214; G2211

== ENCOUNTER → 2024-10-26 14:22 | Outpatient (BNVA) | payer MEDICARE, SELFPAY | PROVIDERS: PCP Family Medicine; Visit Provider Internal Medicine Pulmonary Disease | DX: R06.01 Orthopnea (principal); J44.9 Chronic obstructive pulmonary disease, unspecified; Z99.81 Dependence on supplemental oxygen | CPT/HCPCS: 99212 ==

== ENCOUNTER 2024-11-06 08:22 | Outpatient (REF) | payer MEDICARE, SELFPAY ==
--- OUTSIDE RECORDS SUMMARY | 2024-11-06 09:04 | XMS_ITS | Patient Health Record ---
Author Organization [facility] Address [address] [facility] [address] Care Team Providers Care Digging Machine Operator Name Role Phone Aleksandr SMITH Fazal Primary Care Provider Desirae Jose Unavailable [phone] Allergies No Known Allergies Reason For Referral [...] Problem Acquired hammer toe of right foot (57602359099242 05) Other hammer toe(s) (acquired), right foot (M20.41) Active confirmed Problem Neuropathy (656489584) Neuropathy (G62.9) Active confirmed Problem Arthritis of joint of lesser toe, right (M19.071) Active confirmed Plan Of Treatment No Information Insurance Providers Payer Name Payer Address Payer Phone Subscriber Number Group Number Insured Name Patient Relationship to Insured Coverage Start Date Coverage End Date Medicare National [facility] [employer] [address] [place] [address] [id number] Rossana Stanley Self - patient is the insured [employer] [address] [place] [address] [id number] Rossana Stanley Self - patient is the [...]
--- OUTSIDE RECORDS SUMMARY | 2024-11-06 09:04 | XMS_ITS | Clinical Summary ---
Author Organization [facility] Address [address] [place] [address] Phone Care Team Providers Care Access Service Representative Name Role Phone Fazal Brandon MD Primary [...] C-spine MRI I spoke with rep from [employer]. She is aware of this. I tried [...] the patient continue to follow with her drum worker and primary care provider to discuss other [...] 8.7 mL injection Chronic obstructive lung disease ([facility] V24, C CT/[facility] V28) 02/24/2021 Overview (02/14/2024): Chronic obstructive lung disease Peripheral arterial occlusive disease ([facility] V 24) 02/24/2021 Overview (02/14/2024): Peripheral arterial occlusive disease COPD (chronic obstructive pu lmonary disease) ([facility] V24, CMS/HCC V28) 09/16/2020 Pulmonary hypertension ([facility] V24, CMS/HCC V28 ) 09/16/2020 Assessment & Plan (08/22/2024 11:08 AM EDT): The patient has a history of pulmonary hypertension that has been deemed to be secondary to her COPD. Right heart catheterization in November 2018 showed a mean PA pressure of 33 mmHg along with a normal wedge pressure. The patient has been followed by her drum worker at [facility] (Dr. Bynum). Nevertheless, the patient denies any prior evaluations with a pulmonary hypertension specialist. Dr. Lopez did recommend she be seen by pulmonary hypertension specialist. We will refer her to Dr. Tai at [facility] pulmonary hypertension clinic. Assessment & Plan (05/16/2024 9:53 AM EST): The patient has a history of pulmonary hypertension that has been deemed to be secondary to her COPD. Right heart catheterization in November 2018 showed a mean PA pressure of 33 mmHg along with a normal wedge pressure. The patient has been followed by her drum worker at [facility] (Dr. Bynum). Nevertheless, the patient denies any prior evaluations with a pulmonary hypertension specialist. As such, at this point, we will order an echocardiogram to reevaluate her pulmonary artery systolic pressures and to reevaluate her RV function. Will also refer the patient for an evaluation with the [facility] pulmonary hypertension clinic. Orders: Transthoracic echocardiogram [...] patient will continue to follow-up with her drum worker regarding the management of her COPD. Otherwise, I will reevaluate the patient in 6 months. Encounters Date Type Department Care Team Description 08/24/2024 Telephone [facility] Cardiology [facility] [address] [facility] [address] [place] [address] Matthew Phelps MD Referral (Cardiology/Pulm) 08/24/2024 Telephone [facility] [address] [facility] [address] [place] [address] Matthew Phelps MD 08/22/2024 10:40 AM EDT Office Visit [facility] [address] [place] [address] Daniela Carrillo, MARITZA Pulmonary hypertension (CMS/HCC V24, [...] subsequent removal BLADDER SUSPENSION 03/21/2006 - 03/20/2007 [facility] BACK SURGERY 03/21/2003 - 03/20/2004 Lumbar decompression NECK SURGERY 08/24/2022 C4-5 ACDF, Dr. Joseph TUBAL LIGATION Medical History Medical History Date Comments Depressive disorder DX:Depressiv e disorder Asthma DX:Asthma COPD (chronic obstructive pu lmonary disease) ([facility] V24, [facility] V28) DX:COPD (chronic o bstructive pulmonary disease) ([facility]); COMMENT: severe, on O2 Hypothyroidism DX:Hypothyroidis m Polycythemia vera ([facility] V 24, [facility] V28) DX:Polycythemia vera ([facility]) Family History Medical History Relation Name Comments [...] age to complete this topic Insurance MEDICARE [facility] Care Teams Access Service Representative Relationship Specialty Start Date End Date Fazal Brandon MD [address] [place] [address] Dr Ghada [place] PCP - General 02/08/20
[2024-11-06 11:31] LABS: Alanine Aminotransferase 15 U/L (0-31); Albumin Level 4.4 g/dL (3.5-5.0); Alkaline Phosphatase 64 U/L (39-117); Anion Gap 10 (12-20); Aspartate Amino Transferase 25 U/L (5-31); Blood Urea Nitrogen 10 mg/dL (9-16); Calcium 9.4 mg/dL (8.4-10.2); Carbon Dioxide 35 mmol/L (22-29); Chloride 101 mmol/L (96-108); Estimated Glomerular Filt Rate > 60; Potassium 4.3 mmol/L (3.3-5.1); Sodium 142 mmol/L (135-145); Total Protein 6.8 g/dL (6.5-8.0)
== END 2024-11-06 08:23 | disposition home or self-care (01) ==
LOC: HO.WFDLDS 08:22
PROVIDERS: Visit Provider Family Medicine
DX: Z00.00 Encounter for general adult medical examination without abnormal findings (principal)
CPT/HCPCS: 36415; 80053

== ENCOUNTER 2024-11-12 11:36 | Outpatient (AMB) | payer MEDICARE, SELFPAY ==
[2024-11-12 11:42] VITALS: BP 118/68; PULSE 74; O2SAT 90; BMI 26.2
--- NOTE | 2024-11-12 11:42 | MHC.PC.OV ---
Vital Signs 11/12/24 11:42 Height 5 ft 3 in Weight 148 lb BMI 26.2 BP 118/68 Blood Pressure Location Rt brachial Position Sitting Pulse 74 Pulse Source Pulse Oximeter Pulse Oximetry (%) 90 L Oxygen Delivery Method Room Air Intake Visit Reasons: f/u chronic conditions Allergies duloxetine Adverse Reaction (Intermediate, Verified 11/12/24 11:44) Headache Medication List - Last Reconciled 11/12/24 by Fazal Brandon MD albuterol sulfate 90 mcg/actuation 2 puffs inhalation Q4-6H PRN 1 month albuterol sulfate 2.5 mg (3 mL) inhalation Q4-6H PRN 30 days Anoro Ellipta 62.5-25 mcg/actuation (umeclidinium-vilanterol) 1 inh inhalation DAILY 90 days NS cyclobenzaprine 10 mg PO BID PRN 7 days furosemide 40 mg PO DAILY PRN 30 days hydrocodone-acetaminophen 5-325 mg 1 tab in AM and 1/2 tab PM orally daily PRN; Take for pain during daytime. Avoid evening/bedtime. [employer]Pat verified. Partial Fill upon patient request. 30 days ibuprofen 800 mg PO .qhs PRN 30 days levothyroxine 112 mcg PO DAILY montelukast 10 mg PO DAILY 30 days naproxen 500 mg PO BID PRN 30 days ropinirole 2 mg (2 x 1 mg) PO BEDTIME 90 days theophylline ER 400 mg PO DAILY Tobacco use date assessed: 11/12/24 Fall risk assessment: No Falls in past year Last assessed Fall Risk: 11/12/24 Dental Screening Dental Screen Date: 11/12/24 Did you have a dental visit in the last 12 months?: Yes Did you have a dental problem in the last 6 months where you did not have access to dental care?: No Was dental information given to patient?: Patient has dentist HPI f/u chronic conditions HPI Details 64 y/o female presents to f/u chronic conditions. Had been following up with pulmonology for COPD. Had been following up with Cardiology. Continues to work on being consistent with her Lasix. A1c today 6.0% - prediabetes range. Has complaints of back pain. [facility] Medical History (Updated 11/12/24 @ 12:44 by Robert Terry) Supplemental oxygen dependent COVID-19 vaccine series completed History of COVID-19 Median neuropathy Chronic pain syndrome Cervicalgia Spondylosis, cervical Degeneration, intervertebral disc, cervical Left cervical radiculopathy Huma's disease Hypothyroidism Right lumbar radiculopathy Surgical History History of back surgery History of bunionectomy History of pubovaginal sling Hx of cystoscopy Hx of colonoscopy Hx of tubal ligation History of lumbar fusion History of biopsy Family History Father No problems noted. Mother Type 2 diabetes mellitus Daughter Hypothyroidism Social History Household Members Other:: mother Housing: Other Housing Other:: trailer Are you a primary customer care team coach to a significant other at home: Yes (takes care of mother) Do you presently have visiting nurse or other home services: No Alcohol intake: never Patient Tobacco Use Status: Former Tobacco user Tobacco use type: Cigarette Cigarette Packs Per Day: 1 Cigarettes Per Day: 20 Years Smoked: 20 Packs Per Year: 20 Packs per year/per ci.00 e-Cigarette/Vaping Use: Never Used Second Hand Smoke Exposure: Yes service: No Current occupational status: retired Current occupational exposures/hazards: No Cognitive needs: No Hearing needs: No Vision needs: Yes (glasses) Female Reproductive History Menstrual Age of Menarche: 13 Questionnaire PHQ-9 Over the last 2 weeks, how often have you been bothered by any of the following problems? 1. Little interest or pleasure in doing things: not at all 2. Feeling down, depressed, or hopeless: not at all 3. Trouble falling or staying asleep, or sleeping too much: not at all 4. Feeling tired or having little energy: nearly every day 5. Poor appetite or overeating: not at all 6. Feeling bad about yourself - or that you are a failure or have let yourself or your family down: not at all 7. Trouble concentrating on things, such as reading the newspaper or watching television: not at all 8. Moving or speaking so slowly that other people could have noticed. Or the opposite - being so fidgety or restless that you have been moving around a lot more than usual: nearly every day 9. Thoughts that you would be better off or of hurting yourself in some way: not at all Total score: 6 Depression Screening Interpretation: Positive Depression Screening Follow-up: In treatment Depression Screening Done: Yes Source: Developed by Drs. Franck Stanley, Nena Sellers, Richi Atkins and colleagues, with an educational dallin from [employer]. Thrive Questionnaire Date Thrive assessed: 04/30/24 I am a: Patient What is your living situation today?: I have a steady place to live Within the past 12 months, did the food you bought not last and you didn't have the money to get more?: Never true Within the past 12 months, did you worry whether your food would run out before you got money to buy more?: Never true Do you have trouble paying for medicines?: No Do you have trouble getting transportation to medical appointments?: No Do you have trouble paying your heating and electricity bill?: No Do you have trouble taking care of your child, family member or friend?: No Do you have trouble with day-to-day activities such as bathing, preparing meals, shopping, managing finances, etc.?: No Are you currently unemployed and looking for a job?: No Are you interested in more education?: No Please select the resources that you would like help with: None Currently or been in a relationship where the following occur: No concerns reported THRIVE Score: 0 AUDIT C Alcohol Use Questionnaire (AUDIT-C) 1. How often do you have a drink containing alcohol?: Never 3. How often do you have six or more drinks on one occasion?: Never Total Score: 0 GISEL-7 AMB Questionnaire GISEL-7 Date GISEL - 7 assessed: 08/03/24 Feeling nervous, anxious, or on edge: 1 = Several days Not being able to stop or control worryin = More than half the days Worrying too much about different things: 2 = More than half the days Trouble relaxin = Not at all Being so restless that it is hard to sit still: 1 = Several days Becoming easily annoyed or irritable: 0 = Not at all Feeling afraid as if something awful might happen: 0 = Not at all Total GISEL-7 score (0-4 normal; 5-9 mild; 10-14 moderate; 15-21 severe): 6 Source: Developed by Drs. Franck Stanley, Nena Sellers, Richi Atkins and colleagues, with an educational dallin from [employer]. Review of Systems Const Denies chills, Denies fatigue, Denies fever(s), Denies headache(s) and Denies weakness ENT Denies dizziness and Denies headache(s) Card Denies dyspnea Resp Denies cough, Denies dyspnea, Denies wheezing and Denies other (shortness of breath) Musc Denies numbness and Denies tingling Neuro Denies dizziness, Denies headache(s), Denies numbness, Denies tingling and Denies weakness Psych Denies anxiety and Denies depression Endo Denies fatigue Aller/Immun Denies wheezing Physical exam (Primary Care) Vital Signs: Last Vital Signs Pulse 74 11/12/24 11:42 BP 118/68 11/12/24 11:42 Pulse Ox 90 L 11/12/24 11:42 Oxygen Delivery Method Room Air 11/12/24 11:42 BMI result Body Mass Index 26.2 Tobacco/Smoking Status: Tobacco use Status Tobacco use date assessed 11/12/24 11/12/24 11:47 Patient Tobacco Use Status Former Tobacco user 11/12/24 11:47 Tobacco use type Cigarette 11/12/24 11:47 e-Cigarette/Vaping Use Never Used 11/12/24 11:47 PHQ-9: PHQ-9 Score PHQ-9: Total score 6 11/12/24 12:28 Depression Screening Interpretation: Positive Depression Screening Follow-up: In treatment Thrive Assessment: Date of Thrive Assessment Date Thrive assessed 04/30/24 11/12/24 11:47 Currently or been in a relationship where the following occur: No concerns reported Const General: well developed; No acute distress Nutritional Appearance: well nourished Orientation/consciousness: patient oriented x3 HENMT Head: Yes normocephalic and Yes atraumatic Eyes General: appearance normal, both eyes and all related structures Pupils: Equal, round and reactive pupils present EOM: EOMs intact bilaterally Resp Effort & Inspection: normal respiratory effort Neuro General: patient oriented x3 and gait normal Cranial nerves: Yes Equal, round and reactive pupils present Psych Affect: normal affect Results AMB Hemoglobin A1c AMB Hemoglobin A1c 6.0 % Last Edit by Peggy Persaud CMA on 11/12/24 11:55 Results Reviewed Results Reviewed: Laboratory Last Values Hgb A1c (Clinic) 6.0 % (4.0-6.0) 11/12/24 11:48 Coding Level of Care Code Est Pt Level 4 (28213) Diagnoses COPD (chronic obstructive pulmonary disease) J44.9 Prediabetes R73.03 Coronary artery disease involving [place] coronary artery of [place] heart without angina pectoris I25.10 Associated angina: without angina Coronary Disease-Associated Artery/Lesion type: [place] artery [place] vs. transplanted heart: [place] heart Back pain M54.9 Assessment & Plan Assessment & Plan (1) COPD (chronic obstructive pulmonary disease): Code(s): J44.9 - Chronic obstructive pulmonary disease, unspecified Category: Medical Plan: Breathing easily today in the office Lungs CTA B/L She does note some dyspnea when trying to mow her lawn. Encouraged her to continue current medications. She can pre treat with albuterol prior to exertion. Avoid the hottest part of the day or when air quality is poor Avoid secondhand smoke-her mother still smokes in the house. Follow-up with pulmonology as recommended (2) Prediabetes: Code(s): R73.03 - Prediabetes Category: Medical Plan: A1c 6.0%. Still in pre diabetes range. Continue working at a diet lower in sugars and starches (3) CAD (coronary artery disease): Comment: CAD (noted on CT lung 07/28/23 CORONARY ARTERY CALCIFICATION: Minimal) Code(s): I25.10 - Atherosclerotic heart disease of [place] coronary artery without angina pectoris Category: Medical Qualifiers: Associated angina: without angina Coronary Disease-Associated Artery/Lesion type: [place] artery [place] vs. transplanted heart: [place] heart Qualified Code(s): I25.10 - Atherosclerotic heart disease of [place] coronary artery without angina pectoris Plan: Followed by cardiology. Recent echocardiogram showed normal EF though did show elevated RV pressures, likely secondary to pulmonary hypertension in the setting COPD. Continue current medications Continue furosemide Follow-up with Cardiology as recommended (4) Back pain: Code(s): M54.9 - Dorsalgia, unspecified Category: Medical Plan: Patient has right midback paraspinous muscle tension and discomfort. Start physical therapy Check x-ray Can use a short course of muscle relaxant Continue chronic pain medication Causing using both of these together and do not operate machinery or drive a car until you know how they make you feel. Orders: Orders AMB Hemoglobin A1c Today Z13.9 - Encounter for screening, unspecified PT Evaluation and Treatment Today M54.9 - Dorsalgia, unspecified Comprehensive [place]. Panel Fast Today Z00.00 - Encounter for general adult medical examination without abnormal findings Complete Blood Count Auto Diff Today Z00.00 - Encounter for general adult medical examination without abnormal findings Microalbumin, Random (w Creat) Today I10 - Essential (primary) hypertension UA CC w/rflx Micro + Cult Today Z00.00 - Encounter for general adult medical examination without abnormal findings Free T4 (Free Thyroxine) Today E03.9 - Hypothyroidism, unspecified XR thoracic spine 2V Today M54.9 - Dorsalgia, unspecified Lipid Panel Today Z00.00 - Encounter for general adult medical examination without abnormal findings Vitamin D 25-OH Total Today E55.9 - Vitamin D deficiency, unspecified Triiodothyronine T3 Total Today E03.9 - Hypothyroidism, unspecified Thyroid Stimulating Hormone Today E03.9 - Hypothyroidism, unspecified Medications: New cyclobenzaprine 5 mg PO DAILY PRN 10 tabs 0RF muscle pain/spasm 10 days
--- OUTSIDE RECORDS SUMMARY | 2024-11-12 13:10 | XMS_ITS | Patient Health Record ---
[facility] Address [address] [place] [address] Care Team Providers Care Charge Aide Name Role Phone Fazal Brandon MD Primary Care Provider Desirae Jose Unavailable [phone] Allergies No Known Allergies Reason For Referral [...] Problem Acquired hammer toe of right foot ([id number]) Other hammer toe(s) (acquired), right foot (M20.41) Active confirmed Problem Neuropathy (383810299) Neuropathy (G62.9) Active confirmed Problem Localized, primary osteoarthritis of the ankle and/or foot (802392551) Arthritis of joint of lesser toe, right (M19.071) Active confirmed Plan Of Treatment No Information Insurance Providers Payer Name Payer Address Payer Phone Subscriber Number Group Number Insured Name Patient Relationship to Insured Coverage Start Date Coverage End Date Medicare National Govt [email or web address] [address] [place] [address] [id number] Rossana Stanley Self - patient is the insured [employer] [address] [place] [address] [id number] Rossana Stanley Self - patient is the [...]
--- OUTSIDE RECORDS SUMMARY | 2024-11-12 13:10 | XMS_ITS | Clinical Summary ---
Author Organization [address] [facility] Address [address] [place] [address] Phone Care Team Providers Care Turret Lathe Machinist Name Role Phone Fazal Brandon MD Primary [...] C-spine MRI I spoke with rep from [facility]. She is aware of this. I tried [...] the patient continue to follow with her brick pitcher and primary care provider to discuss other [...] 8.7 mL injection Chronic obstructive lung disease ([facility] V24, [place]/[facility] V28) 02/24/2021 Overview (02/14/2024): Chronic obstructive lung disease Peripheral arterial occlusive disease ([facility] V 24) 02/24/2021 Overview (02/14/2024): Peripheral arterial occlusive disease COPD (chronic obstructive pu lmonary disease) ([facility] V24, CMS/HCC V28) 09/16/2020 Pulmonary hypertension ([facility] V24, CMS/HCC V28 ) 09/16/2020 Assessment & Plan (08/22/2024 11:08 AM EDT): The patient has a history of pulmonary hypertension that has been deemed to be secondary to her COPD. Right heart catheterization in November 2018 showed a mean PA pressure of 33 mmHg along with a normal wedge pressure. The patient has been followed by her brick pitcher at [facility] (Dr. Bynum). Nevertheless, the patient denies any prior evaluations with a pulmonary hypertension specialist. Dr. Lopez did recommend she be seen by pulmonary hypertension specialist. We will refer her to Dr. Tai at [facility] pulmonary hypertension clinic. Assessment & Plan (05/16/2024 9:53 AM EST): The patient has a history of pulmonary hypertension that has been deemed to be secondary to her COPD. Right heart catheterization in November 2018 showed a mean PA pressure of 33 mmHg along with a normal wedge pressure. The patient has been followed by her brick pitcher at [facility] (Dr. Bynum). Nevertheless, the patient denies any prior evaluations with a pulmonary hypertension specialist. As such, at this point, we will order an echocardiogram to reevaluate her pulmonary artery systolic pressures and to reevaluate her RV function. Will also refer the patient for an evaluation with the [facility] pulmonary hypertension clinic. Orders: Transthoracic echocardiogram [...] patient will continue to follow-up with her brick pitcher regarding the management of her COPD. Otherwise, I will reevaluate the patient in 6 months. Encounters Date Type Department Care Team Description 08/24/2024 Telephone [facility] Cardiology [facility] [address] [place] [address] Matthew Phelps MD Referral (Cardiology/Pulm) 08/24/2024 Telephone [facility] [address] [place] [address] Matthew Phelps MD 08/22/2024 10:40 AM EDT Office Visit [facility] [address] [place] [address] Daniela Carrillo, MARITZA Pulmonary hypertension (CMS/HCC V24, [...] subsequent removal BLADDER SUSPENSION 03/21/2006 - 03/20/2007 [facility] BACK SURGERY 03/21/2003 - 03/20/2004 Lumbar decompression NECK SURGERY 08/24/2022 C4-5 ACDF, Dr. Joseph TUBAL LIGATION Medical History Medical History Date Comments Depressive disorder DX:Depressiv e disorder Asthma DX:Asthma COPD (chronic obstructive pu lmonary disease) ([facility] V24, [facility] V28) DX:COPD (chronic o bstructive pulmonary disease) ([facility]); COMMENT: severe, on O2 Hypothyroidism DX:Hypothyroidis m Polycythemia vera ([facility] V 24, [facility] V28) DX:Polycythemia vera ([facility]) Family History Medical History Relation Name Comments [...] age to complete this topic Insurance MEDICARE [facility] Care Teams Turret Lathe Machinist Relationship Specialty Start Date End Date Fazal Brandon MD [address] [place] [address] Dr Ghada [place] PCP - General 02/08/20
== END 2024-11-12 12:55 | disposition home or self-care (01) ==
LOC: HO.HMCFM 11:37
PROVIDERS: PCP Family Medicine; Visit Provider Family Medicine
DX: J44.9 Chronic obstructive pulmonary disease, unspecified (principal); R73.03 Prediabetes; I25.10 Atherosclerotic heart disease of native coronary artery without angina pectoris; M54.9 Dorsalgia, unspecified; Z13.9 Encounter for screening, unspecified

== ENCOUNTER → 2024-11-12 11:36 | Outpatient (BNVA) | payer MEDICARE, SELFPAY | PROVIDERS: PCP Family Medicine; Visit Provider Family Medicine | DX: J44.9 Chronic obstructive pulmonary disease, unspecified (principal); R73.03 Prediabetes; I25.10 Atherosclerotic heart disease of native coronary artery without angina pectoris; M54.9 Dorsalgia, unspecified | CPT/HCPCS: 83036; 99212 ==

== ENCOUNTER 2025-01-24 10:22 | Outpatient (REF) | payer MEDICARE, SELFPAY ==
--- OUTSIDE RECORDS SUMMARY | 2025-01-24 12:13 | XMS_ITS | Patient Health Record ---
[facility] Address [address] [place] [address] Care Team Providers Care Machine Iii Coremaker Name Role Phone Fazal Brandon MD Primary Care Provider Desirae Jose Unavailable [phone] Allergies No Known Allergies Reason For Referral [...] Problem Acquired hammer toe of right foot ([id number]) Other hammer toe(s) (acquired), right foot (M20.41) Active confirmed Problem Neuropathy (280058816) Neuropathy (G62.9) Active confirmed Problem Localized, primary osteoarthritis of the ankle and/or foot (928546467) Arthritis of joint of lesser toe, right (M19.071) Active confirmed Plan Of Treatment No Information Insurance Providers Payer Name Payer Address Payer Phone Subscriber Number Group Number Insured Name Patient Relationship to Insured Coverage Start Date Coverage End Date Medicare National Govt [employer] [address] [place] [address] [id number] Rossana Stanley Self - patient is the insured [employer] [address] [place] [address] [id number] Rossana Stanley Self - patient is the [...]
--- OUTSIDE RECORDS SUMMARY | 2025-01-24 12:13 | XMS_ITS | Clinical Summary ---
Author Organization [facility] Address [address] [place] [address] Phone Care Team Providers Care Product Coordinator Name Role Phone Fazal Brandon MD Primary [...] C-spine MRI I spoke with rep from [employer]. She is aware of this. I tried [...] the patient continue to follow with her animal rehabilitator and primary care provider to discuss other [...] 8.7 mL injection Chronic obstructive lung disease ([facility] V24, [place] V28) 02/24/2021 Overview (02/14/2024): Chronic obstructive lung disease Peripheral arterial occlusive disease ([facility] V 24) 02/24/2021 Overview (02/14/2024): Peripheral arterial occlusive disease COPD (chronic obstructive pu lmonary disease) ([facility] V24, CMS/HCC V28) 09/16/2020 Pulmonary hypertension ([facility] V24, [facility]/HCC V28 ) 09/16/2020 Assessment & Plan (08/22/2024 11:08 AM EDT): The patient has a history of pulmonary hypertension that has been deemed to be secondary to her COPD. Right heart catheterization in November 2018 showed a mean PA pressure of 33 mmHg along with a normal wedge pressure. The patient has been followed by her animal rehabilitator at [facility] (Dr. Bynum). Nevertheless, the patient denies any prior evaluations with a pulmonary hypertension specialist. Dr. Lopez did recommend she be seen by pulmonary hypertension specialist. We will refer her to Dr. Tai at [facility] pulmonary hypertension clinic. Assessment & Plan (05/16/2024 9:53 AM EST): The patient has a history of pulmonary hypertension that has been deemed to be secondary to her COPD. Right heart catheterization in November 2018 showed a mean PA pressure of 33 mmHg along with a normal wedge pressure. The patient has been followed by her animal rehabilitator at [facility] (Dr. Bynum). Nevertheless, the patient denies any prior evaluations with a pulmonary hypertension specialist. As such, at this point, we will order an echocardiogram to reevaluate her pulmonary artery systolic pressures and to reevaluate her RV function. Will also refer the patient for an evaluation with the [facility] pulmonary hypertension clinic. Orders: Transthoracic echocardiogram [...] patient will continue to follow-up with her animal rehabilitator regarding the management of her COPD. Otherwise, I will reevaluate the patient in 6 months. Immunizations Immunization Administration Dates Next Due Influenza Quadrivalent, 0.5m [...] subsequent removal BLADDER SUSPENSION 03/21/2006 - 03/20/2007 [facility] BACK SURGERY 03/21/2003 - 03/20/2004 Lumbar decompression NECK SURGERY 08/24/2022 C4-5 ACDF, Dr. Joseph TUBAL LIGATION Medical History Medical History Date Comments Depressive disorder DX:Depressiv e disorder Asthma DX:Asthma COPD (chronic obstructive pu lmonary disease) (CMS/[facility] V24, CMS/HCC V28) DX:COPD (chronic o bstructive pulmonary disease) ([facility]); COMMENT: severe, on O2 Hypothyroidism DX:Hypothyroidis m Polycythemia vera (CMS/HCC V 24, CMS/HCC V28) DX:Polycythemia vera (HCC) Family History Medical History Relation Name Comments [...] Last Done Comments Breast Cancer Screening 1960 Colorectal Cancer Screening: Colonoscopy 1960 Cervical Cancer Screening: Pap Smear 02/21/1981 Cholesterol Screening (Lipid Panel) 02/21/2022 HIV Screening 02/21/2022 Hepatitis C Screening 02/21/2022 Medicare Annual Wellness Visit 02/21/2022 Social Influencers of Health Screening 02/21/2022 Depression Screening 03/21/2024 COVID-19 Vaccine (7 - Pfizer risk season) 2024 12/02/2023, 12/20/2022, 12/02/2021, Additional history [...] age to complete this topic Insurance MEDICARE [facility] Care Teams Product Coordinator Relationship Specialty Start Date End Date Fazal Brandon MD [address] [place] [address] Dr Ghada [place] PCP - General 02/08/20
--- OUTSIDE RECORDS SUMMARY | 2025-01-24 12:13 | XMS_ITS | Encounter Summary ---
Author Organization [facility] Address [address] [place] [address] Care Team Providers Care Events Intern Name Role Phone Fazal Brandon MD Primary Care Provider [phone] Reason for Visit * Reason Onset Date Comments Referral 08/24/2024 Cardiology/Pulm Encounter Details Date Type Department Care Team (Late st Contact Info) Description 08/24/2024 Telephone [facility] [address] [place] [phone] Matthew Phelps MD [address] [place] [address] Dr [address] [place] [phone] Social History Tobacco Use Types Packs/Day Years [...] Progress Notes * Swetha Cherry MA - 01/23/2025 9:34 AM EST Patient has been scheduled with [facility] Pul on 02/19/25 at 11:20am located [address] [facility] [facility] will contact patient directly with appointment. * Swetha Cherry MA - 08/27/2024 9:14 AM EDT Faxed over referral, demo, GAYLE, Echo results, and cath results to [facility] [phone]. * Matthew Phelps MD - 08/24/2024 3:59 PM EDT Please refer the patient for an evaluation with Dr. Marisol Bautista who is a pulmonary hypertension specialist associated with the [facility] cardiology department. The phone number is [phone]. Diagnosis: Pulmonary hypertension. With the referral, please include the following information: Office visit note from 08/22/2024. Echocardiogram results from 07/20/2024 and right heart catheterization results from 12/14/2018. documented in this encounter Plan of Treatment Not on file documented as of this encounter Visit Diagnoses Not on filedocumented in this encounter Care Teams Events Intern Relationship Specialty Start Date End Date Fazal Brandon MD [address] [place] [address] Dr Ghada [place] PCP - General 02/08/20 documented as of this encounter
[2025-01-24 14:11] LABS: MANUAL DIFF FLAG NO
[2025-01-24 14:13] LABS: Appearance Urine Clear; Glucose Urine UA Negative (Negative); PH 8.5 (5.0-9.0); Specific Gravity - Urine <= 1.005 (1.005-1.025)
[2025-01-24 14:22] LABS: Hematocrit 50.2 % (37.0-47.0); Hemoglobin 15.8 g/dl (12.0-16.0); Imm Gran Abs Auto 0.01 X10*3/uL (0.00-0.03); Imm Gran Pct Auto 0.2 % (0.0-0.4); Lymphocytes Absolute Auto 0.9 X10*3/uL (1.2-4.9); Mean Corpuscular HGB Conc 31.5 g/dl (31.0-35.0); Mean Corpuscular Hemoglobin 30.5 pg (27.0-33.0); Mean Corpuscular Volume 96.9 fL (80.0-98.0); NRBC Abs Auto 0.000 X10*3/uL (0.0-0.012); NRBC Pct Auto 0.0 /100WBC (0.0-0.2); Platelet Count 227 X10*3/uL (160-400); Red Blood Count 5.18 X10*6/uL (4.20-5.50); White Blood Count 5.7 X10*3/uL (4.8-10.8)
[2025-01-24 14:39] LABS: Alanine Aminotransferase 17 U/L (0-31); Albumin Level 4.7 g/dL (3.5-5.0); Alkaline Phosphatase 63 U/L (39-117); Anion Gap 10 (12-20); Aspartate Amino Transferase 27 U/L (5-31); Blood Urea Nitrogen 15 mg/dL (9-16); Calcium 10.1 mg/dL (8.4-10.2); Carbon Dioxide 38 mmol/L (22-29); Chloride 97 mmol/L (96-108); Cholesterol 255 mg/dL (<200); Estimated Glomerular Filt Rate > 60; HDL Cholesterol 90 mg/dL (>40); Potassium 3.7 mmol/L (3.3-5.1); Sodium 141 mmol/L (135-145); Total Protein 7.3 g/dL (6.5-8.0); Triglycerides 67 mg/dL (<150)
[2025-01-24 14:55] LABS: Free T4 (Free Thyroxine) 1.29 ng/dL (0.71-1.85); Thyroid Stimulating Hormone 1.83 uIU/mL (0.32-4.0)
== END 2025-01-24 10:23 | disposition home or self-care (01) ==
LOC: HO.WFDLDS 10:22
PROVIDERS: Visit Provider Family Medicine
DX: Z00.00 Encounter for general adult medical examination without abnormal findings (principal); I10 Essential (primary) hypertension; E55.9 Vitamin D deficiency, unspecified; E03.9 Hypothyroidism, unspecified
CPT/HCPCS: 36415; 80053; 80061; 81003; 82043; 82306; 82570; 84439; 84443; 84480; 85025

== ENCOUNTER 2025-01-30 08:50 | Outpatient (AMB) | payer MEDICARE, SELFPAY ==
--- NOTE | 2025-01-30 09:09 | MHC.PC.OV ---
Vital Signs 01/30/25 09:15 Height 5 ft 3 in Weight 150 lb 4 oz BMI 26.6 BP 100/60 Blood Pressure Location Rt brachial Position Sitting Respiration 12 Pulse 94 Pulse Source Pulse Oximeter Temp 98.3 F Temp Source Oral Pulse Oximetry (%) 84 L Oxygen Delivery Method Room Air Intake Visit Reasons: cpe Intake Note: patient is scheduled for CPE Hand Clerical Verifier Required: No Is last menstrual period known: No Post menopausal: Yes Patient : No Allergies duloxetine Adverse Reaction (Intermediate, Verified 01/30/25 09:09) Headache Medication List - Last Reconciled 01/30/25 by Fazal Brandon MD albuterol sulfate 90 mcg/actuation 2 puffs inhalation Q4-6H PRN 1 month albuterol sulfate 2.5 mg (3 mL) inhalation Q4-6H PRN 30 days Anoro Ellipta 62.5-25 mcg/actuation (umeclidinium-vilanterol) 1 inh inhalation DAILY 90 days NS furosemide 40 mg PO DAILY PRN 30 days hydrocodone-acetaminophen 5-325 mg 1 tab in AM and 1/2 tab PM orally daily PRN; Take for pain during daytime. Avoid evening/bedtime. MassPat verified. Partial Fill upon patient request. 30 days ibuprofen 800 mg PO .qhs PRN 30 days levothyroxine 112 mcg PO DAILY montelukast 10 mg PO DAILY 30 days naproxen 500 mg PO BID PRN 30 days ropinirole 2 mg (2 x 1 mg) PO BEDTIME 90 days theophylline ER 250 mg PO Q24H Tobacco use date assessed: 01/30/25 Fall risk assessment: No Falls in past year Last assessed Fall Risk: 01/30/25 Dental Screening Dental Screen Date: 01/30/25 Did you have a dental visit in the last 12 months?: Yes Did you have a dental problem in the last 6 months where you did not have access to dental care?: No Was dental information given to patient?: No HPI cpe HPI Details 64 y/o female presents for a CPE with f/u labs and health maint. Labs drawn 01/24/25. Reviewed labs with pt. Hct mildly high. Triglycerides 67. TC 255. LDL 152. HDL 90. Vitamin D 42.2 ng/mL. TSH 1.83 uIU/mL, Free T4 1.29 ng/dL. Total T3 84 ng/dL. A1c today 6.1%. O2 sat today 84. Pt notes she has not been breathing well the past few weeks. Pt notes she had a chest x-ray at [facility] last week which showed no acute abnormalities. [facility] Medical History Supplemental oxygen dependent COVID-19 vaccine series completed History of COVID-19 Median neuropathy Chronic pain syndrome Cervicalgia Spondylosis, cervical Degeneration, intervertebral disc, cervical Left cervical radiculopathy Huma's disease Hypothyroidism Right lumbar radiculopathy Surgical History History of back surgery History of bunionectomy History of pubovaginal sling Hx of cystoscopy Hx of colonoscopy Hx of tubal ligation History of lumbar fusion History of biopsy Family History Father No problems noted. Mother Type 2 diabetes mellitus Daughter Hypothyroidism Social History Household Members Other:: mother Housing: Other Housing Other:: trailer Are you a primary acute care assistant to a significant other at home: Yes (takes care of mother) Do you presently have visiting nurse or other home services: No Alcohol intake: never Patient Tobacco Use Status: Former Tobacco user Tobacco use type: Cigarette Cigarette Packs Per Day: 1 Cigarettes Per Day: 20 Years Smoked: 20 e-Cigarette/Vaping Use: Never Used Second Hand Smoke Exposure: Yes service: No Current occupational status: retired Current occupational exposures/hazards: No Cognitive needs: No Hearing needs: No Vision needs: Yes (glasses) Female Reproductive History Menstrual Age of Menarche: 13 Questionnaire PHQ-9 Over the last 2 weeks, how often have you been bothered by any of the following problems? 1. Little interest or pleasure in doing things: several days 2. Feeling down, depressed, or hopeless: not at all 3. Trouble falling or staying asleep, or sleeping too much: nearly every day 4. Feeling tired or having little energy: several days 5. Poor appetite or overeating: not at all 6. Feeling bad about yourself - or that you are a failure or have let yourself or your family down: not at all 7. Trouble concentrating on things, such as reading the newspaper or watching television: several days 8. Moving or speaking so slowly that other people could have noticed. Or the opposite - being so fidgety or restless that you have been moving around a lot more than usual: not at all 9. Thoughts that you would be better off or of hurting yourself in some way: not at all Total score: 6 Depression Screening Interpretation: Negative Depression Screening Done: Yes 25355 - PHQ-9 Billing: Yes Source: Developed by Drs. Franck Stanley, Nena Sellers, Richi Atkins and colleagues, with an educational dallin from [employer]. Thrive Questionnaire Date Thrive assessed: 01/30/25 I am a: Patient What is your living situation today?: I have a steady place to live Within the past 12 months, did the food you bought not last and you didn't have the money to get more?: Never true Within the past 12 months, did you worry whether your food would run out before you got money to buy more?: Never true Do you have trouble paying for medicines?: No Do you have trouble getting transportation to medical appointments?: No Do you have trouble paying your heating and electricity bill?: No Do you have trouble taking care of your child, family member or friend?: No Do you have trouble with day-to-day activities such as bathing, preparing meals, shopping, managing finances, etc.?: No Are you currently unemployed and looking for a job?: No Are you interested in more education?: No Please select the resources that you would like help with: None Currently or been in a relationship where the following occur: No concerns reported THRIVE Score: 0 AUDIT C Alcohol Use Questionnaire (AUDIT-C) 1. How often do you have a drink containing alcohol?: Never Total Score: 0 Score Reviewed/Action Taken: Yes GISEL-7 AMB Questionnaire GISEL-7 Date GISEL - 7 assessed: 01/30/25 Feeling nervous, anxious, or on edge: 1 = Several days Not being able to stop or control worryin = Nearly every day Worrying too much about different things: 1 = Several days Trouble relaxin = Several days Being so restless that it is hard to sit still: 0 = Not at all Becoming easily annoyed or irritable: 0 = Not at all Feeling afraid as if something awful might happen: 0 = Not at all Total GISEL-7 score (0-4 normal; 5-9 mild; 10-14 moderate; 15-21 severe): 6 Source: Developed by Drs. Franck Stanley, Nena Sellers, Richi Atkins and colleagues, with an educational dallin from [employer]. GISEL-7 Assessment Billing GISEL-7 Assessment Tool: GISEL-7 Assessment 69016 ACT Questionnaire In the past 4 weeks, how much of the time did your asthma keep you from getting as much done at work, school or at home?: Most of the time During the past 4 weeks, how often have you had shortness of breath?: More than once a day During the past 4 weeks, how often did your asthma symptoms wake you up at night or earlier than usual in the morning?: 4 or more nights a week During the past 4 weeks, how often have you had to use your rescue inhaler or nebulizer medication?: More than 3 times per day How would you rate your asthma control during the past 4 weeks?: Poorly controlled ACT Interpretation: Positive Score: 7 Review of Systems Const Denies chills, Denies fatigue, Denies fever(s), Denies headache(s) and Denies weakness Eyes Denies change in vision ENT Denies dizziness, Denies headache(s), Denies hearing loss, Denies nasal congestion, Denies sinus pain, Denies sinus pressure and Denies sore throat Card Denies chest pain, Denies lightheadedness, Denies dyspnea and Denies other (palpitations) Resp Denies cough, Denies dyspnea and Denies wheezing GI Denies abdominal pain, Denies melena, Denies hematochezia, Denies change in bowel habits, Denies dyspepsia and Denies nausea Denies hematuria and Denies dysuria Musc Denies abnormal gait, Denies myalgias, Denies arthralgias, Denies numbness and Denies tingling Skin/Breast Denies rash, Denies unusual bruising and Denies wounds Neuro Denies abnormal gait, Denies dizziness, Denies headache(s), Denies memory loss, Denies numbness, Denies Sensory deficit (Neuro), Denies tingling and Denies weakness Psych Denies anxiety, Denies depression and Denies memory loss Endo Denies cold intolerance, Denies fatigue, Denies heat intolerance, Denies polydipsia and Denies polyuria Rl/Lymph Denies easy bleeding and Denies easy bruising Aller/Immun Denies wheezing Physical exam (Primary Care) Vital Signs: Last Vital Signs Temp 98.3 F 01/30/25 09:15 Pulse 94 01/30/25 09:15 Resp 12 01/30/25 09:15 BP 100/60 01/30/25 09:15 Pulse Ox 84 L 01/30/25 09:15 Oxygen Delivery Method Room Air 01/30/25 09:15 BMI result Body Mass Index 26.6 Tobacco/Smoking Status: Tobacco use Status Tobacco use date assessed 01/30/25 01/30/25 09:18 Patient Tobacco Use Status Former Tobacco user 01/30/25 09:18 Tobacco use type Cigarette 01/30/25 09:18 e-Cigarette/Vaping Use Never Used 01/30/25 09:18 PHQ-9: PHQ-9 Score PHQ-9: Total score 6 01/30/25 09:18 Depression Screening Interpretation: Negative Thrive Assessment: Date of Thrive Assessment Date Thrive assessed 01/30/25 01/30/25 09:18 Currently or been in a relationship where the following occur: No concerns reported Const General: no acute distress, well developed, alert and awake Nutritional Appearance: well nourished Orientation/consciousness: patient oriented x3 HENMT Head: Yes normocephalic and Yes atraumatic Ears: hearing grossly normal bilaterally and TM's normal bilaterally General nose exam: Normal external nose present and Normal nares present Mouth: Normal oral and palatal mucosa present and moist mucous membranes Teeth and gingiva: dentition normal Throat: Yes posterior oropharynx normal Eyes General: appearance normal, both eyes and all related structures Pupils: Equal, round and reactive pupils present and Pupil accommodation reflex normal EOM: EOMs intact bilaterally Neck Neck: Yes normal visual inspection, Yes no lymphadenopathy and Yes trachea midline Thyroid: Thyroid normal Carotids: no bruits Lymphatic: no lymphadenopathy noted Chest Chest palpation & inspection: normal inspection of the chest Resp Other: Coarseness throughout Effort & Inspection: normal respiratory effort Auscultation: clear to auscultation bilaterally Cardio Rate: regular rate Rhythm: regular rhythm Heart sounds: S1 normal heart sound present, S2 normal heart sound present, no gallops, no murmurs and no rubs Bruits: no abdominal aortic bruits and no carotid bruits GI Palpation (GI): No Abdominal aortic bruit present, Soft to palpation, nontender, No hepatosplenomegaly present and No Rebound tenderness present Auscultation: normal bowel sounds General: Yes no CVA tenderness Back/Spine/Pelvis Back: no CVA tenderness Cervical Spine: cervical ROM normal and No Cervical spine tenderness Thoracic/Lumbar Spine: thoraco-lumbar ROM normal, No pain with thoraco-lumbar ROM, No thoracic spinal tenderness and No lumbar spinal tenderness Skin Lesions: no lesions Rashes: no rashes Trauma: no lacerations or abrasions Wounds: no wounds Nails: normal Neuro General: patient oriented x3 Cranial nerves: Yes Equal, round and reactive pupils present Cognition (Neuro): normal cognition Gait exam (Neuro): Normal gait present Motor exam (neuro): 5/5 motor strength present throughout Sensory Exam: No Sensory deficit (Neuro) Deep tendon reflexes (DTR's): Right patellar reflex intensity grade: 2+ and Left patellar reflex intensity grade: 2+ Extrem General: Yes normal to inspection and No edema Psych Appearance: grossly normal Affect: normal affect Attitude: cooperative Thought process: Normal thought process present Results AMB Hemoglobin A1c AMB Hemoglobin A1c 6.1 % Last Edit by KATYA Yo on 01/30/25 09:21 Results Reviewed Results Reviewed: Laboratory Last Values Hgb A1c (Clinic) 6.1 % (4.0-6.0) H 01/30/25 09:20 Coding Level of Care Code Est Pt Level 4 (23922) Diagnoses Adult general medical exam Z00.00 Coronary artery disease involving [place] coronary artery of [place] heart without angina pectoris I25.10 Associated angina: without angina Coronary Disease-Associated Artery/Lesion type: [place] artery [place] vs. transplanted heart: [place] heart Hyperlipidemia E78.5 Hypothyroidism, unspecified type E03.9 Hypothyroidism type: unspecified Prediabetes R73.03 Encounter for screening mammogram for breast cancer Z12.31 Screening for colon cancer Z12.11 Screening for cervical cancer Z12.4 Osteopenia M85.80 Chronic pain syndrome G89.4 Hypoxia R09.02 COPD exacerbation J44.1 Additional Codes Asthma Control Questionnaire - ACT Interpretation: Positive ([id number]) GISEL-7 Assessment Billing - GISEL-7 Assessment Tool: GISEL-7 Assessment 37507 ([id number]) PHQ-9 - 16215 - PHQ-9 Billing: Yes ([id number]) Assessment & Plan Assessment & Plan (1) Adult general medical exam: Code(s): Z00.00 - Encounter for general adult medical examination without abnormal findings Category: Medical Plan: 64-year-old female presents for complete physical exam (2) CAD (coronary artery disease): Comment: CAD (noted on CT lung 07/28/23 CORONARY ARTERY CALCIFICATION: Minimal) Code(s): I25.10 - Atherosclerotic heart disease of [place] coronary artery without angina pectoris Category: Medical Qualifiers: Associated angina: without angina Coronary Disease-Associated Artery/Lesion type: [place] artery [place] vs. transplanted heart: [place] heart Qualified Code(s): I25.10 - Atherosclerotic heart disease of [place] coronary artery without angina pectoris Plan: Currently stable Lipids are too high-see below (3) Hyperlipidemia: Code(s): E78.5 - Hyperlipidemia, unspecified Category: Medical Plan: LDL cholesterol is too high Goal is less than 70 Will start atorvastatin (4) Hypothyroidism: Code(s): E03.9 - Hypothyroidism, unspecified Category: Medical Qualifiers: Hypothyroidism type: unspecified Qualified Code(s): E03.9 - Hypothyroidism, unspecified Plan: Thyroid hormone levels all within normal range on levothyroxine 112 mcg daily Continue current medication (5) Prediabetes: Code(s): R73.03 - Prediabetes Category: Medical Plan: A1c in pre diabetes range Will continue to monitor Work on diet low in sugars and starches (6) Encounter for screening mammogram for breast cancer: Code(s): Z12.31 - Encounter for screening mammogram for malignant neoplasm of breast Category: Medical Plan: Patient declines annual mammograms and would like to get mammograms every few years. Will readdress at next physical (7) Screening for colon cancer: Code(s): Z12.11 - Encounter for screening for malignant neoplasm of colon Category: Medical Plan: Cologuard test in 2023. Will repeat in 2026 (8) Screening for cervical cancer: Code(s): Z12.4 - Encounter for screening for malignant neoplasm of cervix Category: Medical Plan: Due for Pap smear Encouraged her to contact her dobby loom weaver (9) Osteopenia: Comment: DEXA 2024 Code(s): M85.80 - Other specified disorders of bone density and structure, unspecified site Category: Medical Plan: Bone density test from earlier this year shows osteopenia Continue good sources of calcium and vitamin-D (10) Chronic pain syndrome: Code(s): G89.4 - Chronic pain syndrome Category: Medical Plan: Chronic upper in mid back pain Continue hydrocodone She has not been using much ibuprofen and I encouraged this as well (11) Hypoxia: Code(s): R09.02 - Hypoxemia Category: Medical (12) COPD exacerbation: Code(s): J44.1 - Chronic obstructive pulmonary disease with (acute) exacerbation Category: Medical Plan Patient with COPD and hypoxia. Oxygen saturation low in office today as patient left her oxygen tank in the car. Use oxygen Appears to have an exacerbation today however with rather coarse breath sounds diffusely Will give her a script for short course of prednisone and antibiotic. Orders: Orders AMB Hemoglobin A1c Today R73.03 - Prediabetes Medications: New prednisone 40 mg (2 x 20 mg) PO DAILY 10 tabs 0RF 5 days atorvastatin (Lipitor) 40 mg PO BEDTIME 90 tabs 3RF 90 days cephalexin 500 mg PO Q12H 14 caps 0RF 7 days Changed From theophylline ER 300 mg PO Q24H 30 days 30 caps 3RF To theophylline ER 250 mg PO Q24H From ibuprofen 800 mg PO .qhs 30 days PRN 30 tabs 2RF pain To ibuprofen 800 mg PO Q12H PRN 60 tabs 2RF pain 30 days Refilled hydrocodone-acetaminophen 5-325 mg 1 tab in AM and 1/2 tab PM orally daily PRN; Take for pain during daytime. Avoid evening/bedtime. MassPat verified. Partial Fill upon patient request. 45 tabs 0RF pain 30 days G89.4 - Chronic pain syndrome, M54.12 - Radiculopathy, cervical region, M54.16 - Radiculopathy, lumbar region
[2025-01-30 09:15] VITALS: BP 100/60; PULSE 94; RESP 12; TEMP 36.8; O2SAT 84; BMI 26.6
--- OUTSIDE RECORDS SUMMARY | 2025-01-30 09:18 | XMS_ITS | Clinical Summary ---
Author Organization [address] [facility] Address [address] [place] [address] Phone Care Team Providers Care Head Of Partner Development Name Role Phone Fazal Brandon MD Primary Care Provider [phone] Allergies No known active allergies Medications hydrocodone/bisi [...] C-spine MRI I spoke with rep from [employer]. She is aware of this. I tried [...] the patient continue to follow with her transmitter supervisor and primary care provider to discuss other [...] 8.7 mL injection Chronic obstructive lung disease ([facility] V24, [facility] [place]/[facility] V28) 02/24/2021 Overview (02/14/2024): Chronic obstructive lung disease Peripheral arterial occlusive disease ([facility] V 24) 02/24/2021 Overview (02/14/2024): Peripheral arterial occlusive disease COPD (chronic obstructive pu lmonary disease) ([facility] V24, CMS/HCC V28) 09/16/2020 Pulmonary hypertension ([facility] V24, [facility]/HCC V28 ) 09/16/2020 Assessment & Plan (08/22/2024 11:08 AM EDT): The patient has a history of pulmonary hypertension that has been deemed to be secondary to her COPD. Right heart catheterization in November 2018 showed a mean PA pressure of 33 mmHg along with a normal wedge pressure. The patient has been followed by her transmitter supervisor at [facility] (Dr. Bynum). Nevertheless, the patient denies any prior evaluations with a pulmonary hypertension specialist. Dr. Lopez did recommend she be seen by pulmonary hypertension specialist. We will refer her to Dr. Tai at [facility] pulmonary hypertension clinic. Assessment & Plan (05/16/2024 9:53 AM EST): The patient has a history of pulmonary hypertension that has been deemed to be secondary to her COPD. Right heart catheterization in November 2018 showed a mean PA pressure of 33 mmHg along with a normal wedge pressure. The patient has been followed by her transmitter supervisor at [facility] (Dr. Bynum). Nevertheless, the patient denies any prior evaluations with a pulmonary hypertension specialist. As such, at this point, we will order an echocardiogram to reevaluate her pulmonary artery systolic pressures and to reevaluate her RV function. Will also refer the patient for an evaluation with the [facility] pulmonary hypertension clinic. Orders: Transthoracic echocardiogram (TTE) [...] patient will continue to follow-up with her transmitter supervisor regarding the management of her COPD. Otherwise, [...] subsequent removal BLADDER SUSPENSION 03/21/2006 - 03/20/2007 [facility] BACK SURGERY 03/21/2003 - 03/20/2004 Lumbar decompression NECK SURGERY 08/24/2022 C4-5 ACDF, Dr. Joseph TUBAL LIGATION Medical History Medical History Date Comments Depressive disorder DX:Depressiv e disorder Asthma DX:Asthma COPD (chronic obstructive pu lmonary disease) ([facility] V24, CMS/HCC V28) DX:COPD (chronic o bstructive pulmonary disease) ([facility]); COMMENT: severe, on O2 Hypothyroidism DX:Hypothyroidis [...] Screening 02/21/2022 Depression Screening 03/21/2024 COVID-19 Vaccine ( season) 2024 12/02/2023, 12/20/2022, 12/02/2021, Additional history [...] age to complete this topic Insurance MEDICARE [facility] Care Teams Head Of Partner Development Relationship Specialty Start Date End Date Fazal Brandon MD [address] [place] [address] Dr Ghada [place] PCP - General 02/08/20
--- OUTSIDE RECORDS SUMMARY | 2025-01-30 09:18 | XMS_ITS | Patient Health Record ---
[facility] Address [address] [place] [address] Care Team Providers Care Boat Pilot Name Role Phone Fazal Brandon MD Primary Care Provider Desirae Jose Unavailable [phone] Allergies No Known Allergies Reason For Referral [...] Problem Acquired hammer toe of right foot ([id number]) Other hammer toe(s) (acquired), right foot (M20.41) Active confirmed Problem Neuropathy ([id number]) Neuropathy (G62.9) Active confirmed Problem Localized, primary osteoarthritis of the ankle and/or foot ([id number]) Arthritis of joint of lesser toe, right (M19.071) Active confirmed Plan Of Treatment No Information Insurance Providers Payer Name Payer Address Payer Phone Subscriber Number Group Number Insured Name Patient Relationship to Insured Coverage Start Date Coverage End Date Medicare National Govt [employer] [address] [place] [address] [id number] Rossana Stanley Self - patient is the insured [employer] [address] [place] [address] [id number] Rossana Stanley Self - patient is the [...]
== END 2025-01-30 10:05 | disposition home or self-care (01) ==
LOC: HO.HMCFM 08:51
PROVIDERS: PCP Family Medicine; Visit Provider Family Medicine
DX: Z00.00 Encounter for general adult medical examination without abnormal findings (principal); I25.10 Atherosclerotic heart disease of native coronary artery without angina pectoris; E78.5 Hyperlipidemia, unspecified; E03.9 Hypothyroidism, unspecified; R73.03 Prediabetes; Z12.31 Encounter for screening mammogram for malignant neoplasm of breast; Z12.11 Encounter for screening for malignant neoplasm of colon; Z12.4 Encounter for screening for malignant neoplasm of cervix; M85.80 Other specified disorders of bone density and structure, unspecified site; G89.4 Chronic pain syndrome; R09.02 Hypoxemia; J44.1 Chronic obstructive pulmonary disease with (acute) exacerbation

== ENCOUNTER → 2025-01-30 08:50 | Outpatient (BNVA) | payer MEDICARE, SELFPAY | PROVIDERS: PCP Family Medicine; Visit Provider Family Medicine | DX: Z00.00 Encounter for general adult medical examination without abnormal findings (principal); I25.10 Atherosclerotic heart disease of native coronary artery without angina pectoris; E78.5 Hyperlipidemia, unspecified; E03.9 Hypothyroidism, unspecified; R73.03 Prediabetes; M85.80 Other specified disorders of bone density and structure, unspecified site; G89.4 Chronic pain syndrome; R09.02 Hypoxemia; J44.1 Chronic obstructive pulmonary disease with (acute) exacerbation | CPT/HCPCS: 83036; 96127; 96160; 99212 ==